=== PATIENT | female | born 1960 | race Caucasian/White ===

== ENCOUNTER 2017-04-30 18:35 | Inpatient (IN) | payer BC ==
[~2017-04-30] VITALS: Ht 160 cm; Wt 79.7 kg
[~2017-04-30 18:35] MED LIST: AMIL5TAB PO; BUTACAP2 PO; DUONI NEB; JANT5TAB2 PO; MORP1INJ45 PO; MSIR15 PO; VITA20003 PO; XANA1TAB6 PO
[2017-04-30 18:40] VITALS: BP 191/109; PULSE 107; RESP 22; TEMP 95; O2SAT 94
[2017-04-30] MEDS ORDERED: SODIUM CHLORIDE 0.9% FLUSH 5 ML FLUSH IV FLUSH PRN ×2 (18:45→20:45)
[2017-04-30 18:49] VITALS: TEMP 98.9; O2SAT 95
[2017-04-30] MEDS ORDERED: SYMB160A INH (18:49)
[2017-04-30] MEDS ORDERED: WARF-21 PO (18:49)
[2017-04-30] MEDS ORDERED: MODU550 PO (18:49)
[2017-04-30] MEDS ORDERED: ALBUAER3 INH (18:49)
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
[2017-04-30 19:02] VITALS: BP 199/91; PULSE 105; RESP 13; O2SAT 98
[2017-04-30 19:13] LABS: AUTOMATED NEUTROPHIL # 4.2 TH/MM3 (1.8-7.7); BASOPHIL # 0.1 TH/MM3 (0-0.2); BASOPHIL % 1.2 % (0.0-2.0); EOSINOPHIL % 0.6 % (0.0-4.0); HEMATOCRIT 37.7 % (35.0-46.0); HEMO FLAGS DIFF FINAL; LYMPHOCYTE # 1.7 TH/MM3 (1.0-4.8); MEAN CELL VOLUME 94.4 FL (80.0-100.0); MEAN CORPUSCULAR HEMOGLOBIN 32.8 PG (27.0-34.0); MEAN CORPUSCULAR HGB CONC 34.8 % (32.0-36.0); MONO % 10.1 % (0.0-8.0); NEUT % 63.1 % (16.0-70.0); PLATELET COUNT 426 TH/MM3 (150-450); RED BLOOD COUNT 3.99 MIL/MM3 (4.00-5.30); RED CELL DISTRIBUTION WIDTH 18.5 % (11.6-17.2); WHITE BLOOD COUNT 6.7 TH/MM3 (4.0-11.0)
[2017-04-30] MEDS ORDERED: LABETALOL HCL 100 MG/20 ML VIAL IV PUSH ONE (19:15)
[2017-04-30 19:24] LABS: APTT (PATIENT) 49.2 SEC (24.3-30.1); PROTHROMBIN TIME - PATIENT 94.3 SEC (9.8-11.6)
[2017-04-30 19:30] VITALS: BP 173/98; PULSE 91; RESP 16; O2SAT 97
--- NOTE | 2017-04-30 19:42 | RADRPT ---
EXAM DATE/TIME: 04/30/2017 19:09 [facility] COMPARISON: No previous studies available for comparison. INDICATIONS : Altered mental status. RADIATION DOSE: 30.58 CTDIvol (mGy) MEDICAL HISTORY : Hypertension. CVA. DVT. HEP C. COPD. SURGICAL HISTORY : Craniotomy. ENCOUNTER: Initial ACUITY: 1 day PAIN SCALE: Non-responsive LOCATION: cranial TECHNIQUE: Multiple contiguous axial images were obtained of the head. Using automated exposure control and adj ustment of the mA and/or kV according to patient size, radiation dose was kept as low as reasonably a chievable to obtain optimal diagnostic quality images. DICOM format image data is available electro nically for review and comparison. FINDINGS: There has been previous left temporal craniotomy. There is some encephalomalacia in the underlying br ain parenchyma. There is no evidence of intracranial mass or hemorrhage. There is nothing to suggest acute infarction. The extracranial structures are otherwise benign and intact. CONCLUSION: No acute intracranial findings Omer Harris MD on April 30, 2017 at 19:38 Board Certified Radiologist. This report was verified electronically.
[2017-04-30 19:43] LABS: ALT (GPT) 24 U/L (10-53)
[2017-04-30 19:45] LABS: ANION GAP 10 MEQ/L (5-15); AST (GOT) 29 U/L (15-37); BICARBONATE 22.9 MEQ/L (21.0-32.0); BLOOD UREA NITROGEN 12 MG/DL (7-18); CHLORIDE 101 MEQ/L (98-107); GLOMERULAR FILTRATION RATE 63 ML/MIN (>89); SODIUM (NA) 134 MEQ/L (136-145)
[2017-04-30 19:49] LABS: ALCOHOL LESS THAN 3 MG/DL (0-5); POTASSIUM 3.6 MEQ/L (3.5-5.1)
--- NOTE | 2017-04-30 19:49 | RADRPT ---
EXAM DATE/TIME: 04/30/2017 19:15 [facility] COMPARISON: CHEST SINGLE AP, January 04, 2016, 21:02. INDICATIONS : Syncopal episode. MEDICAL HISTORY : Hypertension. Cardiovascular disease. Chronic obstructive pulmonary disease. Asthma. SURGICAL HISTORY : None. ENCOUNTER: Initial ACUITY: 1 day PAIN SCORE: Non-responsive. LOCATION: Bilateral chest FINDINGS: Minimal scarring or atelectasis in the lateral left lung base. Mild patchy interstitial prominence. N o evidence of alveolar consolidation or effusion. Cardiomediastinal contours are satisfactory. CONCLUSION: Stable chest appearance. Omer Harris MD on April 30, 2017 at 19:46 Board Certified Radiologist. This report was verified electronically.
[2017-04-30 19:51] LABS: INTERNATIONAL NORMALIZED RATIO 7.8 RATIO
[2017-04-30 19:59] LABS: ALKALINE PHOSPHATASE 110 U/L (45-117); CREATINE KINASE 110 U/L (26-192); TOTAL BILIRUBIN ADULT 0.3 MG/DL (0.2-1.0)
[2017-04-30 20:00] VITALS: BP 166/86; PULSE 95; RESP 16; O2SAT 97
[2017-04-30 20:18] LABS: BLOOD, URINE NEG (NEG); COMMENT (UR) CATH-CULTURE IND; CULTURE IF INDICATED CATH CULTURE IND; GLUCOSE,URINE NEG (NEG); HYALINE CAST, URINE 13 /lpf (RARE); KETONE, URINE 10 mg/dL (NEG); MUCUS URINE FEW /lpf (OCC); NITRITE,URINE NEG (NEG); SQUAMOUS EPITHELIAL CELL URINE 4 /hpf (0-5); URINE COLOR YELLOW (YELLW/STRAW)
--- NOTE | 2017-04-30 20:34 | HHI.HP ---
[facility] Unknown Admission Diagnosis Diagnoses: (1) Encephalopathy Diagnosis: Principal (2) CVA (cerebral vascular accident) Diagnosis: Principal (3) UTI (urinary tract infection) Diagnosis: Principal (4) Hypertensive urgency Diagnosis: Principal (5) Supratherapeutic INR Diagnosis: Principal (6) Factor V Leiden Diagnosis: Principal Travel History International Travel<30 Days: No Contact w/Intl Traveler <30 Da: No Traveled to Known Affected Are: No History of Present Illness Is a 57-year-old female with a PMH of HTN, Anxiety, Depression, Factor V Leiden , s/p IVC Filter, on Coumadin, CAD, h/o CVA, Hepatitis C, COPD, Tobacco Abuse and h/o Alcohol who was brought to the ER by EMS secondary to altered mental status noted by Son. Per report, Son called EMS after he noted pt to be confused, not answering questions appropriately, repeating same words. Last seen normal at approx 10am per report. On arrival, pt unable to provide history , +expressive aphasia, no motor deficits noted. On arrival, BP 191/109, HR 107 , O2 sat 94% on RA, Afebrile. S/p Labetalol 10mg IV in ER, repeat BP 160's systolic. CBC unremarkable. Chemistry essentially unremarkable except for GFR 63. Troponin negative. Ammonia normal. INR 7.8. UA positive for UTI. Alcohol negative. Urine Drug Screen pending. CXR with no acute findings. CT Head negative. While in ER, pt w/ some improvement in aphasia, speaking more, answering more appropriately, however still w/ residual aphasia. Review of Systems Except as stated in HPI: all other systems reviewed are Neg ROS: Unable to obtain. Past Family Social History Past Medical History PMH: HTN, Anxiety, Depression, Factor V Leiden, s/p IVC Filter, on Coumadin, CAD, h/o CVA, Hepatitis C, COPD, Tobacco Abuse and h/o Alcohol Past Surgical History PAST SURGICAL HISTORY: IVC, , Back Surgery, Craniotomy, Hip Replacement Allergies: Coded Allergies: prednisone (Unverified Allergy, Severe, facial swelling, 10/25/17) Family History PAST FAMILY HISTORY: Reviewed. No h/o DM or CAD Social History PAST SOCIAL HISTORY: History of alcohol abuse per records, however unable to confirm. +Tobacco. Negative for drugs. Physical Exam Vital Signs Vital Signs Date Time Temp Pulse Resp B/P (MAP) Pulse Ox O2 Delivery O2 Flow Rate FiO2 04/30/17 19:02 105 13 199/91 (127) 98 Nasal Cannula 4.00 04/30/17 18:49 95 Nasal Cannula 3.00 04/30/17 18:49 98.9 04/30/17 18:44 95 Nasal Cannula 04/30/17 18:40 95.0 107 22 191/109 (136) 94 Physical Exam PE: GENERAL: Middle-aged white female in no acute distress. HEENT: PERRLA, EOMI. No scleral icterus or conjunctival pallor. No lid lag or facial droop. CARDIOVASCULAR: Regular rate and rhythm. No obvious murmurs to auscultation. No chest tenderness to palpation. RESPIRATORY: No obvious rhonchi or wheezing. Clear to auscultation. Breath sounds equal bilaterally. GASTROINTESTINAL: Abdomen soft, non-tender, nondistended. BS normal. MUSCULOSKELETAL: Extremities without clubbing, cyanosis, or edema. No obvious deformities. NEUROLOGICAL: Awake, alert, answers few sentences, +word finding difficulty. No focal neurologic deficits. Moving both upper and lower extremities spontaneously. Laboratory Laboratory Tests Test 04/30/17 18:50 04/30/17 18:55 04/30/17 19:40 White Blood Count 6.7 Red Blood Count 3.99 Hemoglobin 13.1 Hematocrit 37.7 Mean Corpuscular Volume 94.4 Mean Corpuscular Hemoglobin 32.8 Mean Corpuscular Hemoglobin Concent 34.8 Red Cell Distribution Width 18.5 Platelet Count 426 Mean Platelet Volume 8.2 Neutrophils (%) (Auto) 63.1 Lymphocytes (%) (Auto) 25.0 Monocytes (%) (Auto) 10.1 Eosinophils (%) (Auto) 0.6 Basophils (%) (Auto) 1.2 Neutrophils # (Auto) 4.2 Lymphocytes # (Auto) 1.7 Monocytes # (Auto) 0.7 Eosinophils # (Auto) 0.0 Basophils # (Auto) 0.1 CBC Comment DIFF FINAL Differential Comment Prothrombin Time 94.3 Prothromb Time International Ratio 7.8 Activated Partial Thromboplast Time 49.2 Blood Urea Nitrogen 12 Creatinine 0.93 Random Glucose 145 Total Protein 8.3 Albumin 3.9 Calcium Level 10.1 Alkaline Phosphatase 110 Aspartate Amino Transf (AST/SGOT) 29 Alanine Aminotransferase (ALT/SGPT) 24 Total Bilirubin 0.3 Sodium Level 134 Potassium Level 3.6 Chloride Level 101 Carbon Dioxide Level 22.9 Anion Gap 10 Estimat Glomerular Filtration Rate 63 Total Creatine Kinase 110 Troponin I LESS THAN 0.02 Thyroid Stimulating Hormone 3rd Gen 2.070 Ethyl Alcohol Level LESS THAN 3 Lactic Acid Level 1.7 Ammonia 19 Urine Color YELLOW Urine Turbidity HAZY Urine pH 6.0 Urine Specific [place] 1.044 Urine Protein 30 Urine Glucose (UA) NEG Urine Ketones 10 Urine Occult Blood NEG Urine Nitrite NEG Urine Bilirubin NEG Urine Urobilinogen 2.0 Urine Leukocyte Esterase SMALL Urine RBC 4 Urine WBC 6 Urine Squamous Epithelial Cells 4 Urine Hyaline Casts 13 Urine Mucus FEW Microscopic Urinalysis Comment CATH-CULTURE IND Date/Time Source Procedure Growth Status 04/30/17 18:55 Blood Peripheral Aerobic Blood Culture Pending Received 04/30/17 18:55 Blood Peripheral Anaerobic Blood Culture Pending Received 04/30/17 19:40 Urine Catheterized Urine Urine Culture Pending Received Result Diagram: 04/30/17184904/30/171849 Caprini VTE Risk Assessment Caprini VTE Risk Assessment: Mod/High Risk (score >= 2) VTE Pharm Contraindication: Coagulopathy,INR elevated Caprini Risk Assessment Model Point Value = 1 Point Value = 2 Point Value = 3 Point Value = 5 Age 41-60 Minor surgery BMI > 25 kg/m2 Swollen legs Varicose veins or History of unexplained or recurrent spontaneous Oral contraceptives or hormone replacement Sepsis (< 1 month) Serious lung disease, including pneumonia (< 1 month) Abnormal pulmonary function Acute myocardial infarction Congestive heart failure (< 1 month) History of inflammatory bowel disease Medical patient at bed rest Age 61-74 Arthroscopic surgery Major open surgery (> 45 min) Laparoscopic surgery (> 45 min) Malignancy Confined to bed (> 72 hours) Immobilizing plaster cast Central venous access Age >= 75 History of VTE Family history of VTE Factor V Leiden Prothrombin [id number] Lupus anticoagulant Anticardiolipin antibodies Elevated serum homocysteine Heparin-induced thrombocytopenia Other congenital or acquired thrombophilia Stroke (< 1 month) Elective arthroplasty Hip, pelvis, or leg fracture Acute spinal cord injury (< 1 month) Prophylaxis Regimen Total Risk Factor Score Risk Level Prophylaxis Regimen 0-1 Low Early ambulation 2 Moderate Order ONE of the following: *Sequential Compression Device (SCD) *Heparin 5000 units SQ BID 3-4 Higher Order ONE of the following medications: *Heparin 5000 units SQ TID *Enoxaparin/Lovenox 40 mg SQ daily (WT < 150 kg, CrCl > 30 mL/min) *Enoxaparin/Lovenox 30 mg SQ daily (WT < 150 kg, CrCl > 10-29 mL/min) *Enoxaparin/Lovenox 30 mg SQ BID (WT < 150 kg, CrCl > 30 mL/min) AND/OR *Sequential Compression Device (SCD) 5 or more Highest Order ONE of the following medications: *Heparin 5000 units SQ TID (Preferred with Epidurals) *Enoxaparin/Lovenox 40 mg SQ daily (WT < 150 kg, CrCl > 30 mL/min) *Enoxaparin/Lovenox 30 mg SQ daily (WT < 150 kg, CrCl > 10-29 mL/min) *Enoxaparin/Lovenox 30 mg SQ BID (WT < 150 kg, CrCl > 30 mL/min) AND *Sequential Compression Device (SCD) Assessment and Plan Problem List: (1) Encephalopathy ICD Code: G93.40 - Encephalopathy, unspecified (2) CVA (cerebral vascular accident) ICD Code: I63.9 - Cerebral infarction, unspecified (3) UTI (urinary tract infection) ICD Code: N39.0 - Urinary tract infection, site not specified (4) Hypertensive urgency ICD Code: I16.0 - Hypertensive urgency (5) Supratherapeutic INR ICD Code: R79.1 - Abnormal coagulation profile Status: Acute (6) Factor V Leiden ICD Code: D68.51 - Activated protein C resistance Status: Acute Assessment and Plan A/P: 1. Encephalopathy: Acute, possibly combination of CVA w/ Acute UTI, mildly improved at this time. Neuro checks q4. IV Abx for UTI. Monitor mental status. 2. CVA: Acute onset of expressive aphasia, word finding difficulty, now mildly improved, asking more questions, responding more appropriately however residual expressive aphasia. CT Head w/ no acute findings, images reviewed by me. H/o Factor V however on Coumadin, INR supratherapeutic. Check MRI/MRA, Echo, PT/ST for eval/tx. Consult Neurology. 3. UTI: Mild. U/a w/ UTI. Start IV Rocephin, IVF for hydration. 4. Hypertensive Urgency: BP 190's on arrival, s/p Labetalol 10mg IV x1 in ER, currently BP 160's, in light of CVA will allow for permissive HTN, Vasotec prn for BP >220 5. Supratherapeutic INR: On Coumadin for h/o Factor V, INR 7.8. No active bleeding. Will not reverse due to h/o Factor V and significant risk for clot. Repeat INR in am. 6. Factor V Leiden: h/o IVC Filter, on Coumadin as above. Hold Coumadin for now as supratherapeutic, resume once in therapeutic range. 7. DVT Prophylaxis: Hold Coumadin 8. Social work for d/c planning as needed. 9. Case discussed w/ ER physician at length. Physician Certification 2 Midnight Certification Type: Admission for Inpatient Services Order for Inpatient Services The services are ordered in accordance with Medicare regulations or non- Medicare payer requirements, as applicable. In the case of services not specified as inpatient-only, they are appropriately provided as inpatient services in accordance with the 2-midnight benchmark. Estimated LOS (days): 2 days is the estimated time the patient will need to remain in the hospital, assuming treatment plan goals are met and no additional complications. Post-Hospital Plan: Not yet determined Karely Rodarte MD Apr 30, 2017 20:34
[2017-04-30] MEDS ORDERED: ENALAPRILAT 1.25 MG/ML VIAL IV PUSH PRN (20:45)
[2017-04-30] MEDS ORDERED: DEXTROSE 50% IN WATER 50 ML VIAL(D50) IV PUSH PRN (20:45)
[2017-04-30] MEDS ORDERED: GLUCAGON 1 MG/ML VIAL OTHER PRN (20:45)
[2017-04-30] MEDS: INSULIN ASPART SUPPLEMENTAL SCALE SQ SCH (21:00)
[2017-04-30] MEDS: SODIUM CHLOR 0.9% 1000 ML INJ 1,000 ML IV SCH (21:30)
[2017-04-30] MEDS: SODIUM CHLORIDE 0.9% FLUSH 5 ML FLUSH IV FLUSH SCH (21:30)
[2017-04-30] MEDS ORDERED: oxyCODONE/ACETAMINOPHEN 5 MG/325 MG TAB PO ONE (22:30)
[2017-04-30 23:30] VITALS: BP 144/94; PULSE 79; RESP 17; TEMP 98.5; O2SAT 95
[2017-04-30] MEDS: cefTRIAXone INJ 1,000 MG in SODIUM CHLORIDE 0.9% INJ 100 ML IV SCH (23:54)
[2017-05-01] VITALS (8 sets, daily range): BP systolic 118–137; BP diastolic 70–80; PULSE 80–92; RESP 17–20; TEMP 98–98.4; O2SAT 92–95
[2017-05-01 07:38] LABS: AUTOMATED NEUTROPHIL # 2.1 TH/MM3 (1.8-7.7); BASOPHIL # 0.1 TH/MM3 (0-0.2); BASOPHIL % 1.4 % (0.0-2.0); EOSINOPHIL # 0.1 TH/MM3 (0-0.4); EOSINOPHIL % 2.5 % (0.0-4.0); HEMATOCRIT 34.7 % (35.0-46.0); HEMO FLAGS DIFF FINAL; LYMPHOCYTE # 1.9 TH/MM3 (1.0-4.8); MEAN CELL VOLUME 94.7 FL (80.0-100.0); MEAN CORPUSCULAR HEMOGLOBIN 30.8 PG (27.0-34.0); MEAN CORPUSCULAR HGB CONC 32.5 % (32.0-36.0); NEUT % 44.1 % (16.0-70.0); PLATELET COUNT 385 TH/MM3 (150-450); RED BLOOD COUNT 3.66 MIL/MM3 (4.00-5.30); RED CELL DISTRIBUTION WIDTH 18.7 % (11.6-17.2); WHITE BLOOD COUNT 4.7 TH/MM3 (4.0-11.0)
[2017-05-01 07:49] LABS: PROTHROMBIN TIME - PATIENT 153.2 SEC (9.8-11.6)
[2017-05-01 07:56] LABS: INTERNATIONAL NORMALIZED RATIO 12.4 RATIO
[2017-05-01] MEDS: INSULIN ASPART SUPPLEMENTAL SCALE SQ SCH ×4 (08:00→21:00)
[2017-05-01 08:43] LABS: HDL CHOLESTEROL 74.5 MG/DL (40.0-60.0); LDL CHOLESTEROL 63 MG/DL (0-99)
[2017-05-01 08:54] LABS: ALKALINE PHOSPHATASE 93 U/L (45-117); ALT (GPT) 17 U/L (10-53); ANION GAP 7 MEQ/L (5-15); AST (GOT) 19 U/L (15-37); BLOOD UREA NITROGEN 14 MG/DL (7-18); CHLORIDE 106 MEQ/L (98-107); GLOMERULAR FILTRATION RATE 106 ML/MIN (>89); POTASSIUM 3.6 MEQ/L (3.5-5.1); SODIUM (NA) 138 MEQ/L (136-145); TOTAL BILIRUBIN ADULT 0.2 MG/DL (0.2-1.0)
[2017-05-01] MEDS ORDERED: PHYTONADIONE 10 MG/ML VIAL SQ ONE (09:00)
[2017-05-01] MEDS ORDERED: INFLUENZA VIRUS VACCINE (QUADRIVALENT) 0.5 ML SYR IM ONE (09:00)
[2017-05-01] MEDS ORDERED: PNEUMOCOCCAL POLYVALENT INJ 25 MCG/0.5 ML SYR IM ONE (09:00)
[2017-05-01] MEDS: SODIUM CHLORIDE 0.9% FLUSH 5 ML FLUSH IV FLUSH SCH ×2 (09:20→21:00)
[2017-05-01] MEDS: RESP: ALBUTEROL 2.5 MG/3 ML NEB (PRN) NEB ×2 (09:20→20:07)
--- NOTE | 2017-05-01 10:27 | RADRPT ---
EXAM DATE/TIME: 05/01/2017 09:45 [facility] COMPARISON: MRI BRAIN W/O CONTRAST, May 01, 2017, 9:45. INDICATIONS : CVA. Difficulty with speech. MEDICAL HISTORY : Hypertension. Chronic obstructive pulmonary disease. SURGICAL HISTORY : Total knee replacement, left. Jaw wired. Facial surgery. Left femur ralph. ENCOUNTER: Subsequent ACUITY: 2 day PAIN SCORE: 0/10 LOCATION: head. Please note a normal MRA of the brain does not entirely exclude the possibility of a small aneurysm, nor the possibility of distal intracranial vessel disease. TECHNIQUE: 3D time of flight MRA was performed. Source images, multiplanar STS MIP, and 3D volume MIP reconstru ctions were reviewed. FINDINGS: Anterior circulation: Distal intracranial internal carotid arteries are patent with flow extending to the middle and anteri or cerebral arteries. There is no evidence for aneurysm, vessel truncation or stenosis, and no eviden ce for vascular malformation. Posterior circulation: Slightly asymmetrical distal vertebral arteries with flow extending to basilar artery. origin of the right PATIENT PARTNER. There is no evidence for aneurysm, vessel truncation or stenosis, and no evidence f or vascular malformation. CONCLUSION: 1. Unremarkable MRA examination of the brain. Specifically, no evidence for large vessel occlusion as questioned. Addy Avalos MD on May 01, 2017 at 10:22 Board Certified Radiologist. This report was verified electronically.
--- NOTE | 2017-05-01 11:48 | RADRPT ---
EXAM DATE/TIME: 05/01/2017 09:45 [place] COMPARISON: No previous studies available for comparison. INDICATIONS : CVA. Difficulty with speech. MEDICAL HISTORY : Chronic obstructive pulmonary disease. Hypertension. SURGICAL HISTORY : Total knee replacement, left. Wired jaw. Facial surgeries. Left femur rodding. ENCOUNTER: Subsequent ACUITY: 2 day PAIN SCORE: 0/10 LOCATION: head. TECHNIQUE: Multiplanar, multisequence MRI of the brain was performed without contrast. FINDINGS: CEREBRUM: The ventricles are normal for age. No evidence of midline shift, mass lesion, hemorrhage or acute in farction. No extraaxial fluid collections are seen. The pituitary gland and suprasellar cistern are normal in configuration. There is an apparent old small subcortical infarct or post traumatic change of the right frontal lobe. WHITE MATTER: A few subcentimeter foci of chronic flair signal abnormality seen in the white matter of both cerebra l hemispheres. POSTERIOR FOSSA: The cerebellum and brainstem are intact. The 4th ventricle is midline. The cerebellopontine angle is unremarkable. The cerebellar tonsils are normal in position. DIFFUSION IMAGING: No focal areas of restricted diffusion are seen. No evidence of acute infarction. EXTRACRANIAL: The visualized portions of the orbits and paranasal sinuses are unremarkable. CONCLUSION: 1. No acute infarct or other acute intracranial abnormality demonstrated. 2. Apparent small, old infarct or area of posttraumatic change of the right frontal lobe. 3. Mild chronic white matter ischemic changes. Omer Cross MD on May 01, 2017 at 11:44 Board Certified Radiologist. This report was verified electronically.
[2017-05-01] MEDS: BUDESONIDE-FORMOTEROL 160/4.5 MCG INHALER INH SCH ×2 (12:35→21:00)
[2017-05-01] MEDS: NICOTINE 14 MG/24 HR PATCH T-DERMAL SCH (12:36)
--- NOTE | 2017-05-01 13:17 | MB ---
cc: ARLETTE MARCUS MD DATE OF CONSULTATION 05/01/2017 REASON FOR CONSULTATION Stroke, "CVA". HISTORY OF PRESENT ILLNESS Ms. Lauren is a 57-year-old female with past medical history of hypertension, anxiety depression, factor V Leiden deficiency status post IVC filter on Coumadin, coronary artery disease, history of two strokes first one was 1983 where she lost her right peripheral vision, the second was in 2002 with a presentation of left lower extremity numbness; hepatitis C, COPD, tobacco abuse and a history of alcohol use. She was brought to the [facility] yesterday afternoon by EMS because of altered mental status noted by her son with what she described as inability to say the right words "I couldn't get the words out." Denies headache, double vision, blurred vision, slurred speech, numbness of the face, weakness of an extremity. On arrival to the emergency room, the blood pressure was elevated at 191/109 with a tachycardia of 107 beats per minute. The UA was positive for UTI. Alcohol was negative. UDS was positive for opiates, barbiturates and benzodiazepines. A head CT without contrast with no acute intracranial abnormality. Of note, the patient states that she took a double dose of Coumadin because she thought she was having a stroke and she took the extra dose of Coumadin. REVIEW OF SYSTEMS A 12-point review of systems is negative except for what is stated in the HPI. PAST MEDICAL HISTORY 1. Hypertension 2. Anxiety depression 3. Factor V Leiden status post IV filter on Coumadin 4. Coronary artery disease 5. History of two strokes one with loss of right peripheral vision in 1983, the other one in 1983 and the other in 2002 with left lower extremity numbness. 6. COPD 7. Tobacco abuse and alcohol abuse. PAST SURGICAL HISTORY 1. IVC filter 2. 3. Back surgery 4. Craniectomy 5. Hip replacement 6. Multiple surgeries on the left lower extremity. ALLERGIES PREDNISONE FAMILY HISTORY Not relevant. SOCIAL HISTORY Alcohol abuse, tobacco abuse. Denied drugs. PHYSICAL EXAM GENERAL: Awake, alert in mild distress, good historian. HEENT: Atraumatic, normocephalic. Intact hearing. Intact vision. CARDIOVASCULAR: Regular rate and rhythm. RESPIRATORY: Cough and phlegm with shortness of breath. GASTROINTESTINAL: Soft abdomen nontender. MUSCULOSKELETAL: Moves extremities without clubbing or cyanosis. Multiple scars of multiple surgeries on the left lower extremity. NEUROLOGIC: Awake, alert, oriented to time, person and place. No dysarthria. No dysphasia. Intact external ocular motility. Pupils are 3 mm bilateral reacting to light equally. No nystagmus. No diplopia. No facial asymmetry. Cranial nerves II-XII are grossly intact. Right visual field cut. Motor sensory examination bilateral upper extremity and lower extremity normal tone. No abnormal movement, muscle strength. Sensation to light touch and temperature intact bilateral and symmetrical. [id number] is intact. PSYCHOLOGICAL: Cooperative. No hallucinations. Normal behavior. LABORATORY DATA White blood cells 4.7, hemoglobin 11.3, MCV 94.7, platelet 385. Sodium 138, potassium 3.6, anion gap 25, BUN 7, creatinine 14, calcium 8.3, total protein 3 , HDL 74.5, cholesterol 150, TSH 2.7. UDS positive for opiates, barbiturate and benzos. INR 12.4. DIAGNOSTIC IMAGING - Head CT scan without contrast was negative for an acute intracranial abnormality. - Brain MRI revealed no acute infarction or other acute intracranial abnormality , apparent small old ischemia on the right frontal lobe, mild chronic white matter ischemic changes. - Head MRA unremarkable. DIAGNOSTIC IMPRESSION 1. Encephalopathy likely related to metabolic/infectious etiology unlikely to be secondary to a stroke. 2. History of remote stroke x2 with right peripheral vision abnormality and left lower extremity numbness. 3. UTI 4. Hypertensive urgency 5. Supra-therapeutic INR, accidental intake of a second dose. 6. Factor V Leiden deficiency on Coumadin, IVC filter port. PLAN 1. Neuro checks q.4 hourly 2. Hold Coumadin, until INR is therapeutic 3. Continue supportive medical therapy 4. DVT prophylaxis SCD's. 5. Thank you for the opportunity to participate in the care of the patient. 6. No need for further neurologic work up, neurologic exam is non-focal and no evidence of an acute neurologic abnormality on the neurological tests MD TIFF [place]/BRY /12:30 PM /12:51 PM [facility]IL[facility]
[2017-05-01] MEDS: SODIUM CHLOR 0.9% 1000 ML INJ 1,000 ML IV SCH ×2 (13:35→13:40)
--- NOTE | 2017-05-01 15:03 | EKG ---
Date Performed: 04/30/2017 Time Performed: 18:43:54 PTAGE: 57 years EKG: SINUS TACHYCARDIA MARKED LEFT AXIS DEVIATION ABNORMAL ECG INTERPRETATION BASED ON A DEFAULT AGE OF 40 YEARS PREVIOUS TRACING : 08/12/2015 22.58 Compared to prior tracing no significant change DOCTOR: Pam Wheatley Interpretating Date/Time 05/01/2017 14:55:54
[2017-05-01 15:39] LABS: HEMOGLOBIN A1a 1.2 %; HEMOGLOBIN A1b 1.8 %; HEMOGLOBIN Ao 84.2 %; HEMOGLOBIN LA1C 2.1 %; HEMOGLOBIN P3 5.6 %
--- NOTE | 2017-05-01 15:50 | ECHRPT ---
Indication: CVA/TIA CONCLUSIONS Technically very difficult study. Grossly, left ventricular function appears to be normal. Wall mo tion abnormalities cannot be excluded. Left ventricular size and wall thickness appear grossly normal. Aortic valve very poorly visualized. No aortic valve stenosis or regurgitation. BP: 123 / 80 HR: 81 Rhythm: Sinus MEASUREMENTS (Male / Female) Normal Values Technical Quality:Poor 2D ECHO LV Diastolic Diameter PLAX 4.1 cm 4.2 - 5.9 / 3.9 - 5.3 cm LV Systolic Diameter PLAX 2.8 cm IVS Diastolic Thickness 1.0 cm 0.6 - 1.0 / 0.6 - 0.9 cm LVPW Diastolic Thickness 1.0 cm 0.6 - 1.0 / 0.6 - 0.9 cm LV Relative Wall Thickness 0.5 LVOT Diameter 1.9 cm M-MODE Aortic Root Diameter MM 2.4 cm LA Systolic Diameter MM 2.2 cm LA Ao Ratio MM 0.9 AV Cusp Separation MM 2.2 cm DOPPLER AV Peak Velocity 106.0 cm/s AV Peak Gradient 4.5 mmHg LVOT Peak Velocity 99.2 cm/s LVOT Peak Gradient 3.9 mmHg AV Area Cont Eq pk 2.7 cm Mitral E Point Velocity 70.1 cm/s Mitral A Point Velocity 80.0 cm/s Mitral E to A Ratio 0.9 LV E' Lateral Velocity 11.1 cm/s Mitral E to LV E' Lateral Ratio 6.3 LV E' Septal Velocity 9.8 cm/s Mitral E to LV E' Septal Ratio 7.1 PV Peak Velocity 107.0 cm/s PV Peak Gradient 4.6 mmHg FINDINGS LEFT VENTRICLE Technically very difficult study. Grossly, left ventricular function appears to be normal. Wall mo tion abnormalities cannot be excluded. Left ventricular size and wall thickness appear grossly normal. RIGHT VENTRICLE Normal right ventricular size and systolic function. LEFT ATRIUM The left atrial size is normal. RIGHT ATRIUM The right atrial size is normal. ATRIAL SEPTUM Normal atrial septal thickness without atrial level shunting by limited color doppler interrogation. AORTA The aortic root and proximal ascending aorta are normal in size on limited imaging. MITRAL VALVE Structurally normal mitral valve. No mitral valve stenosis or regurgitation. AORTIC VALVE Aortic valve very poorly visualized. No aortic valve stenosis or regurgitation. TRICUSPID VALVE Structurally normal tricuspid valve. No tricuspid valve stenosis or regurgitation. PULMONARY VALVE The pulmonary valve is not well visualized. VESSELS The inferior vena cava is normal in size. PERICARDIUM No pericardial effusion. Honorio Hines MD (Electronically Signed) Final Date:01 May 2017 15:49
--- NOTE | 2017-05-01 16:01 | HHI.PR ---
Subjective Remarks Follow up expressive aphasia, encephalopathy. Patient states that she is still having difficulty finding words, but it is improving. She feels that her confusion is improving as well. Denies chest pain, dyspnea. Objective Vitals Vital Signs Date Time Temp Pulse Resp B/P (MAP) Pulse Ox O2 Delivery O2 Flow Rate FiO2 05/01/17 12:00 98.3 82 18 118/70 (86) 92 05/01/17 08:00 98.0 92 20 136/79 (98) 92 05/01/17 05:33 98.1 81 17 123/80 (94) 95 05/01/17 04:16 80 04/30/17 23:30 98.5 79 17 144/94 (111) 95 04/30/17 21:35 04/30/17 20:00 95 16 166/86 (112) 97 Nasal Cannula 4.00 04/30/17 19:30 91 16 173/98 (123) 97 Nasal Cannula 4.00 04/30/17 19:02 105 13 199/91 (127) 98 Nasal Cannula 4.00 04/30/17 18:49 95 Nasal Cannula 3.00 04/30/17 18:49 98.9 04/30/17 18:44 95 Nasal Cannula 04/30/17 18:40 95.0 107 22 191/109 (136) 94 I/O 04/30/17 04/30/17 04/30/17 05/01/17 05/01/17 05/01/17 07:00 15:00 23:00 07:00 15:00 23:00 Intake Total 970 ml Balance 970 ml Intake Oral 240 ml IV Total 730 ml # Voids 1 1 Result Diagram: 05/01/17 0647 05/01/17 0647 Imaging Last Impressions Head Magnetic Resonance Angiography 05/01/17 0000 Signed Impressions: Service Date/Time: April 09:45 - CONCLUSION: 1. Unremarkable MRA examination of the brain. Specifically, no evidence for large vessel occlusion as questioned. Addy Avalos MD Brain MRI 05/01/17 0000 Signed Impressions: Service Date/Time: April 09:45 - CONCLUSION: 1. No acute infarct or other acute intracranial abnormality demonstrated. 2. Apparent small , old infarct or area of posttraumatic change of the right frontal lobe. 3. Mild chronic white matter ischemic changes. Omer Cross MD Head CT 04/30/171844 Signed Impressions: Service Date/Time: Sunday, April 30, 2017 19:09 - CONCLUSION: No acute intracranial findings Omer Harris MD Chest X-Ray 04/30/171844 Signed Impressions: Service Date/Time: Sunday, April 30, 2017 19:15 - CONCLUSION: Stable chest appearance. Omer Harris MD Objective Remarks General: No acute distress. Some difficulty finding words. Heart: Regular rate and rhythm. No murmur. Lungs: Clear to auscultation bilaterally. No wheezes, rales, or rhonchi. Breathing is nonlabored. Abdomen: Soft, nontender, nondistended. Extremities: No lower extremity edema. Multiple surgical scars left leg. Psych: Alert, answers questions appropriately. Procedures None Urinary Catheter: No Vascular Central Line Catheter: No A/P Problem List: (1) Encephalopathy ICD Code: G93.40 - Encephalopathy, unspecified (2) CVA (cerebral vascular accident) ICD Code: I63.9 - Cerebral infarction, unspecified (3) UTI (urinary tract infection) ICD Code: N39.0 - Urinary tract infection, site not specified (4) Hypertensive urgency ICD Code: I16.0 - Hypertensive urgency (5) Supratherapeutic INR ICD Code: R79.1 - Abnormal coagulation profile Status: Acute (6) Factor V Leiden ICD Code: D68.51 - Activated protein C resistance Status: Acute Assessment and Plan 1. Encephalopathy: Likely metabolic secondary to UTI. Appreciate neurology recommendations. Does not appear to be acute CVA. Continue neuro checks. Confusion improving. 2. History of CVA: Patient has no onset of expressive aphasia. Difficulty finding words is improving. Per neurology, not likely secondary to acute CVA. MRI/MRA noted. Continue PT/ST/OT. 3. UTI: Continue IV fluids, antibiotics. 4. Hypertensive urgency: Allow permissive hypertension. Blood pressure improved since arrival to the ER. 5. Supratherapeutic INR: Patient took extra Coumadin because she believed she was having a stroke. INR significantly elevated today. Given vitamin K. Recheck INR this afternoon. Want to maintain in therapeutic range secondary to significant risk for clot due to factor V deficiency. IVC filter in place. Coumadin on hold. Joe Quispe MD May 01, 2017 16:01
[2017-05-01 19:54] LABS: PROTHROMBIN TIME - PATIENT 120.1 SEC (9.8-11.6)
[2017-05-01 19:59] LABS: INTERNATIONAL NORMALIZED RATIO 9.8 RATIO
[2017-05-01] MEDS: cefTRIAXone INJ 1,000 MG in SODIUM CHLORIDE 0.9% INJ 100 ML IV SCH (22:00)
[2017-05-02] VITALS (8 sets, daily range): BP systolic 119–159; BP diastolic 66–80; PULSE 85–95; RESP 17–20; TEMP 97.9–98.5; O2SAT 93–97
[2017-05-02] MEDS ORDERED: PHYTONADIONE INJ 1 MG/0.5 ML AMP SQ ONE (06:00)
[2017-05-02] MEDS: INSULIN ASPART SUPPLEMENTAL SCALE SQ SCH ×4 (08:00→20:12)
[2017-05-02] MEDS: NICOTINE 14 MG/24 HR PATCH T-DERMAL SCH (08:14)
[2017-05-02] MEDS: BUDESONIDE-FORMOTEROL 160/4.5 MCG INHALER INH SCH ×2 (08:14→20:12)
[2017-05-02] MEDS: REMOVE OLD PATCH T-DERMAL SCH (08:14)
[2017-05-02] MEDS: SODIUM CHLORIDE 0.9% FLUSH 5 ML FLUSH IV FLUSH SCH ×2 (08:14→20:12)
[2017-05-02] MEDS: RESP: ALBUTEROL 2.5 MG/3 ML NEB (PRN) NEB (08:41)
[2017-05-02 09:38] LABS: AUTOMATED NEUTROPHIL # 2.4 TH/MM3 (1.8-7.7); BASOPHIL # 0.1 TH/MM3 (0-0.2); BASOPHIL % 1.2 % (0.0-2.0); EOSINOPHIL # 0.1 TH/MM3 (0-0.4); EOSINOPHIL % 1.8 % (0.0-4.0); HEMATOCRIT 34.7 % (35.0-46.0); HEMO FLAGS DIFF FINAL; LYMPH % 27.2 % (9.0-44.0); LYMPHOCYTE # 1.1 TH/MM3 (1.0-4.8); MEAN CELL VOLUME 94.9 FL (80.0-100.0); MEAN CORPUSCULAR HGB CONC 32.7 % (32.0-36.0); MONO % 12.1 % (0.0-8.0); NEUT % 57.7 % (16.0-70.0); PLATELET COUNT 368 TH/MM3 (150-450); RED BLOOD COUNT 3.66 MIL/MM3 (4.00-5.30); RED CELL DISTRIBUTION WIDTH 19.1 % (11.6-17.2); WHITE BLOOD COUNT 4.1 TH/MM3 (4.0-11.0)
[2017-05-02 09:44] LABS: INTERNATIONAL NORMALIZED RATIO 3.2 RATIO; PROTHROMBIN TIME - PATIENT 37.8 SEC (9.8-11.6)
[2017-05-02 09:53] LABS: BICARBONATE 19.5 MEQ/L (21.0-32.0); POTASSIUM 3.4 MEQ/L (3.5-5.1)
[2017-05-02] MEDS ORDERED: PNEUMOCOCCAL POLYVALENT INJ 25 MCG/0.5 ML SYR IM ONE (11:00)
[2017-05-02] MEDS ORDERED: INFLUENZA VIRUS VACCINE (QUADRIVALENT) 0.5 ML SYR IM ONE (11:00)
--- NOTE | 2017-05-02 11:42 | HHI.PR ---
Subjective Remarks Follow up expressive aphasia, ?UTI. Patient still with some difficulty finding words, but feels that it is improving. Denies chest pain, dyspnea. No active bleeding. 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 Objective Vitals Vital Signs Date Time Temp Pulse Resp B/P (MAP) Pulse Ox O2 Delivery O2 Flow Rate FiO2 05/02/17 08:42 94 05/02/17 08:04 97.9 92 17 131/73 (92) 93 05/02/17 08:00 87 05/02/17 04:00 97.9 95 18 119/66 (83) 97 05/02/17 00:00 98.2 85 18 123/79 (94) 94 05/01/17 20:08 93 05/01/17 20:00 83 05/01/17 20:00 98.4 89 18 126/76 (93) 93 05/01/17 19:48 87 05/01/17 16:00 98.2 86 18 137/73 (94) 93 05/01/17 12:00 98.3 82 18 118/70 (86) 92 I/O 05/01/17 05/01/17 05/01/17 05/02/17 05/02/17 05/02/17 07:00 15:00 23:00 07:00 15:00 23:00 Intake Total 970 ml 370 ml 480 ml Balance 970 ml 370 ml 480 ml Intake Oral 240 ml 480 ml IV Total 730 ml 370 ml # Voids 1 3 2 2 # Bowel Movements 0 Result Diagram: 05/02/17 0829 05/02/17828 Imaging Last Impressions Head Magnetic Resonance Angiography 05/01/17 0000 Signed Impressions: Service Date/Time: April 09:45 - CONCLUSION: 1. Unremarkable MRA examination of the brain. Specifically, no evidence for large vessel occlusion as questioned. Addy Avalos MD Brain MRI 05/01/17 0000 Signed Impressions: Service Date/Time: April 09:45 - CONCLUSION: 1. No acute infarct or other acute intracranial abnormality demonstrated. 2. Apparent small , old infarct or area of posttraumatic change of the right frontal lobe. 3. Mild chronic white matter ischemic changes. Omer Cross MD Head CT 04/30/171844 Signed Impressions: Service Date/Time: Sunday, April 30, 2017 19:09 - CONCLUSION: No acute intracranial findings Omer Harris MD Chest X-Ray 04/30/171844 Signed Impressions: Service Date/Time: Sunday, April 30, 2017 19:15 - CONCLUSION: Stable chest appearance. Omer Harris MD Objective Remarks General: No acute distress. Some difficulty finding words. Heart: Regular rate and rhythm. No murmur. Lungs: Clear to auscultation bilaterally. No wheezes, rales, or rhonchi. Breathing is nonlabored. Abdomen: Soft, nontender, nondistended. Extremities: No lower extremity edema. Multiple surgical scars left leg. Psych: Alert, answers questions appropriately. Procedures None Urinary Catheter: No Vascular Central Line Catheter: No A/P Problem List: (1) Encephalopathy ICD Code: G93.40 - Encephalopathy, unspecified (2) CVA (cerebral vascular accident) ICD Code: I63.9 - Cerebral infarction, unspecified (3) UTI (urinary tract infection) ICD Code: N39.0 - Urinary tract infection, site not specified (4) Hypertensive urgency ICD Code: I16.0 - Hypertensive urgency (5) Supratherapeutic INR ICD Code: R79.1 - Abnormal coagulation profile Status: Acute (6) Factor V Leiden ICD Code: D68.51 - Activated protein C resistance Status: Acute Assessment and Plan 1. Encephalopathy: Likely metabolic secondary to UTI. Appreciate neurology recommendations. Does not appear to be acute CVA. Continue neuro checks. Confusion improving. 2. History of CVA: Patient has no onset of expressive aphasia. Difficulty finding words is improving. Per neurology, not likely secondary to acute CVA. MRI/MRA noted. Continue PT/ST/OT. 3. UTI: Continue IV fluids, antibiotics. Urine culture growing Lactobacillus. 4. Hypertensive urgency: Allow permissive hypertension. Blood pressure improved since arrival to the ER. 5. Supratherapeutic INR, Factor V Leiden: Patient took extra Coumadin because she believed she was having a stroke. Received total of 7.5mg subQ vitamin K. INR now improved. Consult hematology. Discharge Planning Possible discharge home tomorrow if cleared by neurology and pending further clinical improvement. Joe Quispe MD May 02, 2017 11:42
[2017-05-02] MEDS: oxyCODONE/ACETAMINOPHEN 5 MG/325 MG TAB PO PRN ×3 (12:00→23:12)
[2017-05-02] MEDS: NS + KCL 20 MEQ INJ 1,000 ML IV SCH (12:00)
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
[2017-05-02] MEDS: cefTRIAXone INJ 1,000 MG in SODIUM CHLORIDE 0.9% INJ 100 ML IV SCH (22:28)
[2017-05-03] VITALS (9 sets, daily range): BP systolic 124–174; BP diastolic 70–91; PULSE 77–94; RESP 18–20; TEMP 97.9–98.8; O2SAT 93–96
[2017-05-03] MEDS: NS + KCL 20 MEQ INJ 1,000 ML IV SCH ×2 (02:18→14:17)
[2017-05-03] MEDS: INSULIN ASPART SUPPLEMENTAL SCALE SQ SCH (08:00)
[2017-05-03] MEDS: oxyCODONE/ACETAMINOPHEN 5 MG/325 MG TAB PO PRN ×3 (08:00→20:54)
[2017-05-03] MEDS: REMOVE OLD PATCH T-DERMAL SCH (08:01)
[2017-05-03] MEDS: SODIUM CHLORIDE 0.9% FLUSH 5 ML FLUSH IV FLUSH SCH ×2 (08:01→20:54)
[2017-05-03] MEDS: NICOTINE 14 MG/24 HR PATCH T-DERMAL SCH (08:01)
[2017-05-03] MEDS: BUDESONIDE-FORMOTEROL 160/4.5 MCG INHALER INH SCH ×2 (08:01→20:54)
[2017-05-03 09:12] LABS: AUTOMATED NEUTROPHIL # 3.7 TH/MM3 (1.8-7.7); BASOPHIL % 0.5 % (0.0-2.0); EOSINOPHIL # 0.1 TH/MM3 (0-0.4); EOSINOPHIL % 1.3 % (0.0-4.0); HEMATOCRIT 35.7 % (35.0-46.0); HEMO FLAGS DIFF FINAL; LYMPH % 22.9 % (9.0-44.0); LYMPHOCYTE # 1.3 TH/MM3 (1.0-4.8); MEAN CELL VOLUME 95.3 FL (80.0-100.0); MEAN CORPUSCULAR HEMOGLOBIN 30.8 PG (27.0-34.0); MEAN CORPUSCULAR HGB CONC 32.3 % (32.0-36.0); MONO % 9.8 % (0.0-8.0); NEUT % 65.5 % (16.0-70.0); PLATELET COUNT 343 TH/MM3 (150-450); RED BLOOD COUNT 3.74 MIL/MM3 (4.00-5.30); RED CELL DISTRIBUTION WIDTH 18.5 % (11.6-17.2); WHITE BLOOD COUNT 5.6 TH/MM3 (4.0-11.0)
[2017-05-03] MEDS: AMOXICILLIN/CLAVULANATE K 875 MG TAB PO SCH ×2 (09:15→20:53)
[2017-05-03 09:19] LABS: INTERNATIONAL NORMALIZED RATIO 1.3 RATIO; PROTHROMBIN TIME - PATIENT 14.6 SEC (9.8-11.6)
[2017-05-03 09:32] LABS: BICARBONATE 22.5 MEQ/L (21.0-32.0); POTASSIUM 3.6 MEQ/L (3.5-5.1)
[2017-05-03] MEDS: RESP: ALBUTEROL 2.5 MG/3 ML NEB (PRN) NEB (10:38)
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
--- NOTE | 2017-05-03 14:11 | HHI.PR ---
Subjective Remarks Follow up dysphasia. Patient states that her speech is about the same. Still some difficulty finding words. She reports dyspnea, which is chronic but worse today. She attributes the worsening to increased activity today. No chest pain. Objective Vitals Vital Signs Date Time Temp Pulse Resp B/P (MAP) Pulse Ox O2 Delivery O2 Flow Rate FiO2 05/03/17 12:42 98.8 77 20 135/82 (99) 94 05/03/17 10:40 95 21 05/03/17 09:17 18 05/03/17 08:24 98.1 93 20 174/80 (111) 96 05/03/17 08:00 77 05/03/17 04:32 97.9 82 20 151/70 (97) 95 05/03/17 00:19 98.0 81 18 138/80 (99) 93 05/02/17 20:43 98.5 88 20 128/76 (93) 95 05/02/17 16:25 98.2 90 18 120/75 (90) 93 I/O 05/02/17 05/02/17 05/02/17 05/03/17 05/03/17 05/03/17 07:00 15:00 23:00 07:00 15:00 23:00 Intake Total 860 ml 360 ml 7777 ml Balance 860 ml 360 ml 7777 ml Intake Oral 860 ml 360 ml IV Total 7777 ml # Voids 2 3 2 # Bowel Movements 1 0 Result Diagram: 05/03/17 0843 05/03/17 0843 Imaging Last Impressions Head Magnetic Resonance Angiography 05/01/17 0000 Signed Impressions: Service Date/Time: April 09:45 - CONCLUSION: 1. Unremarkable MRA examination of the brain. Specifically, no evidence for large vessel occlusion as questioned. Addy Avalos MD Brain MRI 05/01/17 0000 Signed Impressions: Service Date/Time: April 09:45 - CONCLUSION: 1. No acute infarct or other acute intracranial abnormality demonstrated. 2. Apparent small , old infarct or area of posttraumatic change of the right frontal lobe. 3. Mild chronic white matter ischemic changes. Omer Cross MD Head CT 04/30/17 8765 Signed Impressions: Service Date/Time: Sunday, April 30, 2017 19:09 - CONCLUSION: No acute intracranial findings Omer Harris MD Chest X-Ray 04/30/17 0116 Signed Impressions: Service Date/Time: Sunday, April 30, 2017 19:15 - CONCLUSION: Stable chest appearance. Omer Harris MD Objective Remarks General: No acute distress. Some difficulty finding words. Heart: Regular rate and rhythm. No murmur. Lungs: Mild scattered wheeze. Breathing is nonlabored. Abdomen: Soft, nontender, nondistended. Extremities: No lower extremity edema. Multiple surgical scars left leg. Psych: Alert, answers questions appropriately. Procedures None Urinary Catheter: No Vascular Central Line Catheter: No A/P Problem List: (1) Encephalopathy ICD Code: G93.40 - Encephalopathy, unspecified (2) CVA (cerebral vascular accident) ICD Code: I63.9 - Cerebral infarction, unspecified (3) UTI (urinary tract infection) ICD Code: N39.0 - Urinary tract infection, site not specified (4) Hypertensive urgency ICD Code: I16.0 - Hypertensive urgency (5) Supratherapeutic INR ICD Code: R79.1 - Abnormal coagulation profile Status: Resolved (6) Factor V Leiden ICD Code: D68.51 - Activated protein C resistance Status: Acute Assessment and Plan 1. Encephalopathy: Likely metabolic secondary to UTI. Appreciate neurology recommendations. Does not appear to be acute CVA. Continue neuro checks. Confusion improved. 2. History of CVA: Patient has no onset of expressive aphasia. Difficulty finding words is improving. Per neurology, not likely secondary to acute CVA. MRI/MRA noted. Continue PT/ST/OT. 3. UTI: Urine culture growing Lactobacillus. Continue Augmentin. 4. Hypertensive urgency: Allow permissive hypertension. Blood pressure improved since arrival to the ER. 5. Supratherapeutic INR, Factor V Leiden: Patient took extra Coumadin because she believed she was having a stroke. Received total of 7.5mg subQ vitamin K. INR now subtherapeutic. Restart Coumadin today. Appreciate hematology recommendations. Discharge Planning Plan for discharge home tomorrow pending repeat INR and further clinical improvement. Joe Quispe MD May 03, 2017 14:11
[2017-05-03] MEDS: WARFARIN SOD 7.5 MG TAB PO SCH (14:16)
[2017-05-04] VITALS (8 sets, daily range): BP systolic 136–161; BP diastolic 77–96; PULSE 75–91; RESP 18–20; TEMP 97.4–98.3; O2SAT 93–98
[2017-05-04] MEDS: oxyCODONE/ACETAMINOPHEN 5 MG/325 MG TAB PO PRN ×4 (03:37→21:24)
[2017-05-04] MEDS: NS + KCL 20 MEQ INJ 1,000 ML IV SCH ×2 (05:33→21:26)
[2017-05-04 07:35] LABS: AUTOMATED NEUTROPHIL # 2.8 TH/MM3 (1.8-7.7); BASOPHIL % 0.7 % (0.0-2.0); EOSINOPHIL # 0.1 TH/MM3 (0-0.4); EOSINOPHIL % 1.4 % (0.0-4.0); HEMATOCRIT 33.5 % (35.0-46.0); HEMO FLAGS DIFF FINAL; INTERNATIONAL NORMALIZED RATIO 1.1 RATIO; LYMPH % 24.4 % (9.0-44.0); LYMPHOCYTE # 1.1 TH/MM3 (1.0-4.8); MEAN CELL VOLUME 95.5 FL (80.0-100.0); MEAN CORPUSCULAR HEMOGLOBIN 30.7 PG (27.0-34.0); MEAN CORPUSCULAR HGB CONC 32.2 % (32.0-36.0); MONO % 10.8 % (0.0-8.0); NEUT % 62.7 % (16.0-70.0); PLATELET COUNT 298 TH/MM3 (150-450); WHITE BLOOD COUNT 4.4 TH/MM3 (4.0-11.0)
[2017-05-04] MEDS: AMOXICILLIN/CLAVULANATE K 875 MG TAB PO SCH ×2 (08:57→21:24)
[2017-05-04] MEDS: BUDESONIDE-FORMOTEROL 160/4.5 MCG INHALER INH SCH ×2 (08:57→21:24)
[2017-05-04] MEDS: NICOTINE 14 MG/24 HR PATCH T-DERMAL SCH (08:58)
[2017-05-04] MEDS: REMOVE OLD PATCH T-DERMAL SCH (08:58)
[2017-05-04] MEDS: SODIUM CHLORIDE 0.9% FLUSH 5 ML FLUSH IV FLUSH SCH ×2 (09:00→21:00)
[2017-05-04] MEDS: ENOXAPARIN SODIUM 80 MG/0.8 ML SYRINGE SQ SCH ×2 (09:44→21:24)
[2017-05-04] MEDS: RESP: ALBUTEROL 2.5 MG/3 ML NEB (PRN) NEB (10:16)
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
[2017-05-04] MEDS ORDERED: WARFARIN SOD 2.5 MG TAB PO ONE (14:30)
--- NOTE | 2017-05-04 14:41 | HHI.PR ---
Subjective Remarks Written by Janna Landers, acting as scribe for Dr. Quispe on 05/04/17 at 14:27. Follow up on patient with dysphasia. Patient continues to have difficulty recalling words with conversation but improved overall. She denies any other complaints at this time. INR 1.1 today. Started on Lovenox bridge. Objective Vitals Vital Signs Date Time Temp Pulse Resp B/P (MAP) Pulse Ox O2 Delivery O2 Flow Rate FiO2 05/04/17 12:18 98.3 80 20 136/77 (96) 94 05/04/17 10:44 16 05/04/17 10:17 98 05/04/17 08:50 97.9 76 20 147/96 (113) 94 05/04/17 08:00 79 05/04/17 05:33 97.4 86 18 154/91 (112) 93 05/04/17 00:00 97.9 91 20 161/87 (111) 94 05/03/17 20:41 95 05/03/17 20:00 94 05/03/17 20:00 98.1 78 18 124/77 (93) 95 05/03/17 17:03 98.0 89 20 172/91 (118) 95 I/O 05/03/17 05/03/17 05/03/17 05/04/17 05/04/17 05/04/17 07:00 15:00 23:00 07:00 15:00 23:00 Intake Total 7777 ml 960 ml Balance 7777 ml 960 ml Intake Oral 960 ml IV Total 7777 ml # Voids 2 3 # Bowel Movements 0 1 Result Diagram: 05/04/17 0639 05/03/17 0843 Imaging Last Impressions Head Magnetic Resonance Angiography 05/01/17 0000 Signed Impressions: Service Date/Time: April 09:45 - CONCLUSION: 1. Unremarkable MRA examination of the brain. Specifically, no evidence for large vessel occlusion as questioned. Addy Avalos MD Brain MRI 05/01/17 0000 Signed Impressions: Service Date/Time: April 09:45 - CONCLUSION: 1. No acute infarct or other acute intracranial abnormality demonstrated. 2. Apparent small , old infarct or area of posttraumatic change of the right frontal lobe. 3. Mild chronic white matter ischemic changes. Omer Cross MD Head CT [id number] Signed Impressions: Service Date/Time: Sunday, April 30, 2017 19:09 - CONCLUSION: No acute intracranial findings Omer Harris MD Chest X-Ray [id number] Signed Impressions: Service Date/Time: Sunday, April 30, 2017 19:15 - CONCLUSION: Stable chest appearance. Omer Harris MD Objective Remarks General: No acute distress. Awake and alert. Appears comfortable. Reports difficulty recalling words but unable to appreciate any deficit during our conversation. Heart: Regular rate and rhythm. No murmur. Lungs: Clear to auscultation. Breathing is nonlabored. Abdomen: Soft, nontender, nondistended. Extremities: No lower extremity edema. Multiple surgical scars left leg. Psych: Alert, answers questions appropriately. Procedures None Medications and IVs Current Medications Medications (Trade) Dose Ordered Sig/Danay Route Start Time Stop Time Status Last Admin (NS Flush) 2 ml BID IV FLUSH 04/30/17 21:00 05/03/17 08:01 (NS Flush) 2 ml UNSCH PRN IV FLUSH 04/30/17 20:45 (Vasotec Inj) 1.25 mg Q4H PRN IV PUSH 04/30/17 20:45 (Symbicort 160-4.5 Inh) 1 puff Q12HR INH 05/01/17 09:00 05/04/17 08:57 (Albuterol Neb) 2.5 mg Q2HR NEB PRN NEB 05/01/17 09:00 05/04/17 10:16 (Habitrol 14 Mg Patch.24 Hr) 1 patch DAILY T-DERMAL 05/01/17 11:00 05/04/17 08:58 Miscellaneous Information 1 DAILY T-DERMAL 05/02/17 09:00 05/04/17 08:58 Potassium Chloride/Sodium Chloride 1,000 ml @ 70 mls/hr [id number] IV 05/02/17 12:00 05/03/17 14:17 (Percocet 5-325 Mg) 1 tab Q6H PRN PO 05/02/17 11:45 05/04/17 09:44 (Augmentin) 875 mg Q12HR PO 05/03/17 09:00 05/04/17 08:57 (Coumadin) 7.5 mg DAILY@16 PO 05/03/17 16:00 05/03/17 14:16 (Lovenox Inj) 80 mg Q12H SQ 05/04/17 10:00 05/04/17 09:44 Pharmacy Profile Note 0 ml @ 0 mls/hr UNSCH OTHER 05/04/17 14:00 A/P Problem List: (1) Encephalopathy ICD Code: G93.40 - Encephalopathy, unspecified (2) CVA (cerebral vascular accident) ICD Code: I63.9 - Cerebral infarction, unspecified (3) UTI (urinary tract infection) ICD Code: N39.0 - Urinary tract infection, site not specified (4) Hypertensive urgency ICD Code: I16.0 - Hypertensive urgency (5) Supratherapeutic INR ICD Code: R79.1 - Abnormal coagulation profile Status: Resolved (6) Factor V Leiden ICD Code: D68.51 - Activated protein C resistance Status: Acute Assessment and Plan 1. Encephalopathy: Likely metabolic secondary to UTI. Appreciate neurology recommendations. Does not appear to be acute CVA. Continue neuro checks. Confusion improved. 2. History of CVA: Patient has no onset of expressive aphasia. Difficulty finding words is improving. Per neurology, not likely secondary to acute CVA. MRI/MRA noted. Continue PT/ST/OT. 3. UTI: Urine culture growing Lactobacillus. Continue Augmentin. 4. Hypertensive urgency: Allow permissive hypertension. Blood pressure improved since arrival to the ER. 5. Supratherapeutic INR, Factor V Leiden: Patient took extra Coumadin because she believed she was having a stroke. Received total of 7.5mg subQ vitamin K. INR now subtherapeutic. Coumadin resumed. Appreciate hematology recommendations. INR lower today 1.1. Started on Lovenox bridge. Given extra dose of 2.5mg Coumadin today. Consult pharmacy to dose. Monitor INR. Discharge Planning Plan for discharge home tomorrow pending repeat INR and further clinical improvement. This note was transcribed by christina Landers. I, Dr. Joe Quispe personally performed the history, physical exam, and medical decision making; and confirmed the accuracy of the information in the transcribed note. Authenticated by Dr. Joe Quispe on 05/04/17 at 14:43. Janna Landers May 04, 2017 14:41 Joe Quispe MD May 04, 2017 14:43
[2017-05-04] MEDS: WARFARIN SOD 7.5 MG TAB PO SCH (15:38)
[2017-05-05] VITALS: BP 141/81; PULSE 87; RESP 18; TEMP 97.1; O2SAT 95
[2017-05-05] MEDS: oxyCODONE/ACETAMINOPHEN 5 MG/325 MG TAB PO PRN ×2 (03:57→08:56)
[2017-05-05 05:57] VITALS: BP 132/90; PULSE 72; RESP 18; TEMP 97.6; O2SAT 94
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
[2017-05-05 08:00] VITALS: BP 140/83; PULSE 81; RESP 16; TEMP 98.2; O2SAT 93
[2017-05-05] MEDS: SODIUM CHLORIDE 0.9% FLUSH 5 ML FLUSH IV FLUSH SCH (08:50)
[2017-05-05] MEDS: NICOTINE 14 MG/24 HR PATCH T-DERMAL SCH (08:50)
[2017-05-05] MEDS: BUDESONIDE-FORMOTEROL 160/4.5 MCG INHALER INH SCH (08:50)
[2017-05-05] MEDS: AMOXICILLIN/CLAVULANATE K 875 MG TAB PO SCH (08:50)
[2017-05-05] MEDS: REMOVE OLD PATCH T-DERMAL SCH (08:50)
[2017-05-05] MEDS: ENOXAPARIN SODIUM 80 MG/0.8 ML SYRINGE SQ SCH (08:51)
[2017-05-05 09:11] LABS: AUTOMATED NEUTROPHIL # 2.3 TH/MM3 (1.8-7.7); BASOPHIL % 1.1 % (0.0-2.0); EOSINOPHIL # 0.1 TH/MM3 (0-0.4); EOSINOPHIL % 1.6 % (0.0-4.0); HEMATOCRIT 34.8 % (35.0-46.0); HEMO FLAGS DIFF FINAL; LYMPH % 31.4 % (9.0-44.0); LYMPHOCYTE # 1.3 TH/MM3 (1.0-4.8); MEAN CELL VOLUME 94.8 FL (80.0-100.0); MEAN CORPUSCULAR HGB CONC 32.7 % (32.0-36.0); MONO % 11.9 % (0.0-8.0); PLATELET COUNT 300 TH/MM3 (150-450); RED BLOOD COUNT 3.67 MIL/MM3 (4.00-5.30); RED CELL DISTRIBUTION WIDTH 18.9 % (11.6-17.2); WHITE BLOOD COUNT 4.2 TH/MM3 (4.0-11.0)
[2017-05-05 09:16] LABS: INTERNATIONAL NORMALIZED RATIO 1.1 RATIO
[2017-05-05] MEDS: RESP: ALBUTEROL 2.5 MG/3 ML NEB (PRN) NEB (09:26)
[2017-05-05 09:27] VITALS: O2SAT 95
[2017-05-05] MEDS ORDERED: AMOX875T2 PO (10:23)
[2017-05-05] MEDS ORDERED: WARF-21 PO (10:23)
[2017-05-05] MEDS ORDERED: ENOX80P SQ (10:23)
--- NOTE | 2017-05-05 10:23 | HHI.DCPOC ---
Discharge Care Plan Diagnosis: (1) Factor V Leiden mutation (2) Hypercoagulable state (3) Hypertensive urgency (4) Supratherapeutic INR (5) Aphasia (6) UTI (urinary tract infection) Goals to Promote Your Health * To prevent worsening of your condition and complications * To maintain your health at the optimal level Directions to Meet Your Goals Take your medications as prescribed Follow your dietary instruction Follow activity as directed Keep your appointments as scheduled Take your immunizations and boosters as scheduled If your symptoms worsen call your PCP, if no PCP go to Urgent Care Center or Emergency Room Smoking is Dangerous to Your Health. Avoid second hand smoke Call the 24-hour hour crisis hotline for domestic abuse at Joe Quispe MD May 05, 2017 10:23
--- NOTE | 2017-05-05 10:27 | HHI.DS ---
Discharge Summary Admission Date Apr 30, 2017 at 20:35 Discharge Date: May 05, 2017 Admitting Diagnosis Encephalopathy, UTI (1) Encephalopathy ICD Code: G93.40 - Encephalopathy, unspecified (2) CVA (cerebral vascular accident) ICD Code: I63.9 - Cerebral infarction, unspecified (3) UTI (urinary tract infection) ICD Code: N39.0 - Urinary tract infection, site not specified (4) Hypertensive urgency ICD Code: I16.0 - Hypertensive urgency (5) Supratherapeutic INR ICD Code: R79.1 - Abnormal coagulation profile Status: Resolved (6) Factor V Leiden ICD Code: D68.51 - Activated protein C resistance Status: Acute Procedures None Brief History - From Admission Is a 57-year-old female with a PMH of HTN, Anxiety, Depression, Factor V Leiden , s/p IVC Filter, on Coumadin, CAD, h/o CVA, Hepatitis C, COPD, Tobacco Abuse and h/o Alcohol who was brought to the ER by EMS secondary to altered mental status noted by Son. Per report, Son called EMS after he noted pt to be confused, not answering questions appropriately, repeating same words. Last seen normal at approx 10am per report. On arrival, pt unable to provide history , +expressive aphasia, no motor deficits noted. On arrival, BP 191/109, HR 107 , O2 sat 94% on RA, Afebrile. S/p Labetalol 10mg IV in ER, repeat BP 160's systolic. CBC unremarkable. Chemistry essentially unremarkable except for GFR 63. Troponin negative. Ammonia normal. INR 7.8. UA positive for UTI. Alcohol negative. Urine Drug Screen pending. CXR with no acute findings. CT Head negative. While in ER, pt w/ some improvement in aphasia, speaking more, answering more appropriately, however still w/ residual aphasia. CBC/BMP: 05/05/17 0810 05/03/17 0843 Significant Findings Laboratory Tests Test 05/03/17 08:43 05/04/17 06:39 05/05/17 08:10 Red Blood Count 3.74 MIL/MM3 (4.00-5.30) 3.50 MIL/MM3 (4.00-5.30) 3.67 MIL/MM3 (4.00-5.30) Hemoglobin 11.5 GM/DL (11.6-15.3) 10.8 GM/DL (11.6-15.3) 11.4 GM/DL (11.6-15.3) Red Cell Distribution Width 18.5 % (11.6-17.2) 19.0 % (11.6-17.2) 18.9 % (11.6-17.2) Monocytes (%) (Auto) 9.8 % (0.0-8.0) 10.8 % (0.0-8.0) 11.9 % (0.0-8.0) Prothrombin Time 14.6 SEC (9.8-11.6) 12.0 SEC (9.8-11.6) 12.0 SEC (9.8-11.6) Random Glucose 110 MG/DL (74-106) Chloride Level 112 MEQ/L (98-107) Hematocrit 33.5 % (35.0-46.0) 34.8 % (35.0-46.0) Imaging Last Impressions Head Magnetic Resonance Angiography 05/01/17 0000 Signed Impressions: Service Date/Time: April 09:45 - CONCLUSION: 1. Unremarkable MRA examination of the brain. Specifically, no evidence for large vessel occlusion as questioned. Addy Avalos MD Brain MRI 05/01/17 0000 Signed Impressions: Service Date/Time: April 09:45 - CONCLUSION: 1. No acute infarct or other acute intracranial abnormality demonstrated. 2. Apparent small , old infarct or area of posttraumatic change of the right frontal lobe. 3. Mild chronic white matter ischemic changes. Omer Cross MD Head CT [id number]/[id number] Signed Impressions: Service Date/Time: Sunday, April 30, 2017 19:09 - CONCLUSION: No acute intracranial findings Omer Harris MD Chest X-Ray [id number]/[id number] Signed Impressions: Service Date/Time: Sunday, April 30, 2017 19:15 - CONCLUSION: Stable chest appearance. Omer Harris MD PE at Discharge General: No acute distress. Awake and alert. Appears comfortable. Reports difficulty recalling words but unable to appreciate any deficit during our conversation. Heart: Regular rate and rhythm. No murmur. Lungs: Clear to auscultation. Breathing is nonlabored. Abdomen: Soft, nontender, nondistended. Extremities: No lower extremity edema. Multiple surgical scars left leg. Psych: Alert, answers questions appropriately. Pt update on day of discharge Patient states that she feels better today. She wants to go home. Speech is improved. She states that she has done Lovenox at home previously and feels comfortable doing it again. She will follow up with her PCP tomorrow for INR check. Hospital Course Was admitted for management of encephalopathy, possible CVA. She was started on antibiotics for UTI. Neurology was consulted. Her encephalopathy was felt to be metabolic, possibly secondary to UTI. She did have expressive aphasia, which improved throughout the hospitalization. Her INR was found to be supratherapeutic. She was given vitamin K. Hematology was consulted. Her INR decreased and became subtherapeutic. She was restarted on Coumadin and placed on Lovenox to bridge until the INR was therapeutic. The patient was evaluated by physical therapy, occupational therapy, speech therapy. Echocardiogram was done. On the day of discharge, she was felt to be stable for discharge home. Pt Condition on Discharge: Stable Discharge Disposition: Discharge Home Discharge Time: > 30 minutes Discharge Instructions DIET: Follow Instructions for: Heart Healthy Diet Activities you can perform: Regular-No Restrictions Follow up Referrals: PCP Follow-up - 2-3 Days with Adam Hodge DO Patient needs to follow up for PT/INR in 2-3 days New Medications: Amoxicillin-Clavulanate (Amoxicillin-Clavulanate) 875-125 mg Tab 875 MG PO Q12HR for Infection for 1 Day, #1 TAB not for use in CrCl <30 mL/minute Enoxaparin Inj (Lovenox Inj) 80 mg/0.8 ML Syr 80 MG SQ Q12H for Blood Clot Prevention for 5 Days, #10 INJECTION Continued Medications: Albuterol 8.5 GM Inh (Proair Hfa 8.5 GM Inh) 90 Mcg/Act Aer 2 PUFF INH Q4-6H PRN for SHORTNESS OF BREATH, #1 INHALER 0 Refills 108 mcg/actuation Amiloride-Hydrochlorothiazide (Amiloride-Hydrochlorothiazide) 5-50 Mg Tab 1 TAB PO DAILY for Blood Pressure Management, #30 TAB 0 Refills Give with food. Budesonide-Formoterol Inh (Symbicort Inh) 160-4.5 Mcg/Act Aero 1 PUFF INH Q12HR, #1 INHALER 0 Refills Warfarin (Warfarin) 7.5 Mg Tab 7.5 MG PO DAILY for Blood Clot Prevention for 30 Days, #30 TAB 0 Refills (This prescription has been renewed) Joe Quispe MD May 05, 2017 10:27
[2017-05-05] MEDS: NS + KCL 20 MEQ INJ 1,000 ML IV SCH (11:30)
[2017-05-05] MEDS ORDERED: WARFARIN SOD 2.5 MG TAB PO ONE (16:00)
== END 2017-05-05 11:46 | disposition home or self-care (01) | DRG 64 ==
LOC: NEPC 18:35 → NEDA 20:35 → N05A 21:48
PROVIDERS: ADMIT Family Medicine; ATTEND Family Medicine
DX: I63.9 Cerebral infarction, unspecified (principal); G93.41 Metabolic encephalopathy; N39.0 Urinary tract infection, site not specified; R47.01 Aphasia; I16.0 Hypertensive urgency; I10 Essential (primary) hypertension; R79.1 Abnormal coagulation profile; T45.515A Adverse effect of anticoagulants, initial encounter; B19.20 Unspecified viral hepatitis C without hepatic coma; E78.00 Pure hypercholesterolemia, unspecified; I25.10 Atherosclerotic heart disease of native coronary artery without angina pectoris; J44.9 Chronic obstructive pulmonary disease, unspecified; R47.02 Dysphasia; K21.9 Gastro-esophageal reflux disease without esophagitis; T45.511A Poisoning by anticoagulants, accidental (unintentional), initial encounter; Z79.01 Long term (current) use of anticoagulants; Z86.711 Personal history of pulmonary embolism; Z86.718 Personal history of other venous thrombosis and embolism; F17.210 Nicotine dependence, cigarettes, uncomplicated; F41.8 Other specified anxiety disorders; Z86.73 Personal history of transient ischemic attack (TIA), and cerebral infarction without residual deficits; Z96.642 Presence of left artificial hip joint; Z96.652 Presence of left artificial knee joint; F10.10 Alcohol abuse, uncomplicated; M19.90 Unspecified osteoarthritis, unspecified site; G43.909 Migraine, unspecified, not intractable, without status migrainosus; M51.26 Other intervertebral disc displacement, lumbar region
CPT/HCPCS: 70450; 70544; 70551; 71010; 80048; 80053; 80061; 80307; 81001; 82140; 82550; 82948; 83036; 83605; 83735; 84443; 84484; 85025; 85610; 85730; 87040; 87086; 90686; 90732; 93005; 93306; 94640; 94664; 96374; J0696; J1650; J3430; J3480; J7030; J7613; P9612; Q2038

== ENCOUNTER 2017-11-28 01:44 | Inpatient (IN) | payer BC ==
[~2017-11-28] VITALS: Ht 160 cm; Wt 72.0 kg
[2017-11-28] VITALS (25 sets, daily range): BP systolic 89–125; BP diastolic 46–68; PULSE 77–106; RESP 12–32; TEMP 98–100.6; O2SAT 89–100
[~2017-11-28 01:44] MED LIST changes: +ALBUAER3 INH; -AMIL5TAB PO; +AMOX875T2 PO; -BUTACAP2 PO; -DUONI NEB; +ENOX80P SQ; -JANT5TAB2 PO; +MODU550 PO; -MORP1INJ45 PO; -MSIR15 PO; +SYMB160A INH; -VITA20003 PO; +WARF-21 PO; -XANA1TAB6 PO
[2017-11-28] MEDS ORDERED: ACETAMINOPHEN/HYDROcodone 325 MG/5 MG TAB PO ONE (02:30)
[2017-11-28] MEDS ORDERED: KETOROLAC TROMETHAMINE 60 MG/2 ML (IM) VIAL IM ONE (02:30)
[2017-11-28] MEDS ORDERED: RESP: ALBUTEROL 2.5 MG/IPRATROPIUM 0.5 MG NEB (SCH) NEB ONE (02:30)
[2017-11-28 03:15] LABS: AUTOMATED NEUTROPHIL # 7.2 TH/MM3 (1.8-7.7); BASOPHIL # 0.1 TH/MM3 (0-0.2); BASOPHIL % 1.1 % (0.0-2.0); EOSINOPHIL # 0.2 TH/MM3 (0-0.4); HEMATOCRIT 38.1 % (35.0-46.0); LYMPH % 9.3 % (9.0-44.0); LYMPHOCYTE # 0.9 TH/MM3 (1.0-4.8); MEAN CELL VOLUME 93.1 FL (80.0-100.0); MEAN CORPUSCULAR HEMOGLOBIN 31.7 PG (27.0-34.0); MONO % 11.5 % (0.0-8.0); MONOCYTE # 1.1 TH/MM3 (0-0.9); NEUT % 76.1 % (16.0-70.0); PLATELET COUNT 311 TH/MM3 (150-450); RED BLOOD COUNT 4.09 MIL/MM3 (4.00-5.30); RED CELL DISTRIBUTION WIDTH 17.2 % (11.6-17.2); WHITE BLOOD COUNT 9.4 TH/MM3 (4.0-11.0)
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
[2017-11-28 03:31] LABS: ALBUMIN 3.5 GM/DL (3.4-5.0); ALT (GPT) 38 U/L (10-53); AST (GOT) 42 U/L (15-37); BICARBONATE 26.7 MEQ/L (21.0-32.0); BLOOD UREA NITROGEN 46 MG/DL (7-18); CALCIUM 8.7 MG/DL (8.5-10.1); CHLORIDE 95 MEQ/L (98-107); CREATININE 1.88 MG/DL (0.50-1.00); GLOMERULAR FILTRATION RATE 28 ML/MIN (>89); GLUCOSE,RANDOM 107 MG/DL (74-106); SODIUM (NA) 134 MEQ/L (136-145)
[2017-11-28 03:36] LABS: ALKALINE PHOSPHATASE 87 U/L (45-117); TOTAL BILIRUBIN ADULT 0.3 MG/DL (0.2-1.0); TOTAL PROTEIN 7.9 GM/DL (6.4-8.2); TROPONIN I LESS THAN 0.02 NG/ML (0.02-0.05)
[2017-11-28] MEDS ORDERED: LORazepam 2 MG/ML VIAL IV PUSH ONE (04:00)
[2017-11-28] MEDS ORDERED: KETOROLAC TROMETHAMINE 30 MG/ML (IVP) VIAL IV PUSH ONE (04:00)
[2017-11-28] MEDS ORDERED: MORPHINE SULFATE 4 MG/ML INJ ONE (04:09)
[2017-11-28 04:14] LABS: BANDS 15 % (0-6); LYMPHOCYTES 5 % (9-44); MONOCYTES 5 % (0-8); NEUTROPHIL # MANUAL DIFF 8.2 TH/MM3 (1.8-7.7); POLYS (SEG NEUTROPHILS) 72 % (16-70)
[2017-11-28 04:15] LABS: TOXIC GRANULATION 1+ (NORMAL)
[2017-11-28] MEDS ORDERED: MORPHINE SULFATE 2 MG/ML SYRINGE IV PUSH ONE (04:15)
--- NOTE | 2017-11-28 04:15 | RADRPT ---
EXAM DATE: 11/28/2017 3:51 AM EDT AGE/SEX: 57 years / Female INDICATIONS: Rib pain with no known injury. CLINICAL DATA: This is the patient's initial encounter. Patient reports that signs and symptoms have been present for 3 days and indicates a pain score of 10/10. MEDICAL/SURGICAL HISTORY: Non-responsive. Non-responsive. COMPARISON: No prior [facility] exams available for comparison. FINDINGS: There appear to be fracture lines at the anterolateral left ninth and 10th ribs. The age of these def ormities is not known. No other rib fracture is seen. There is linear density at the left base likely related to atelectasis or mild consolidation. The heart size is normal. There is an IVC filter. The patient is status post vertebroplasty at L5. CONCLUSION: Deformities at the anterior lateral left ninth and 10th ribs prior fracture. Electronically signed by: Omer Lugo MD 11/28/2017 4:14 AM EDT
--- NOTE | 2017-11-28 04:21 | RADRPT ---
EXAM DATE: 11/28/2017 4:16 AM EDT AGE/SEX: 57 years / Female INDICATIONS: Shortness of breath CLINICAL DATA: This is the patient's initial encounter. Patient reports that signs and symptoms have been present for 1 day and indicates a pain score of 10/10. MEDICAL/SURGICAL HISTORY: Non-responsive. Non-responsive. COMPARISON: [facility] – [place], CHEST SINGLE AP, 04/30/2017. . FINDINGS: The heart size is normal. There is linear increased density at the lateral left lower lung. The right lung is clear. CONCLUSION: Mild area of linear scarring, atelectasis, or consolidation. Electronically signed by: Omer Lugo MD 11/28/2017 4:20 AM EDT
[2017-11-28] MEDS ORDERED: SODIUM CHLOR 0.9% 1000 ML INJ 1,000 ML IV ONE (04:30)
[2017-11-28] MEDS ORDERED: PROPOFOL 1000 MG/100 ML INJ 100 ML IV PRN (04:45)
[2017-11-28] MEDS ORDERED: ETOMIDATE 40 MG/20 ML VIAL ONE (04:45)
[2017-11-28] MEDS ORDERED: NALOXONE HCL 2 MG/2 ML VIAL IV PUSH ONE (04:45)
[2017-11-28] MEDS ORDERED: PROPOFOL 500 MG/50 ML INJ 50 ML ONE (05:00)
[2017-11-28] MEDS ORDERED: MIDAZOLAM HCL 5 MG/ML VIAL (1 ML) ONE (05:03)
[2017-11-28] MEDS ORDERED: cefTRIAXone INJ 1,000 MG in SODIUM CHLORIDE 0.9% INJ 100 ML IV ONE (05:15)
[2017-11-28] MEDS ORDERED: MIDAZOLAM HCL 5 MG/ML VIAL (1 ML) IV ONE (05:15)
[2017-11-28] MEDS ORDERED: MIDAZOLAM 100 MG/100 ML INJ 100 ML IV PRN (05:15)
[2017-11-28] MEDS: NEED HT & WT SCH ×2 (05:15→08:00)
[2017-11-28] MEDS ORDERED: fentaNYL DRIP 250 ML IV PRN (05:15)
--- NOTE | 2017-11-28 05:38 | HHI.HP ---
[facility] Service Critical Care Medicine Primary Care Physician Adam Hodge, DO Admission Diagnosis resp failure ventilatory failure Diagnosis: Travel History International Travel<30 Days: No Contact w/Intl Traveler <30 Da: No Traveled to Known Affected Are: No History of Present Illness 57-year-old female who presented to emergency department complaining of SOB and coughing. She has also complained of severe left back rib area pain. In the emergency department she was desaturating to 80s on room air and 88 on 2 L nasal cannula. She was intubated by ED attending for an acute hypoxemic respiratory failure. She was intubated by ED attending. She is on Coumadin/ Lovenox 1 mg/kg every 12 hours for factor V Leiden mutation. Her INR is subtherapeutic. Review of Systems ROS Unable to obtain patient sedated and intubated Past Family Social History Allergies: Coded Allergies: prednisone (Unverified Allergy, Severe, facial swelling, 04/30/17) Past Medical History HTN, Anxiety, Depression, Factor V Leiden, s/p IVC Filter, on Coumadin, CAD, h/ o CVA, Hepatitis C, COPD, Tobacco Abuse and h/o Alcohol Past Surgical History IVC, , Back Surgery, Craniotomy, Hip Replacement Reported Medications Reported Meds & Active Scripts Active Lovenox Inj (Enoxaparin Sodium) 80 mg/0.8 ML Syr 80 Mg SQ Q12H 5 Days Amoxicillin-Clavulanate 875-125 mg Tab 875 Mg PO Q12HR 1 Days not for use in CrCl <30 mL/minute Warfarin 7.5 Mg Tab 7.5 Mg PO DAILY 30 Days Reported Proair Hfa 8.5 GM Inh (Albuterol Sulfate) 90 Mcg/Act Aer 2 Puff INH Q4-6H PRN 108 mcg/actuation Symbicort Inh (Budesonide/Formoterol Fumarate) 160-4.5 Mcg/Act Aero 1 Puff INH Q12HR Amiloride-Hydrochlorothiazide (Amiloride/HCTZ) 5-50 Mg Tab 1 Tab PO DAILY Give with food. Active Ordered Medications Current Medications Medications (Trade) Dose Ordered Sig/Danay Route PRN Reason Start Time Stop Time Status Last Admin Dose Admin Midazolam HCl 50 ml @ 2 mls/hr TITRATE PRN IV SEDATION 11/28/17 05:45 Fentanyl Citrate 250 ml @ 5 mls/hr TITRATE PRN IV SEDATION 11/28/17 05:45 11/29/17 02:41 Sodium Chloride 1,000 ml @ 84 mls/hr [id number] IV 11/28/17 05:33 11/28/17 17:48 Sodium Chloride (NS Flush) 2 ml UNSCH PRN IV FLUSH FLUSH AFTER USING IV ACCESS 11/28/17 05:45 Sodium Chloride (NS Flush) 2 ml BID IV FLUSH 11/28/17 09:00 11/28/17 20:53 Acetaminophen (Tylenol) 650 mg Q6H PRN PO PAIN 1-5 AND/OR FEVER >101F 11/28/17 05:45 Hydromorphone HCl (Dilaudid Pf Inj) 1 mg Q4H PRN IV PUSH PAIN SCALE 6 TO 10 11/28/17 05:45 Midazolam HCl (Versed Inj) 2 mg Q1H PRN IV PUSH SEDATION 11/28/17 05:45 11/28/17 06:30 Artificial Tears (Tears Naturale Opth Soln) 1 drop TID EACH EYE 11/28/17 09:00 11/28/17 17:53 Ondansetron HCl (Zofran Odt) 4 mg Q6H PRN PO NAUSEA OR VOMITING 11/28/17 05:45 Albuterol/ Ipratropium (Duoneb Neb) 1 ampule Q2HR NEB PRN INH WHEEZING 11/28/17 05:45 Miscellaneous Information ([facility] [place] Nursing Information) 1 [id number] XX 11/28/17 05:45 11/28/17 08:30 Chlorhexidine Gluconate (Chlorhexidine 2% Cloth) 3 pack Taper DAILY@04 TOP 11/29/17 04:00 11/25/18 03:59 Chlorhexidine Gluconate (Chlorhexidine 2% Cloth) 3 pack UNSCH PRN TOP HYGIENIC CARE 11/28/17 05:45 Senna/Docusate Sodium (Johnna-Colace) 1 tab BID PO 11/28/17 09:00 11/28/17 20:53 Magnesium Hydroxide (Milk Of Magnesia Liq) 30 ml Q12H PRN PO Mild constipation 11/28/17 05:45 Sennosides (Senokot) 17.2 mg Q12H PRN PO Moderate constipation 11/28/17 05:45 Bisacodyl (Dulcolax Supp) 10 mg DAILY PRN RECTAL SEVERE CONSITIPATION 11/28/17 05:45 Lactulose (Lactulose Liq) 30 ml DAILY PRN PO SEVERE CONSITIPATION 11/28/17 05:45 Chlorhexidine Gluconate (Peridex 0.12% Liq) 15 ml BID@08,20 MT 11/28/17 08:00 11/28/17 20:00 Propofol 100 ml @ 2.4 mls/hr TITRATE PRN IV SEDATION 11/28/17 05:45 11/28/17 22:00 Pharmacy Profile Note 0 ml @ 0 mls/hr UNSCH OTHER 11/28/17 06:00 Albuterol/ Ipratropium (Duoneb Neb) 1 ampule Q4HR NEB INH 11/28/17 12:00 11/28/17 23:45 Famotidine (Pepcid Inj) 10 mg Q12HR IV PUSH 11/28/17 10:00 11/28/17 20:53 Family History Reviewed. No h/o DM or CAD Social History History of alcohol abuse per records, however unable to confirm. +Tobacco. Negative for drugs. Physical Exam Vital Signs Vital Signs Date Time Temp Pulse Resp B/P (MAP) Pulse Ox O2 Delivery O2 Flow Rate FiO2 11/28/17 05:30 100.6 96 18 94/54 (67) 96 Ventilator 50 11/28/17 04:51 96 50 11/28/17 04:50 106 32 103/54 (70) 89 Venturi Mask 50 11/28/17 04:30 96 20 125/68 (87) 92 Venturi Mask 11/28/17 03:05 92 Venturi Mask 6.00 11/28/17 02:25 92 Nasal Cannula 3.00 11/28/17 01:59 98.1 96 20 123/64 (83) 94 Nasal Cannula 2.00 Laboratory Laboratory Tests Test 11/28/17 03:02 11/28/17 03:51 11/28/17 05:25 White Blood Count 9.4 Red Blood Count 4.09 Hemoglobin 13.0 Hematocrit 38.1 Mean Corpuscular Volume 93.1 Mean Corpuscular Hemoglobin 31.7 Mean Corpuscular Hemoglobin Concent 34.0 Red Cell Distribution Width 17.2 Platelet Count 311 Mean Platelet Volume 8.0 Neutrophils (%) (Auto) 76.1 Lymphocytes (%) (Auto) 9.3 Monocytes (%) (Auto) 11.5 Eosinophils (%) (Auto) 2.0 Basophils (%) (Auto) 1.1 Neutrophils # (Auto) 7.2 Lymphocytes # (Auto) 0.9 Monocytes # (Auto) 1.1 Eosinophils # (Auto) 0.2 Basophils # (Auto) 0.1 CBC Comment AUTO DIFF Differential Total Cells Counted 100 Neutrophils % (Manual) 72 Band Neutrophils % 15 Lymphocytes % 5 Monocytes % 5 Eosinophils % 3 Neutrophils # (Manual) 8.2 Differential Comment FINAL DIFF MANUAL Toxic Granulation 1+ Platelet Estimate NORMAL Platelet Morphology Comment NORMAL Blood Urea Nitrogen 46 Creatinine 1.88 Random Glucose 107 Total Protein 7.9 Albumin 3.5 Calcium Level 8.7 Alkaline Phosphatase 87 Aspartate Amino Transf (AST/SGOT) 42 Alanine Aminotransferase (ALT/SGPT) 38 Total Bilirubin 0.3 Sodium Level 134 Potassium Level 3.6 Chloride Level 95 Carbon Dioxide Level 26.7 Anion Gap 12 Estimat Glomerular Filtration Rate 28 Troponin I LESS THAN 0.02 Lipase 37 Blood Gas Puncture Site LT RADIAL Blood Gas Patient Temperature 98.6 Blood Gas HCO3 24 Blood Gas Base Excess -2.4 Blood Gas Oxygen Saturation 84 Arterial Blood pH 7.26 Arterial Blood Partial Pressure CO2 55 Arterial Blood Partial Pressure O2 59 Arterial Blood Oxygen Content 14.3 Arterial Blood Carboxyhemoglobin 1.3 Arterial Blood Methemoglobin 0.8 Blood Gas Hemoglobin 12.1 Oxygen Delivery Device Venti Mask Blood Gas Liter Flow 5 Blood Gas Inspired Oxygen 50 Result Diagram: 11/28/1730111/28/17 030 Caprini VTE Risk Assessment Caprini VTE Risk Assessment: Mod/High Risk (score >= 2) Caprini Risk Assessment Model Point Value = 1 Point Value = 2 Point Value = 3 Point Value = 5 Age 41-60 Minor surgery BMI > 25 kg/m2 Swollen legs Varicose veins or History of unexplained or recurrent spontaneous Oral contraceptives or hormone replacement Sepsis (< 1 month) Serious lung disease, including pneumonia (< 1 month) Abnormal pulmonary function Acute myocardial infarction Congestive heart failure (< 1 month) History of inflammatory bowel disease Medical patient at bed rest Age 61-74 Arthroscopic surgery Major open surgery (> 45 min) Laparoscopic surgery (> 45 min) Malignancy Confined to bed (> 72 hours) Immobilizing plaster cast Central venous access Age >= 75 History of VTE Family history of VTE Factor V Leiden Prothrombin [id number] Lupus anticoagulant Anticardiolipin antibodies Elevated serum homocysteine Heparin-induced thrombocytopenia Other congenital or acquired thrombophilia Stroke (< 1 month) Elective arthroplasty Hip, pelvis, or leg fracture Acute spinal cord injury (< 1 month) Prophylaxis Regimen Total Risk Factor Score Risk Level Prophylaxis Regimen 0-1 Low Early ambulation 2 Moderate Order ONE of the following: *Sequential Compression Device (SCD) *Heparin 5000 units SQ BID 3-4 Higher Order ONE of the following medications: *Heparin 5000 units SQ TID *Enoxaparin/Lovenox 40 mg SQ daily (WT < 150 kg, CrCl > 30 mL/min) *Enoxaparin/Lovenox 30 mg SQ daily (WT < 150 kg, CrCl > 10-29 mL/min) *Enoxaparin/Lovenox 30 mg SQ BID (WT < 150 kg, CrCl > 30 mL/min) AND/OR *Sequential Compression Device (SCD) 5 or more Highest Order ONE of the following medications: *Heparin 5000 units SQ TID (Preferred with Epidurals) *Enoxaparin/Lovenox 40 mg SQ daily (WT < 150 kg, CrCl > 30 mL/min) *Enoxaparin/Lovenox 30 mg SQ daily (WT < 150 kg, CrCl > 10-29 mL/min) *Enoxaparin/Lovenox 30 mg SQ BID (WT < 150 kg, CrCl > 30 mL/min) AND *Sequential Compression Device (SCD) Assessment and Plan Assessment and Plan Respiratory failure -Lovenox 1 mg/kg per every 12 hours -VQ scan to evaluate for pulmonary embolism -Coumadin per pharmacy dosing -Underlying COPD -DuoNeb scheduled and as needed Coagulopathy -Factor V deficiency -Leiden mutation -Coumadin per pharmacy dosing -Therapeutic Lovenox 1 mg/kg every 12 hours until INR therapeutic HTN -Hydralazine as needed to keep SBP less than 160 Anxiety/Depression -Ativan as needed DVT GI prophylaxis -Seth's and SCDs -Therapeutic Lovenox -Coumadin -Pepcid Critical Care: The total critical care time was 35 minutes. Time to perform other separately billable procedures was not included in the critical care time. Dom Lynch MD November 28, 2017 5:38 am
[2017-11-28 05:40] LABS: AMORPHOUS SEDIMENT, URINE RARE; BACTERIA, URINE RARE /hpf; BILIRUBIN, URINE NEG (NEG); BLOOD, URINE TRACE (NEG); GLUCOSE,URINE NEG (NEG); KETONE, URINE TRACE mg/dL (NEG); MUCUS URINE FEW /lpf (OCC); NITRITE,URINE NEG (NEG); URINE COLOR YELLOW (YELLW/STRAW); URINE LEUKOCYTE ESTERASE NEG (NEG)
[2017-11-28] MEDS ORDERED: HYDROmorphone HCL PF 1 MG/ML VIAL IV PUSH PRN (05:45)
[2017-11-28] MEDS ORDERED: SUCCINYLCHOLINE CHLORIDE 100 MG/5 ML SYRINGE IV PUSH ONE (05:45)
[2017-11-28] MEDS ORDERED: RESP: ALBUTEROL 2.5 MG/IPRATROPIUM 0.5 MG NEB (PRN) INH (05:45)
[2017-11-28] MEDS ORDERED: ACETAMINOPHEN 325 MG TAB PO PRN (05:45)
[2017-11-28] MEDS ORDERED: BISACODYL 10 MG SUPP RECTAL PRN (05:45)
[2017-11-28] MEDS ORDERED: ONDANSETRON ODT 4 MG TAB PO PRN (05:45)
[2017-11-28] MEDS ORDERED: MIDAZOLAM 50 MG/NS 50 ML DRIP Premix IV PRN (05:45)
[2017-11-28] MEDS ORDERED: MAGNESIUM HYDROXIDE SUSP 30 ML CUP PO PRN (05:45)
[2017-11-28] MEDS ORDERED: ETOMIDATE 20 MG/10 ML VIAL IV PUSH ONE (05:45)
[2017-11-28] MEDS ORDERED: SENNOSIDES 8.6 MG TAB PO PRN (05:45)
[2017-11-28] MEDS ORDERED: NURSING INFORMATION XX SCH (05:45)
[2017-11-28] MEDS ORDERED: SODIUM CHLORIDE 0.9% FLUSH 10 ML FLUSH IV FLUSH PRN (05:45)
[2017-11-28] MEDS ORDERED: CHLORHEXIDINE GLUCONATE 2 % 1 PACK (2 CLOTHS) TOP PRN (05:45)
[2017-11-28] MEDS ORDERED: ENOXAPARIN SODIUM 40 MG/0.4 ML SYRINGE SQ SCH (06:00)
--- NOTE | 2017-11-28 06:03 | RADRPT ---
EXAM DATE: 11/28/2017 5:55 AM EDT AGE/SEX: 57 years / Female INDICATIONS: Post intubation. CLINICAL DATA: This is the patient's initial encounter. Patient reports that signs and symptoms have been present for 1 day and indicates a pain score of Nonresponsive. MEDICAL/SURGICAL HISTORY: Non-responsive. Non-responsive. [place] [facility] [place]. . FINDINGS: The ET tube and NG tube are well placed. The heart size is normal. There is linear density at the lef t base. The right lung is clear., CONCLUSION: Linear atelectasis or consolidation at the left base. Electronically signed by: Omer Lugo MD 11/28/2017 6:02 AM EDT
[2017-11-28] MEDS: PROPOFOL 1000 MG/100 ML INJ 100 ML IV PRN ×3 (06:20→22:00)
[2017-11-28] MEDS: MIDAZOLAM HCL 2 MG/2 ML VIAL IV PUSH PRN (06:30)
[2017-11-28] MEDS: fentaNYL DRIP 250 ML IV PRN (07:37)
[2017-11-28] MEDS: CHLORHEXIDINE 0.12% (ORAL KIT) 15 ML CUP MT SCH ×2 (08:00→20:00)
[2017-11-28] MEDS: SODIUM CHLOR 0.9% 1000 ML INJ 1,000 ML IV SCH ×2 (08:30→17:48)
[2017-11-28] MEDS: DOCUSATE SODIUM 50 MG/SENNA 8.6 MG TAB PO SCH ×2 (09:00→20:53)
[2017-11-28] MEDS: ARTIFICIAL TEARS OPTH SOLN 15 ML BTL EACH EYE SCH ×3 (09:00→17:53)
[2017-11-28] MEDS ORDERED: FAMOTIDINE 20 MG/2 ML VIAL IV PUSH SCH ×2 (09:00→21:00)
[2017-11-28] MEDS: SODIUM CHLORIDE 0.9% FLUSH 10 ML FLUSH IV FLUSH SCH ×2 (09:00→20:53)
[2017-11-28 09:08] LABS: INTERNATIONAL NORMALIZED RATIO 5.5 RATIO; PROTHROMBIN TIME - PATIENT 55.2 SEC (9.8-11.6)
[2017-11-28] MEDS ORDERED: RESP: ALBUTEROL 2.5 MG/IPRATROPIUM 0.5 MG NEB (SCH) INH (10:00)
[2017-11-28] MEDS: FAMOTIDINE 20 MG/2 ML VIAL IV PUSH SCH ×2 (10:00→20:53)
[2017-11-28] MEDS: RESP: ALBUTEROL 2.5 MG/IPRATROPIUM 0.5 MG NEB (SCH) INH ×4 (11:41→23:45)
--- NOTE | 2017-11-28 11:50 | RADRPT ---
EXAM DATE: 11/28/2017 10:53 AM EDT AGE/SEX: 57 years / Female INDICATIONS: Dyspnea and coughing with left back pain. CLINICAL DATA: This is the patient's initial encounter. Patient reports that signs and symptoms have been present for 1 day and indicates a pain score of 0/10. MEDICAL/SURGICAL HISTORY: Chronic obstructive pulmonary disease. Deep venous thrombosis. Hype rtension. Smoker. Craniotomy. COMPARISON: [facility], CHEST SINGLE AP, 11/28/2017. . DOSE: 30.8 mCi Tc99m DTPA aerosol 1.2 mCi Tc99m MAA IV TECHNIQUE: Following five minutes of tidal breathing of DTPA aerosol, planar images of the lungs wer e performed in eight projections. The patient was then injected with MAA, and eight-view perfusion s can was performed. FINDINGS: There is a homogeneous pattern of aerosol delivery to the periphery of both lungs. No focal ventilat ory defects are seen. The perfusion lung scan demonstrates a homogenous pattern of uptake in both lungs. No segmental or s ubsegmental defects are seen. CONCLUSION: Low probability scan for pulmonary embolism Electronically signed by: Omer Harris MD 11/28/2017 11:48 AM EDT
--- NOTE | 2017-11-28 19:38 | EKG ---
Date Performed: 11/28/2017 Time Performed: 05:05:43 PTAGE: 57 years EKG: Sinus rhythm MARKED LEFT AXIS DEVIATION INCOMPLETE RIGHT BUNDLE BRANCH BLOCK BASELINE ARTIFACT ABNORMAL ECG Mayur red to PREVIOUS TRACING , the patient is no longer tachycardic. PREVIOUS TRACIN04/30/2017 18. 43 DOCTOR: Rebeca Kiran Interpretating Date/Time 11/28/2017 19:38:02
[2017-11-29] VITALS (17 sets, daily range): BP systolic 80–111; BP diastolic 51–73; PULSE 61–90; RESP 12–19; TEMP 97.6–99.2; O2SAT 89–99
[2017-11-29] MEDS: fentaNYL DRIP 250 ML IV PRN ×2 (02:41→23:01)
[2017-11-29] MEDS: RESP: ALBUTEROL 2.5 MG/IPRATROPIUM 0.5 MG NEB (SCH) INH ×5 (03:31→20:02)
[2017-11-29] MEDS: CHLORHEXIDINE GLUCONATE 2 % 1 PACK (2 CLOTHS) TOP SCH (04:00)
[2017-11-29] MEDS: SODIUM CHLOR 0.9% 1000 ML INJ 1,000 ML IV SCH ×2 (04:11→17:04)
[2017-11-29 04:45] LABS: AUTOMATED NEUTROPHIL # 6.8 TH/MM3 (1.8-7.7); BASOPHIL % 0.4 % (0.0-2.0); EOSINOPHIL # 0.2 TH/MM3 (0-0.4); EOSINOPHIL % 2.2 % (0.0-4.0); HEMATOCRIT 36.3 % (35.0-46.0); HEMOGLOBIN 11.5 GM/DL (11.6-15.3); LYMPHOCYTE # 1.4 TH/MM3 (1.0-4.8); MEAN CELL VOLUME 95.5 FL (80.0-100.0); MEAN CORPUSCULAR HEMOGLOBIN 30.2 PG (27.0-34.0); MEAN CORPUSCULAR HGB CONC 31.7 % (32.0-36.0); MEAN PLATELET VOLUME 8.6 FL (7.0-11.0); MONO % 15.9 % (0.0-8.0); MONOCYTE # 1.6 TH/MM3 (0-0.9); NEUT % 67.5 % (16.0-70.0); PLATELET COUNT 260 TH/MM3 (150-450); RED CELL DISTRIBUTION WIDTH 18.2 % (11.6-17.2); WHITE BLOOD COUNT 10.1 TH/MM3 (4.0-11.0)
[2017-11-29 07:08] LABS: INTERNATIONAL NORMALIZED RATIO 1.5 RATIO; PROTHROMBIN TIME - PATIENT 15.4 SEC (9.8-11.6)
[2017-11-29] MEDS: SODIUM CHLORIDE 0.9% FLUSH 10 ML FLUSH IV FLUSH SCH ×2 (08:03→20:04)
[2017-11-29] MEDS: FAMOTIDINE 20 MG/2 ML VIAL IV PUSH SCH ×2 (08:03→20:04)
[2017-11-29] MEDS: CHLORHEXIDINE 0.12% (ORAL KIT) 15 ML CUP MT SCH ×2 (08:03→20:00)
[2017-11-29] MEDS: DOCUSATE SODIUM 50 MG/SENNA 8.6 MG TAB PO SCH ×2 (08:03→20:04)
[2017-11-29] MEDS: ARTIFICIAL TEARS OPTH SOLN 15 ML BTL EACH EYE SCH ×3 (08:10→18:48)
[2017-11-29 11:17] LABS: ALBUMIN 2.3 GM/DL (3.4-5.0); ALKALINE PHOSPHATASE 72 U/L (45-117); ALT (GPT) 22 U/L (10-53); AST (GOT) 19 U/L (15-37); BICARBONATE 30.7 MEQ/L (21.0-32.0); BLOOD UREA NITROGEN 27 MG/DL (7-18); CHLORIDE 108 MEQ/L (98-107); CREATININE 0.58 MG/DL (0.50-1.00); GLOMERULAR FILTRATION RATE 108 ML/MIN (>89); GLUCOSE,RANDOM 144 MG/DL (74-106); MAGNESIUM 2.3 MG/DL (1.5-2.5); PHOSPHORUS 1.7 MG/DL (2.5-4.9); SODIUM (NA) 144 MEQ/L (136-145); TOTAL BILIRUBIN ADULT 0.4 MG/DL (0.2-1.0); TOTAL PROTEIN 5.6 GM/DL (6.4-8.2)
[2017-11-29] MEDS: LEVOFLOXACIN ORAL SOLN 2500 MG/100 ML BOTTLE NG SCH (12:29)
[2017-11-29] MEDS: methylPREDNISolone SOD SUCC 125 MG/2 ML VIAL IV PUSH SCH ×3 (12:32→23:26)
[2017-11-29] MEDS: PROPOFOL 1000 MG/100 ML INJ 100 ML IV PRN (12:40)
[2017-11-29] MEDS ORDERED: MAGNESIUM OXIDE 400 MG TAB PO PRN (20:00)
[2017-11-29] MEDS ORDERED: POTASSIUM PHOSPHATE MONOBASIC 500 MG TAB PO PRN (20:00)
[2017-11-29] MEDS ORDERED: POTASSIUM CHLORIDE 25 MEQ EFFERVESCENT TAB PO PRN (20:00)
[2017-11-29] MEDS ORDERED: POTASSIUM PHOSPHATE INJ 30 MMOL in SODIUM CHLOR 0.9% 250 ML INJ 250 ML IV PRN (20:00)
[2017-11-29] MEDS ORDERED: MAGNESIUM SULFATE INJ 2 GM in SODIUM CHLORIDE 0.9% INJ 96 ML IV PRN (20:00)
[2017-11-29] MEDS ORDERED: POTASSIUM PHOSPHATE MONOBASIC 500 MG TAB PO/TUBE PRN (20:00)
[2017-11-29] MEDS ORDERED: POTASSIUM CHLOR 40 MEQ PREMIX 100 ML IV PRN ×2 (20:00)
[2017-11-29] MEDS ORDERED: MAGNESIUM SULFATE INJ 4 GM in SODIUM CHLORIDE 0.9% INJ 92 ML IV PRN (20:00)
[2017-11-29] MEDS ORDERED: POTASSIUM CHLOR 20 MEQ PREMIX 100 ML IV PRN (20:00)
[2017-11-29] MEDS: POTASSIUM CHLOR 20 MEQ PREMIX 100 ML IV PRN ×2 (20:47→23:01)
[2017-11-30] VITALS (19 sets, daily range): BP systolic 93–181; BP diastolic 60–86; PULSE 58–118; RESP 12–16; TEMP 97.8–98.5; O2SAT 90–95
[2017-11-30] MEDS: RESP: ALBUTEROL 2.5 MG/IPRATROPIUM 0.5 MG NEB (SCH) INH ×7 (00:07→23:53)
[2017-11-30] MEDS: CHLORHEXIDINE GLUCONATE 2 % 1 PACK (2 CLOTHS) TOP SCH (04:00)
[2017-11-30] MEDS: SODIUM CHLOR 0.9% 1000 ML INJ 1,000 ML IV SCH ×2 (04:31→17:08)
[2017-11-30 05:27] LABS: INTERNATIONAL NORMALIZED RATIO 1.2 RATIO; PROTHROMBIN TIME - PATIENT 11.9 SEC (9.8-11.6)
[2017-11-30] MEDS: methylPREDNISolone SOD SUCC 125 MG/2 ML VIAL IV PUSH SCH ×3 (05:58→18:04)
--- NOTE | 2017-11-30 08:12 | HHI.CCPN ---
Subjective Remarks/Hospital Course Note for 11/29/17: 57-year-old female who presented to emergency department complaining of SOB and coughing. She has also complained of severe left back rib area pain. In the emergency department she was desaturating to 80s on room air and 88 on 2 L nasal cannula. She was intubated by ED attending for an acute hypoxemic respiratory failure. She was intubated by ED attending. She is on Coumadin/ Lovenox 1 mg/kg every 12 hours for factor V Leiden mutation. Her INR is subtherapeutic. Attempted SBTs but patient could not tolerate due to severe bronchospasm. Objective Vital Signs Date Time Temp Pulse Resp B/P (MAP) Pulse Ox O2 Delivery O2 Flow Rate FiO2 11/30/17 08:01 93 50 11/30/17 08:01 Ventilator 11/30/17 06:00 70 11/30/17 04:00 98.0 12 108/71 (83) 11/28/17 04:30 Intake and Output 11/30/17 11/30/17 12/01/17 08:00 16:00 00:00 Intake Total 1585 ml Output Total 550 ml Balance 1035 ml Result Diagram: 11/29/17 0413 11/29/17 1010 Objective Remarks General: Agitated woman looking much older than her stated age. Head: Atraumatic, normal Neck: Supple, orally intubated. Lungs: Diffuse tight wheezes with poor bilateral air movement Heart: Tachycardia, no murmur or rub, distant tones, no JVD. Abdomen: Soft, nondistended, no guarding, bowel sounds are present. Extremities: Tepid but well-perfused Neuro: Moves 4 extremities with strength and purpose. Severely agitated. Does not track with eyes. A/P Assessment and Plan Respiratory failure -Lovenox 1 mg/kg per every 12 hours -VQ scan to evaluate for pulmonary embolism -Coumadin per pharmacy dosing -Underlying COPD -DuoNeb scheduled and as needed Coagulopathy -Factor V deficiency -Leiden mutation -Coumadin per pharmacy dosing -Therapeutic Lovenox 1 mg/kg every 12 hours until INR therapeutic HTN -Hydralazine as needed to keep SBP less than 160 Anxiety/Depression -Ativan as needed DVT GI prophylaxis -Seht's and SCDs -Therapeutic Lovenox -Coumadin -Pepcid Overall impression: This woman is critically ill with severe refractory bronchospasm and exacerbated COPD. Her prior tracheostomy scar is point to the longtime trouble she has had with respiratory failure. At this juncture we are unable to wean her from the ventilator and she may well require another tracheostomy. Critical care time 38 minutes Jose Francisco Savage MD November 30, 2017 08:12
--- NOTE | 2017-11-30 08:19 | HHI.CCPN ---
Subjective Remarks/Hospital Course Note for 11/30/17: 57-year-old female who presented to emergency department complaining of SOB and coughing. She has also complained of severe left back rib area pain. In the emergency department she was desaturating to 80s on room air and 88 on 2 L nasal cannula. She was intubated by ED attending for an acute hypoxemic respiratory failure. She was intubated by ED attending. She is on Coumadin/ Lovenox 1 mg/kg every 12 hours for factor V Leiden mutation. Her INR is subtherapeutic. Attempted SBTs but patient could not tolerate due to severe bronchospasm. 11/30: Continued agitation but bronchospasm is minimally improved. Although she carries a prednisone allergy on her chart she is tolerating Solu-Medrol without difficulty. Objective Vital Signs Date Time Temp Pulse Resp B/P (MAP) Pulse Ox O2 Delivery O2 Flow Rate FiO2 11/30/17 08:01 93 50 11/30/17 08:01 Ventilator 11/30/17 06:00 70 11/30/17 04:00 98.0 12 108/71 (83) 11/28/17 04:30 Intake and Output 11/30/17 11/30/17 12/01/17 08:00 16:00 00:00 Intake Total 1585 ml Output Total 550 ml Balance 1035 ml Result Diagram: 11/29/17 0413 11/29/17 1010 Objective Remarks General: Agitated woman looking much older than her stated age. Head: Atraumatic, normal Neck: Supple, orally intubated. Lungs: Diffuse wheezes with impaired bilateral air movement Heart: Tachycardia, no murmur or rub, distant tones, no JVD. Abdomen: Soft, nondistended, no guarding, bowel sounds are present. Extremities: Tepid, well-perfused Neuro: Moves 4 extremities with strength and purpose. Severely agitated. Does not track with eyes. A/P Assessment and Plan Respiratory failure -Lovenox 1 mg/kg per every 12 hours -VQ scan to evaluate for pulmonary embolism -Coumadin per pharmacy dosing -Underlying COPD -DuoNeb scheduled and as needed -Solu-Medrol added 4 times daily despite alleged prednisone allergy. Coagulopathy -Factor V deficiency -Leiden mutation -Coumadin per pharmacy dosing -Therapeutic Lovenox 1 mg/kg every 12 hours until INR therapeutic HTN -Hydralazine as needed to keep SBP less than 160 Anxiety/Depression -Ativan as needed DVT GI prophylaxis -Seth's and SCDs -Therapeutic Lovenox -Coumadin -Pepcid Overall impression: This woman is critically ill with severe refractory bronchospasm and exacerbated COPD. Her prior tracheostomy scar is point to the longtime trouble she has had with respiratory failure. At this juncture we are unable to wean her from the ventilator and she may well require another tracheostomy. I will try Precedex to see if we can get her calm enough to tolerate weaning trials. Critical care time 39 minutes Jose Francisco Savage MD November 30, 2017 08:19
[2017-11-30] MEDS: LACTULOSE SYRUP 20 GM/30 ML CUP PO PRN (08:22)
[2017-11-30] MEDS: ARTIFICIAL TEARS OPTH SOLN 15 ML BTL EACH EYE SCH ×3 (08:22→18:05)
[2017-11-30] MEDS: CHLORHEXIDINE 0.12% (ORAL KIT) 15 ML CUP MT SCH ×2 (08:22→20:00)
[2017-11-30] MEDS: SODIUM CHLORIDE 0.9% FLUSH 10 ML FLUSH IV FLUSH SCH ×2 (08:22→21:00)
[2017-11-30] MEDS: FAMOTIDINE 20 MG/2 ML VIAL IV PUSH SCH ×2 (08:23→21:00)
[2017-11-30] MEDS: DOCUSATE SODIUM 50 MG/SENNA 8.6 MG TAB PO SCH ×2 (08:23→21:00)
[2017-11-30] MEDS: LEVOFLOXACIN ORAL SOLN 2500 MG/100 ML BOTTLE NG SCH (08:23)
[2017-11-30] MEDS ORDERED: DEXMEDETOMIDINE HCL 200 MCG/2 ML VIAL IV PUSH ONE (08:30)
[2017-11-30] MEDS: DEXMEDETOMIDINE INJ 200 MCG in SODIUM CHLORIDE 0.9% INJ 50 ML IV PRN ×5 (08:42→22:15)
[2017-11-30 10:58] LABS: ALBUMIN 2.3 GM/DL (3.4-5.0); AST (GOT) 15 U/L (15-37); BICARBONATE 30.4 MEQ/L (21.0-32.0); BLOOD UREA NITROGEN 26 MG/DL (7-18); CALCIUM 8.6 MG/DL (8.5-10.1); CHLORIDE 113 MEQ/L (98-107); CREATININE 0.54 MG/DL (0.50-1.00); GLOMERULAR FILTRATION RATE 117 ML/MIN (>89); GLUCOSE,RANDOM 196 MG/DL (74-106); SODIUM (NA) 146 MEQ/L (136-145)
[2017-11-30 10:59] LABS: ALT (GPT) 22 U/L (10-53); PHOSPHORUS 1.5 MG/DL (2.5-4.9)
[2017-11-30 11:01] LABS: ALKALINE PHOSPHATASE 70 U/L (45-117); TOTAL BILIRUBIN ADULT 0.2 MG/DL (0.2-1.0); TOTAL PROTEIN 6.2 GM/DL (6.4-8.2)
[2017-11-30] MEDS: SODIUM PHOSPHATE INJ 30 MMOL in SODIUM CHLOR 0.9% 250 ML INJ 240 ML IV PRN (12:25)
[2017-11-30] MEDS: fentaNYL DRIP 250 ML IV PRN (18:59)
[2017-12-01] VITALS (17 sets, daily range): BP systolic 129–158; BP diastolic 76–90; PULSE 55–82; RESP 10–15; TEMP 97.5–98.7; O2SAT 89–93
[2017-12-01] MEDS: methylPREDNISolone SOD SUCC 125 MG/2 ML VIAL IV PUSH SCH ×5 (00:24→23:28)
[2017-12-01] MEDS: DEXMEDETOMIDINE INJ 200 MCG in SODIUM CHLORIDE 0.9% INJ 50 ML IV PRN ×9 (01:50→22:17)
[2017-12-01] MEDS: CHLORHEXIDINE GLUCONATE 2 % 1 PACK (2 CLOTHS) TOP SCH (02:02)
[2017-12-01] MEDS: SODIUM PHOSPHATE INJ 30 MMOL in SODIUM CHLOR 0.9% 250 ML INJ 240 ML IV PRN (02:49)
[2017-12-01] MEDS: MIDAZOLAM HCL 2 MG/2 ML VIAL IV PUSH PRN ×2 (04:00→21:32)
[2017-12-01] MEDS: LACTULOSE SYRUP 20 GM/30 ML CUP PO PRN (04:08)
[2017-12-01] MEDS: SODIUM CHLOR 0.9% 1000 ML INJ 1,000 ML IV SCH (04:08)
[2017-12-01] MEDS: RESP: ALBUTEROL 2.5 MG/IPRATROPIUM 0.5 MG NEB (SCH) INH ×6 (04:23→23:07)
[2017-12-01 04:49] LABS: INTERNATIONAL NORMALIZED RATIO 1.2 RATIO; PROTHROMBIN TIME - PATIENT 12.3 SEC (9.8-11.6)
[2017-12-01] MEDS: fentaNYL DRIP 250 ML IV PRN ×3 (05:15→23:28)
--- NOTE | 2017-12-01 06:33 | HHI.CCPN ---
Subjective Remarks/Hospital Course Note for 11/30/17: 57-year-old female who presented to emergency department complaining of SOB and coughing. She has also complained of severe left back rib area pain. In the emergency department she was desaturating to 80s on room air and 88 on 2 L nasal cannula. She was intubated by ED attending for an acute hypoxemic respiratory failure. She was intubated by ED attending. She is on Coumadin/ Lovenox 1 mg/kg every 12 hours for factor V Leiden mutation. Her INR is subtherapeutic. Attempted SBTs but patient could not tolerate due to severe bronchospasm. 11/30: Continued agitation but bronchospasm is minimally improved. Although she carries a prednisone allergy on her chart she is tolerating Solu-Medrol without difficulty. 12/01: Without heavy sedation patient becomes extremely agitated and developed severe airway collapse with very poor air movement. Unprovoked her wheezing has ceased but with agitation she developed some minimal tidal volume. We have added Precedex and will add p.o. Librium and try to rapidly extubate her. I am not optimistic. This is probably why she is required tracheostomy in the past. Objective Vital Signs Date Time Temp Pulse Resp B/P (MAP) Pulse Ox O2 Delivery O2 Flow Rate FiO2 12/01/17 06:00 59 12/01/17 04:23 91 50 12/01/17 04:00 98.2 13 148/80 (102) 11/30/17 19:00 Mechanical Ventilator 11/28/17 04:30 Intake and Output 12/01/17 12/01/17 12/02/17 08:00 16:00 00:00 Intake Total 1879 ml Output Total 425 ml Balance 1454 ml Result Diagram: 11/29/17 0413 11/30/17 0910 Objective Remarks General: Calm woman looking much older than her stated age. Head: Atraumatic, normal Neck: Supple, orally intubated. Lungs: Minimal wheezes but impaired bilateral air movement Heart: Tachycardia, no murmur or rub, distant tones, no JVD. Abdomen: Soft, nondistended, no guarding, bowel sounds are present. No guarding. Extremities: Warm, well-perfused. 1+ peripheral leg edema Neuro: Moves 4 extremities with strength and purpose. Severely agitated. Does not track with eyes. A/P Assessment and Plan Respiratory failure -Lovenox 1 mg/kg per every 12 hours while transitioning to Coumadin. -VQ scan to evaluate for pulmonary embolism -Coumadin per pharmacy dosing -Underlying COPD -DuoNeb scheduled and as needed -Solu-Medrol added 4 times daily despite alleged prednisone allergy. No issues with allergy. Coagulopathy -Factor V deficiency -Leiden mutation -Coumadin per pharmacy dosing -Therapeutic Lovenox 1 mg/kg every 12 hours until INR therapeutic during Coumadin loading. HTN -Hydralazine as needed to keep SBP less than 160 Anxiety/Depression -Ativan as needed DVT GI prophylaxis -Seth's and SCDs -Therapeutic Lovenox -Coumadin -Pepcid Overall impression: This woman is critically ill with severe refractory bronchospasm and exacerbated COPD. Her prior tracheostomy scar points to the longtime trouble she has had with respiratory failure. At this juncture we are unable to wean her from the ventilator and she may well require another tracheostomy. I will add Librium to the Precedex to see if we can get her calm enough to tolerate weaning trials. Critical care time 36 minutes Jose Francisco Savage MD December 01, 2017 06:33
[2017-12-01] MEDS: CHLORHEXIDINE 0.12% (ORAL KIT) 15 ML CUP MT SCH ×2 (08:00→20:00)
[2017-12-01] MEDS: chlordiazePOXIDE 25 MG CAP PO SCH ×3 (08:40→17:02)
[2017-12-01] MEDS: FAMOTIDINE 20 MG/2 ML VIAL IV PUSH SCH ×2 (08:40→20:03)
[2017-12-01] MEDS: SODIUM CHLORIDE 0.9% FLUSH 10 ML FLUSH IV FLUSH SCH ×2 (08:40→22:12)
[2017-12-01] MEDS: FUROSEMIDE 20 MG/2 ML VIAL IV PUSH SCH (08:40)
[2017-12-01] MEDS: DOCUSATE SODIUM 50 MG/SENNA 8.6 MG TAB PO SCH ×2 (08:40→20:03)
[2017-12-01] MEDS: LEVOFLOXACIN ORAL SOLN 2500 MG/100 ML BOTTLE NG SCH (09:00)
[2017-12-01] MEDS: ARTIFICIAL TEARS OPTH SOLN 15 ML BTL EACH EYE SCH ×3 (09:00→18:00)
[2017-12-01] MEDS: WARFARIN SOD 5 MG TAB PO SCH (15:41)
[2017-12-02] VITALS (20 sets, daily range): BP systolic 108–153; BP diastolic 69–88; PULSE 62–105; RESP 15–32; TEMP 98.2–99.5; O2SAT 88–98
[2017-12-02] MEDS: DEXMEDETOMIDINE INJ 200 MCG in SODIUM CHLORIDE 0.9% INJ 50 ML IV PRN ×6 (01:11→16:55)
[2017-12-02] MEDS: CHLORHEXIDINE GLUCONATE 2 % 1 PACK (2 CLOTHS) TOP SCH (04:00)
[2017-12-02] MEDS: RESP: ALBUTEROL 2.5 MG/IPRATROPIUM 0.5 MG NEB (SCH) INH ×3 (04:51→11:51)
[2017-12-02] MEDS: methylPREDNISolone SOD SUCC 125 MG/2 ML VIAL IV PUSH SCH ×3 (06:01→18:05)
[2017-12-02 06:10] LABS: BICARBONATE 32.3 MEQ/L (21.0-32.0); CALCIUM 8.2 MG/DL (8.5-10.1); CREATININE 0.48 MG/DL (0.50-1.00)
--- NOTE | 2017-12-02 06:38 | RADRPT ---
EXAM DATE: 12/02/2017 6:34 AM EDT AGE/SEX: 57 years / Female INDICATIONS: Respiratory distress. CLINICAL DATA: This is the patient's subsequent encounter. Patient reports that signs and symptoms h ave been present for 2 days and indicates a pain score of Nonresponsive. MEDICAL/SURGICAL HISTORY: Non-responsive. Non-responsive. COMPAR[place]: [facility] [place], [place]. . FINDINGS: Right lung base opacity is present not present previously may be collapsed right middle lobe and lowe r lobe. Pleural effusion is difficult to exclude. Slight left lung base atelectasis or infiltrate is seen. ET tube and NG tube have not changed. CONCLUSION: 1. Possible collapse of right middle lobe and lower lobe not present previously and mucous plugging should be entertained. 2. Slight left lung base atelectasis and/or infiltrate is seen with possible consolidation or partia l collapse left lower lung as well. Electronically signed by: Di Zavala MD 12/02/2017 6:37 AM EDT
[2017-12-02] MEDS: FAMOTIDINE 20 MG/2 ML VIAL IV PUSH SCH ×2 (07:59→19:47)
[2017-12-02] MEDS: FUROSEMIDE 20 MG/2 ML VIAL IV PUSH SCH (07:59)
[2017-12-02] MEDS: DOCUSATE SODIUM 50 MG/SENNA 8.6 MG TAB PO SCH ×2 (08:00→19:47)
[2017-12-02] MEDS: chlordiazePOXIDE 25 MG CAP PO SCH ×3 (08:00→18:05)
[2017-12-02] MEDS: SODIUM CHLORIDE 0.9% FLUSH 10 ML FLUSH IV FLUSH SCH ×2 (08:00→19:47)
[2017-12-02] MEDS: ARTIFICIAL TEARS OPTH SOLN 15 ML BTL EACH EYE SCH ×3 (08:03→18:05)
[2017-12-02] MEDS: LEVOFLOXACIN ORAL SOLN 2500 MG/100 ML BOTTLE NG SCH (08:04)
[2017-12-02] MEDS: CHLORHEXIDINE 0.12% (ORAL KIT) 15 ML CUP MT SCH ×2 (08:04→19:47)
--- NOTE | 2017-12-02 08:07 | HHI.CCPN ---
Subjective Remarks/Hospital Course Note for 11/30/17: 57-year-old female who presented to emergency department complaining of SOB and coughing. She has also complained of severe left back rib area pain. In the emergency department she was desaturating to 80s on room air and 88 on 2 L nasal cannula. She was intubated by ED attending for an acute hypoxemic respiratory failure. She was intubated by ED attending. She is on Coumadin/ Lovenox 1 mg/kg every 12 hours for factor V Leiden mutation. Her INR is subtherapeutic. Attempted SBTs but patient could not tolerate due to severe bronchospasm. 11/30: Continued agitation but bronchospasm is minimally improved. Although she carries a prednisone allergy on her chart she is tolerating Solu-Medrol without difficulty. 12/01: Without heavy sedation patient becomes extremely agitated and developed severe airway collapse with very poor air movement. Unprovoked her wheezing has ceased but with agitation she developed some minimal tidal volume. We have added Precedex and will add p.o. Librium and try to rapidly extubate her. I am not optimistic. This is probably why she is required tracheostomy in the past. 12/02: Patient has developed right lower lobe atelectasis and partial collapse of the right middle lobe. Will undoubtedly require bronchoscopy to remove inspissated plugs. Her anxiety and agitation continues to be problematic and she does not respond to Precedex. Objective Vital Signs Date Time Temp Pulse Resp B/P (MAP) Pulse Ox O2 Delivery O2 Flow Rate FiO2 12/02/17 07:56 50 12/02/17 07:51 90 12/02/17 07:00 Mechanical Ventilator 12/02/17 06:00 92 12/02/17 04:00 98.8 21 118/75 (89) Intake and Output 12/02/17 12/02/17 12/03/17 08:00 16:00 00:00 Intake Total 638 ml Output Total 650 ml Balance -12 ml Result Diagram: 11/29/17 0413 12/02/17 0516 Objective Remarks General: Agitated woman looking much older than her stated age. Head: Atraumatic, normal Neck: Supple, orally intubated. Lungs: Minimal wheezes but bilateral air movement acceptable. Heart: Tachycardia, no murmur or rub, distant tones, no JVD. Abdomen: Soft, nondistended, no guarding, bowel sounds are present. No guarding. Extremities: Warm, well-perfused. 1+ peripheral leg edema Neuro: Moves 4 extremities with strength and purpose. Severely agitated. Does not track with eyes. A/P Assessment and Plan Respiratory failure -Lovenox 1 mg/kg per every 12 hours while transitioning to Coumadin. -VQ scan to evaluate for pulmonary embolism -Coumadin per pharmacy dosing -Underlying COPD -DuoNeb scheduled and as needed -Solu-Medrol added 4 times daily despite alleged prednisone allergy. No issues with allergy. Coagulopathy -Factor V deficiency -Leiden mutation -Coumadin per pharmacy dosing -Therapeutic Lovenox 1 mg/kg every 12 hours until INR therapeutic during Coumadin loading. HTN -Hydralazine as needed to keep SBP less than 160 Anxiety/Depression -Ativan as needed DVT GI prophylaxis -Seth's and SCDs -Therapeutic Lovenox -Coumadin -Pepcid Overall impression: This woman arrived critically ill with severe refractory bronchospasm and exacerbated COPD. Her prior tracheostomy scar points to the longtime trouble she has had with respiratory failure. At this juncture we are unable to wean her from the ventilator and she may well require another tracheostomy. I have added Librium to the Precedex to see if we can get her calm enough to tolerate weaning trials. With collapse of 2 lobes on the right side she will need bronchoscopy today. Critical care time 38 minutes aside from procedures. Jose Francisco Savage MD December 02, 2017 08:07
[2017-12-02 08:36] LABS: INTERNATIONAL NORMALIZED RATIO 1.2 RATIO; PROTHROMBIN TIME - PATIENT 12.4 SEC (9.8-11.6)
[2017-12-02] MEDS: fentaNYL DRIP 250 ML IV PRN ×2 (10:02→22:37)
[2017-12-02] MEDS ORDERED: MIDAZOLAM HCL 5 MG/ML VIAL (1 ML) ONE (11:14)
--- NOTE | 2017-12-02 12:04 | PD.PROCEDR ---
Procedure Note Procedure Diagnosis: Hypoxemic respiratory failure, collapse right middle lobe and right lower lobe. Operation: Therapeutic fiberoptic bronchoscopy Procedure: Timeout performed. Medical necessity because of hypoxemia, unable to locate family in a timely fashion. Chest x-ray reveals complete collapse of the right middle lobe and right lower lobe. The patient is in the surgical intensive care unit on mechanical ventilation using orotracheal intubation and a close circuit. The usual ICU monitoring devices were in place. Fentanyl analgesia continuous infusion is running and an additional 5 mg of Versed was administered IV. The flexible bronchoscope was delivered through a side-port in the ventilatory circuit. The scope was directed immediately to the right middle lobe and basilar bronchi which were inspissated with thick white secretions. There is lower lobe and middle lobe bronchial segments were individually aspirated using the bronchoscope and lightly irrigated with normal saline. The remainder of the tracheobronchial tree was inspected and found to be slightly erythematous but otherwise normal. Noteworthy is a element of tracheomalacia with observation that the bronchial segments collapse with exhalation. The introduction of increasing positive end expiratory pressure solves this problem and she will remain on the ventilator till the right-sided lobes are fully aerated. Oxygen saturation was maintained greater than 88% throughout the procedure. Jose Francisco Savage MD December 02, 2017 12:04
[2017-12-02] MEDS: DEXMEDETOMIDINE INJ 1,000 MCG in SODIUM CHLOR 0.9% 250 ML INJ 240 ML IV PRN (19:50)
[2017-12-03] VITALS (17 sets, daily range): BP systolic 106–139; BP diastolic 65–81; PULSE 54–117; RESP 14–23; TEMP 98.2–99.2; O2SAT 85–96
[2017-12-03] MEDS: methylPREDNISolone SOD SUCC 125 MG/2 ML VIAL IV PUSH SCH ×4 (00:20→17:16)
[2017-12-03] MEDS: CHLORHEXIDINE GLUCONATE 2 % 1 PACK (2 CLOTHS) TOP SCH (04:00)
[2017-12-03 05:27] LABS: INTERNATIONAL NORMALIZED RATIO 1.2 RATIO; PROTHROMBIN TIME - PATIENT 12.5 SEC (9.8-11.6)
[2017-12-03] MEDS: chlordiazePOXIDE 25 MG CAP PO SCH ×3 (07:55→17:16)
[2017-12-03] MEDS: DOCUSATE SODIUM 50 MG/SENNA 8.6 MG TAB PO SCH ×2 (07:55→20:04)
[2017-12-03] MEDS: FUROSEMIDE 20 MG/2 ML VIAL IV PUSH SCH (07:56)
[2017-12-03] MEDS: SODIUM CHLORIDE 0.9% FLUSH 10 ML FLUSH IV FLUSH SCH ×2 (07:56→20:04)
[2017-12-03] MEDS: FAMOTIDINE 20 MG/2 ML VIAL IV PUSH SCH (07:56)
[2017-12-03] MEDS: LEVOFLOXACIN ORAL SOLN 2500 MG/100 ML BOTTLE NG SCH (07:57)
[2017-12-03] MEDS: ARTIFICIAL TEARS OPTH SOLN 15 ML BTL EACH EYE SCH ×3 (07:58→21:52)
[2017-12-03] MEDS: CHLORHEXIDINE 0.12% (ORAL KIT) 15 ML CUP MT SCH ×2 (07:58→19:55)
[2017-12-03] MEDS: DEXMEDETOMIDINE INJ 1,000 MCG in SODIUM CHLOR 0.9% 250 ML INJ 240 ML IV PRN (09:31)
[2017-12-03] MEDS ORDERED: RESP: ALBUTEROL 2.5 MG/3 ML NEB (PRN) NEB (10:00)
[2017-12-03] MEDS ORDERED: DEXTROSE 50% IN WATER 50 ML VIAL(D50) IV PUSH PRN (10:45)
[2017-12-03] MEDS ORDERED: GLUCAGON 1 MG/ML VIAL OTHER PRN (10:45)
--- NOTE | 2017-12-03 10:45 | RADRPT ---
EXAM DATE: 12/03/2017 10:27 AM EDT AGE/SEX: 57 years / Female INDICATIONS: Bilateral lower lobe lung collapse. CLINICAL DATA: This is the patient's subsequent encounter. Patient reports that signs and symptoms h ave been present for 4 - 6 days and indicates a pain score of Nonresponsive. MEDICAL/SURGICAL HISTORY: Non-responsive. Non-responsive. COMPARISON: [facility] [place], 12/02/2017. . FINDINGS: ET and nasogastric tube in good position. Lungs are under aerated with bibasilar parenchymal changes worse on the right, improved in the interval. There is no pneumothorax. There is no significant pleur al effusion. The portion of the bony skeleton visualized is unremarkable. CONCLUSION: Interval improvement as described above. Support apparatus in good position. Electronically signed by: Shaun Galeano MD 12/03/2017 10:44 AM EDT
[2017-12-03] MEDS: fentaNYL DRIP 250 ML IV PRN ×2 (10:52→21:51)
--- NOTE | 2017-12-03 10:55 | HHI.CCPN ---
Subjective Remarks/Hospital Course 57-year-old female who presented to emergency department complaining of SOB and coughing. She has also complained of severe left back rib area pain. In the emergency department she was desaturating to 80s on room air and 88 on 2 L nasal cannula. She was intubated by ED attending for an acute hypoxemic respiratory failure. She was intubated by ED attending. She is on Coumadin/ Lovenox 1 mg/kg every 12 hours for factor V Leiden mutation. Her INR is subtherapeutic. Attempted SBTs but patient could not tolerate due to severe bronchospasm. 11/30: Continued agitation but bronchospasm is minimally improved. Although she carries a prednisone allergy on her chart she is tolerating Solu-Medrol without difficulty. 12/01: Without heavy sedation patient becomes extremely agitated and developed severe airway collapse with very poor air movement. Unprovoked her wheezing has ceased but with agitation she developed some minimal tidal volume. We have added Precedex and will add p.o. Librium and try to rapidly extubate her. I am not optimistic. This is probably why she is required tracheostomy in the past. 12/02: Patient has developed right lower lobe atelectasis and partial collapse of the right middle lobe. Will undoubtedly require bronchoscopy to remove inspissated plugs. Her anxiety and agitation continues to be problematic and she does not respond to Precedex. SUBJECTIVE: 12/03: Resting comfortably in bed in no acute distress. FiO2 100%. X-ray this a.m. revealed resolution of lower lobe collapse. Minimal secretions from ET tube. Positive BM 1 Objective Vital Signs Date Time Temp Pulse Resp B/P (MAP) Pulse Ox O2 Delivery O2 Flow Rate FiO2 12/03/17 10:00 66 12/03/17 08:52 88 80 12/03/17 08:00 98.9 16 139/81 (100) 12/03/17 07:00 Mechanical Ventilator Intake and Output 12/03/17 12/03/17 12/04/17 08:00 16:00 00:00 Intake Total 803 ml Output Total 525 ml Balance 278 ml Result Diagram: 11/29/17 0413 12/02/17 0516 Other Results Microbiology Date/Time Source Procedure Growth Status 11/28/17 05:25 Urine Clean Catch Urine Culture - Final NO GROWTH IN 48 HOURS. Complete Imaging Last Impressions Chest X-Ray 12/02/17 0400 Signed Impressions: CONCLUSION: 1. Possible collapse of right middle lobe and lower lobe not present previousl y and mucous plugging should be entertained. 2. Slight left lung base atelectasis and/or infiltrate is seen with possible c onsolidation or partial collapse left lower lung as well. Ribs X-Ray 11/28/17 0000 Signed Impressions: CONCLUSION: Deformities at the anterior lateral left ninth and 10th ribs prior fracture. Lung Scan-VQ Nuclear Medicine 11/28/17 0000 Signed Impressions: CONCLUSION: Low probability scan for pulmonary embolism Objective Remarks General: 57-year-old female resting in bed orotracheally intubated Head: Atraumatic, normal Neck: Supple, orally intubated. Lungs: Minimal wheezes but bilateral air movement acceptable. Heart: Tachycardia, S1, S2. No S4. No murmur or rub, distant tones, no JVD. Abdomen: Soft, nondistended, no guarding, bowel sounds are present. No guarding. Extremities: Warm, well-perfused. 1+ peripheral leg edema Neuro: Moves 4 extremities with strength and purpose. Severely agitated. Does not track with eyes. Urinary Catheter: Yes Assessment to: Continue Phillip insert reason: ICU Pt Getting Diuretics Vascular Central Line Catheter: No Assessment to: Continue A/P Assessment and Plan Neuro/PSYCH: EtOH abuse/withdrawal History of right frontal CVA Depression/anxiety Currently on dexmedetomidine drip at 1 mcg kilogram per minute and fentanyl drip at 200 mcg an hour for sedation/analgesia while intubated Goal of RASS -2 Daily sedation vacation Schedule on chlordiazepoxide 25 mg 3 times daily EtOH withdrawal Acetaminophen 650 mg p.o. every 6 hours as needed fever CV: Coronary artery disease Essential hypertension Hyperlipidemia Continue amiloride/hydrochlorthiazide 5/50 1 tablet daily Currently not requiring antihypertensives and/or vasopressors Resp: Acute hypoxemic respiratory failure COPD Bilateral lower lobe lung collapse status post bronchoscopy 12/02 PRVC 16/550/1.2/8/100 Ventilator bundle Albuterol/ipratropium aerosols every 4 hours with albuterol aerosols every 2 hours as needed dyspnea Budesonide 0.5/2 1 inhalation twice daily On budesonide/formoterol 160/4.5 2 puffs twice daily at home Previously started on methylprednisolone succinate currently at 60 mg every 6 hours. Noted allergy to prednisone Follow-up chest x-ray and ABG 12/03 pending VQ scan low probability for pulmonary embolism GI: Gastroesophageal reflux disease Hepatitis C Patient is currently on tube feeding t Jevity 1.5 goal 35 cc an hour Famotidine for GI prophylaxis Docusate serum/senna 1 tablet twice daily for bowel regimen : Phillip catheter placed while on furosemide Endo: Sliding scale insulin with Accu-Cheks to maintain euglycemia while on high-dose steroids Renal: Creatinine currently within normal limits Monitor urine output Accurate I's and O's Heme: Factor V Leiden on chronic anticoagulation Normocytic anemia Chronic warfarin use History of left lower extremity DVT status post IVC filter Currently on heparin drip with transition to warfarin. INR currently 1.2 At home on enoxaparin 80 mg subcu twice daily with warfarin 7.5 mg daily Monitor CBC daily. ID: Currently levofloxacin prophylactically since 11/29 Urine culture no growth to date FEN: Replace electrolytes as clinically indicated MSK: Osteoporosis/chronic low back pain PT evaluate and treat Access -Utilize peripheral IV. Central line if indicated Prophylaxis -GI -famotidine -DVT -SCD/heparin drip/warfarin Level 2 follow-up Rodo Wu MD December 03, 2017 10:55
[2017-12-03 11:59] LABS: AUTOMATED NEUTROPHIL # 15.9 TH/MM3 (1.8-7.7); BASOPHIL # 0.1 TH/MM3 (0-0.2); BASOPHIL % 0.3 % (0.0-2.0); HEMATOCRIT 40.1 % (35.0-46.0); HEMOGLOBIN 12.5 GM/DL (11.6-15.3); LYMPH % 2.9 % (9.0-44.0); LYMPHOCYTE # 0.5 TH/MM3 (1.0-4.8); MEAN CELL VOLUME 94.3 FL (80.0-100.0); MEAN CORPUSCULAR HEMOGLOBIN 29.5 PG (27.0-34.0); MEAN CORPUSCULAR HGB CONC 31.3 % (32.0-36.0); MEAN PLATELET VOLUME 8.1 FL (7.0-11.0); MONO % 4.2 % (0.0-8.0); MONOCYTE # 0.7 TH/MM3 (0-0.9); NEUT % 92.6 % (16.0-70.0); PLATELET COUNT 255 TH/MM3 (150-450); RED BLOOD COUNT 4.25 MIL/MM3 (4.00-5.30); RED CELL DISTRIBUTION WIDTH 18.9 % (11.6-17.2); WHITE BLOOD COUNT 17.2 TH/MM3 (4.0-11.0)
[2017-12-03] MEDS: INSULIN NovoLIN REGULAR SUPPLEMENTAL SCALE SQ SCH ×2 (12:19→17:15)
[2017-12-03 12:20] LABS: ALBUMIN 2.3 GM/DL (3.4-5.0); ALT (GPT) 21 U/L (10-53); AST (GOT) 13 U/L (15-37); BICARBONATE 34.5 MEQ/L (21.0-32.0); BLOOD UREA NITROGEN 36 MG/DL (7-18); CALCIUM 8.4 MG/DL (8.5-10.1); CHLORIDE 107 MEQ/L (98-107); CREATININE 0.46 MG/DL (0.50-1.00); GLOMERULAR FILTRATION RATE 141 ML/MIN (>89); GLUCOSE,RANDOM 170 MG/DL (74-106); MAGNESIUM 2.3 MG/DL (1.5-2.5); PHOSPHORUS 1.9 MG/DL (2.5-4.9); SODIUM (NA) 150 MEQ/L (136-145)
[2017-12-03 12:25] LABS: ALKALINE PHOSPHATASE 68 U/L (45-117); TOTAL BILIRUBIN ADULT 0.2 MG/DL (0.2-1.0); TOTAL PROTEIN 6.1 GM/DL (6.4-8.2)
[2017-12-03] MEDS: RESP: ALBUTEROL 2.5 MG/IPRATROPIUM 0.5 MG NEB (SCH) NEB ×3 (12:25→20:31)
[2017-12-03 12:59] LABS: HEMATOCRIT 38.9 % (35.0-46.0); HEMOGLOBIN 12.4 GM/DL (11.6-15.3); MEAN CELL VOLUME 94.8 FL (80.0-100.0); MEAN CORPUSCULAR HEMOGLOBIN 30.3 PG (27.0-34.0); MEAN CORPUSCULAR HGB CONC 31.9 % (32.0-36.0); MEAN PLATELET VOLUME 8.4 FL (7.0-11.0); PLATELET COUNT 241 TH/MM3 (150-450); RED CELL DISTRIBUTION WIDTH 18.7 % (11.6-17.2); WHITE BLOOD COUNT 17.2 TH/MM3 (4.0-11.0)
[2017-12-03 13:16] LABS: INTERNATIONAL NORMALIZED RATIO 1.1 RATIO; PROTHROMBIN TIME - PATIENT 11.6 SEC (9.8-11.6)
[2017-12-03] MEDS: HEPARIN-D5W 25,000 U/250 ML 250 ML IV PRN (13:33)
[2017-12-03] MEDS: WARFARIN SOD 5 MG TAB PO SCH (16:21)
[2017-12-03] MEDS: PROPOFOL 1000 MG/100 ML INJ 100 ML IV PRN (16:22)
[2017-12-03] MEDS: EPOPROSTENOL NEB SOLUTION 50 NG/KG/MIN 100 ML NEB SCH ×2 (17:16)
[2017-12-03] MEDS: FAMOTIDINE 20 MG TAB NG SCH (20:04)
[2017-12-03] MEDS: RESP: BUDESONIDE 0.5 MG/2 ML NEB NEB SCH (20:31)
[2017-12-03] MEDS ORDERED: HEPARIN SODIUM - SQ 10,000 UNITS/ML VIAL SQ SCH (21:00)
--- NOTE | 2017-12-03 23:48 | PD.PROCEDR ---
Procedure Note Procedure Procedure: Arterial Line Placement Right radial arterial line Diagnosis: Acute hypoxic respiratory failure Indications: Need for serial arterial blood gas sampling Consent: Emergent Description of the Procedure: The right wrist was prepped and draped sterilely. 1% lidocaine was used for local anesthesia. The pulse was located and a needle was advanced into the artery. A 20 gauge, 12 cm catheter was advanced into the artery using a modified Seldinger technique. The catheter was sutured to the skin and a sterile dressing was applied. The catheter was connected to a pressure transducer and an arterial waveform was noted. There were no immediate complications noted. There was minimal EBL. I personally performed the procedure. Guillermo Loza MD December 03, 2017 23:48
[2017-12-04] VITALS (16 sets, daily range): BP systolic 79–142; BP diastolic 47–69; PULSE 52–110; RESP 16; TEMP 98.8–99.9; O2SAT 90–99
[2017-12-04] MEDS: methylPREDNISolone SOD SUCC 125 MG/2 ML VIAL IV PUSH SCH ×5 (00:01→23:32)
--- NOTE | 2017-12-04 00:06 | RADRPT ---
EXAM DATE: 12/03/2017 11:40 PM EDT AGE/SEX: 57 years / Female INDICATIONS: Bilateral leg edema. CLINICAL DATA: This is the patient's initial encounter. Patient reports that signs and symptoms have been present for 1 day and indicates a pain score of Nonresponsive. MEDICAL/SURGICAL HISTORY: Chronic obstructive pulmonary disease. Gastroesophageal reflux disea se. Hypercholesterolemia. Hypertension. Coronary artery disease. Anticoagulant therapy. Deep Vein t hrombosis. Stroke. Pneumonia. Inguinal hernia. Osteomyelitis. Factor V Deficiency. Leiden mutation. H epatitis C. MRSA/PCR nares. . Multiple left leg reconstruction. Hip replacement. Plate in skull/aircraft mechanic armament niotomy. Jaw surgery. Trach and PEG placement. Back surgery. Venous umbrella filter in groin. COMPARISON: No prior exams available for comparison. No external comparison. TECHNIQUE: Venous ultrasound of both lower extremities was performed from the inguinal ligament to t he proximal calf. Real-time, color Doppler and spectral tracing, compression and augmentation techni ques were used. FINDINGS: Right Leg: There is normal compressibility of the deep venous system from the inguinal region to the proximal calf. No echogenic clot is seen in the lumen of the common femoral, femoral, popliteal, an d posterior tibial veins. There is a normal response of the venous system to proximal and distal aug mentation and respiration. Left Leg: There is normal compressibility of the deep venous system from the inguinal region to the proximal calf. No echogenic clot is seen in the lumen of the common femoral, femoral, popliteal, and posterior tibial veins. There is a normal response of the venous system to proximal and distal augm entation and respiration. CONCLUSION: 1. The study is negative for bilateral lower extremity deep venous thrombosis. Electronically signed by: Di Zavala MD 12/04/2017 12:04 AM EDT
[2017-12-04] MEDS: PROPOFOL 1000 MG/100 ML INJ 100 ML IV PRN ×4 (00:43→23:54)
[2017-12-04] MEDS: RESP: ALBUTEROL 2.5 MG/IPRATROPIUM 0.5 MG NEB (SCH) NEB ×7 (01:13→23:21)
[2017-12-04] MEDS: EPOPROSTENOL NEB SOLUTION 50 NG/KG/MIN 100 ML NEB SCH ×4 (01:34→13:27)
[2017-12-04] MEDS: CHLORHEXIDINE GLUCONATE 2 % 1 PACK (2 CLOTHS) TOP SCH (03:34)
[2017-12-04] MEDS: ARTIFICIAL TEARS OPTH SOLN 15 ML BTL EACH EYE SCH ×3 (05:25→21:26)
[2017-12-04] MEDS: HEPARIN-D5W 25,000 U/250 ML 250 ML IV PRN (05:53)
[2017-12-04] MEDS: INSULIN NovoLIN REGULAR SUPPLEMENTAL SCALE SQ SCH ×2 (05:56)
[2017-12-04 05:58] LABS: AUTOMATED NEUTROPHIL # 15.2 TH/MM3 (1.8-7.7); BASOPHIL % 0.1 % (0.0-2.0); EOSINOPHIL % 0.1 % (0.0-4.0); HEMATOCRIT 35.4 % (35.0-46.0); HEMOGLOBIN 11.4 GM/DL (11.6-15.3); LYMPH % 1.9 % (9.0-44.0); LYMPHOCYTE # 0.3 TH/MM3 (1.0-4.8); MEAN CELL VOLUME 94.4 FL (80.0-100.0); MEAN CORPUSCULAR HEMOGLOBIN 30.3 PG (27.0-34.0); MEAN CORPUSCULAR HGB CONC 32.1 % (32.0-36.0); MONO % 3.4 % (0.0-8.0); MONOCYTE # 0.6 TH/MM3 (0-0.9); NEUT % 94.5 % (16.0-70.0); PLATELET COUNT 221 TH/MM3 (150-450); RED BLOOD COUNT 3.75 MIL/MM3 (4.00-5.30); RED CELL DISTRIBUTION WIDTH 18.4 % (11.6-17.2); WHITE BLOOD COUNT 16.1 TH/MM3 (4.0-11.0)
[2017-12-04 06:05] LABS: INTERNATIONAL NORMALIZED RATIO 1.2 RATIO
[2017-12-04 06:20] LABS: BICARBONATE 32.5 MEQ/L (21.0-32.0); CALCIUM 8.2 MG/DL (8.5-10.1); CREATININE 0.63 MG/DL (0.50-1.00)
[2017-12-04] MEDS: RESP: BUDESONIDE 0.5 MG/2 ML NEB NEB SCH ×2 (08:04→20:09)
[2017-12-04] MEDS ORDERED: DEXTROSE 50% IN WATER 50 ML VIAL(D50) IV PUSH PRN (08:30)
[2017-12-04] MEDS ORDERED: GLUCAGON 1 MG/ML VIAL OTHER PRN (08:30)
[2017-12-04] MEDS: chlordiazePOXIDE 25 MG CAP PO SCH ×3 (08:49→18:34)
[2017-12-04] MEDS: DOCUSATE SODIUM 50 MG/SENNA 8.6 MG TAB PO SCH ×2 (08:49→20:54)
[2017-12-04] MEDS: aMILoride/HCTZ 5 MG/50 MG TAB PO SCH (08:49)
[2017-12-04] MEDS: FAMOTIDINE 20 MG TAB NG SCH ×2 (08:49→20:54)
[2017-12-04] MEDS: SODIUM CHLORIDE 0.9% FLUSH 10 ML FLUSH IV FLUSH SCH ×2 (08:49→20:55)
[2017-12-04] MEDS: LEVOFLOXACIN ORAL SOLN 2500 MG/100 ML BOTTLE NG SCH (08:50)
[2017-12-04] MEDS: CHLORHEXIDINE 0.12% (ORAL KIT) 15 ML CUP MT SCH ×2 (08:50→20:59)
--- NOTE | 2017-12-04 09:31 | HHI.CCPN ---
Subjective Remarks/Hospital Course 57-year-old female who presented to emergency department complaining of SOB and coughing. She has also complained of severe left back rib area pain. In the emergency department she was desaturating to 80s on room air and 88 on 2 L nasal cannula. She was intubated by ED attending for an acute hypoxemic respiratory failure. She was intubated by ED attending. She is on Coumadin/ Lovenox 1 mg/kg every 12 hours for factor V Leiden mutation. Her INR is subtherapeutic. Attempted SBTs but patient could not tolerate due to severe bronchospasm. 11/30: Continued agitation but bronchospasm is minimally improved. Although she carries a prednisone allergy on her chart she is tolerating Solu-Medrol without difficulty. 12/01: Without heavy sedation patient becomes extremely agitated and developed severe airway collapse with very poor air movement. Unprovoked her wheezing has ceased but with agitation she developed some minimal tidal volume. We have added Precedex and will add p.o. Librium and try to rapidly extubate her. I am not optimistic. This is probably why she is required tracheostomy in the past. 12/02: Patient has developed right lower lobe atelectasis and partial collapse of the right middle lobe. Will undoubtedly require bronchoscopy to remove inspissated plugs. Her anxiety and agitation continues to be problematic and she does not respond to Precedex. 12/03: Resting comfortably in bed in no acute distress. FiO2 100%. X-ray this a.m. revealed resolution of lower lobe collapse. Minimal secretions from ET tube. Positive BM 1 SUBJECTIVE: 12/04: T-max 99.9. Remains on epoprostenol. Did not tolerate bilevel or increased PEEP. Tolerating tube feeds at goal. Currently on propofol and fentanyl drips. Objective Vital Signs Date Time Temp Pulse Resp B/P (MAP) Pulse Ox O2 Delivery O2 Flow Rate FiO2 12/04/17 04:52 94 100 12/04/17 04:00 99.9 95 16 104/58 (73) 131/58 (82) 12/03/17 19:30 Mechanical Ventilator Intake and Output 12/04/17 12/04/17 12/04/17 07:59 15:59 23:59 Intake Total 720 ml 80 ml Output Total 400 ml Balance 320 ml 80 ml Result Diagram: 12/04/17 0530 12/04/17 0530 Other Results Microbiology Date/Time Source Procedure Growth Status 12/03/17 12:44 Blood Peripheral Aerobic Blood Culture Pending Received 12/03/17 12:44 Blood Peripheral Anaerobic Blood Culture Pending Received 12/03/17 11:25 Sputum Endotracheal Gram Stain - Final Resulted 12/03/17 11:25 Sputum Endotracheal Sputum Culture Pending Resulted 11/28/17 05:25 Urine Clean Catch Urine Culture - Final NO GROWTH IN 48 HOURS. Complete Imaging Last Impressions Lower Extremity Ultrasound 12/03/17 0000 Signed Impressions: CONCLUSION: 1. The study is negative for bilateral lower extremity deep venous thrombosis. Chest X-Ray 12/03/17 0000 Signed Impressions: CONCLUSION: Interval improvement as described above. Support apparatus in good position. Ribs X-Ray 11/28/17 0000 Signed Impressions: CONCLUSION: Deformities at the anterior lateral left ninth and 10th ribs prior fracture. Lung Scan-VQ Nuclear Medicine 11/28/17 0000 Signed Impressions: CONCLUSION: Low probability scan for pulmonary embolism Objective Remarks General: 57-year-old female resting in bed orotracheally intubated Head: Atraumatic, normal Neck: Supple, orally intubated. Lungs: Minimal wheezes but bilateral air movement acceptable. Heart: Tachycardia, S1, S2. No S4. No murmur or rub, distant tones, no JVD. Abdomen: Soft, nondistended, no guarding, bowel sounds are present. No guarding. Extremities: Warm, well-perfused. 1+ peripheral leg edema Neuro: Moves 4 extremities with strength and purpose. Severely agitated. Does not track with eyes. Urinary Catheter: Yes Assessment to: Continue Phillip insert reason: Prolonged Immobilization Vascular Central Line Catheter: No Assessment to: Continue A/P Assessment and Plan Neuro/PSYCH: EtOH abuse/withdrawal History of right frontal CVA Depression/anxiety Currently on propofol drip at 25 mcg kilogram per minute and fentanyl drip at 200 mcg an hour for sedation/analgesia while intubated Goal of RASS -2 Daily sedation vacation Schedule on chlordiazepoxide 25 mg 3 times daily EtOH withdrawal Acetaminophen 650 mg p.o. every 6 hours as needed fever CV: Coronary artery disease Essential hypertension Hyperlipidemia Continue amiloride/hydrochlorthiazide 5/50 1 tablet daily Currently not requiring antihypertensives and/or vasopressors Off all maintenance fluid Resp: Acute hypoxemic respiratory failure COPD Bilateral lower lobe lung collapse status post bronchoscopy 12/02 PRVC 16/550/1.2/ Ventilator bundle Albuterol/ipratropium aerosols every 4 hours with albuterol aerosols every 2 hours as needed dyspnea Budesonide 0.5/2 1 inhalation twice daily On budesonide/formoterol 160/4.5 2 puffs twice daily at home On epoprostenol drip at 50 ng per kilogram per minute aerosolized to improve gas exchange and arterial oxygenation Previously started on methylprednisolone succinate currently at 60 mg every 6 hours. Noted allergy to prednisone Follow-up chest x-ray and ABG 12/05 VQ scan low probability for pulmonary embolism GI: Gastroesophageal reflux disease Hepatitis C Patient is currently on tube feeding t Jevity 1.5 goal 50 cc an hour Famotidine for GI prophylaxis Docusate serum/senna 1 tablet twice daily for bowel regimen. Added polyethylene glycol 17 g twice daily and lactulose 30 cc 4 times daily until BM. : Phillip catheter placed while on furosemide Endo: Sliding scale insulin with Accu-Cheks to maintain euglycemia while on high-dose steroids Renal: Creatinine currently within normal limits Monitor urine output Accurate I's and O's Heme: Factor V Leiden on chronic anticoagulation Normocytic anemia Leukocytosis Chronic warfarin use History of left lower extremity DVT status post IVC filter Currently on heparin drip at 1300 units an hour with transition to warfarin. INR currently 1.2 At home on enoxaparin 80 mg subcu twice daily with warfarin 7.5 mg daily Monitor CBC daily. ID: Currently levofloxacin prophylactically since 11/29 Urine culture no growth to date. Influenza negative. Blood cultures 2 and sputum 12/03 pending FEN: Replace electrolytes as clinically indicated MSK: Osteoporosis/chronic low back pain PT evaluate and treat Access -Utilize peripheral IV. Central line if indicated Prophylaxis -GI -famotidine -DVT -SCD/heparin drip/warfarin Critical Care: The total critical care time was 35 minutes. Time to perform other separately billable procedures was not included in the critical care time. Rodo Wu MD December 04, 2017 09:31
[2017-12-04] MEDS ORDERED: POLYETHYLENE GLYCOL 17 GM PKG PO ONE (09:45)
[2017-12-04] MEDS ORDERED: MINERAL OIL EMULSION 55% PO ONE (09:45)
[2017-12-04] MEDS ORDERED: POTASSIUM PHOSPHATE/SODIUM PHOSPHATE 250 MG TAB OG-TUBE ONE (09:45)
[2017-12-04] MEDS: fentaNYL DRIP 250 ML IV PRN ×2 (10:32→20:54)
[2017-12-04] MEDS: LACTULOSE SYRUP 20 GM/30 ML CUP PO SCH ×3 (12:39→20:53)
[2017-12-04] MEDS: INSULIN ASPART SUPPLEMENTAL SCALE SQ SCH ×3 (12:40→23:32)
[2017-12-04] MEDS ORDERED: Vancomycin Consult Pharmacy 1 EA OTHER SCH (14:45)
[2017-12-04] MEDS ORDERED: TERBUTALINE INJ 1 MG/ML AMP SQ PRN (15:30)
[2017-12-04] MEDS: NOREPINEPHRINE INJ 4 MG in SODIUM CHLOR 0.9% 250 ML INJ 246 ML IV PRN (16:15)
--- NOTE | 2017-12-04 17:24 | PD.PROCEDR ---
Central Line Procedure REASON FOR PROCEDURE Central venous access PROCEDURE PERFORMED Central line placement: Right IJ CVL CONSENT Informed consent for procedure was obtained. The risks and benefits of the procedure were discussed to include but limited to bleeding, clot formation, infection, and even . ANESTHESIA Local injection of 1% Lidocaine DESCRIPTION OF THE PROCEDURE The patient was placed in supine, mild Trendelenburg position. The area was exposed and cleansed with ChloraPrep, times two. Large sterile drape was used to cover the patient, with the site exposed, under sterile conditions including cap, face mask, sterile gown, and sterile gloves. On single attempt, the introducer needle was inserted with negative pressure in syringe and venous flash was obtained. The guide wire was then advanced without any restriction and the needle was removed. The dilator was used without any complications. Using Seldinger technique the antibiotic coated triple lumen catheter was advanced over the guide wire to a depth of 15 centimeters. The guide wire was removed. All ports were aspirated with dark venous blood return and flushed easily with sterile saline. All ports were capped. Antibiotic disc was placed around central line at puncture site. The central line was secured to the skin with two interrupted 2.0 silk sutures. The area was bandaged with sterile see- through central line bandage. Site was sutured into place due to patient's agitation/pulling at lines and critical condition. StatLock would not stick RADIOLOGICAL DATA Ultrasound guidance was used to locate right internal jugular vein. Doppler/ color flow was used to confirm venous flow. COMPLICATIONS: No apparent complications ESTIMATED BLOOD LOSS: Less than 1 cc. Rodo Wu MD December 04, 2017 17:24
[2017-12-04] MEDS ORDERED: ACETAMINOPHEN 325 MG TAB PO PRN (17:30)
[2017-12-04] MEDS ORDERED: SODIUM CHLORIDE 0.9% FLUSH 10 ML FLUSH IV FLUSH PRN (17:30)
--- NOTE | 2017-12-04 17:46 | RADRPT ---
EXAM DATE: 12/04/2017 5:43 PM EDT AGE/SEX: 57 years / Female INDICATIONS: Central line placement. CLINICAL DATA: This is the patient's initial encounter. Patient reports that signs and symptoms have been present for 1 day and indicates a pain score of Nonresponsive. MEDICAL/SURGICAL HISTORY: Non-responsive. Non-responsive. COMPARISON: [facility] – [place], CHEST SINGLE AP, 12/03/2017. . FINDINGS: The ET tube and right jugular central line are in good position. The heart and mediastinal contours a re within normal limits. There is a right-sided pleural effusion. There are chronic interstitial doan ges. The visualized bony structures are grossly intact. CONCLUSION: 1. Support equipment in good position. 2. No pneumothorax identified following central line placement. The tip of the right jugular line ov erlies the SVC. 3. Small right-sided effusion similar to previous exam. Electronically signed by: Esdras Galeano MD 12/04/2017 5:44 PM EDT
[2017-12-04] MEDS ORDERED: ceFAZolin 1,000 MG/NS 100 ML IV SCH ×2 (18:00)
[2017-12-04] MEDS: PIPERACIL-TAZO 4.5 GM PREMIX 100 ML IV SCH ×2 (18:25→21:26)
[2017-12-04] MEDS: VANCOMYCIN INJ 1,250 MG in SODIUM CHLOR 0.9% 250 ML INJ 250 ML IV SCH (18:34)
[2017-12-04] MEDS: WARFARIN SOD 5 MG TAB PO SCH (18:34)
[2017-12-04] MEDS: MUPIROCIN 2% OINT 1 APPLIC/GM SYR EACH NARE SCH (20:53)
[2017-12-04] MEDS: POLYETHYLENE GLYCOL 17 GM PKG PO SCH (20:55)
[2017-12-05] VITALS (16 sets, daily range): BP systolic 104–152; BP diastolic 6–83; PULSE 59–89; RESP 16; TEMP 98.9–99.2; O2SAT 91–95
[2017-12-05] MEDS: EPOPROSTENOL NEB SOLUTION 50 NG/KG/MIN 100 ML NEB SCH ×4 (01:16→21:25)
[2017-12-05] MEDS: HEPARIN-D5W 25,000 U/250 ML 250 ML IV PRN ×2 (01:35→20:10)
[2017-12-05] MEDS: PROPOFOL 1000 MG/100 ML INJ 100 ML IV PRN ×2 (02:59→11:42)
[2017-12-05] MEDS: CHLORHEXIDINE GLUCONATE 2 % 1 PACK (2 CLOTHS) TOP SCH (03:01)
[2017-12-05] MEDS: PIPERACIL-TAZO 4.5 GM PREMIX 100 ML IV SCH ×4 (03:02→21:27)
[2017-12-05] MEDS: RESP: ALBUTEROL 2.5 MG/IPRATROPIUM 0.5 MG NEB (SCH) NEB ×6 (03:05→23:42)
--- NOTE | 2017-12-05 03:58 | RADRPT ---
EXAM DATE: 12/05/2017 3:42 AM EDT AGE/SEX: 57 years / Female INDICATIONS: COPD. CLINICAL DATA: This is the patient's subsequent encounter. Patient reports that signs and symptoms h ave been present for 1 week and indicates a pain score of Nonresponsive. MEDICAL/SURGICAL HISTORY: Non-responsive. Non-responsive. COMPARISON: [facility] – [place], CHEST SINGLE AP, 12/04/2017. . FINDINGS: Endotracheal tube in good position. NG enters the stomach. Right central line in superior vena cava. Bilateral mostly basilar airspace disease similar to December 04. No pneumothorax. CONCLUSION: Support apparatus in good position. Basilar airspace disease, right greater than left. Electronically signed by: Iftikhar Fraire MD 12/05/2017 3:57 AM EDT
[2017-12-05] MEDS: methylPREDNISolone SOD SUCC 125 MG/2 ML VIAL IV PUSH SCH ×3 (05:02→17:55)
[2017-12-05] MEDS: VANCOMYCIN INJ 1,250 MG in SODIUM CHLOR 0.9% 250 ML INJ 250 ML IV SCH ×2 (05:02→17:26)
[2017-12-05] MEDS: ARTIFICIAL TEARS OPTH SOLN 15 ML BTL EACH EYE SCH ×3 (05:02→21:27)
[2017-12-05] MEDS: INSULIN ASPART SUPPLEMENTAL SCALE SQ SCH ×3 (05:31→18:23)
[2017-12-05 05:53] LABS: INTERNATIONAL NORMALIZED RATIO 1.2 RATIO; PROTHROMBIN TIME - PATIENT 12.3 SEC (9.8-11.6)
[2017-12-05 05:56] LABS: AUTOMATED NEUTROPHIL # 13.3 TH/MM3 (1.8-7.7); HEMATOCRIT 32.5 % (35.0-46.0); HEMOGLOBIN 10.4 GM/DL (11.6-15.3); LYMPH % 1.4 % (9.0-44.0); LYMPHOCYTE # 0.2 TH/MM3 (1.0-4.8); MEAN CELL VOLUME 94.4 FL (80.0-100.0); MEAN CORPUSCULAR HEMOGLOBIN 30.1 PG (27.0-34.0); MEAN CORPUSCULAR HGB CONC 31.9 % (32.0-36.0); MONO % 5.4 % (0.0-8.0); MONOCYTE # 0.8 TH/MM3 (0-0.9); NEUT % 93.2 % (16.0-70.0); PLATELET COUNT 212 TH/MM3 (150-450); RED BLOOD COUNT 3.45 MIL/MM3 (4.00-5.30); RED CELL DISTRIBUTION WIDTH 18.4 % (11.6-17.2); WHITE BLOOD COUNT 14.3 TH/MM3 (4.0-11.0)
[2017-12-05 06:12] LABS: AST (GOT) 14 U/L (15-37); BICARBONATE 26.2 MEQ/L (21.0-32.0); BLOOD UREA NITROGEN 35 MG/DL (7-18); CALCIUM 8.4 MG/DL (8.5-10.1); CHLORIDE 107 MEQ/L (98-107); CREATININE 0.75 MG/DL (0.50-1.00); GLOMERULAR FILTRATION RATE 80 ML/MIN (>89); GLUCOSE,RANDOM 206 MG/DL (74-106); MAGNESIUM 2.3 MG/DL (1.5-2.5); SODIUM (NA) 145 MEQ/L (136-145)
[2017-12-05 06:28] LABS: ALKALINE PHOSPHATASE 47 U/L (45-117); ALT (GPT) 22 U/L (10-53); TOTAL BILIRUBIN ADULT 0.2 MG/DL (0.2-1.0); TOTAL PROTEIN 5.4 GM/DL (6.4-8.2)
[2017-12-05] MEDS: LEVOFLOXACIN ORAL SOLN 2500 MG/100 ML BOTTLE NG SCH (08:25)
[2017-12-05] MEDS: RESP: BUDESONIDE 0.5 MG/2 ML NEB NEB SCH ×2 (08:26→19:54)
[2017-12-05] MEDS: SODIUM CHLORIDE 0.9% FLUSH 10 ML FLUSH IV FLUSH SCH ×3 (08:27→21:26)
[2017-12-05] MEDS: POLYETHYLENE GLYCOL 17 GM PKG PO SCH ×2 (08:27→21:26)
[2017-12-05] MEDS: MUPIROCIN 2% OINT 1 APPLIC/GM SYR EACH NARE SCH ×2 (08:27→21:26)
[2017-12-05] MEDS: LACTULOSE SYRUP 20 GM/30 ML CUP PO SCH ×4 (08:28→21:26)
[2017-12-05] MEDS: CHLORHEXIDINE 0.12% (ORAL KIT) 15 ML CUP MT SCH ×2 (08:28→21:26)
[2017-12-05] MEDS: aMILoride/HCTZ 5 MG/50 MG TAB PO SCH (08:28)
[2017-12-05] MEDS: DOCUSATE SODIUM 50 MG/SENNA 8.6 MG TAB PO SCH ×2 (08:28→21:26)
[2017-12-05] MEDS: chlordiazePOXIDE 25 MG CAP PO SCH ×3 (08:28→17:55)
[2017-12-05] MEDS: FAMOTIDINE 20 MG TAB NG SCH ×2 (08:28→21:26)
--- NOTE | 2017-12-05 09:12 | HHI.CCPN ---
Subjective Remarks/Hospital Course 57-year-old female who presented to emergency department complaining of SOB and coughing. She has also complained of severe left back rib area pain. In the emergency department she was desaturating to 80s on room air and 88 on 2 L nasal cannula. She was intubated by ED attending for an acute hypoxemic respiratory failure. She was intubated by ED attending. She is on Coumadin/ Lovenox 1 mg/kg every 12 hours for factor V Leiden mutation. Her INR is subtherapeutic. Attempted SBTs but patient could not tolerate due to severe bronchospasm. 11/30: Continued agitation but bronchospasm is minimally improved. Although she carries a prednisone allergy on her chart she is tolerating Solu-Medrol without difficulty. 12/01: Without heavy sedation patient becomes extremely agitated and developed severe airway collapse with very poor air movement. Unprovoked her wheezing has ceased but with agitation she developed some minimal tidal volume. We have added Precedex and will add p.o. Librium and try to rapidly extubate her. I am not optimistic. This is probably why she is required tracheostomy in the past. 12/02: Patient has developed right lower lobe atelectasis and partial collapse of the right middle lobe. Will undoubtedly require bronchoscopy to remove inspissated plugs. Her anxiety and agitation continues to be problematic and she does not respond to Precedex. 12/03: Resting comfortably in bed in no acute distress. FiO2 100%. X-ray this a.m. revealed resolution of lower lobe collapse. Minimal secretions from ET tube. Positive BM 1 12/04: T-max 99.9. Remains on epoprostenol. Did not tolerate bilevel or increased PEEP. Tolerating tube feeds at goal. Currently on propofol and fentanyl drips. SUBJECTIVE: 12/05: Afebrile. Remains on norepinephrine drip at 3 mcg/min. FiO2 requirements decreased to 60% overnight. Arousable the ventilator. She is on propofol and fentanyl drips. Objective Vital Signs Date Time Temp Pulse Resp B/P (MAP) Pulse Ox O2 Delivery O2 Flow Rate FiO2 12/05/17 08:33 95 60 12/05/17 08:00 98.9 68 16 /6 116/54 (74) 12/05/17 07:00 Mechanical Ventilator Intake and Output 6/07/2412/05/17 12/06/17 08:00 16:00 00:00 Intake Total 1810.5 ml 210 ml Output Total 750 ml Balance 1060.5 ml 210 ml Result Diagram: 12/05/17 0530 12/05/17 0530 Other Results Microbiology Date/Time Source Procedure Growth Status 12/03/17 12:44 Blood Peripheral Aerobic Blood Culture - Preliminary NO GROWTH IN 1 DAY Resulted 12/03/17 12:44 Blood Peripheral Anaerobic Blood Culture - Preliminary NO GROWTH IN 1 DAY Resulted 12/03/17 11:25 Sputum Endotracheal Gram Stain - Final Resulted 12/03/17 11:25 Sputum Culture - Preliminary S. Aureus Mrsa Resulted 11/28/17 05:25 Urine Clean Catch Urine Culture - Final NO GROWTH IN 48 HOURS. Complete Imaging Last Impressions Chest X-Ray 12/05/17 0600 Signed Impressions: CONCLUSION: Support apparatus in good position. Basilar airspace disease, right greater roger n left. Lower Extremity Ultrasound 12/03/17 0000 Signed Impressions: CONCLUSION: 1. The study is negative for bilateral lower extremity deep venous thrombosis. Ribs X-Ray 11/28/17 0000 Signed Impressions: CONCLUSION: Deformities at the anterior lateral left ninth and 10th ribs prior fracture. Lung Scan-VQ Nuclear Medicine 11/28/17 0000 Signed Impressions: CONCLUSION: Low probability scan for pulmonary embolism Objective Remarks General: 57-year-old female resting in bed orotracheally intubated Head: Atraumatic, normal Neck: Supple, orally intubated. Lungs: Minimal wheezes but bilateral air movement acceptable. Heart: Tachycardia, S1, S2. No S4. No murmur or rub, distant tones, no JVD. Abdomen: Soft, nondistended, no guarding, bowel sounds are present. No guarding. Extremities: Warm, well-perfused. 1+ peripheral leg edema Neuro: Moves 4 extremities with strength and purpose. Follows commands all 4 extremities Urinary Catheter: Yes Assessment to: Continue Phillip insert reason: Prolonged Immobilization Vascular Central Line Catheter: Yes Assessment to: Continue Date of Insertion: December 04, 2017 Line: Central Venous Catheter Side: Right Location: Internal, Jugular A/P Assessment and Plan Neuro/PSYCH: EtOH abuse/withdrawal History of right frontal CVA Depression/anxiety Currently on propofol drip at 30 mcg kilogram per minute and fentanyl drip at 150 mcg an hour for sedation/analgesia while intubated Goal of RASS -2 Daily sedation vacation Schedule on chlordiazepoxide 25 mg 3 times daily EtOH withdrawal Acetaminophen 650 mg p.o. every 6 hours as needed fever CV: Coronary artery disease Essential hypertension Hyperlipidemia Continue amiloride/hydrochlorthiazide 5/50 1 tablet daily Currently on norepinephrine 3 mcg/min Resp: Acute hypoxemic respiratory failure COPD Bilateral lower lobe lung collapse status post bronchoscopy 12/02 PRVC 16/550/0.95/5/60 Ventilator bundle Albuterol/ipratropium aerosols every 4 hours with albuterol aerosols every 2 hours as needed dyspnea Budesonide 0.5/2 1 inhalation twice daily On budesonide/formoterol 160/4.5 2 puffs twice daily at home On epoprostenol drip at 50 ng per kilogram per minute aerosolized to improve gas exchange and arterial oxygenation Previously started on methylprednisolone succinate currently at 60 mg every 6 hours. Noted allergy to prednisone VQ scan low probability for pulmonary embolism GI: Gastroesophageal reflux disease Hepatitis C Patient is currently on tube feeding t Jevity 1.5 goal 50 cc an hour Famotidine for GI prophylaxis Docusate serum/senna 1 tablet twice daily for bowel regimen. Added polyethylene glycol 17 g twice daily and lactulose 30 cc 4 times daily until BM. : Phillip catheter placed while on furosemide Endo: Sliding scale insulin with Accu-Cheks to maintain euglycemia while on high-dose steroids Renal: Creatinine currently within normal limits Monitor urine output Accurate I's and O's Heme: Factor V Leiden on chronic anticoagulation Normocytic anemia Leukocytosis Chronic warfarin use History of left lower extremity DVT status post IVC filter Currently on heparin drip at 1300 units an hour with transition to warfarin. INR currently 1.2 At home on enoxaparin 80 mg subcu twice daily with warfarin 7.5 mg daily Monitor CBC daily. ID: #[id number] pneumonia MRSA nares Currently levofloxacin prophylactically since 11/29 Vancomycin/Pipracil/tazobactam since 12/04 Urine culture no growth to date. Influenza negative. Blood cultures 2 no growth to date and sputum 12/03 MRSA FEN: Replace electrolytes as clinically indicated MSK: Osteoporosis/chronic low back pain PT evaluate and treat Access -Utilize peripheral IV. Central line if indicated Prophylaxis -GI -famotidine -DVT -SCD/heparin drip/warfarin Critical Care: The total critical care time was 35 minutes. Time to perform other separately billable procedures was not included in the critical care time. Rodo Wu MD Dec 05, 2017 09:12
[2017-12-05] MEDS: fentaNYL DRIP 250 ML IV PRN (13:39)
[2017-12-05] MEDS ORDERED: WARFARIN SOD 1 MG TAB PO ONE (16:00)
[2017-12-05] MEDS: WARFARIN SOD 5 MG TAB PO SCH (17:26)
[2017-12-05] MEDS: NOREPINEPHRINE INJ 4 MG in SODIUM CHLOR 0.9% 250 ML INJ 246 ML IV PRN (17:27)
[2017-12-06] VITALS (19 sets, daily range): BP systolic 105–115; BP diastolic 54–60; PULSE 50–98; RESP 16; TEMP 98.7–99.9; O2SAT 89–95
[2017-12-06] MEDS: PROPOFOL 1000 MG/100 ML INJ 100 ML IV PRN ×5 (00:37→19:30)
[2017-12-06] MEDS: methylPREDNISolone SOD SUCC 125 MG/2 ML VIAL IV PUSH SCH ×5 (00:37→23:04)
[2017-12-06] MEDS: EPOPROSTENOL NEB SOLUTION 50 NG/KG/MIN 100 ML NEB SCH ×6 (01:00→17:14)
[2017-12-06] MEDS: RESP: ALBUTEROL 2.5 MG/IPRATROPIUM 0.5 MG NEB (SCH) NEB ×5 (03:01→23:36)
[2017-12-06] MEDS: PIPERACIL-TAZO 4.5 GM PREMIX 100 ML IV SCH ×4 (04:06→21:51)
[2017-12-06] MEDS: CHLORHEXIDINE GLUCONATE 2 % 1 PACK (2 CLOTHS) TOP SCH (04:06)
[2017-12-06] MEDS: ARTIFICIAL TEARS OPTH SOLN 15 ML BTL EACH EYE SCH ×3 (04:06→21:52)
[2017-12-06] MEDS: fentaNYL DRIP 250 ML IV PRN ×2 (04:33→23:04)
[2017-12-06] MEDS ORDERED: PHARMACY ORDERED LAB ONE (04:45)
--- NOTE | 2017-12-06 04:56 | RADRPT ---
EXAM DATE: 12/06/2017 4:33 AM EDT AGE/SEX: 57 years / Female INDICATIONS: Respiratory failure CLINICAL DATA: This is the patient's subsequent encounter. Patient reports that signs and symptoms h ave been present for 1 week and indicates a pain score of Nonresponsive. MEDICAL/SURGICAL HISTORY: Hypercholesterolemia. Hypertension. Chronic obstructive pulmonary d isease. Asthma. Coronary artery disease. None. COMPARISON: [facility] – [place]ST SINGLE [place], 12/05/2017. . FINDINGS: ET tube, NG tube and right internal jugular central line are well placed. The heart size is normal. T here is increased density at the bases bilaterally being much more prominent on the right. CONCLUSION: Bibasilar areas of consolidation and/or atelectasis being much worse on the right. Some degree of rig ht effusion can be considered. Electronically signed by: Omer Lugo MD 12/06/2017 4:55 AM EDT
[2017-12-06 05:37] LABS: AUTOMATED NEUTROPHIL # 11.8 TH/MM3 (1.8-7.7); BASOPHIL % 0.1 % (0.0-2.0); HEMATOCRIT 32.5 % (35.0-46.0); HEMOGLOBIN 10.4 GM/DL (11.6-15.3); LYMPH % 1.7 % (9.0-44.0); LYMPHOCYTE # 0.2 TH/MM3 (1.0-4.8); MEAN CELL VOLUME 93.9 FL (80.0-100.0); MEAN PLATELET VOLUME 9.9 FL (7.0-11.0); MONO % 5.9 % (0.0-8.0); MONOCYTE # 0.7 TH/MM3 (0-0.9); NEUT % 92.3 % (16.0-70.0); PLATELET COUNT 196 TH/MM3 (150-450); RED BLOOD COUNT 3.46 MIL/MM3 (4.00-5.30); RED CELL DISTRIBUTION WIDTH 18.8 % (11.6-17.2); WHITE BLOOD COUNT 12.7 TH/MM3 (4.0-11.0)
[2017-12-06 05:43] LABS: INTERNATIONAL NORMALIZED RATIO 1.5 RATIO; PROTHROMBIN TIME - PATIENT 15.4 SEC (9.8-11.6)
[2017-12-06 05:56] LABS: ALT (GPT) 26 U/L (10-53); AST (GOT) 20 U/L (15-37); BICARBONATE 26.8 MEQ/L (21.0-32.0); BLOOD UREA NITROGEN 33 MG/DL (7-18); CALCIUM 8.2 MG/DL (8.5-10.1); CHLORIDE 107 MEQ/L (98-107); CREATININE 0.65 MG/DL (0.50-1.00); GLOMERULAR FILTRATION RATE 95 ML/MIN (>89); GLUCOSE,RANDOM 150 MG/DL (74-106); MAGNESIUM 2.3 MG/DL (1.5-2.5); SODIUM (NA) 144 MEQ/L (136-145)
[2017-12-06 05:58] LABS: ALKALINE PHOSPHATASE 48 U/L (45-117); TOTAL BILIRUBIN ADULT 0.2 MG/DL (0.2-1.0); TOTAL PROTEIN 5.8 GM/DL (6.4-8.2); VANCOMYCIN TROUGH 14.8 MCG/ML (5.0-10.0)
[2017-12-06] MEDS: VANCOMYCIN INJ 1,250 MG in SODIUM CHLOR 0.9% 250 ML INJ 250 ML IV SCH ×2 (06:07→16:39)
[2017-12-06] MEDS: INSULIN ASPART SUPPLEMENTAL SCALE SQ SCH ×5 (06:08→23:38)
[2017-12-06] MEDS ORDERED: PERMETHRIN 1% LOTION 60 ML BTL TOPICAL ONE (07:00)
[2017-12-06] MEDS: CHLORHEXIDINE 0.12% (ORAL KIT) 15 ML CUP MT SCH ×2 (08:00→20:00)
[2017-12-06] MEDS: RESP: BUDESONIDE 0.5 MG/2 ML NEB NEB SCH ×2 (08:13→20:22)
[2017-12-06] MEDS: MUPIROCIN 2% OINT 1 APPLIC/GM SYR EACH NARE SCH ×2 (08:33→21:50)
[2017-12-06] MEDS: POLYETHYLENE GLYCOL 17 GM PKG PO SCH ×2 (08:33→21:00)
[2017-12-06] MEDS: LACTULOSE SYRUP 20 GM/30 ML CUP PO SCH ×4 (08:33→21:00)
[2017-12-06] MEDS: SODIUM CHLORIDE 0.9% FLUSH 10 ML FLUSH IV FLUSH SCH ×3 (08:33→21:51)
[2017-12-06] MEDS: DOCUSATE SODIUM 50 MG/SENNA 8.6 MG TAB PO SCH ×2 (08:34→21:00)
[2017-12-06] MEDS: FAMOTIDINE 20 MG TAB NG SCH ×2 (08:35→21:51)
[2017-12-06] MEDS: chlordiazePOXIDE 25 MG CAP PO SCH ×3 (08:35→16:40)
[2017-12-06] MEDS: aMILoride/HCTZ 5 MG/50 MG TAB PO SCH (08:35)
[2017-12-06] MEDS: LEVOFLOXACIN ORAL SOLN 2500 MG/100 ML BOTTLE NG SCH (09:58)
--- NOTE | 2017-12-06 11:53 | HHI.CCPN ---
Subjective Remarks/Hospital Course 57-year-old female who presented to emergency department complaining of SOB and coughing. She has also complained of severe left back rib area pain. In the emergency department she was desaturating to 80s on room air and 88 on 2 L nasal cannula. She was intubated by ED attending for an acute hypoxemic respiratory failure. She was intubated by ED attending. She is on Coumadin/ Lovenox 1 mg/kg every 12 hours for factor V Leiden mutation. Her INR is subtherapeutic. Attempted SBTs but patient could not tolerate due to severe bronchospasm. 11/30: Continued agitation but bronchospasm is minimally improved. Although she carries a prednisone allergy on her chart she is tolerating Solu-Medrol without difficulty. 12/01: Without heavy sedation patient becomes extremely agitated and developed severe airway collapse with very poor air movement. Unprovoked her wheezing has ceased but with agitation she developed some minimal tidal volume. We have added Precedex and will add p.o. Librium and try to rapidly extubate her. I am not optimistic. This is probably why she is required tracheostomy in the past. 12/02: Patient has developed right lower lobe atelectasis and partial collapse of the right middle lobe. Will undoubtedly require bronchoscopy to remove inspissated plugs. Her anxiety and agitation continues to be problematic and she does not respond to Precedex. 12/03: Resting comfortably in bed in no acute distress. FiO2 100%. X-ray this a.m. revealed resolution of lower lobe collapse. Minimal secretions from ET tube. Positive BM 1 12/04: T-max 99.9. Remains on epoprostenol. Did not tolerate bilevel or increased PEEP. Tolerating tube feeds at goal. Currently on propofol and fentanyl drips. 12/05: Afebrile. Remains on norepinephrine drip at 3 mcg/min. FiO2 requirements decreased to 60% overnight. Arousable the ventilator. She is on propofol and fentanyl drips. SUBJECTIVE: 12/06: Afebrile. FiO2 currently 50%. Remains on epoprostenol aerosolized. Noted to have a pedicularis. Permethrin currently being applied. Objective Vital Signs Date Time Temp Pulse Resp B/P (MAP) Pulse Ox O2 Delivery O2 Flow Rate FiO2 12/06/17 10:00 84 12/06/17 08:14 90 50 12/06/17 08:00 98.9 16 115/60 (78) 12/06/17 07:00 Mechanical Ventilator Intake and Output 12/06/17 12/06/17 12/07/17 08:00 16:00 00:00 Intake Total 642 ml Output Total 850 ml Balance -208 ml Result Diagram: 12/06/17 0445 12/06/17 0445 Other Results Microbiology Date/Time Source Procedure Growth Status 12/03/17 12:44 Blood Peripheral Aerobic Blood Culture - Preliminary NO GROWTH IN 3 DAYS Resulted 12/03/17 12:44 Blood Peripheral Anaerobic Blood Culture - Preliminary NO GROWTH IN 3 DAYS Resulted 12/03/17 11:25 Sputum Endotracheal Gram Stain - Final Complete 12/03/17 11:25 Sputum Culture - Final S. Aureus Mrsa Complete 11/28/17 05:25 Urine Clean Catch Urine Culture - Final NO GROWTH IN 48 HOURS. Complete Imaging Last Impressions Chest X-Ray 12/06/17 0600 Signed Impressions: CONCLUSION: Bibasilar areas of consolidation and/or atelectasis being much worse on the rig ht. Some degree of right effusion can be considered. Lower Extremity Ultrasound 12/03/17 0000 Signed Impressions: CONCLUSION: 1. The study is negative for bilateral lower extremity deep venous thrombosis. Ribs X-Ray 11/28/17 0000 Signed Impressions: CONCLUSION: Deformities at the anterior lateral left ninth and 10th ribs prior fracture. Lung Scan-V Nuclear Medicine 11/28/17 0000 Signed Impressions: CONCLUSION: Low probability scan for pulmonary embolism Objective Remarks General: 57-year-old female resting in bed orotracheally intubated Head: Atraumatic, normal Neck: Supple, orally intubated. Lungs: Minimal wheezes but bilateral air movement acceptable. Heart: Tachycardia, S1, S2. No S4. No murmur or rub, distant tones, no JVD. Abdomen: Soft, nondistended, no guarding, bowel sounds are present. No guarding. Extremities: Warm, well-perfused. 1+ peripheral leg edema Neuro: Moves 4 extremities with strength and purpose. Follows commands all 4 extremities Urinary Catheter: Yes Assessment to: Continue Phillip insert reason: Prolonged Immobilization Vascular Central Line Catheter: Yes Assessment to: Continue Date of Insertion: December 04, 2017 Line: Central Venous Catheter Side: Right Location: Internal, Jugular A/P Assessment and Plan Neuro/PSYCH: EtOH abuse/withdrawal History of right frontal CVA Depression/anxiety Currently on propofol drip at 30 mcg kilogram per minute and fentanyl drip at 150 mcg an hour for sedation/analgesia while intubated Goal of RASS -2 Daily sedation vacation Schedule on chlordiazepoxide 25 mg 3 times daily EtOH withdrawal Acetaminophen 650 mg p.o. every 6 hours as needed fever CV: Coronary artery disease Essential hypertension Hyperlipidemia Continue amiloride/hydrochlorthiazide 5/50 1 tablet daily Currently on norepinephrine 3 mcg/min Resp: Acute hypoxemic respiratory failure COPD Bilateral lower lobe lung collapse status post bronchoscopy 12/02 PRVC 16/550/0.95/5/60 Ventilator bundle Albuterol/ipratropium aerosols every 4 hours with albuterol aerosols every 2 hours as needed dyspnea Budesonide 0.5/2 1 inhalation twice daily On budesonide/formoterol 160/4.5 2 puffs twice daily at home On epoprostenol drip at 50 ng per kilogram per minute aerosolized to improve gas exchange and arterial oxygenation Previously started on methylprednisolone succinate currently at 60 mg every 6 hours. Noted allergy to prednisone Chest x-ray worsening right lower lobe versus effusion. Will gently diurese 1 today. VQ scan low probability for pulmonary embolism Diurese with IV furosemide 40 mg 1 now. PEP 4 hours 3% hypertonic saline aerosols every 4 hours 5 days GI: Gastroesophageal reflux disease Hepatitis C Hypoalbuminemia Patient is currently on tube feeding t Jevity 1.5 goal 50 cc an hour Famotidine for GI prophylaxis Docusate serum/senna 1 tablet twice daily for bowel regimen. Added polyethylene glycol 17 g twice daily and lactulose 30 cc 4 times daily until BM. 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 INR currently 1.2 At home on enoxaparin 80 mg subcu twice daily with warfarin 7.5 mg daily Monitor CBC daily. ID: MRSA pneumonia Pediculosis capitis MRSA nares Currently levofloxacin prophylactically since 11/29 Vancomycin/Pipracil/tazobactam since 12/04 Continue permethrin 1 dose. We will/comb hair. U culture no growth to date. Influenza negative. Mupirocin to nares twice daily Blood cultures 2 no growth to date and sputum 12/03 MRSA FEN: Replace electrolytes as clinically indicated MSK: Osteoporosis/chronic low back pain PT evaluate and treat Access -Utilize peripheral IV. Central line if indicated Prophylaxis -GI -famotidine -DVT -SCD/heparin drip/warfarin Critical Care: The total critical care time was 35 minutes. Time to perform other separately billable procedures was not included in the critical care time. Rodo Wu MD Dec 06, 2017 11:53
[2017-12-06] MEDS ORDERED: FUROSEMIDE 40 MG/4 ML VIAL IV PUSH ONE (12:15)
[2017-12-06] MEDS ORDERED: ALBUMIN 25% INJ 50 ML IV ONE (12:15)
[2017-12-06] MEDS: guaiFENesin SOLUTION 200 MG/10 ML CUP NG SCH ×2 (13:36→21:51)
[2017-12-06] MEDS ORDERED: WARFARIN SOD 1 MG TAB PO ONE (16:00)
[2017-12-06] MEDS: RESP: SODIUM CHLORIDE 3% 4 ML NEB NEB SCH ×3 (16:17→23:36)
[2017-12-06] MEDS: WARFARIN SOD 5 MG TAB PO SCH (16:38)
[2017-12-06] MEDS: HEPARIN-D5W 25,000 U/250 ML 250 ML IV PRN (17:21)
[2017-12-07] VITALS (18 sets, daily range): BP systolic 102–126; BP diastolic 54–63; PULSE 52–87; RESP 16; TEMP 98–99; O2SAT 89–95
[2017-12-07] MEDS: EPOPROSTENOL NEB SOLUTION 50 NG/KG/MIN 100 ML NEB SCH ×6 (01:00→21:46)
[2017-12-07] MEDS: PROPOFOL 1000 MG/100 ML INJ 100 ML IV PRN ×3 (02:30→16:21)
[2017-12-07] MEDS: RESP: ALBUTEROL 2.5 MG/IPRATROPIUM 0.5 MG NEB (SCH) NEB ×5 (03:37→20:19)
[2017-12-07] MEDS: RESP: SODIUM CHLORIDE 3% 4 ML NEB NEB SCH ×4 (03:37→16:14)
[2017-12-07] MEDS: CHLORHEXIDINE GLUCONATE 2 % 1 PACK (2 CLOTHS) TOP SCH (03:54)
[2017-12-07] MEDS: PIPERACIL-TAZO 4.5 GM PREMIX 100 ML IV SCH ×4 (04:00→21:46)
--- NOTE | 2017-12-07 04:56 | RADRPT ---
EXAM DATE: 12/07/2017 4:20 AM EDT AGE/SEX: 57 years / Female INDICATIONS: Chronic obstructive pulmonary disorder. CLINICAL DATA: This is the patient's subsequent encounter. Patient reports that signs and symptoms h ave been present for 1 day and indicates a pain score of Nonresponsive. MEDICAL/SURGICAL HISTORY: . Hypercholesterolemia. Hypertension. Chronic obstructive pulmonary d isease. Asthma. Coronary artery disease. None. COMPARISON: [facility] – [place], CHEST SINGLE AP, 12/06/2017. . FINDINGS: The ET tube is 1.5 cm from the daija. The NG tube tip is directed into the stomach. There is a right internal jugular central line in place with the tip overlying the SVC. The heart size is normal. The re is increased density at the right base with silhouetting of the right hemidiaphragm. The left lung is grossly clear. CONCLUSION: Right lower lobe atelectasis or consolidation. Some degree of effusion may be present on the right. The ET tube is in a low position 1.5 cm from the daija. Electronically signed by: Omer Lugo MD 12/07/2017 4:55 AM EDT
[2017-12-07] MEDS: VANCOMYCIN INJ 1,250 MG in SODIUM CHLOR 0.9% 250 ML INJ 250 ML IV SCH ×2 (05:00→18:53)
[2017-12-07] MEDS: ARTIFICIAL TEARS OPTH SOLN 15 ML BTL EACH EYE SCH ×3 (05:38→21:46)
[2017-12-07] MEDS: methylPREDNISolone SOD SUCC 125 MG/2 ML VIAL IV PUSH SCH ×4 (05:38→23:55)
[2017-12-07] MEDS: guaiFENesin SOLUTION 200 MG/10 ML CUP NG SCH ×3 (05:38→21:07)
[2017-12-07 05:46] LABS: HEMATOCRIT 31.7 % (35.0-46.0); MEAN CELL VOLUME 92.9 FL (80.0-100.0); MEAN CORPUSCULAR HEMOGLOBIN 29.4 PG (27.0-34.0); MEAN CORPUSCULAR HGB CONC 31.7 % (32.0-36.0); MEAN PLATELET VOLUME 9.5 FL (7.0-11.0); PLATELET COUNT 208 TH/MM3 (150-450); RED BLOOD COUNT 3.42 MIL/MM3 (4.00-5.30); RED CELL DISTRIBUTION WIDTH 18.4 % (11.6-17.2); WHITE BLOOD COUNT 13.5 TH/MM3 (4.0-11.0)
[2017-12-07 05:48] LABS: INTERNATIONAL NORMALIZED RATIO 1.6 RATIO; PROTHROMBIN TIME - PATIENT 16.2 SEC (9.8-11.6)
[2017-12-07] MEDS: INSULIN ASPART SUPPLEMENTAL SCALE SQ SCH ×3 (06:00→18:00)
[2017-12-07 06:08] LABS: ALBUMIN 2.2 GM/DL (3.4-5.0); AST (GOT) 25 U/L (15-37); BICARBONATE 27.3 MEQ/L (21.0-32.0); BLOOD UREA NITROGEN 34 MG/DL (7-18); CALCIUM 8.5 MG/DL (8.5-10.1); CHLORIDE 101 MEQ/L (98-107); CREATININE 0.63 MG/DL (0.50-1.00); GLOMERULAR FILTRATION RATE 98 ML/MIN (>89); GLUCOSE,RANDOM 131 MG/DL (74-106); MAGNESIUM 2.2 MG/DL (1.5-2.5); SODIUM (NA) 139 MEQ/L (136-145)
[2017-12-07 06:09] LABS: ALT (GPT) 33 U/L (10-53); PHOSPHORUS 3.1 MG/DL (2.5-4.9)
[2017-12-07 06:11] LABS: ALKALINE PHOSPHATASE 47 U/L (45-117); TOTAL BILIRUBIN ADULT 0.2 MG/DL (0.2-1.0); TOTAL PROTEIN 5.5 GM/DL (6.4-8.2)
[2017-12-07] MEDS: RESP: BUDESONIDE 0.5 MG/2 ML NEB NEB SCH ×2 (08:14→20:19)
[2017-12-07] MEDS: SODIUM CHLORIDE 0.9% FLUSH 10 ML FLUSH IV FLUSH SCH ×3 (09:00→21:09)
[2017-12-07] MEDS: POLYETHYLENE GLYCOL 17 GM PKG PO SCH ×2 (09:00→21:00)
[2017-12-07] MEDS: CHLORHEXIDINE 0.12% (ORAL KIT) 15 ML CUP MT SCH ×2 (09:24→20:00)
[2017-12-07] MEDS: LACTULOSE SYRUP 20 GM/30 ML CUP PO SCH ×4 (09:24→21:07)
[2017-12-07] MEDS: MUPIROCIN 2% OINT 1 APPLIC/GM SYR EACH NARE SCH ×2 (09:24→21:09)
[2017-12-07] MEDS: FAMOTIDINE 20 MG TAB NG SCH ×2 (09:24→21:07)
[2017-12-07] MEDS: chlordiazePOXIDE 25 MG CAP PO SCH ×3 (09:24→18:52)
[2017-12-07] MEDS: DOCUSATE SODIUM 50 MG/SENNA 8.6 MG TAB PO SCH ×2 (09:25→21:00)
[2017-12-07] MEDS: aMILoride/HCTZ 5 MG/50 MG TAB PO SCH (09:25)
--- NOTE | 2017-12-07 09:41 | HHI.CCPN ---
Subjective Remarks/Hospital Course 57-year-old female who presented to emergency department complaining of SOB and coughing. She has also complained of severe left back rib area pain. In the emergency department she was desaturating to 80s on room air and 88 on 2 L nasal cannula. She was intubated by ED attending for an acute hypoxemic respiratory failure. She was intubated by ED attending. She is on Coumadin/ Lovenox 1 mg/kg every 12 hours for factor V Leiden mutation. Her INR is subtherapeutic. Attempted SBTs but patient could not tolerate due to severe bronchospasm. 11/30: Continued agitation but bronchospasm is minimally improved. Although she carries a prednisone allergy on her chart she is tolerating Solu-Medrol without difficulty. 12/01: Without heavy sedation patient becomes extremely agitated and developed severe airway collapse with very poor air movement. Unprovoked her wheezing has ceased but with agitation she developed some minimal tidal volume. We have added Precedex and will add p.o. Librium and try to rapidly extubate her. I am not optimistic. This is probably why she is required tracheostomy in the past. 12/02: Patient has developed right lower lobe atelectasis and partial collapse of the right middle lobe. Will undoubtedly require bronchoscopy to remove inspissated plugs. Her anxiety and agitation continues to be problematic and she does not respond to Precedex. 12/03: Resting comfortably in bed in no acute distress. FiO2 100%. X-ray this a.m. revealed resolution of lower lobe collapse. Minimal secretions from ET tube. Positive BM 1 12/04: T-max 99.9. Remains on epoprostenol. Did not tolerate bilevel or increased PEEP. Tolerating tube feeds at goal. Currently on propofol and fentanyl drips. 12/05: Afebrile. Remains on norepinephrine drip at 3 mcg/min. FiO2 requirements decreased to 60% overnight. Arousable the ventilator. She is on propofol and fentanyl drips. 12/06: Afebrile. FiO2 currently 50%. Remains on epoprostenol aerosolized. Noted to have a pediculosis capitis. Permethrin currently being applied. SUBJECTIVE: 12/07: FiO2 at 60%. Afebrile. Arousable on the ventilator and sedation. Appears comfortable. Tolerating tube feeding. Objective Vital Signs Date Time Temp Pulse Resp B/P (MAP) Pulse Ox O2 Delivery O2 Flow Rate FiO2 12/07/17 08:17 93 60 12/07/17 07:00 Mechanical Ventilator 12/07/17 06:00 70 12/07/17 04:00 98.7 16 116/60 (78) Intake and Output 12/07/17 12/07/17 12/08/17 08:00 16:00 00:00 Intake Total 1430 ml 638 ml Output Total 1550 ml Balance -120 ml 638 ml Result Diagram: 12/07/17 0530 12/07/17 0530 Other Results Microbiology Date/Time Source Procedure Growth Status 12/03/17 12:44 Blood Peripheral Aerobic Blood Culture - Preliminary NO GROWTH IN 3 DAYS Resulted 12/03/17 12:44 Blood Peripheral Anaerobic Blood Culture - Preliminary NO GROWTH IN 3 DAYS Resulted 12/03/17 11:25 Sputum Endotracheal Gram Stain - Final Complete 12/03/17 11:25 Sputum Culture - Final S. Aureus Mrsa Complete 11/28/17 05:25 Urine Clean Catch Urine Culture - Final NO GROWTH IN 48 HOURS. Complete Imaging Last Impressions Chest X-Ray 12/07/17 0600 Signed Impressions: CONCLUSION: Right lower lobe atelectasis or consolidation. Some degree of effusion may be p resent on the right. The ET tube is in a low position 1.5 cm from the daija. Lower Extremity Ultrasound 12/03/17 Signed Impressions: CONCLUSION: 1. The study is negative for bilateral lower extremity deep venous thrombosis. Ribs X-Ray 11/28/17 Signed Impressions: CONCLUSION: Deformities at the anterior lateral left ninth and 10th ribs prior fracture. Lung Scan-V Nuclear Medicine 11/28/17 Signed Impressions: CONCLUSION: Low probability scan for pulmonary embolism Objective Remarks General: 57-year-old female resting in bed orotracheally intubated Head: Atraumatic, normal Neck: Supple, orally intubated. Lungs: Minimal wheezes but bilateral air movement acceptable. Heart: Tachycardia, S1, S2. No S4. No murmur or rub, distant tones, no JVD. Abdomen: Soft, nondistended, no guarding, bowel sounds are present. No guarding. Extremities: Warm, well-perfused. 1+ peripheral leg edema Neuro: Moves 4 extremities with strength and purpose. Follows commands all 4 extremities Urinary Catheter: Yes Assessment to: Continue Phillip insert reason: ICU Pt Getting Diuretics Vascular Central Line Catheter: Yes Assessment to: Continue Date of Insertion: December 04, 2017 Line: Central Venous Catheter Side: Right Location: Internal, Jugular A/P Assessment and Plan Neuro/PSYCH: EtOH abuse/withdrawal History of right frontal CVA Depression/anxiety Currently on propofol drip at 30 mcg kilogram per minute and fentanyl drip at 150 mcg an hour for sedation/analgesia while intubated Goal of RASS -2 Daily sedation vacation Schedule on chlordiazepoxide 25 mg 3 times daily EtOH withdrawal Acetaminophen 650 mg p.o. every 6 hours as needed fever CV: Coronary artery disease Essential hypertension Hyperlipidemia Continue amiloride/hydrochlorthiazide 5/50 1 tablet daily Currently on norepinephrine 2 mcg/min Resp: Acute hypoxemic respiratory failure COPD Bilateral lower lobe lung collapse status post bronchoscopy 12/02 PRVC 16/550/0.95/5/60 Ventilator bundle Albuterol/ipratropium aerosols every 4 hours with albuterol aerosols every 2 hours as needed dyspnea Budesonide 0.5/2 1 inhalation twice daily On budesonide/formoterol 160/4.5 2 puffs twice daily at home On epoprostenol drip at 50 ng per kilogram per minute aerosolized to improve gas exchange and arterial oxygenation Previously started on methylprednisolone succinate currently at 60 mg every 6 hours. Noted allergy to prednisone Chest x-ray worsening right lower lobe versus effusion. Will gently diurese 1 today. VQ scan low probability for pulmonary embolism Diurese with IV furosemide 40 mg IV times 1 now. PEP 4 hours 3% hypertonic saline aerosols every 4 hours 5 days GI: Gastroesophageal reflux disease Hepatitis C Hypoalbuminemia Patient is currently on tube feeding t Jevity 1.5 goal 50 cc an hour Famotidine for GI prophylaxis Docusate serum/senna 1 tablet twice daily for bowel regimen. Added polyethylene glycol 17 g twice daily and lactulose 30 cc 4 times daily until BM. 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 INR currently 1.2 At home on enoxaparin 80 mg subcu twice daily with warfarin 7.5 mg daily Monitor CBC daily. ID: MRSA pneumonia Pediculosis capitis MRSA nares Currently levofloxacin prophylactically since 11/29 Vancomycin/Pipracil/tazobactam since 12/04 Continue permethrin 1 dose. We will/comb hair. U culture no growth to date. Influenza negative. Mupirocin to nares twice daily Blood cultures 2 no growth to date and sputum 12/03 MRSA FEN: Replace electrolytes as clinically indicated MSK: Osteoporosis/chronic low back pain PT evaluate and treat Access -Utilize peripheral IV. Central line if indicated Prophylaxis -GI -famotidine -DVT -SCD/heparin drip/warfarin Critical Care: The total critical care time was 35 minutes. Time to perform other separately billable procedures was not included in the critical care time. Rodo Wu MD Dec 07, 2017 09:41
[2017-12-07] MEDS ORDERED: FUROSEMIDE 20 MG/2 ML VIAL IV PUSH ONE ×2 (10:00→16:30)
[2017-12-07] MEDS ORDERED: ALBUMIN 25% INJ 50 ML IV ONE ×2 (10:00→16:30)
[2017-12-07] MEDS: LEVOFLOXACIN ORAL SOLN 2500 MG/100 ML BOTTLE NG SCH (10:38)
[2017-12-07] MEDS: NOREPINEPHRINE INJ 4 MG in SODIUM CHLOR 0.9% 250 ML INJ 246 ML IV PRN ×2 (10:39→14:21)
[2017-12-07] MEDS: HEPARIN-D5W 25,000 U/250 ML 250 ML IV PRN (12:34)
[2017-12-07] MEDS ORDERED: ETOMIDATE 40 MG/20 ML VIAL IV PUSH ONE (14:15)
[2017-12-07] MEDS ORDERED: ROCURONIUM INJ 100 MG/10 ML VIAL IV ONE (14:15)
--- NOTE | 2017-12-07 14:49 | PD.PROCEDR ---
Procedure Note Procedure DATE: 12/07/17 Bronchoscopy/diagnostic and therapeutic INDICATION: Hypoxia CONSENT Informed consent for procedure was obtained from sister. DESCRIPTION OF THE PROCEDURE The patient was placed in supine position. Patient FiO2 100%. [facility] 16/550/07/11. Sedated on propofol drip at 40 mg/kg/min. Patient was given 20 mg etomidate IV and 50 mg rocuronium IV 1. I entered the ET tube with flexible bronchoscopy. The daija was sharp. Thin frothy sputum was noted throughout the right upper, middle and lower lobes. These were suctioned until clear. 30 cc of sterile saline was sent a Lukens trap for culture see orders. The scope was withdrawn to the daija and the left upper/lingula and lower lobes were suctioned of clear/frothy sputum. Mucosa was normal without any signs of bleeding or sexual trauma. No masses were identified. Scope was withdrawn. No complications apparent. ESTIMATED BLOOD LOSS: Minimal COMPLICATIONS: No apparent complications. STAT chest x-ray pending at time of dictation Rodo Wu MD Dec 07, 2017 14:49
[2017-12-07] MEDS: fentaNYL DRIP 250 ML IV PRN (15:21)
[2017-12-07] MEDS ORDERED: WARFARIN SOD 1 MG TAB PO ONE (16:00)
--- NOTE | 2017-12-07 16:01 | RADRPT ---
EXAM DATE: 12/07/2017 3:50 PM EDT AGE/SEX: 57 years / Female INDICATIONS: ET tube placement. CLINICAL DATA: This is the patient's initial encounter. Patient reports that signs and symptoms have been present for 1 day and indicates a pain score of Nonresponsive. MEDICAL/SURGICAL HISTORY: . Hypercholesterolemia. Hypertension. Chronic obstructive pulmonary disease. Asthma. Coronary artery disease. None. COMPARISON: [facility] [place], 12/07/[place]. . FINDINGS: Mild bibasilar consolidation and small effusions again noted, not significantly changed. No pneumotho rax. Heart size stable, within normal limits. Endotracheal tube tip is approximately 2.5 cm above the daija. Nasogastric tube courses into the sto mach. CONCLUSION: 1. Endotracheal tube tip is approximately 2.5 cm above the daija. 2. Mild consolidation and small effusions at each lung base not significantly changed. Electronically signed by: Omer Cross MD 12/07/2017 3:59 PM EDT
[2017-12-07] MEDS: WARFARIN SOD 5 MG TAB PO SCH (16:52)
[2017-12-07] MEDS ORDERED: HEPARIN-D5W 25,000 U/250 ML 250 ML IV PRN (18:30)
[2017-12-08] VITALS (19 sets, daily range): BP systolic 92–120; BP diastolic 54–73; PULSE 74–112; RESP 16–22; TEMP 98–98.7; O2SAT 89–99
[2017-12-08] MEDS: RESP: ALBUTEROL 2.5 MG/IPRATROPIUM 0.5 MG NEB (SCH) NEB ×7 (00:05→23:36)
[2017-12-08] MEDS: INSULIN ASPART SUPPLEMENTAL SCALE SQ SCH ×4 (00:10→18:00)
[2017-12-08] MEDS: PROPOFOL 1000 MG/100 ML INJ 100 ML IV PRN ×4 (00:13→22:15)
[2017-12-08 01:21] LABS: INTERNATIONAL NORMALIZED RATIO 1.4 RATIO; PROTHROMBIN TIME - PATIENT 14.1 SEC (9.8-11.6)
[2017-12-08] MEDS: CHLORHEXIDINE GLUCONATE 2 % 1 PACK (2 CLOTHS) TOP SCH (03:43)
[2017-12-08] MEDS: PIPERACIL-TAZO 4.5 GM PREMIX 100 ML IV SCH ×4 (03:43→22:06)
--- NOTE | 2017-12-08 04:59 | RADRPT ---
EXAM DATE: 12/08/2017 4:56 AM EDT AGE/SEX: 57 years / Female INDICATIONS: Evaluate for chronic obstructive pulmonary disorder. CLINICAL DATA: This is the patient's subsequent encounter. Patient reports that signs and symptoms h ave been present for 3 days and indicates a pain score of Nonresponsive. MEDICAL/SURGICAL HISTORY: . . Hypercholesterolemia. Hypertension. Chronic obstructive pulmonar y disease. Asthma. Coronary artery disease None. COMPARISON: [facility] [place], 12/07/[place]. . FINDINGS: The support devices remain in place. There is no pneumothorax. There continues to be some infiltrates in both lung bases, right greater than left without significant change. The heart size is stable. Th e bony structures are stable. CONCLUSION: No significant interval change. Electronically signed by: Omar Wade MD 12/08/2017 4:58 AM EDT
[2017-12-08] MEDS: guaiFENesin SOLUTION 200 MG/10 ML CUP NG SCH ×3 (05:09→22:05)
[2017-12-08] MEDS: ARTIFICIAL TEARS OPTH SOLN 15 ML BTL EACH EYE SCH ×3 (05:09→22:06)
[2017-12-08] MEDS: methylPREDNISolone SOD SUCC 125 MG/2 ML VIAL IV PUSH SCH (05:09)
[2017-12-08] MEDS: VANCOMYCIN INJ 1,250 MG in SODIUM CHLOR 0.9% 250 ML INJ 250 ML IV SCH ×2 (05:10→16:30)
[2017-12-08 05:36] LABS: AUTOMATED NEUTROPHIL # 10.6 TH/MM3 (1.8-7.7); BASOPHIL % 0.1 % (0.0-2.0); EOSINOPHIL # 0.1 TH/MM3 (0-0.4); EOSINOPHIL % 0.7 % (0.0-4.0); HEMATOCRIT 32.6 % (35.0-46.0); HEMOGLOBIN 10.5 GM/DL (11.6-15.3); LYMPH % 7.5 % (9.0-44.0); LYMPHOCYTE # 0.9 TH/MM3 (1.0-4.8); MEAN CELL VOLUME 92.3 FL (80.0-100.0); MEAN CORPUSCULAR HEMOGLOBIN 29.7 PG (27.0-34.0); MEAN CORPUSCULAR HGB CONC 32.2 % (32.0-36.0); MEAN PLATELET VOLUME 9.3 FL (7.0-11.0); MONOCYTE # 0.9 TH/MM3 (0-0.9); NEUT % 84.7 % (16.0-70.0); PLATELET COUNT 204 TH/MM3 (150-450); RED BLOOD COUNT 3.53 MIL/MM3 (4.00-5.30); RED CELL DISTRIBUTION WIDTH 18.3 % (11.6-17.2); WHITE BLOOD COUNT 12.5 TH/MM3 (4.0-11.0)
[2017-12-08 06:01] LABS: ALBUMIN 2.7 GM/DL (3.4-5.0); AST (GOT) 40 U/L (15-37); BICARBONATE 28.3 MEQ/L (21.0-32.0); BLOOD UREA NITROGEN 33 MG/DL (7-18); CALCIUM 8.6 MG/DL (8.5-10.1); CHLORIDE 99 MEQ/L (98-107); CREATININE 0.59 MG/DL (0.50-1.00); GLOMERULAR FILTRATION RATE 106 ML/MIN (>89); GLUCOSE,RANDOM 95 MG/DL (74-106); MAGNESIUM 2.3 MG/DL (1.5-2.5); SODIUM (NA) 138 MEQ/L (136-145)
[2017-12-08 06:04] LABS: ALKALINE PHOSPHATASE 51 U/L (45-117); ALT (GPT) 48 U/L (10-53); PHOSPHORUS 3.3 MG/DL (2.5-4.9); TOTAL BILIRUBIN ADULT 0.3 MG/DL (0.2-1.0); TOTAL PROTEIN 6.1 GM/DL (6.4-8.2)
[2017-12-08] MEDS: EPOPROSTENOL NEB SOLUTION 50 NG/KG/MIN 100 ML NEB SCH ×8 (07:06→17:00)
[2017-12-08] MEDS: RESP: BUDESONIDE 0.5 MG/2 ML NEB NEB SCH ×2 (07:43→20:37)
[2017-12-08] MEDS: FAMOTIDINE 20 MG TAB NG SCH ×2 (08:52→22:05)
[2017-12-08] MEDS: DOCUSATE SODIUM 50 MG/SENNA 8.6 MG TAB PO SCH ×2 (08:52→22:05)
[2017-12-08] MEDS: chlordiazePOXIDE 25 MG CAP PO SCH ×3 (08:52→17:36)
[2017-12-08] MEDS: MUPIROCIN 2% OINT 1 APPLIC/GM SYR EACH NARE SCH ×2 (08:52→22:06)
[2017-12-08] MEDS: POLYETHYLENE GLYCOL 17 GM PKG PO SCH ×2 (08:52→22:06)
[2017-12-08] MEDS: aMILoride/HCTZ 5 MG/50 MG TAB PO SCH (08:52)
[2017-12-08] MEDS: SODIUM CHLORIDE 0.9% FLUSH 10 ML FLUSH IV FLUSH SCH ×3 (08:53→22:06)
[2017-12-08] MEDS: CHLORHEXIDINE 0.12% (ORAL KIT) 15 ML CUP MT SCH ×2 (08:54→20:34)
--- NOTE | 2017-12-08 08:58 | HHI.CCPN ---
Subjective Remarks/Hospital Course 57-year-old female who presented to emergency department complaining of SOB and coughing. She has also complained of severe left back rib area pain. In the emergency department she was desaturating to 80s on room air and 88 on 2 L nasal cannula. She was intubated by ED attending for an acute hypoxemic respiratory failure. She was intubated by ED attending. She is on Coumadin/ Lovenox 1 mg/kg every 12 hours for factor V Leiden mutation. Her INR is subtherapeutic. Attempted SBTs but patient could not tolerate due to severe bronchospasm. 11/30: Continued agitation but bronchospasm is minimally improved. Although she carries a prednisone allergy on her chart she is tolerating Solu-Medrol without difficulty. 12/01: Without heavy sedation patient becomes extremely agitated and developed severe airway collapse with very poor air movement. Unprovoked her wheezing has ceased but with agitation she developed some minimal tidal volume. We have added Precedex and will add p.o. Librium and try to rapidly extubate her. I am not optimistic. This is probably why she is required tracheostomy in the past. 12/02: Patient has developed right lower lobe atelectasis and partial collapse of the right middle lobe. Will undoubtedly require bronchoscopy to remove inspissated plugs. Her anxiety and agitation continues to be problematic and she does not respond to Precedex. 12/03: Resting comfortably in bed in no acute distress. FiO2 100%. X-ray this a.m. revealed resolution of lower lobe collapse. Minimal secretions from ET tube. Positive BM 1 12/04: T-max 99.9. Remains on epoprostenol. Did not tolerate bilevel or increased PEEP. Tolerating tube feeds at goal. Currently on propofol and fentanyl drips. 12/05: Afebrile. Remains on norepinephrine drip at 3 mcg/min. FiO2 requirements decreased to 60% overnight. Arousable the ventilator. She is on propofol and fentanyl drips. 12/06: Afebrile. FiO2 currently 50%. Remains on epoprostenol aerosolized. Noted to have a pediculosis capitis. Permethrin currently being applied. 12/07: FiO2 at 60%. Afebrile. Arousable on the ventilator and sedation. Appears comfortable. Tolerating tube feeding. SUBJECTIVE: 12/08: Still continues to have pediculosis capitis. Status post bronchoscopy yesterday with thin frothy clear secretions noted. No mucous plugging. Currently afebrile. Tolerating tube feeding. Arousable and follows commands on the ventilator remains on epoprostenol aerosolized maximum 50 ng/kg/min Objective Vital Signs Date Time Temp Pulse Resp B/P (MAP) Pulse Ox O2 Delivery O2 Flow Rate FiO2 12/08/17 07:43 92 75 12/08/17 06:00 81 12/08/17 04:00 98.0 16 108/60 (76) 12/07/17 19:00 Mechanical Ventilator Intake and Output 12/08/17 12/08/17 12/08/17 07:59 15:59 23:59 Intake Total 1233 ml Output Total 1200 ml Balance 33 ml Result Diagram: 12/08/17 0520 12/08/17 0520 Other Results Microbiology Date/Time Source Procedure Growth Status 12/03/17 12:44 Blood Peripheral Aerobic Blood Culture - Preliminary NO GROWTH IN 4 DAYS Resulted 12/03/17 12:44 Blood Peripheral Anaerobic Blood Culture - Preliminary NO GROWTH IN 4 DAYS Resulted 12/07/17 14:40 Bronchial Washings Right Lower Lobe Fungal Smear Pending Received 12/07/17 14:40 Bronchial Washings Right Lower Lobe Fungal Culture Pending Received 11/28/17 05:25 Urine Clean Catch Urine Culture - Final NO GROWTH IN 48 HOURS. Complete Imaging Last Impressions Chest X-Ray 12/08/17 0600 Signed Impressions: CONCLUSION: No significant interval change. Lower Extremity Ultrasound 12/03/17 0000 Signed Impressions: CONCLUSION: 1. The study is negative for bilateral lower extremity deep venous thrombosis. Ribs X-Ray 11/28/17 0000 Signed Impressions: CONCLUSION: Deformities at the anterior lateral left ninth and 10th ribs prior fracture. Lung Scan-V Nuclear Medicine 11/28/17 0000 Signed Impressions: CONCLUSION: Low probability scan for pulmonary embolism Objective Remarks General: 57-year-old female resting in bed orotracheally intubated Head: Atraumatic, normal Neck: Supple, orally intubated. Right IJ is clean dry and intact without erythema Lungs: Minimal wheezes but bilateral air movement acceptable. Heart: RRR. S1, S2. No S4. No murmur or rub, distant tones, no JVD. Abdomen: Soft, nondistended, no guarding, bowel sounds are present. No guarding. Extremities: Warm, well-perfused. 1+ peripheral leg edema Neuro: Moves 4 extremities with strength and purpose. Follows commands all 4 extremities Urinary Catheter: Yes Assessment to: Continue Phillip insert reason: Prolonged Immobilization Vascular Central Line Catheter: Yes Assessment to: Continue Date of Insertion: December 04, 2017 Line: Central Venous Catheter Side: Right Location: Internal, Jugular A/P Assessment and Plan NEURO/PSYCH: EtOH abuse/withdrawal History of right frontal CVA Depression/anxiety Currently on propofol drip at 20 mcg kilogram per minute and fentanyl drip at 100 mcg an hour for sedation/analgesia while intubated Goal of RASS -2 Daily sedation vacation Schedule on chlordiazepoxide 25 mg 3 times daily EtOH withdrawal Acetaminophen 650 mg p.o. every 6 hours as needed fever CV: Coronary artery disease Essential hypertension Hyperlipidemia Continue amiloride/hydrochlorthiazide 5/50 1 tablet daily Currently on norepinephrine 2 mcg/min intermittently to maintain mean arterial pressure greater than equal to 65 Resp: Acute hypoxemic respiratory failure COPD Bilateral lower lobe lung collapse status post bronchoscopy 12/02 PRVC 16/550/0.95/5/75 Ventilator bundle Albuterol/ipratropium aerosols every 4 hours with albuterol aerosols every 2 hours as needed dyspnea Budesonide 0.5/2 1 inhalation twice daily On budesonide/formoterol 160/4.5 2 puffs twice daily at home On epoprostenol drip at 50 ng per kilogram per minute aerosolized to improve gas exchange and arterial oxygenation Previously started on methylprednisolone succinate currently at 40 mg every 8 hours. Noted allergy to prednisone Chest x-ray worsening right lower lobe versus effusion. VQ scan low probability for pulmonary embolism GI: Gastroesophageal reflux disease Hepatitis C Hypoalbuminemia/moderate protein calorie malnutrition Elevated AST Patient is currently on tube feeding t Jevity 1.5 goal 50 cc an hour Famotidine for GI prophylaxis Docusate serum/senna 1 tablet twice daily for bowel regimen. Added polyethylene glycol 17 g twice daily and lactulose 30 cc 2 times daily until BM. : Phillip catheter placed while on furosemide intermittently Endo: Hyperglycemia Sliding scale insulin with Accu-Cheks to maintain euglycemia while on high-dose steroids Renal: Creatinine currently within normal limits Monitor urine output Accurate I's and O's Heme: Factor V Leiden on chronic anticoagulation Normocytic anemia Leukocytosis Chronic warfarin use History of left lower extremity DVT status post IVC filter Currently on heparin drip at 1200 units an hour with transition to warfarin per pharmacy consultation. INR currently 1.4 At home on enoxaparin 80 mg subcu twice daily with warfarin 7.5 mg daily Monitor CBC daily. Along with PT/INR/PTT ID: MRSA pneumonia Pediculosis capitis MRSA nares Currently levofloxacin prophylactically since 11/29 Vancomycin/Pipracil/tazobactam since 12/04 Continue permethrin 1 dose. We will/comb hair. U culture no growth to date. Influenza negative. Mupirocin to nares twice daily Blood cultures 2 no growth to date and sputum 12/03 MRSA FEN: Replace electrolytes as clinically indicated MSK: Osteoporosis/chronic low back pain PT evaluate and treat Access -Utilize peripheral IV. Central line if indicated Prophylaxis -GI -famotidine -DVT -SCD/heparin drip/warfarin Critical Care: The total critical care time was 35 minutes. Time to perform other separately billable procedures was not included in the critical care time. Discussed with sister/healthcare proxy 12/07. We will get palliative care to see today 12/08 for goals of care. Rodo Wu MD Dec 08, 2017 08:58
[2017-12-08] MEDS: LACTULOSE SYRUP 20 GM/30 ML CUP PO SCH ×2 (09:00→22:05)
[2017-12-08] MEDS: LEVOFLOXACIN ORAL SOLN 2500 MG/100 ML BOTTLE NG SCH (09:00)
[2017-12-08] MEDS: methylPREDNISolone SOD SUCC 40 MG/1 ML VIAL IV PUSH SCH ×2 (13:02→22:05)
[2017-12-08] MEDS: WARFARIN SOD 5 MG TAB PO SCH (15:18)
[2017-12-08] MEDS: HEPARIN-D5W 25,000 U/250 ML 250 ML IV PRN (15:28)
[2017-12-08] MEDS ORDERED: WARFARIN SOD 2.5 MG TAB PO ONE (16:00)
--- NOTE | 2017-12-08 16:11 | ECHRPT ---
Indication: HEART FAILURE CONCLUSIONS Normal left ventricular size and wall thickness. The left ventricular systolic function is normal wi th an estimated ejection fraction in the range of 60-65%. No definite wall motion abnormalities. The aortic valve is not well visualized. No definite significant valvular abnormalities. BP: / HR: Rhythm: MEASUREMENTS (Male / Female) Normal Values Technical Quality: 2D ECHO LV Diastolic Diameter PLAX 4.4 cm 4.2 - 5.9 / 3.9 - 5.3 cm LV Systolic Diameter PLAX 3.6 cm IVS Diastolic Thickness 1.0 cm 0.6 - 1.0 / 0.6 - 0.9 cm LVPW Diastolic Thickness 0.9 cm 0.6 - 1.0 / 0.6 - 0.9 cm LV Relative Wall Thickness 0.4 RV Internal Dim ED PLAX 1.6 cm DOPPLER Mitral E Point Velocity 68.1 cm/s Mitral A Point Velocity 84.4 cm/s Mitral E to A Ratio 0.8 TR Peak Velocity 138.0 cm/s TR Peak Gradient 7.6 mmHg FINDINGS LEFT VENTRICLE Normal left ventricular size and wall thickness. The left ventricular systolic function is normal wi th an estimated ejection fraction in the range of 60-65%. No definite wall motion abnormalities. RIGHT VENTRICLE Normal right ventricular size and systolic function. LEFT ATRIUM The left atrial size is normal. RIGHT ATRIUM The right atrial size is normal. ATRIAL SEPTUM Normal atrial septal thickness without atrial level shunting by limited color doppler interrogation. AORTA The aortic root and proximal ascending aorta are normal in size on limited imaging. MITRAL VALVE Structurally normal mitral valve. No mitral valve stenosis or regurgitation. AORTIC VALVE The aortic valve is not well visualized. TRICUSPID VALVE Structurally normal tricuspid valve. No tricuspid valve stenosis or regurgitation. PULMONARY VALVE The pulmonary valve is not well visualized. VESSELS The inferior vena cava is normal in size. PERICARDIUM No pericardial effusion. Honorio Hines MD (Electronically Signed) Final Date:08 December 2017 16:09
--- NOTE | 2017-12-08 18:06 | PD.CONS ---
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 Total Floor Time (mins): 71 (Total time to include review and summarization of available medical records to include prior hospitalization, physical exam, goals of care conversation with patient and sister, case discussion with Dr. Wu and bedside RN.) >50% Counseling/Coord of Care: Yes (Ginger Banerjee) Thank you for the opportunity to participate in the care of Ms. Lauren. (Ginger Banerjee) Attestation To help prompt me to consider important information that might be impacting today's encounter and assessment, information from prior notes written by myself or my colleagues may have been "brought forward" into today's note. My signature on this note, however, is an attestation that I personally performed the exam, history, and/or decision-making noted today, and, unless otherwise indicated, the interactions with patient, family, and staff as well as the review of records all occurred today. I also attest that the listed assessment and stated plan reflect my best clinical judgment today based on the combination of historical information, prior notes, and today's exam/ interactions. When time spent is documented, it refers only to time spent today by the signer, or if indicated, combined time spent today by collaborating physician/nurse practitioner. (Ginger Banerjee) Collaborating MD Comments Chart reviewed. Case discussed with palliative care MUSIC RESEARCHER. Above MUSIC RESEARCHER note reviewed and I concur. . (Arellano,Ginger Love Dec 08, 2017 18:03 Gerber Arellano MD Dec 20, 2017 16:03
[2017-12-09] VITALS (18 sets, daily range): BP systolic 111–132; BP diastolic 51–72; PULSE 82–110; RESP 16–21; TEMP 98.1–98.7; O2SAT 91–97
[2017-12-09] MEDS: EPOPROSTENOL NEB SOLUTION 50 NG/KG/MIN 100 ML NEB SCH ×6 (03:45→23:16)
[2017-12-09] MEDS: PIPERACIL-TAZO 4.5 GM PREMIX 100 ML IV SCH ×4 (03:45→22:14)
[2017-12-09] MEDS: CHLORHEXIDINE GLUCONATE 2 % 1 PACK (2 CLOTHS) TOP SCH (03:45)
[2017-12-09] MEDS: fentaNYL DRIP 250 ML IV PRN (03:52)
[2017-12-09] MEDS: RESP: ALBUTEROL 2.5 MG/IPRATROPIUM 0.5 MG NEB (SCH) NEB ×6 (04:14→23:48)
[2017-12-09] MEDS ORDERED: PHARMACY ORDERED LAB ONE (04:45)
[2017-12-09] MEDS: VANCOMYCIN INJ 1,250 MG in SODIUM CHLOR 0.9% 250 ML INJ 250 ML IV SCH (05:59)
[2017-12-09] MEDS: guaiFENesin SOLUTION 200 MG/10 ML CUP NG SCH ×3 (06:00→22:14)
[2017-12-09] MEDS: INSULIN ASPART SUPPLEMENTAL SCALE SQ SCH ×5 (06:00→23:27)
[2017-12-09] MEDS: methylPREDNISolone SOD SUCC 40 MG/1 ML VIAL IV PUSH SCH ×3 (06:00→22:14)
[2017-12-09] MEDS: ARTIFICIAL TEARS OPTH SOLN 15 ML BTL EACH EYE SCH ×3 (06:00→22:14)
[2017-12-09 07:27] LABS: INTERNATIONAL NORMALIZED RATIO 1.8 RATIO; PROTHROMBIN TIME - PATIENT 18.4 SEC (9.8-11.6)
[2017-12-09 07:30] LABS: AUTOMATED NEUTROPHIL # 11.4 TH/MM3 (1.8-7.7); BASOPHIL % 0.2 % (0.0-2.0); EOSINOPHIL # 0.1 TH/MM3 (0-0.4); HEMATOCRIT 31.7 % (35.0-46.0); HEMOGLOBIN 10.3 GM/DL (11.6-15.3); LYMPH % 7.4 % (9.0-44.0); MEAN CELL VOLUME 93.5 FL (80.0-100.0); MEAN CORPUSCULAR HEMOGLOBIN 30.3 PG (27.0-34.0); MEAN CORPUSCULAR HGB CONC 32.4 % (32.0-36.0); MEAN PLATELET VOLUME 9.9 FL (7.0-11.0); MONO % 5.9 % (0.0-8.0); MONOCYTE # 0.8 TH/MM3 (0-0.9); NEUT % 85.5 % (16.0-70.0); PLATELET COUNT 213 TH/MM3 (150-450); RED BLOOD COUNT 3.39 MIL/MM3 (4.00-5.30); RED CELL DISTRIBUTION WIDTH 18.3 % (11.6-17.2); WHITE BLOOD COUNT 13.4 TH/MM3 (4.0-11.0)
[2017-12-09 07:41] LABS: ALBUMIN 2.6 GM/DL (3.4-5.0); AST (GOT) 43 U/L (15-37); BICARBONATE 26.3 MEQ/L (21.0-32.0); BLOOD UREA NITROGEN 31 MG/DL (7-18); CALCIUM 8.8 MG/DL (8.5-10.1); CHLORIDE 102 MEQ/L (98-107); CREATININE 0.63 MG/DL (0.50-1.00); GLOMERULAR FILTRATION RATE 98 ML/MIN (>89); GLUCOSE,RANDOM 104 MG/DL (74-106); MAGNESIUM 2.6 MG/DL (1.5-2.5); SODIUM (NA) 139 MEQ/L (136-145)
[2017-12-09 07:46] LABS: ALKALINE PHOSPHATASE 48 U/L (45-117); ALT (GPT) 68 U/L (10-53); PHOSPHORUS 4.4 MG/DL (2.5-4.9); TOTAL BILIRUBIN ADULT 0.3 MG/DL (0.2-1.0); TOTAL PROTEIN 5.8 GM/DL (6.4-8.2)
[2017-12-09] MEDS: CHLORHEXIDINE 0.12% (ORAL KIT) 15 ML CUP MT SCH ×2 (08:00→19:25)
[2017-12-09] MEDS: DOCUSATE SODIUM 50 MG/SENNA 8.6 MG TAB PO SCH ×2 (09:00→21:00)
[2017-12-09] MEDS: SODIUM CHLORIDE 0.9% FLUSH 10 ML FLUSH IV FLUSH SCH ×3 (09:00→22:14)
[2017-12-09] MEDS: FAMOTIDINE 20 MG TAB NG SCH ×2 (09:00→22:13)
[2017-12-09] MEDS: POLYETHYLENE GLYCOL 17 GM PKG PO SCH ×2 (09:00→21:00)
[2017-12-09] MEDS: chlordiazePOXIDE 25 MG CAP PO SCH ×2 (09:00→13:00)
[2017-12-09] MEDS: MUPIROCIN 2% OINT 1 APPLIC/GM SYR EACH NARE SCH ×2 (09:00→22:13)
[2017-12-09] MEDS: aMILoride/HCTZ 5 MG/50 MG TAB PO SCH (09:00)
[2017-12-09] MEDS: LACTULOSE SYRUP 20 GM/30 ML CUP PO SCH ×2 (09:00→21:00)
[2017-12-09] MEDS: LEVOFLOXACIN ORAL SOLN 2500 MG/100 ML BOTTLE NG SCH (09:00)
[2017-12-09] MEDS: RESP: BUDESONIDE 0.5 MG/2 ML NEB NEB SCH ×2 (09:26→20:31)
[2017-12-09 10:32] LABS: BANDS 3 % (0-6); LYMPHOCYTES 4 % (9-44); METAMYELOCYTES 2 % (0-1); MONOCYTES 2 % (0-8); NEUTROPHIL # MANUAL DIFF 12.6 TH/MM3 (1.8-7.7); OVALOCYTES 1+ (NORMAL); POLYS (SEG NEUTROPHILS) 89 % (16-70)
[2017-12-09 10:33] LABS: TOXIC GRANULATION 2+ (NORMAL)
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
[2017-12-09] MEDS ORDERED: FUROSEMIDE 40 MG/4 ML VIAL IV PUSH ONE (15:30)
[2017-12-09] MEDS: WARFARIN SOD 5 MG TAB PO SCH (16:00)
[2017-12-09] MEDS: VANCOMYCIN 1,000 MG/NS 250 ML IV SCH ×2 (17:16)
--- NOTE | 2017-12-09 19:35 | HHI.CCPN ---
Subjective Remarks/Hospital Course 57-year-old female who presented to emergency department complaining of SOB and coughing. She has also complained of severe left back rib area pain. In the emergency department she was desaturating to 80s on room air and 88 on 2 L nasal cannula. She was intubated by ED attending for an acute hypoxemic respiratory failure. She was intubated by ED attending. She is on Coumadin/ Lovenox 1 mg/kg every 12 hours for factor V Leiden mutation. Her INR is subtherapeutic. Attempted SBTs but patient could not tolerate due to severe bronchospasm. 11/30: Continued agitation but bronchospasm is minimally improved. Although she carries a prednisone allergy on her chart she is tolerating Solu-Medrol without difficulty. 12/01: Without heavy sedation patient becomes extremely agitated and developed severe airway collapse with very poor air movement. Unprovoked her wheezing has ceased but with agitation she developed some minimal tidal volume. We have added Precedex and will add p.o. Librium and try to rapidly extubate her. I am not optimistic. This is probably why she is required tracheostomy in the past. 12/02: Patient has developed right lower lobe atelectasis and partial collapse of the right middle lobe. Will undoubtedly require bronchoscopy to remove inspissated plugs. Her anxiety and agitation continues to be problematic and she does not respond to Precedex. 12/03: Resting comfortably in bed in no acute distress. FiO2 100%. X-ray this a.m. revealed resolution of lower lobe collapse. Minimal secretions from ET tube. Positive BM 1 12/04: T-max 99.9. Remains on epoprostenol. Did not tolerate bilevel or increased PEEP. Tolerating tube feeds at goal. Currently on propofol and fentanyl drips. 12/05: Afebrile. Remains on norepinephrine drip at 3 mcg/min. FiO2 requirements decreased to 60% overnight. Arousable the ventilator. She is on propofol and fentanyl drips. 12/06: Afebrile. FiO2 currently 50%. Remains on epoprostenol aerosolized. Noted to have a pediculosis capitis. Permethrin currently being applied. 12/07: FiO2 at 60%. Afebrile. Arousable on the ventilator and sedation. Appears comfortable. Tolerating tube feeding. SUBJECTIVE: 12/08: Still continues to have pediculosis capitis. Status post bronchoscopy yesterday with thin frothy clear secretions noted. No mucous plugging. Currently afebrile. Tolerating tube feeding. Arousable and follows commands on the ventilator remains on epoprostenol aerosolized maximum 50 ng/kg/min 12/09: no improvements or changes. remains hypoxic on 70% fio2. requires inhaled flolan. Objective Vital Signs Date Time Temp Pulse Resp B/P (MAP) Pulse Ox O2 Delivery O2 Flow Rate FiO2 12/09/17 18:00 86 12/09/17 16:46 96 70 12/09/17 16:00 98.3 16 130/72 (91) 12/09/17 09:28 Ventilator Intake and Output 12/09/17 12/09/17 12/09/17 07:59 15:59 23:59 Intake Total 672 ml 750 ml Output Total 2301 ml 2301 ml Balance -1629 ml -1551 ml Result Diagram: 12/09/17 0600 12/09/17 06 Other Results Laboratory Tests Test 12/09/17 04:49 Blood Gas Puncture Site ANDREEA Blood Gas Patient Temperature 98.6 Blood Gas HCO3 26 mmol/L (22-26) Blood Gas Base Excess 2.5 mmol/L (-2-2) Blood Gas Oxygen Saturation 96 % (90-100) Arterial Blood pH 7.46 (7.380-7.420) Arterial Blood Partial Pressure CO2 37 mmHg (38-42) Arterial Blood Partial Pressure O2 107 mmHg (61-120) Arterial Blood Oxygen Content 13.8 Vol % (12.0-20.0) Arterial Blood Carboxyhemoglobin 0.9 % (0-4) Arterial Blood Methemoglobin 1.4 % (0-2) Blood Gas Hemoglobin 10.2 G/DL (12.0-16.0) Oxygen Delivery Device VENT Blood Gas Ventilator Setting SEE COMMENTS Imaging Last Impressions Chest X-Ray 12/08/17 0600 Signed Impressions: CONCLUSION: No significant interval change. Lower Extremity Ultrasound 12/03/17 Signed Impressions: CONCLUSION: 1. The study is negative for bilateral lower extremity deep venous thrombosis. Ribs X-Ray 11/28/17 0000 Signed Impressions: CONCLUSION: Deformities at the anterior lateral left ninth and 10th ribs prior fracture. Lung Scan-VQ Nuclear Medicine 11/28/17 0000 Signed Impressions: CONCLUSION: Low probability scan for pulmonary embolism Objective Remarks General: 57-year-old female resting in bed orotracheally intubated Head: Atraumatic, normal Neck: Supple, orally intubated. Right IJ is clean dry and intact without erythema Lungs: equal chest rise. fio2 70%. flolan at 50 ng/kg/min. Heart: RRR, no JVD. Abdomen: Soft, nondistended, no guarding. No guarding. Extremities: Warm, well-perfused. 1+ peripheral leg edema Neuro: Moves 4 extremities with strength and purpose. Follows commands all 4 extremities Date of Insertion: December 04, 2017 Line: Central Venous Catheter Side: Right Location: Internal, Jugular A/P Assessment and Plan NEURO/PSYCH: EtOH abuse/withdrawal History of right frontal CVA Depression/anxiety Currently on propofol and fentanyl for sedation/analgesia while intubated Goal of RASS -2 Daily sedation vacation Schedule on chlordiazepoxide 25 mg 3 times daily EtOH withdrawal: will start taper of this. likely out of etoh withdraw window. Acetaminophen 650 mg p.o. every 6 hours as needed fever CV: Coronary artery disease Essential hypertension Hyperlipidemia Continue amiloride/hydrochlorthiazide 5/50 1 tablet daily Currently on norepinephrine 2 mcg/min intermittently to maintain mean arterial pressure greater than equal to 65 mmHg Resp: Acute hypoxemic respiratory failure COPD Bilateral lower lobe lung collapse status post bronchoscopy 12/02 PRVC 16/550/0.95/5/70 Ventilator bundle Albuterol/ipratropium aerosols every 4 hours with albuterol aerosols every 2 hours as needed dyspnea Budesonide 0.5/2 1 inhalation twice daily On budesonide/formoterol 160/4.5 2 puffs twice daily at home On epoprostenol drip at 50 ng per kilogram per minute aerosolized to improve gas exchange and arterial oxygenation Previously started on methylprednisolone succinate currently at 40 mg every 8 hours. Noted allergy to prednisone Chest x-ray worsening right lower lobe versus effusion. VQ scan low probability for pulmonary embolism GI: Gastroesophageal reflux disease Hepatitis C Hypoalbuminemia/moderate protein calorie malnutrition Elevated AST Patient is currently on tube feeding t Jevity 1.5 goal 50 cc an hour Famotidine for GI prophylaxis Docusate serum/senna 1 tablet twice daily for bowel regimen. Added polyethylene glycol 17 g twice daily and lactulose 30 cc 2 times daily until BM. : Phillip catheter placed while on furosemide intermittently Endo: Hyperglycemia Sliding scale insulin with Accu-Cheks to maintain euglycemia while on high-dose steroids Renal: Creatinine currently within normal limits Monitor urine output Accurate I's and O's Heme: Factor V Leiden on chronic anticoagulation Normocytic anemia Leukocytosis Chronic warfarin use History of left lower extremity DVT status post IVC filter Currently on heparin drip at 1200 units an hour with transition to warfarin per pharmacy consultation. INR currently 1.8: if > 2 tomorrow, will d/c heparin drip. At home on enoxaparin 80 mg subcu twice daily with warfarin 7.5 mg daily Monitor CBC daily. Along with PT/INR/PTT ID: MRSA pneumonia Pediculosis capitis MRSA nares Currently levofloxacin prophylactically since 11/29 Vancomycin/Pipracil/tazobactam since 12/04 Continue permethrin 1 dose. We will/comb hair. U culture no growth to date. Influenza negative. Mupirocin to nares twice daily Blood cultures 2 no growth to date and sputum 12/03 MRSA FEN: Replace electrolytes as clinically indicated MSK: Osteoporosis/chronic low back pain PT evaluate and treat Access -CVL: requires while intermittently on vasopressors. Prophylaxis -GI -famotidine -DVT -SCD/heparin drip/warfarin Discussed with sister/healthcare proxy 12/07. palliative following: unclear who will ultimately make medical decisions for patient. OVERALL IMPRESSION: guarded prognosis. no meaningful improvements in days. will work on forced diuresis as a way to optimize gas exchange. chronic lung disease prevents successful weaning from mechanical ventilation. Guillermo Loza MD Dec 09, 2017 19:35
[2017-12-09] MEDS: PROPOFOL 1000 MG/100 ML INJ 100 ML IV PRN (23:28)
[2017-12-10] VITALS (16 sets, daily range): BP systolic 111–136; BP diastolic 60–76; PULSE 58–108; RESP 16–20; TEMP 98.1–99.2; O2SAT 91–97
[2017-12-10] MEDS: EPOPROSTENOL NEB SOLUTION 50 NG/KG/MIN 100 ML NEB SCH ×4 (01:00→08:20)
[2017-12-10] MEDS: chlordiazePOXIDE 25 MG CAP PO SCH ×2 (01:32→13:41)
[2017-12-10] MEDS: PIPERACIL-TAZO 4.5 GM PREMIX 100 ML IV SCH ×4 (03:46→22:15)
[2017-12-10] MEDS: CHLORHEXIDINE GLUCONATE 2 % 1 PACK (2 CLOTHS) TOP SCH (03:46)
[2017-12-10] MEDS: RESP: ALBUTEROL 2.5 MG/IPRATROPIUM 0.5 MG NEB (SCH) NEB ×5 (04:13→21:35)
[2017-12-10] MEDS: INSULIN ASPART SUPPLEMENTAL SCALE SQ SCH ×3 (05:12→17:20)
[2017-12-10] MEDS: methylPREDNISolone SOD SUCC 40 MG/1 ML VIAL IV PUSH SCH ×3 (05:18→20:07)
[2017-12-10] MEDS: VANCOMYCIN 1,000 MG/NS 250 ML IV SCH ×4 (05:18→17:44)
[2017-12-10] MEDS: ARTIFICIAL TEARS OPTH SOLN 15 ML BTL EACH EYE SCH ×3 (05:18→21:12)
[2017-12-10] MEDS: guaiFENesin SOLUTION 200 MG/10 ML CUP NG SCH ×3 (05:18→22:15)
[2017-12-10 06:02] LABS: HEMATOCRIT 32.1 % (35.0-46.0); HEMOGLOBIN 10.5 GM/DL (11.6-15.3); MEAN CELL VOLUME 92.7 FL (80.0-100.0); MEAN CORPUSCULAR HEMOGLOBIN 30.3 PG (27.0-34.0); MEAN CORPUSCULAR HGB CONC 32.7 % (32.0-36.0); PLATELET COUNT 228 TH/MM3 (150-450); RED BLOOD COUNT 3.46 MIL/MM3 (4.00-5.30); RED CELL DISTRIBUTION WIDTH 18.4 % (11.6-17.2); WHITE BLOOD COUNT 14.7 TH/MM3 (4.0-11.0)
[2017-12-10 06:06] LABS: INTERNATIONAL NORMALIZED RATIO 1.5 RATIO; PROTHROMBIN TIME - PATIENT 14.9 SEC (9.8-11.6)
[2017-12-10 06:26] LABS: BICARBONATE 27.3 MEQ/L (21.0-32.0); CALCIUM 8.6 MG/DL (8.5-10.1); CREATININE 0.72 MG/DL (0.50-1.00)
[2017-12-10] MEDS: NOREPINEPHRINE INJ 4 MG in SODIUM CHLOR 0.9% 250 ML INJ 246 ML IV PRN (07:00)
[2017-12-10] MEDS: DOCUSATE SODIUM 50 MG/SENNA 8.6 MG TAB PO SCH ×2 (08:16→20:05)
[2017-12-10] MEDS: aMILoride/HCTZ 5 MG/50 MG TAB PO SCH (08:16)
[2017-12-10] MEDS: MUPIROCIN 2% OINT 1 APPLIC/GM SYR EACH NARE SCH ×2 (08:16→20:05)
[2017-12-10] MEDS: POLYETHYLENE GLYCOL 17 GM PKG PO SCH ×2 (08:16→20:05)
[2017-12-10] MEDS: FAMOTIDINE 20 MG TAB NG SCH ×2 (08:16→20:05)
[2017-12-10] MEDS: LACTULOSE SYRUP 20 GM/30 ML CUP PO SCH ×2 (08:16→20:05)
[2017-12-10] MEDS: CHLORHEXIDINE 0.12% (ORAL KIT) 15 ML CUP MT SCH ×2 (08:16→20:06)
[2017-12-10] MEDS: SODIUM CHLORIDE 0.9% FLUSH 10 ML FLUSH IV FLUSH SCH ×3 (08:17→20:05)
[2017-12-10] MEDS: RESP: BUDESONIDE 0.5 MG/2 ML NEB NEB SCH ×2 (09:15→21:35)
[2017-12-10] MEDS: PROPOFOL 1000 MG/100 ML INJ 100 ML IV PRN ×2 (09:59→21:29)
[2017-12-10] MEDS: HEPARIN-D5W 25,000 U/250 ML 250 ML IV PRN (10:01)
--- NOTE | 2017-12-10 10:16 | HHI.CCPN ---
Subjective Remarks/Hospital Course 57-year-old female who presented to emergency department complaining of SOB and coughing. She has also complained of severe left back rib area pain. In the emergency department she was desaturating to 80s on room air and 88 on 2 L nasal cannula. She was intubated by ED attending for an acute hypoxemic respiratory failure. She was intubated by ED attending. She is on Coumadin/ Lovenox 1 mg/kg every 12 hours for factor V Leiden mutation. Her INR is subtherapeutic. Attempted SBTs but patient could not tolerate due to severe bronchospasm. 11/30: Continued agitation but bronchospasm is minimally improved. Although she carries a prednisone allergy on her chart she is tolerating Solu-Medrol without difficulty. 12/01: Without heavy sedation patient becomes extremely agitated and developed severe airway collapse with very poor air movement. Unprovoked her wheezing has ceased but with agitation she developed some minimal tidal volume. We have added Precedex and will add p.o. Librium and try to rapidly extubate her. I am not optimistic. This is probably why she is required tracheostomy in the past. 12/02: Patient has developed right lower lobe atelectasis and partial collapse of the right middle lobe. Will undoubtedly require bronchoscopy to remove inspissated plugs. Her anxiety and agitation continues to be problematic and she does not respond to Precedex. 12/03: Resting comfortably in bed in no acute distress. FiO2 100%. X-ray this a.m. revealed resolution of lower lobe collapse. Minimal secretions from ET tube. Positive BM 1 12/04: T-max 99.9. Remains on epoprostenol. Did not tolerate bilevel or increased PEEP. Tolerating tube feeds at goal. Currently on propofol and fentanyl drips. 12/05: Afebrile. Remains on norepinephrine drip at 3 mcg/min. FiO2 requirements decreased to 60% overnight. Arousable the ventilator. She is on propofol and fentanyl drips. 12/06: Afebrile. FiO2 currently 50%. Remains on epoprostenol aerosolized. Noted to have a pediculosis capitis. Permethrin currently being applied. 12/07: FiO2 at 60%. Afebrile. Arousable on the ventilator and sedation. Appears comfortable. Tolerating tube feeding. 12/08: Still continues to have pediculosis capitis. Status post bronchoscopy yesterday with thin frothy clear secretions noted. No mucous plugging. Currently afebrile. Tolerating tube feeding. Arousable and follows commands on the ventilator remains on epoprostenol aerosolized maximum 50 ng/kg/min 12/09: no improvements or changes. remains hypoxic on 70% fio2. requires inhaled flolan. SUBJECTIVE: 12/10: Afebrile. FiO2 down to 40%. Follows commands normally on the ventilator. Tolerating tube feeds. Positive BM. Objective Vital Signs Date Time Temp Pulse Resp B/P (MAP) Pulse Ox O2 Delivery O2 Flow Rate FiO2 12/10/17 09:14 95 40 12/10/17 08:00 98.1 68 16 111/67 (82) 12/10/17 07:00 Mechanical Ventilator Intake and Output 12/10/17 12/10/17 12/10/17 07:59 15:59 23:59 Intake Total 1021 ml Output Total 3700 ml Balance -2679 ml Result Diagram: 12/10/17 0530 12/10/17 0530 Other Results Microbiology Date/Time Source Procedure Growth Status 12/03/17 12:44 Blood Peripheral Aerobic Blood Culture - Final NO GROWTH IN 5 DAYS Complete 12/03/17 12:44 Blood Peripheral Anaerobic Blood Culture - Final NO GROWTH IN 5 DAYS Complete 12/07/17 14:40 Bronchial Washings Right Lower Lobe Fungal Smear - Final NO FUNGAL ELEMENTS SEEN. Resulted 12/07/17 14:40 Bronchial Washings Right Lower Lobe Fungal Culture Pending Resulted 11/28/17 05:25 Urine Clean Catch Urine Culture - Final NO GROWTH IN 48 HOURS. Complete Imaging Last Impressions Chest X-Ray 12/08/17 0600 Signed Impressions: CONCLUSION: No significant interval change. Lower Extremity Ultrasound 12/03/17 0000 Signed Impressions: CONCLUSION: 1. The study is negative for bilateral lower extremity deep venous thrombosis. Ribs X-Ray 11/28/17 0000 Signed Impressions: CONCLUSION: Deformities at the anterior lateral left ninth and 10th ribs prior fracture. Lung Scan-VQ Nuclear Medicine 11/28/17 0000 Signed Impressions: CONCLUSION: Low probability scan for pulmonary embolism Objective Remarks General: 57-year-old female resting in bed orotracheally intubated Head: Atraumatic, normal Neck: Supple, orally intubated. Right IJ is clean dry and intact without erythema Lungs: equal chest rise. Symmetrical excursion. Few fine crackles appreciated the bases bilaterally. Heart: RRR, S1, S2. No S4. No JVD. Abdomen: Soft, nondistended, no guarding. No guarding. Extremities: Warm, well-perfused. 1+ peripheral leg edema Neuro: Moves 4 extremities with strength and purpose. Follows commands all 4 extremities. Positive gag and cough. Positive corneal reflex. Urinary Catheter: Yes Assessment to: Continue Phillip insert reason: Prolonged Immobilization Vascular Central Line Catheter: Yes Assessment to: Continue Date of Insertion: December 04, 2017 Line: Central Venous Catheter Side: Right Location: Internal, Jugular A/P Assessment and Plan NEURO/PSYCH: EtOH abuse/withdrawal History of right frontal CVA Depression/anxiety Currently on propofol at 10 mcg/kg/min and fentanyl at 50 mcg an hour for sedation/analgesia while intubated Goal of RASS -2 Daily sedation vacation Schedule on chlordiazepoxide 25 mg 2 times daily EtOH withdrawal: In taper over the next week Acetaminophen 650 mg p.o. every 6 hours as needed fever CV: Coronary artery disease Essential hypertension Hyperlipidemia Continue amiloride/hydrochlorthiazide 5/50 1 tablet daily Currently on norepinephrine 2 mcg/min intermittently to maintain mean arterial pressure greater than equal to 65 mmHg Resp: Acute hypoxemic respiratory failure COPD Bilateral lower lobe lung collapse status post bronchoscopy 12/02 PRVC 16/550/0.95/5/40 Ventilator bundle Albuterol/ipratropium aerosols every 4 hours with albuterol aerosols every 2 hours as needed dyspnea Budesonide 0.5/2 1 inhalation twice daily On budesonide/formoterol 160/4.5 2 puffs twice daily at home On epoprostenol drip at 50 ng per kilogram per minute aerosolized to improve gas exchange and arterial oxygenation Previously started on methylprednisolone succinate currently at 40 mg every 8 hours. Noted allergy to prednisone Chest x-ray worsening right lower lobe versus effusion. VQ scan low probability for pulmonary embolism GI: Gastroesophageal reflux disease Hepatitis C Hypoalbuminemia/moderate protein calorie malnutrition Elevated AST Patient is currently on tube feeding t Jevity 1.5 goal 50 cc an hour Famotidine for GI prophylaxis Docusate serum/senna 1 tablet twice daily for bowel regimen. Added polyethylene glycol 17 g twice daily and lactulose 30 cc 2 times daily. One bowel movement 6/5 : Phillip catheter placed while on furosemide intermittently Endo: Hyperglycemia Sliding scale insulin with Accu-Cheks to maintain euglycemia while on high-dose steroids Renal: Creatinine currently within normal limits Monitor urine output Accurate I's and O's Heme: Factor V Leiden on chronic anticoagulation Normocytic anemia Leukocytosis Chronic warfarin use History of left lower extremity DVT status post IVC filter Currently on heparin drip at 1400 units an hour with transition to warfarin per pharmacy consultation. Currently at 6 mg daily INR currently 1.5: if > 2 tomorrow, will d/c heparin drip. At home on enoxaparin 80 mg subcu twice daily with warfarin 7.5 mg daily Monitor CBC daily. Along with PT/INR/PTT ID: MRSA pneumonia Pediculosis capitis MRSA nares Currently levofloxacin prophylactically since 11/29. Discontinue Vancomycin/Pipracil/tazobactam since 12/04 Continue permethrin 1 dose. We will/comb hair. Mupirocin to nares twice daily Pertinent cultures 12/07 -sputum from bronchoscopy-MSSA 12/03 -sputum -MRSA 12/03 -blood cultures 2 -no growth Influenza negative FEN: Replace electrolytes as clinically indicated MSK: Osteoporosis/chronic low back pain PT evaluate and treat Access -CVL/right IJ placed 12/03 l: requires while intermittently on vasopressors. Prophylaxis -GI -famotidine -DVT -SCD/heparin drip/warfarin Level 2 follow-up Rodo Wu MD Dec 10, 2017 10:16
--- NOTE | 2017-12-10 14:14 | HHI.HCPN ---
Patient remains incapacitated to make her own medical decisions. Ms. Lauren remains on mechanical ventilator, intermittently follows some commands but unable to determine further awareness of questions being asked. Shakes head "no " to all questions during visit with palliative [employer] today. Ms. Lauren reportedly does not have written advanced directives. In absence of such, per [place] Statutes, medical proxy decision making would fall to patient's son, Anders Rubio (booking number [id number]). He is currently incarcerated at the [facility]. Left message with Warden Badillo ([phone]) requesting son's participation on medical decision making. If son is unable or unwilling to participate then proxy would fall to patient's sister. Currently awaiting call back from halfway. Palliative care will continue to follow throughout hospitalization. Tequila Alcocer, [employer] TECHNICIAN Dec 10, 2017 14:14
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
[2017-12-10] MEDS: EPOPROSTENOL NEB SOLUTION 40 NG/KG/MIN 100 ML NEB SCH ×2 (15:40)
[2017-12-10] MEDS ORDERED: WARFARIN SOD 6 MG TAB PO SCH (16:00)
[2017-12-10] MEDS: fentaNYL DRIP 250 ML IV PRN (21:29)
[2017-12-11] VITALS (18 sets, daily range): BP systolic 90–129; BP diastolic 54–77; PULSE 70–98; RESP 16–21; TEMP 98.4–98.8; O2SAT 90–95
[2017-12-11] MEDS: EPOPROSTENOL NEB SOLUTION 40 NG/KG/MIN 100 ML NEB SCH ×6 (00:10→15:37)
[2017-12-11] MEDS: RESP: ALBUTEROL 2.5 MG/IPRATROPIUM 0.5 MG NEB (SCH) NEB ×7 (00:11→23:36)
[2017-12-11 00:41] LABS: INTERNATIONAL NORMALIZED RATIO 1.2 RATIO
[2017-12-11] MEDS: CHLORHEXIDINE GLUCONATE 2 % 1 PACK (2 CLOTHS) TOP SCH (04:00)
[2017-12-11] MEDS: methylPREDNISolone SOD SUCC 40 MG/1 ML VIAL IV PUSH SCH ×3 (05:08→21:17)
[2017-12-11] MEDS: PIPERACIL-TAZO 4.5 GM PREMIX 100 ML IV SCH ×3 (05:08→15:37)
[2017-12-11] MEDS: guaiFENesin SOLUTION 200 MG/10 ML CUP NG SCH ×3 (05:10→21:17)
[2017-12-11] MEDS: ARTIFICIAL TEARS OPTH SOLN 15 ML BTL EACH EYE SCH ×3 (05:12→21:19)
[2017-12-11] MEDS ORDERED: PHARMACY ORDERED LAB ONE (05:45)
[2017-12-11 05:55] LABS: HEMATOCRIT 32.6 % (35.0-46.0); HEMOGLOBIN 10.5 GM/DL (11.6-15.3); MEAN CORPUSCULAR HGB CONC 32.3 % (32.0-36.0); MEAN PLATELET VOLUME 9.9 FL (7.0-11.0); PLATELET COUNT 232 TH/MM3 (150-450); RED BLOOD COUNT 3.51 MIL/MM3 (4.00-5.30); RED CELL DISTRIBUTION WIDTH 18.5 % (11.6-17.2); WHITE BLOOD COUNT 14.7 TH/MM3 (4.0-11.0)
--- NOTE | 2017-12-11 05:57 | RADRPT ---
EXAM DATE: 12/11/2017 5:51 AM EDT AGE/SEX: 57 years / Female INDICATIONS: Shortness of breath. CLINICAL DATA: This is the patient's subsequent encounter. Patient reports that signs and symptoms h ave been present for 4 - 6 days and indicates a pain score of Nonresponsive. MEDICAL/SURGICAL HISTORY: . Hypercholesterolemia. Hypertension. Chronic obstructive pulmonary d isease. Asthma. Coronary artery disease. None. COMPARISON: [facility] [place], CHEST SINGLE AP, 12/08/2017. . FINDINGS: Endotracheal tube in good position. NG tube enters stomach. Right central line in superior vena cava. Bilateral mostly basilar airspace disease. Small effusions. No pneumothorax. CONCLUSION: Support apparatus unchanged. Improved right basilar airspace disease since December 08. Electronically signed by: Iftikhar Fraire MD 12/11/2017 5:56 AM EDT
[2017-12-11] MEDS: INSULIN ASPART SUPPLEMENTAL SCALE SQ SCH ×4 (06:00→17:11)
[2017-12-11 06:24] LABS: ALBUMIN 2.6 GM/DL (3.4-5.0); BICARBONATE 23.3 MEQ/L (21.0-32.0); CALCIUM 8.7 MG/DL (8.5-10.1); CREATININE 0.66 MG/DL (0.50-1.00); DIRECT BILIRUBIN ADULT 0.1 MG/DL (0.0-0.2); INDIRECT BILIRUBIN 0.2 MG/DL (0.0-0.8); MAGNESIUM 2.5 MG/DL (1.5-2.5); PHOSPHORUS 3.3 MG/DL (2.5-4.9); TOTAL BILIRUBIN ADULT 0.3 MG/DL (0.2-1.0); TOTAL PROTEIN 6.4 GM/DL (6.4-8.2); VANCOMYCIN TROUGH 21.6 MCG/ML (5.0-10.0)
[2017-12-11] MEDS: VANCOMYCIN 1,000 MG/NS 250 ML IV SCH ×2 (07:05)
[2017-12-11] MEDS: CHLORHEXIDINE 0.12% (ORAL KIT) 15 ML CUP MT SCH ×2 (08:00→21:17)
[2017-12-11] MEDS: RESP: BUDESONIDE 0.5 MG/2 ML NEB NEB SCH ×2 (08:23→19:51)
[2017-12-11] MEDS: POLYETHYLENE GLYCOL 17 GM PKG PO SCH ×2 (09:00→21:00)
[2017-12-11] MEDS: SODIUM CHLORIDE 0.9% FLUSH 10 ML FLUSH IV FLUSH SCH ×3 (09:00→21:17)
[2017-12-11] MEDS: LACTULOSE SYRUP 20 GM/30 ML CUP PO SCH ×2 (09:00→21:00)
[2017-12-11] MEDS: FAMOTIDINE 20 MG TAB NG SCH ×2 (09:09→21:17)
[2017-12-11] MEDS: MUPIROCIN 2% OINT 1 APPLIC/GM SYR EACH NARE SCH ×2 (09:09→21:00)
[2017-12-11] MEDS: DOCUSATE SODIUM 50 MG/SENNA 8.6 MG TAB PO SCH ×2 (09:09→21:00)
[2017-12-11] MEDS: aMILoride/HCTZ 5 MG/50 MG TAB PO SCH (09:10)
[2017-12-11] MEDS: PROPOFOL 1000 MG/100 ML INJ 100 ML IV PRN (09:10)
[2017-12-11] MEDS: chlordiazePOXIDE 25 MG CAP PO SCH (09:12)
[2017-12-11] MEDS: HEPARIN-D5W 25,000 U/250 ML 250 ML IV PRN (10:44)
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
[2017-12-11] MEDS ORDERED: WARFARIN SOD 7.5 MG TAB PO ONE (16:00)
--- NOTE | 2017-12-11 16:14 | HHI.CCPN ---
Subjective Remarks/Hospital Course 57-year-old female who presented to emergency department complaining of SOB and coughing. She has also complained of severe left back rib area pain. In the emergency department she was desaturating to 80s on room air and 88 on 2 L nasal cannula. She was intubated by ED attending for an acute hypoxemic respiratory failure. She was intubated by ED attending. She is on Coumadin/ Lovenox 1 mg/kg every 12 hours for factor V Leiden mutation. Her INR is subtherapeutic. Attempted SBTs but patient could not tolerate due to severe bronchospasm. 11/30: Continued agitation but bronchospasm is minimally improved. Although she carries a prednisone allergy on her chart she is tolerating Solu-Medrol without difficulty. 12/01: Without heavy sedation patient becomes extremely agitated and developed severe airway collapse with very poor air movement. Unprovoked her wheezing has ceased but with agitation she developed some minimal tidal volume. We have added Precedex and will add p.o. Librium and try to rapidly extubate her. I am not optimistic. This is probably why she is required tracheostomy in the past. 12/02: Patient has developed right lower lobe atelectasis and partial collapse of the right middle lobe. Will undoubtedly require bronchoscopy to remove inspissated plugs. Her anxiety and agitation continues to be problematic and she does not respond to Precedex. 12/03: Resting comfortably in bed in no acute distress. FiO2 100%. X-ray this a.m. revealed resolution of lower lobe collapse. Minimal secretions from ET tube. Positive BM 1 12/04: T-max 99.9. Remains on epoprostenol. Did not tolerate bilevel or increased PEEP. Tolerating tube feeds at goal. Currently on propofol and fentanyl drips. 12/05: Afebrile. Remains on norepinephrine drip at 3 mcg/min. FiO2 requirements decreased to 60% overnight. Arousable the ventilator. She is on propofol and fentanyl drips. 12/06: Afebrile. FiO2 currently 50%. Remains on epoprostenol aerosolized. Noted to have a pediculosis capitis. Permethrin currently being applied. 12/07: FiO2 at 60%. Afebrile. Arousable on the ventilator and sedation. Appears comfortable. Tolerating tube feeding. 12/08: Still continues to have pediculosis capitis. Status post bronchoscopy yesterday with thin frothy clear secretions noted. No mucous plugging. Currently afebrile. Tolerating tube feeding. Arousable and follows commands on the ventilator remains on epoprostenol aerosolized maximum 50 ng/kg/min 12/09: no improvements or changes. remains hypoxic on 70% fio2. requires inhaled flolan. 12/10: Afebrile. FiO2 down to 40%. Follows commands normally on the ventilator. Tolerating tube feeds. Positive BM. SUBJECTIVE: 12/11: no meaningful improvements in days. palliative care working with the son who is here on [facility] from [facility]. Objective Vital Signs Date Time Temp Pulse Resp B/P (MAP) Pulse Ox O2 Delivery O2 Flow Rate FiO2 12/11/17 15:36 95 50 12/11/17 14:00 80 12/11/17 12:30 87/52 12/11/17 12:00 98.6 16 12/11/17 07:00 Mechanical Ventilator Intake and Output 12/11/17 12/11/17 12/12/17 08:00 16:00 00:00 Intake Total 736 ml 700 ml Output Total 2825 ml Balance -2089 ml 700 ml Result Diagram: 12/11/17 0532 12/11/17 0532 Other Results Laboratory Tests Test 12/11/17 05:07 Blood Gas Puncture Site ART LINE Blood Gas Patient Temperature 98.6 Blood Gas HCO3 23 mmol/L (22-26) Blood Gas Base Excess -0.3 mmol/L (-2-2) Blood Gas Oxygen Saturation 94 % (90-100) Arterial Blood pH 7.48 (7.380-7.420) Arterial Blood Partial Pressure CO2 31 mmHg (38-42) Arterial Blood Partial Pressure O2 80 mmHg (61-120) Arterial Blood Oxygen Content 20.5 Vol % (12.0-20.0) Arterial Blood Carboxyhemoglobin 0.8 % (0-4) Arterial Blood Methemoglobin 1.0 % (0-2) Blood Gas Hemoglobin 15.6 G/DL (12.0-16.0) Oxygen Delivery Device VENTILATOR Blood Gas Ventilator Setting PRVC / AC / Blood Gas Inspired Oxygen 45 % Imaging Last Impressions Chest X-Ray 12/08/17 0600 Signed Impressions: CONCLUSION: No significant interval change. Lower Extremity Ultrasound 5/30/18 0000 Signed Impressions: CONCLUSION: 1. The study is negative for bilateral lower extremity deep venous thrombosis. Ribs X-Ray 11/28/17 Signed Impressions: CONCLUSION: Deformities at the anterior lateral left ninth and 10th ribs prior fracture. Lung Scan-VQ Nuclear Medicine 11/28/17 Signed Impressions: CONCLUSION: Low probability scan for pulmonary embolism Objective Remarks General: 57-year-old female resting in bed orotracheally intubated Head: Atraumatic, normal Neck: Supple, orally intubated. Right IJ is clean dry and intact without erythema Lungs: equal chest rise. Symmetrical excursion. Few fine crackles appreciated the bases bilaterally. Heart: RRR, No JVD. Abdomen: Soft, nondistended, no guarding. No guarding. Extremities: Warm, well-perfused. 1+ peripheral leg edema Neuro: Moves 4 extremities with strength and purpose. Follows commands all 4 extremities. Positive gag and cough. Positive corneal reflex. Date of Insertion: December 04, 2017 Line: Central Venous Catheter Side: Right Location: Internal, Jugular A/P Assessment and Plan NEURO/PSYCH: EtOH abuse/withdrawal History of right frontal CVA Depression/anxiety Currently on propofol and fentanyl for sedation/analgesia while intubated Goal of RASS -2 Daily sedation vacation Schedule on chlordiazepoxide 25 mg 2 times daily EtOH withdrawal: In taper over the next week Acetaminophen 650 mg p.o. every 6 hours as needed fever CV: Coronary artery disease Essential hypertension Hyperlipidemia Continue amiloride/hydrochlorthiazide 5/50 1 tablet daily Currently on norepinephrine 2 mcg/min intermittently to maintain mean arterial pressure greater than equal to 65 mmHg Resp: Acute hypoxemic respiratory failure COPD Bilateral lower lobe lung collapse status post bronchoscopy 12/02 PRVC 16/550/0.95/5/40 Ventilator bundle Albuterol/ipratropium aerosols every 4 hours with albuterol aerosols every 2 hours as needed dyspnea Budesonide 0.5/2 1 inhalation twice daily On budesonide/formoterol 160/4.5 2 puffs twice daily at home d/c Flolan. Previously started on methylprednisolone succinate currently at 40 mg every 8 hours. Noted allergy to prednisone Chest x-ray worsening right lower lobe versus effusion. VQ scan low probability for pulmonary embolism GI: Gastroesophageal reflux disease Hepatitis C Hypoalbuminemia/moderate protein calorie malnutrition Elevated AST Patient is currently on tube feeding t Jevity 1.5 goal 50 cc an hour Famotidine for GI prophylaxis Docusate serum/senna 1 tablet twice daily for bowel regimen. Added polyethylene glycol 17 g twice daily and lactulose 30 cc 2 times daily. One bowel movement 12/09 : d/c bird. Endo: Hyperglycemia Sliding scale insulin with Accu-Cheks to maintain euglycemia while on high-dose steroids Renal: Creatinine currently within normal limits Monitor urine output Accurate I's and O's Heme: Factor V Leiden on chronic anticoagulation Normocytic anemia Leukocytosis Chronic warfarin use History of left lower extremity DVT status post IVC filter Currently on heparin drip at 1400 units an hour with transition to warfarin per pharmacy consultation. Currently at 7.5 mg daily INR currently 1.2: plan to d/ c heparin drip once INR > 2. At home on enoxaparin 80 mg subcu twice daily with warfarin 7.5 mg daily Monitor CBC daily. Along with PT/INR/PTT ID: MRSA pneumonia Pediculosis capitis MRSA nares Vancomycin/Pipracil/tazobactam since 12/04: will d/c vancomycin and zosyn. sputum from bronch growing MSSA on 12/07. will give 3 days of Rocephin 2gm iv q24h which will complete 7 days of iv abx for MSSA pneumonia and then d/c abx, as we have completed full course for all identified organisms. Continue permethrin 1 dose. Mupirocin to nares twice daily Pertinent cultures 12/07 -sputum from bronchoscopy-MSSA 12/03 -sputum -MRSA 12/03 -blood cultures 2 -no growth Influenza negative FEN: Replace electrolytes as clinically indicated MSK: Osteoporosis/chronic low back pain PT evaluate and treat Access -CVL/right IJ placed 12/03 l: requires while intermittently on vasopressors. Prophylaxis -GI -famotidine -DVT -SCD/heparin drip/warfarin Guillermo Loza MD Dec 11, 2017 16:14
[2017-12-11] MEDS ORDERED: FUROSEMIDE 20 MG/2 ML VIAL IV PUSH ONE (16:15)
[2017-12-11] MEDS: cefTRIAXone INJ 2,000 MG in SODIUM CHLORIDE 0.9% INJ 100 ML IV SCH (17:11)
[2017-12-12] VITALS (19 sets, daily range): BP systolic 86–142; BP diastolic 48–74; PULSE 78–118; RESP 16–21; TEMP 98–99.1; O2SAT 89–94
[2017-12-12] MEDS ORDERED: VANCOMYCIN INJ 1,250 MG in SODIUM CHLOR 0.9% 250 ML INJ 250 ML IV SCH ×2
[2017-12-12] MEDS: RESP: ALBUTEROL 2.5 MG/IPRATROPIUM 0.5 MG NEB (SCH) NEB ×5 (03:27→23:27)
[2017-12-12] MEDS: CHLORHEXIDINE GLUCONATE 2 % 1 PACK (2 CLOTHS) TOP SCH (04:00)
[2017-12-12] MEDS: guaiFENesin SOLUTION 200 MG/10 ML CUP NG SCH ×3 (05:30→22:44)
[2017-12-12] MEDS: methylPREDNISolone SOD SUCC 40 MG/1 ML VIAL IV PUSH SCH ×3 (05:30→22:44)
[2017-12-12] MEDS: PROPOFOL 1000 MG/100 ML INJ 100 ML IV PRN ×2 (05:31→17:06)
[2017-12-12] MEDS: ARTIFICIAL TEARS OPTH SOLN 15 ML BTL EACH EYE SCH ×3 (05:31→22:45)
[2017-12-12] MEDS: INSULIN ASPART SUPPLEMENTAL SCALE SQ SCH ×4 (06:00→17:09)
[2017-12-12 06:17] LABS: HEMATOCRIT 36.1 % (35.0-46.0); HEMOGLOBIN 11.8 GM/DL (11.6-15.3); MEAN CELL VOLUME 92.6 FL (80.0-100.0); MEAN CORPUSCULAR HEMOGLOBIN 30.3 PG (27.0-34.0); MEAN CORPUSCULAR HGB CONC 32.7 % (32.0-36.0); MEAN PLATELET VOLUME 10.1 FL (7.0-11.0); PLATELET COUNT 282 TH/MM3 (150-450); WHITE BLOOD COUNT 14.8 TH/MM3 (4.0-11.0)
[2017-12-12 06:43] LABS: INTERNATIONAL NORMALIZED RATIO 1.3 RATIO; PROTHROMBIN TIME - PATIENT 12.8 SEC (9.8-11.6)
[2017-12-12 06:57] LABS: BICARBONATE 20.9 MEQ/L (21.0-32.0); CALCIUM 9.5 MG/DL (8.5-10.1); CREATININE 0.7 MG/DL (0.50-1.00)
[2017-12-12] MEDS: RESP: BUDESONIDE 0.5 MG/2 ML NEB NEB SCH ×2 (07:36→20:17)
[2017-12-12] MEDS: CHLORHEXIDINE 0.12% (ORAL KIT) 15 ML CUP MT SCH ×2 (08:00→22:44)
[2017-12-12] MEDS: aMILoride/HCTZ 5 MG/50 MG TAB PO SCH (08:47)
[2017-12-12] MEDS: MUPIROCIN 2% OINT 1 APPLIC/GM SYR EACH NARE SCH ×2 (08:47→21:00)
[2017-12-12] MEDS: LACTULOSE SYRUP 20 GM/30 ML CUP PO SCH ×2 (08:47→22:44)
[2017-12-12] MEDS: DOCUSATE SODIUM 50 MG/SENNA 8.6 MG TAB PO SCH ×2 (08:47→22:44)
[2017-12-12] MEDS: FAMOTIDINE 20 MG TAB NG SCH ×2 (08:47→22:44)
[2017-12-12] MEDS: POLYETHYLENE GLYCOL 17 GM PKG PO SCH ×2 (08:47→22:44)
[2017-12-12] MEDS: SODIUM CHLORIDE 0.9% FLUSH 10 ML FLUSH IV FLUSH SCH ×3 (09:00→22:45)
[2017-12-12] MEDS: HEPARIN-D5W 25,000 U/250 ML 250 ML IV PRN (10:52)
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
[2017-12-12] MEDS: WARFARIN SOD 7.5 MG TAB PO SCH (14:08)
--- NOTE | 2017-12-12 16:31 | HHI.CCPN ---
Subjective Remarks/Hospital Course 57-year-old female who presented to emergency department complaining of SOB and coughing. She has also complained of severe left back rib area pain. In the emergency department she was desaturating to 80s on room air and 88 on 2 L nasal cannula. She was intubated by ED attending for an acute hypoxemic respiratory failure. She was intubated by ED attending. She is on Coumadin/ Lovenox 1 mg/kg every 12 hours for factor V Leiden mutation. Her INR is subtherapeutic. Attempted SBTs but patient could not tolerate due to severe bronchospasm. 11/30: Continued agitation but bronchospasm is minimally improved. Although she carries a prednisone allergy on her chart she is tolerating Solu-Medrol without difficulty. 12/01: Without heavy sedation patient becomes extremely agitated and developed severe airway collapse with very poor air movement. Unprovoked her wheezing has ceased but with agitation she developed some minimal tidal volume. We have added Precedex and will add p.o. Librium and try to rapidly extubate her. I am not optimistic. This is probably why she is required tracheostomy in the past. 12/02: Patient has developed right lower lobe atelectasis and partial collapse of the right middle lobe. Will undoubtedly require bronchoscopy to remove inspissated plugs. Her anxiety and agitation continues to be problematic and she does not respond to Precedex. 12/03: Resting comfortably in bed in no acute distress. FiO2 100%. X-ray this a.m. revealed resolution of lower lobe collapse. Minimal secretions from ET tube. Positive BM 1 12/04: T-max 99.9. Remains on epoprostenol. Did not tolerate bilevel or increased PEEP. Tolerating tube feeds at goal. Currently on propofol and fentanyl drips. 12/05: Afebrile. Remains on norepinephrine drip at 3 mcg/min. FiO2 requirements decreased to 60% overnight. Arousable the ventilator. She is on propofol and fentanyl drips. 12/06: Afebrile. FiO2 currently 50%. Remains on epoprostenol aerosolized. Noted to have a pediculosis capitis. Permethrin currently being applied. 12/07: FiO2 at 60%. Afebrile. Arousable on the ventilator and sedation. Appears comfortable. Tolerating tube feeding. 12/08: Still continues to have pediculosis capitis. Status post bronchoscopy yesterday with thin frothy clear secretions noted. No mucous plugging. Currently afebrile. Tolerating tube feeding. Arousable and follows commands on the ventilator remains on epoprostenol aerosolized maximum 50 ng/kg/min 12/09: no improvements or changes. remains hypoxic on 70% fio2. requires inhaled flolan. 12/10: Afebrile. FiO2 down to 40%. Follows commands normally on the ventilator. Tolerating tube feeds. Positive BM. 12/11: no meaningful improvements in days. palliative care working with the son who is here on [facility] from [facility]. SUBJECTIVE: 12/12: no improvements. net -2L/24h. off flolan. remains intubated on full support. per the patient, she does not want her son making healthcare decisions , so legally it falls to her sister, who is currently undergoing elective surgery of her own today and cannot make medical decisions. Objective Vital Signs Date Time Temp Pulse Resp B/P (MAP) Pulse Ox O2 Delivery O2 Flow Rate FiO2 12/12/17 14:00 78 12/12/17 12:00 50 12/12/17 12:00 98.4 16 86/48 (61) 93 12/11/17 20:00 Mechanical Ventilator Intake and Output 12/12/17 12/12/17 12/13/17 08:00 16:00 00:00 Intake Total 808 ml 240 ml Output Total 2200 ml Balance -1392 ml 240 ml Result Diagram: 12/12/17 0544 12/12/17 0544 Imaging Last Impressions Chest X-Ray 12/08/17 0600 Signed Impressions: CONCLUSION: No significant interval change. Lower Extremity Ultrasound 12/03/17 0000 Signed Impressions: CONCLUSION: 1. The study is negative for bilateral lower extremity deep venous thrombosis. Ribs X-Ray 11/28/17 0000 Signed Impressions: CONCLUSION: Deformities at the anterior lateral left ninth and 10th ribs prior fracture. Lung Scan-VQ Nuclear Medicine 11/28/17 0000 Signed Impressions: CONCLUSION: Low probability scan for pulmonary embolism Objective Remarks General: 57-year-old female resting in bed orotracheally intubated Head: Atraumatic, normal Neck: Supple, orally intubated. Right IJ is clean dry and intact without erythema Lungs: equal chest rise. Symmetrical excursion. Few fine crackles appreciated the bases bilaterally. Heart: RRR, No JVD. Abdomen: Soft, nondistended, no guarding. No guarding. Extremities: Warm, well-perfused. 1+ peripheral leg edema Neuro: Moves 4 extremities with strength and purpose. Follows commands all 4 extremities. Positive gag and cough. Positive corneal reflex. Date of Insertion: December 04, 2017 Line: Central Venous Catheter Side: Right Location: Internal, Jugular A/P Assessment and Plan NEURO/PSYCH: EtOH abuse/withdrawal History of right frontal CVA Depression/anxiety Currently on propofol and fentanyl for sedation/analgesia while intubated Goal of RASS -2 Daily sedation vacation s/p librium taper. Acetaminophen 650 mg p.o. every 6 hours as needed fever CV: Coronary artery disease Essential hypertension Hyperlipidemia Continue amiloride/hydrochlorthiazide 5/50 1 tablet daily Currently on norepinephrine intermittently to maintain mean arterial pressure greater than equal to 65 mmHg Resp: Acute hypoxemic respiratory failure COPD Bilateral lower lobe lung collapse status post bronchoscopy 12/02 PRVC 16/550/0.95/5/40 Ventilator bundle Albuterol/ipratropium aerosols every 4 hours with albuterol aerosols every 2 hours as needed dyspnea Budesonide 0.5/2 1 inhalation twice daily On budesonide/formoterol 160/4.5 2 puffs twice daily at home Previously started on methylprednisolone succinate currently at 40 mg every 8 hours. Noted allergy to prednisone: wean to 40mg iv q12hr. Chest x-ray worsening right lower lobe versus effusion. VQ scan low probability for pulmonary embolism GI: Gastroesophageal reflux disease Hepatitis C Hypoalbuminemia/moderate protein calorie malnutrition Elevated AST Patient is currently on tube feeding t Jevity 1.5 goal 50 cc an hour Famotidine for GI prophylaxis Docusate serum/senna 1 tablet twice daily for bowel regimen. Added polyethylene glycol 17 g twice daily and lactulose 30 cc 2 times daily. One bowel movement 12/09 : voiding. 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 Currently at 7.5 mg daily INR currently 1.3: plan to d/c heparin drip once INR > 2. At home on enoxaparin 80 mg subcu twice daily with warfarin 7.5 mg daily Monitor CBC daily. Along with PT/INR/PTT ID: MRSA pneumonia Pediculosis capitis MRSA nares Vancomycin/Pipracil/tazobactam 12/04 - 12/11 Rocephin 12/11 - anticipated 12/14. completed course for all identified microbes. Continue permethrin 1 dose. Mupirocin to nares twice daily Pertinent cultures 12/07 -sputum from bronchoscopy-MSSA 12/03 -sputum -MRSA 12/03 -blood cultures 2 -no growth Influenza negative FEN: Replace electrolytes as clinically indicated MSK: Osteoporosis/chronic low back pain PT evaluate and treat Access -CVL/right IJ placed 12/03 l: requires while intermittently on vasopressors. Prophylaxis -GI -famotidine -DVT -SCD/heparin drip/warfarin Guillermo Loza MD Dec 12, 2017 16:30
[2017-12-12] MEDS ORDERED: FUROSEMIDE 20 MG/2 ML VIAL IV PUSH ONE (17:00)
[2017-12-12] MEDS: cefTRIAXone INJ 2,000 MG in SODIUM CHLORIDE 0.9% INJ 100 ML IV SCH (17:07)
[2017-12-13] VITALS (18 sets, daily range): BP systolic 95–129; BP diastolic 58–77; PULSE 75–110; RESP 16–23; TEMP 98.1–99; O2SAT 93–98
[2017-12-13] MEDS: PROPOFOL 1000 MG/100 ML INJ 100 ML IV PRN ×3 (02:29→20:22)
[2017-12-13] MEDS: fentaNYL DRIP 250 ML IV PRN (02:30)
[2017-12-13] MEDS: CHLORHEXIDINE GLUCONATE 2 % 1 PACK (2 CLOTHS) TOP SCH (04:00)
[2017-12-13] MEDS: RESP: ALBUTEROL 2.5 MG/IPRATROPIUM 0.5 MG NEB (SCH) NEB ×5 (04:13→23:26)
[2017-12-13 05:47] LABS: HEMATOCRIT 35.4 % (35.0-46.0); HEMOGLOBIN 11.5 GM/DL (11.6-15.3); MEAN CELL VOLUME 92.3 FL (80.0-100.0); MEAN CORPUSCULAR HEMOGLOBIN 30.1 PG (27.0-34.0); MEAN CORPUSCULAR HGB CONC 32.6 % (32.0-36.0); MEAN PLATELET VOLUME 9.5 FL (7.0-11.0); PLATELET COUNT 291 TH/MM3 (150-450); RED BLOOD COUNT 3.83 MIL/MM3 (4.00-5.30); RED CELL DISTRIBUTION WIDTH 18.7 % (11.6-17.2); WHITE BLOOD COUNT 12.4 TH/MM3 (4.0-11.0)
[2017-12-13 06:00] LABS: INTERNATIONAL NORMALIZED RATIO 1.3 RATIO; PROTHROMBIN TIME - PATIENT 13.4 SEC (9.8-11.6)
[2017-12-13] MEDS: INSULIN ASPART SUPPLEMENTAL SCALE SQ SCH ×4 (06:00→18:00)
[2017-12-13 06:10] LABS: CALCIUM 9.1 MG/DL (8.5-10.1); CREATININE 0.7 MG/DL (0.50-1.00)
[2017-12-13] MEDS: guaiFENesin SOLUTION 200 MG/10 ML CUP NG SCH (06:15)
[2017-12-13] MEDS: ARTIFICIAL TEARS OPTH SOLN 15 ML BTL EACH EYE SCH ×3 (06:15→22:00)
[2017-12-13] MEDS: CHLORHEXIDINE 0.12% (ORAL KIT) 15 ML CUP MT SCH ×2 (08:00→20:00)
[2017-12-13] MEDS: SODIUM CHLORIDE 0.9% FLUSH 10 ML FLUSH IV FLUSH SCH ×3 (09:00→21:00)
[2017-12-13] MEDS: aMILoride/HCTZ 5 MG/50 MG TAB PO SCH (09:45)
[2017-12-13] MEDS: methylPREDNISolone SOD SUCC 40 MG/1 ML VIAL IV PUSH SCH ×2 (09:45→20:21)
[2017-12-13] MEDS: MUPIROCIN 2% OINT 1 APPLIC/GM SYR EACH NARE SCH ×2 (09:45→20:20)
[2017-12-13] MEDS: LACTULOSE SYRUP 20 GM/30 ML CUP PO SCH ×2 (09:45→20:21)
[2017-12-13] MEDS: POLYETHYLENE GLYCOL 17 GM PKG PO SCH ×2 (09:45→20:20)
[2017-12-13] MEDS: FAMOTIDINE 20 MG TAB NG SCH ×2 (09:46→20:20)
[2017-12-13] MEDS: DOCUSATE SODIUM 50 MG/SENNA 8.6 MG TAB PO SCH ×2 (09:46→20:20)
[2017-12-13] MEDS: HEPARIN-D5W 25,000 U/250 ML 250 ML IV PRN (09:50)
[2017-12-13] MEDS: RESP: BUDESONIDE 0.5 MG/2 ML NEB NEB SCH ×2 (10:33→21:09)
[2017-12-13] MEDS ORDERED: PHARMACY ORDERED LAB ONE (11:45)
[2017-12-13] MEDS: WARFARIN SOD 7.5 MG TAB PO SCH (16:00)
[2017-12-13] MEDS: cefTRIAXone INJ 2,000 MG in SODIUM CHLORIDE 0.9% INJ 100 ML IV SCH (18:53)
--- NOTE | 2017-12-13 21:07 | HHI.CCPN ---
Subjective Remarks/Hospital Course 57-year-old female who presented to emergency department complaining of SOB and coughing. She has also complained of severe left back rib area pain. In the emergency department she was desaturating to 80s on room air and 88 on 2 L nasal cannula. She was intubated by ED attending for an acute hypoxemic respiratory failure. She was intubated by ED attending. She is on Coumadin/ Lovenox 1 mg/kg every 12 hours for factor V Leiden mutation. Her INR is subtherapeutic. Attempted SBTs but patient could not tolerate due to severe bronchospasm. 11/30: Continued agitation but bronchospasm is minimally improved. Although she carries a prednisone allergy on her chart she is tolerating Solu-Medrol without difficulty. 12/01: Without heavy sedation patient becomes extremely agitated and developed severe airway collapse with very poor air movement. Unprovoked her wheezing has ceased but with agitation she developed some minimal tidal volume. We have added Precedex and will add p.o. Librium and try to rapidly extubate her. I am not optimistic. This is probably why she is required tracheostomy in the past. 12/02: Patient has developed right lower lobe atelectasis and partial collapse of the right middle lobe. Will undoubtedly require bronchoscopy to remove inspissated plugs. Her anxiety and agitation continues to be problematic and she does not respond to Precedex. 12/03: Resting comfortably in bed in no acute distress. FiO2 100%. X-ray this a.m. revealed resolution of lower lobe collapse. Minimal secretions from ET tube. Positive BM 1 12/04: T-max 99.9. Remains on epoprostenol. Did not tolerate bilevel or increased PEEP. Tolerating tube feeds at goal. Currently on propofol and fentanyl drips. 12/05: Afebrile. Remains on norepinephrine drip at 3 mcg/min. FiO2 requirements decreased to 60% overnight. Arousable the ventilator. She is on propofol and fentanyl drips. 12/06: Afebrile. FiO2 currently 50%. Remains on epoprostenol aerosolized. Noted to have a pediculosis capitis. Permethrin currently being applied. 12/07: FiO2 at 60%. Afebrile. Arousable on the ventilator and sedation. Appears comfortable. Tolerating tube feeding. 12/08: Still continues to have pediculosis capitis. Status post bronchoscopy yesterday with thin frothy clear secretions noted. No mucous plugging. Currently afebrile. Tolerating tube feeding. Arousable and follows commands on the ventilator remains on epoprostenol aerosolized maximum 50 ng/kg/min 12/09: no improvements or changes. remains hypoxic on 70% fio2. requires inhaled flolan. 12/10: Afebrile. FiO2 down to 40%. Follows commands normally on the ventilator. Tolerating tube feeds. Positive BM. 12/11: no meaningful improvements in days. palliative care working with the son who is here on [facility] from [facility]. 12/12: no improvements. net -2L/24h. off flolan. remains intubated on full support. per the patient, she does not want her son making healthcare decisions , so legally it falls to her sister, who is currently undergoing elective surgery of her own today and cannot make medical decisions. SUBJECTIVE: 12/13: still failing weaning trials. no changes or improvements. 60% fio2. Objective Vital Signs Date Time Temp Pulse Resp B/P (MAP) Pulse Ox O2 Delivery O2 Flow Rate FiO2 12/13/17 20:00 98.7 90 16 129/77 (94) 94 12/13/17 16:00 60 12/13/17 07:00 Mechanical Ventilator Intake and Output 12/13/17 12/13/17 12/14/17 08:00 16:00 00:00 Intake Total 997 ml 600 ml Output Total 600 ml 950 ml Balance 397 ml -350 ml Result Diagram: 12/13/17 0535 12/13/17 0535 Imaging Last Impressions Chest X-Ray 12/08/17 0600 Signed Impressions: CONCLUSION: No significant interval change. Lower Extremity Ultrasound 12/03/17 0000 Signed Impressions: CONCLUSION: 1. The study is negative for bilateral lower extremity deep venous thrombosis. Ribs X-Ray 11/28/17 0000 Signed Impressions: CONCLUSION: Deformities at the anterior lateral left ninth and 10th ribs prior fracture. Lung Scan-VQ Nuclear Medicine 11/28/17 0000 Signed Impressions: CONCLUSION: Low probability scan for pulmonary embolism Objective Remarks General: 57-year-old female resting in bed orotracheally intubated Head: Atraumatic, normal Neck: Supple, orally intubated. Right IJ is clean dry and intact without erythema Lungs: equal chest rise. Symmetrical excursion. Few fine crackles appreciated the bases bilaterally. Heart: RRR, No JVD. Abdomen: Soft, nondistended, no guarding. No guarding. Extremities: Warm, well-perfused. 1+ peripheral leg edema Neuro: Moves 4 extremities with strength and purpose. Follows commands all 4 extremities. Positive gag and cough. Positive corneal reflex. Date of Insertion: December 04, 2017 Line: Central Venous Catheter Side: Right Location: Internal, Jugular A/P Assessment and Plan NEURO/PSYCH: EtOH abuse/withdrawal History of right frontal CVA Depression/anxiety Currently on propofol and fentanyl for sedation/analgesia while intubated Goal of RASS -2 Daily sedation vacation s/p librium taper. Acetaminophen 650 mg p.o. every 6 hours as needed fever CV: Coronary artery disease Essential hypertension Hyperlipidemia Continue amiloride/hydrochlorthiazide 5/50 1 tablet daily Currently on norepinephrine intermittently to maintain mean arterial pressure greater than equal to 65 mmHg Resp: Acute hypoxemic respiratory failure COPD Bilateral lower lobe lung collapse status post bronchoscopy 12/02 PRVC 16/550/0.95/5/60 Ventilator bundle Albuterol/ipratropium aerosols every 4 hours with albuterol aerosols every 2 hours as needed dyspnea Budesonide 0.5/2 1 inhalation twice daily On budesonide/formoterol 160/4.5 2 puffs twice daily at home Previously started on methylprednisolone succinate currently at 40 mg every 8 hours. Noted allergy to prednisone: wean to 40mg iv q12hr. Chest x-ray worsening right lower lobe versus effusion. VQ scan low probability for pulmonary embolism GI: Gastroesophageal reflux disease Hepatitis C Hypoalbuminemia/moderate protein calorie malnutrition Elevated AST Patient is currently on tube feeding t Jevity 1.5 goal 50 cc an hour Famotidine for GI prophylaxis Docusate serum/senna 1 tablet twice daily for bowel regimen. Added polyethylene glycol 17 g twice daily and lactulose 30 cc 2 times daily. One bowel movement 12/09 : voiding. 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 Currently at 7.5 mg daily INR currently 1.3: plan to d/c heparin drip once INR > 2. At home on enoxaparin 80 mg subcu twice daily with warfarin 7.5 mg daily Monitor CBC daily. Along with PT/INR/PTT ID: MRSA pneumonia Pediculosis capitis MRSA nares Vancomycin/Pipracil/tazobactam 12/04 - 12/11 Rocephin 12/11 - anticipated 12/14. completed course for all identified microbes. Continue permethrin 1 dose. Mupirocin to nares twice daily Pertinent cultures 12/07 -sputum from bronchoscopy-MSSA 12/03 -sputum -MRSA 12/03 -blood cultures 2 -no growth Influenza negative FEN: Replace electrolytes as clinically indicated MSK: Osteoporosis/chronic low back pain PT evaluate and treat Access -CVL/right IJ placed 12/03 l: requires while intermittently on vasopressors. Prophylaxis -GI -famotidine -DVT -SCD/heparin drip/warfarin Guillermo Loza MD Dec 13, 2017 21:06
[2017-12-13] MEDS ORDERED: FUROSEMIDE 40 MG/4 ML VIAL IV PUSH ONE (21:15)
[2017-12-13] MEDS ORDERED: ALBUMIN 25% INJ 100 ML IV ONE (21:15)
[2017-12-14] VITALS (19 sets, daily range): BP systolic 91–148; BP diastolic 60–82; PULSE 65–89; RESP 16–26; TEMP 98–99.1; O2SAT 88–100
[2017-12-14] MEDS: MIDAZOLAM HCL 2 MG/2 ML VIAL IV PUSH PRN (00:54)
[2017-12-14] MEDS: CHLORHEXIDINE GLUCONATE 2 % 1 PACK (2 CLOTHS) TOP SCH (03:09)
[2017-12-14] MEDS: RESP: ALBUTEROL 2.5 MG/IPRATROPIUM 0.5 MG NEB (SCH) NEB ×5 (04:22→20:32)
[2017-12-14 05:33] LABS: HEMATOCRIT 32.1 % (35.0-46.0); HEMOGLOBIN 10.6 GM/DL (11.6-15.3); MEAN CELL VOLUME 92.5 FL (80.0-100.0); MEAN CORPUSCULAR HEMOGLOBIN 30.5 PG (27.0-34.0); MEAN PLATELET VOLUME 9.3 FL (7.0-11.0); PLATELET COUNT 256 TH/MM3 (150-450); RED BLOOD COUNT 3.47 MIL/MM3 (4.00-5.30); RED CELL DISTRIBUTION WIDTH 18.4 % (11.6-17.2); WHITE BLOOD COUNT 9.3 TH/MM3 (4.0-11.0)
[2017-12-14 05:45] LABS: INTERNATIONAL NORMALIZED RATIO 1.3 RATIO; PROTHROMBIN TIME - PATIENT 13.2 SEC (9.8-11.6)
[2017-12-14] MEDS: ARTIFICIAL TEARS OPTH SOLN 15 ML BTL EACH EYE SCH ×3 (05:47→22:00)
[2017-12-14] MEDS: PROPOFOL 1000 MG/100 ML INJ 100 ML IV PRN (05:49)
[2017-12-14] MEDS: INSULIN ASPART SUPPLEMENTAL SCALE SQ SCH ×4 (06:00→18:00)
[2017-12-14 06:07] LABS: BICARBONATE 24.6 MEQ/L (21.0-32.0); CALCIUM 9.2 MG/DL (8.5-10.1); CREATININE 0.49 MG/DL (0.50-1.00)
[2017-12-14] MEDS: CHLORHEXIDINE 0.12% (ORAL KIT) 15 ML CUP MT SCH ×2 (08:00→20:19)
[2017-12-14] MEDS: SODIUM CHLORIDE 0.9% FLUSH 10 ML FLUSH IV FLUSH SCH ×3 (09:00→20:19)
[2017-12-14] MEDS: LACTULOSE SYRUP 20 GM/30 ML CUP PO SCH ×2 (09:02→20:20)
[2017-12-14] MEDS: aMILoride/HCTZ 5 MG/50 MG TAB PO SCH (09:03)
[2017-12-14] MEDS: FAMOTIDINE 20 MG TAB NG SCH ×2 (09:03→20:20)
[2017-12-14] MEDS: methylPREDNISolone SOD SUCC 40 MG/1 ML VIAL IV PUSH SCH ×2 (09:03→20:19)
[2017-12-14] MEDS: DOCUSATE SODIUM 50 MG/SENNA 8.6 MG TAB PO SCH ×2 (09:03→20:20)
[2017-12-14] MEDS: POLYETHYLENE GLYCOL 17 GM PKG PO SCH ×2 (09:03→20:20)
[2017-12-14] MEDS: MUPIROCIN 2% OINT 1 APPLIC/GM SYR EACH NARE SCH ×2 (09:03→20:19)
[2017-12-14] MEDS: RESP: BUDESONIDE 0.5 MG/2 ML NEB NEB SCH ×2 (11:22→20:32)
--- NOTE | 2017-12-14 12:37 | HHI.CCPN ---
Subjective Remarks/Hospital Course 57-year-old female who presented to emergency department complaining of SOB and coughing. She has also complained of severe left back rib area pain. In the emergency department she was desaturating to 80s on room air and 88 on 2 L nasal cannula. She was intubated by ED attending for an acute hypoxemic respiratory failure. She was intubated by ED attending. She is on Coumadin/ Lovenox 1 mg/kg every 12 hours for factor V Leiden mutation. Her INR is subtherapeutic. Attempted SBTs but patient could not tolerate due to severe bronchospasm. 11/30: Continued agitation but bronchospasm is minimally improved. Although she carries a prednisone allergy on her chart she is tolerating Solu-Medrol without difficulty. 12/01: Without heavy sedation patient becomes extremely agitated and developed severe airway collapse with very poor air movement. Unprovoked her wheezing has ceased but with agitation she developed some minimal tidal volume. We have added Precedex and will add p.o. Librium and try to rapidly extubate her. I am not optimistic. This is probably why she is required tracheostomy in the past. 12/02: Patient has developed right lower lobe atelectasis and partial collapse of the right middle lobe. Will undoubtedly require bronchoscopy to remove inspissated plugs. Her anxiety and agitation continues to be problematic and she does not respond to Precedex. 12/03: Resting comfortably in bed in no acute distress. FiO2 100%. X-ray this a.m. revealed resolution of lower lobe collapse. Minimal secretions from ET tube. Positive BM 1 12/04: T-max 99.9. Remains on epoprostenol. Did not tolerate bilevel or increased PEEP. Tolerating tube feeds at goal. Currently on propofol and fentanyl drips. 12/05: Afebrile. Remains on norepinephrine drip at 3 mcg/min. FiO2 requirements decreased to 60% overnight. Arousable the ventilator. She is on propofol and fentanyl drips. 12/06: Afebrile. FiO2 currently 50%. Remains on epoprostenol aerosolized. Noted to have a pediculosis capitis. Permethrin currently being applied. 12/07: FiO2 at 60%. Afebrile. Arousable on the ventilator and sedation. Appears comfortable. Tolerating tube feeding. 12/08: Still continues to have pediculosis capitis. Status post bronchoscopy yesterday with thin frothy clear secretions noted. No mucous plugging. Currently afebrile. Tolerating tube feeding. Arousable and follows commands on the ventilator remains on epoprostenol aerosolized maximum 50 ng/kg/min 12/09: no improvements or changes. remains hypoxic on 70% fio2. requires inhaled flolan. 12/10: Afebrile. FiO2 down to 40%. Follows commands normally on the ventilator. Tolerating tube feeds. Positive BM. 12/11: no meaningful improvements in days. palliative care working with the son who is here on [facility] from skilled nursing. 12/12: no improvements. net -2L/24h. off flolan. remains intubated on full support. per the patient, she does not want her son making healthcare decisions , so legally it falls to her sister, who is currently undergoing elective surgery of her own today and cannot make medical decisions. SUBJECTIVE: 12/13: still failing weaning trials. no changes or improvements. 60% fio2. 12/14: on SBT today. more awake. fio2 down to 40%. still very high risk for failing any trials of extubation. Objective Vital Signs Date Time Temp Pulse Resp B/P (MAP) Pulse Ox O2 Delivery O2 Flow Rate FiO2 12/14/17 11:23 95 40 12/14/17 07:00 Mechanical Ventilator 12/14/17 06:00 81 12/14/17 04:00 98.9 16 100/66 (77) Intake and Output 12/14/17 12/14/17 12/15/17 08:00 16:00 00:00 Intake Total 791 ml Output Total 800 ml Balance -9 ml Result Diagram: 12/14/17 0520 12/14/17 0520 Imaging Last Impressions Chest X-Ray 12/08/17 0600 Signed Impressions: CONCLUSION: No significant interval change. Lower Extremity Ultrasound 12/03/17 0000 Signed Impressions: CONCLUSION: 1. The study is negative for bilateral lower extremity deep venous thrombosis. Ribs X-Ray 11/28/17 0000 Signed Impressions: CONCLUSION: Deformities at the anterior lateral left ninth and 10th ribs prior fracture. Lung Scan-VQ Nuclear Medicine 11/28/17 0000 Signed Impressions: CONCLUSION: Low probability scan for pulmonary embolism Objective Remarks General: 57-year-old female resting in bed orotracheally intubated Head: Atraumatic, normal Neck: Supple, orally intubated. Right IJ is clean dry and intact without erythema Lungs: equal chest rise. Symmetrical excursion. Few fine crackles appreciated the bases bilaterally. Heart: RRR, No JVD. Abdomen: Soft, nondistended, no guarding. No guarding. Extremities: Warm, well-perfused. 1+ peripheral leg edema Neuro: Moves 4 extremities with strength and purpose. Follows commands all 4 extremities. Positive gag and cough. Positive corneal reflex. A/P Assessment and Plan NEURO/PSYCH: EtOH abuse/withdrawal History of right frontal CVA Depression/anxiety Currently on propofol and fentanyl for sedation/analgesia while intubated Goal of RASS -2 Daily sedation vacation s/p librium taper. Acetaminophen 650 mg p.o. every 6 hours as needed fever CV: Coronary artery disease Essential hypertension Hyperlipidemia Continue amiloride/hydrochlorthiazide 5/50 1 tablet daily off vasopressors. Resp: Acute hypoxemic respiratory failure COPD Bilateral lower lobe lung collapse status post bronchoscopy 12/02 Ventilator bundle Albuterol/ipratropium aerosols every 4 hours with albuterol aerosols every 2 hours as needed dyspnea Budesonide 0.5/2 1 inhalation twice daily On budesonide/formoterol 160/4.5 2 puffs twice daily at home Previously started on methylprednisolone succinate currently at 40 mg every 8 hours. Noted allergy to prednisone: wean to 40mg iv q12hr. daily SBTs. would consider extubation, but very high risk of re-intubation if she is extubated. Chest x-ray worsening right lower lobe versus effusion. VQ scan low probability for pulmonary embolism GI: Gastroesophageal reflux disease Hepatitis C Hypoalbuminemia/moderate protein calorie malnutrition Elevated AST Patient is currently on tube feeding t Jevity 1.5 goal 50 cc an hour Famotidine for GI prophylaxis Docusate serum/senna 1 tablet twice daily for bowel regimen. Added polyethylene glycol 17 g twice daily and lactulose 30 cc 2 times daily. One bowel movement 12/09 : voiding. 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 Currently at 7.5 mg daily INR currently 1.3: plan to d/c heparin drip once INR > 2. At home on enoxaparin 80 mg subcu twice daily with warfarin 7.5 mg daily Monitor CBC daily. Along with PT/INR/PTT ID: MRSA pneumonia Pediculosis capitis MRSA nares Vancomycin/Pipracil/tazobactam 12/04 - 12/11 Rocephin 12/11 - 12/14. d/c rocephin today. completed course for all identified microbes. Continue permethrin 1 dose. Mupirocin to nares twice daily Pertinent cultures 12/07 -sputum from bronchoscopy-MSSA 12/03 -sputum -MRSA 12/03 -blood cultures 2 -no growth Influenza negative FEN: Replace electrolytes as clinically indicated MSK: Osteoporosis/chronic low back pain PT evaluate and treat Access -CVL/right IJ placed 12/03 l: will d/c today. Prophylaxis -GI -famotidine -DVT -SCD/heparin drip/warfarin Guillermo Loza MD Dec 14, 2017 12:37
[2017-12-14] MEDS ORDERED: FUROSEMIDE 40 MG/4 ML VIAL IV PUSH ONE (12:45)
[2017-12-14] MEDS ORDERED: ALBUMIN 25% INJ 100 ML IV ONE (12:45)
[2017-12-14] MEDS ORDERED: WARFARIN SOD 2.5 MG TAB PO ONE (16:00)
[2017-12-14] MEDS: HEPARIN-D5W 25,000 U/250 ML 250 ML IV PRN (19:02)
[2017-12-15] VITALS (16 sets, daily range): BP systolic 113–136; BP diastolic 75–85; PULSE 62–100; RESP 16–21; TEMP 98.3–98.8; O2SAT 94–100
[2017-12-15] MEDS: RESP: ALBUTEROL 2.5 MG/IPRATROPIUM 0.5 MG NEB (SCH) NEB ×6 (00:25→21:19)
[2017-12-15] MEDS: CHLORHEXIDINE GLUCONATE 2 % 1 PACK (2 CLOTHS) TOP SCH (03:04)
[2017-12-15] MEDS: INSULIN ASPART SUPPLEMENTAL SCALE SQ SCH ×4 (05:03→18:00)
[2017-12-15] MEDS: ARTIFICIAL TEARS OPTH SOLN 15 ML BTL EACH EYE SCH ×3 (05:03→20:34)
[2017-12-15 05:39] LABS: HEMATOCRIT 38.6 % (35.0-46.0); HEMOGLOBIN 12.9 GM/DL (11.6-15.3); MEAN CELL VOLUME 93.4 FL (80.0-100.0); MEAN CORPUSCULAR HEMOGLOBIN 31.4 PG (27.0-34.0); MEAN CORPUSCULAR HGB CONC 33.6 % (32.0-36.0); PLATELET COUNT 270 TH/MM3 (150-450); RED BLOOD COUNT 4.13 MIL/MM3 (4.00-5.30); RED CELL DISTRIBUTION WIDTH 18.6 % (11.6-17.2); WHITE BLOOD COUNT 10.6 TH/MM3 (4.0-11.0)
[2017-12-15 05:45] LABS: INTERNATIONAL NORMALIZED RATIO 1.1 RATIO; PROTHROMBIN TIME - PATIENT 11.4 SEC (9.8-11.6)
[2017-12-15 06:11] LABS: BICARBONATE 24.2 MEQ/L (21.0-32.0); CALCIUM 10.1 MG/DL (8.5-10.1); CREATININE 0.57 MG/DL (0.50-1.00)
[2017-12-15] MEDS: CHLORHEXIDINE 0.12% (ORAL KIT) 15 ML CUP MT SCH ×2 (07:08→20:35)
[2017-12-15] MEDS: RESP: BUDESONIDE 0.5 MG/2 ML NEB NEB SCH ×2 (07:59→21:19)
[2017-12-15] MEDS: POLYETHYLENE GLYCOL 17 GM PKG PO SCH (08:24)
[2017-12-15] MEDS: LACTULOSE SYRUP 20 GM/30 ML CUP PO SCH ×2 (08:24→20:34)
[2017-12-15] MEDS: DOCUSATE SODIUM 50 MG/SENNA 8.6 MG TAB PO SCH ×2 (08:24→20:35)
[2017-12-15] MEDS: FAMOTIDINE 20 MG TAB NG SCH ×2 (08:25→20:33)
[2017-12-15] MEDS: aMILoride/HCTZ 5 MG/50 MG TAB PO SCH (08:25)
[2017-12-15] MEDS: MUPIROCIN 2% OINT 1 APPLIC/GM SYR EACH NARE SCH ×2 (08:26→20:35)
[2017-12-15] MEDS: SODIUM CHLORIDE 0.9% FLUSH 10 ML FLUSH IV FLUSH SCH ×3 (08:26→20:34)
[2017-12-15] MEDS: methylPREDNISolone SOD SUCC 40 MG/1 ML VIAL IV PUSH SCH (08:26)
[2017-12-15] MEDS: WARFARIN SOD 7.5 MG TAB PO SCH (15:44)
[2017-12-15] MEDS: HEPARIN-D5W 25,000 U/250 ML 250 ML IV PRN ×2 (15:46→15:54)
[2017-12-15] MEDS ORDERED: WARFARIN SOD 2.5 MG TAB PO ONE (16:00)
--- NOTE | 2017-12-15 16:14 | HHI.CCPN ---
Subjective Remarks/Hospital Course 57-year-old female who presented to emergency department complaining of SOB and coughing. She has also complained of severe left back rib area pain. In the emergency department she was desaturating to 80s on room air and 88 on 2 L nasal cannula. She was intubated by ED attending for an acute hypoxemic respiratory failure. She was intubated by ED attending. She is on Coumadin/ Lovenox 1 mg/kg every 12 hours for factor V Leiden mutation. Her INR is subtherapeutic. Attempted SBTs but patient could not tolerate due to severe bronchospasm. 11/30: Continued agitation but bronchospasm is minimally improved. Although she carries a prednisone allergy on her chart she is tolerating Solu-Medrol without difficulty. 12/01: Without heavy sedation patient becomes extremely agitated and developed severe airway collapse with very poor air movement. Unprovoked her wheezing has ceased but with agitation she developed some minimal tidal volume. We have added Precedex and will add p.o. Librium and try to rapidly extubate her. I am not optimistic. This is probably why she is required tracheostomy in the past. 12/02: Patient has developed right lower lobe atelectasis and partial collapse of the right middle lobe. Will undoubtedly require bronchoscopy to remove inspissated plugs. Her anxiety and agitation continues to be problematic and she does not respond to Precedex. 12/03: Resting comfortably in bed in no acute distress. FiO2 100%. X-ray this a.m. revealed resolution of lower lobe collapse. Minimal secretions from ET tube. Positive BM 1 12/04: T-max 99.9. Remains on epoprostenol. Did not tolerate bilevel or increased PEEP. Tolerating tube feeds at goal. Currently on propofol and fentanyl drips. 12/05: Afebrile. Remains on norepinephrine drip at 3 mcg/min. FiO2 requirements decreased to 60% overnight. Arousable the ventilator. She is on propofol and fentanyl drips. 12/06: Afebrile. FiO2 currently 50%. Remains on epoprostenol aerosolized. Noted to have a pediculosis capitis. Permethrin currently being applied. 12/07: FiO2 at 60%. Afebrile. Arousable on the ventilator and sedation. Appears comfortable. Tolerating tube feeding. 12/08: Still continues to have pediculosis capitis. Status post bronchoscopy yesterday with thin frothy clear secretions noted. No mucous plugging. Currently afebrile. Tolerating tube feeding. Arousable and follows commands on the ventilator remains on epoprostenol aerosolized maximum 50 ng/kg/min 12/09: no improvements or changes. remains hypoxic on 70% fio2. requires inhaled flolan. 12/10: Afebrile. FiO2 down to 40%. Follows commands normally on the ventilator. Tolerating tube feeds. Positive BM. 12/11: no meaningful improvements in days. palliative care working with the son who is here on [place] from alf. 12/12: no improvements. net -2L/24h. off flolan. remains intubated on full support. per the patient, she does not want her son making healthcare decisions , so legally it falls to her sister, who is currently undergoing elective surgery of her own today and cannot make medical decisions. 12/13: still failing weaning trials. no changes or improvements. 60% fio2. 12/14: on SBT today. more awake. fio2 down to 40%. still very high risk for failing any trials of extubation. SUBJECTIVE: 12/15: Extubated yesterday. Currently on honey thick liquid diet. Tolerating nasal cannula Objective Vital Signs Date Time Temp Pulse Resp B/P (MAP) Pulse Ox O2 Delivery O2 Flow Rate FiO2 12/15/17 14:00 72 12/15/17 12:00 98.8 16 121/76 (91) 95 12/15/17 07:59 Nasal Cannula 4.00 12/15/17 04:07 50 Intake and Output 12/15/17 12/15/17 12/15/17 07:59 15:59 23:59 Output Total 700 ml Balance -700 ml Result Diagram: 12/15/17 0530 12/15/17 0530 Other Results Microbiology Date/Time Source Procedure Growth Status 12/03/17 12:44 Blood Peripheral Aerobic Blood Culture - Final NO GROWTH IN 5 DAYS Complete 12/03/17 12:44 Blood Peripheral Anaerobic Blood Culture - Final NO GROWTH IN 5 DAYS Complete 12/07/17 14:40 Bronchial Washings Right Lower Lobe Fungal Smear - Final NO FUNGAL ELEMENTS SEEN. Resulted 12/07/17 14:40 Bronchial Washings Right Lower Lobe Fungal Culture - Preliminary NO GROWTH IN 1 WEEK Resulted 11/28/17 05:25 Urine Clean Catch Urine Culture - Final NO GROWTH IN 48 HOURS. Complete Imaging Last Impressions Chest X-Ray 12/11/17 0600 Signed Impressions: CONCLUSION: Support apparatus unchanged. Improved right basilar airspace disease since December 08. Lower Extremity Ultrasound 12/03/17 0000 Signed Impressions: CONCLUSION: 1. The study is negative for bilateral lower extremity deep venous thrombosis. Ribs X-Ray 11/28/17 0000 Signed Impressions: CONCLUSION: Deformities at the anterior lateral left ninth and 10th ribs prior fracture. Lung Scan-VQ Nuclear Medicine 11/28/17 0000 Signed Impressions: CONCLUSION: Low probability scan for pulmonary embolism Objective Remarks General: 57-year-old female resting in bed on nasal cannula Head: Atraumatic, normal Neck: Supple, orally intubated. Right IJ is clean dry and intact without erythema Lungs: equal chest rise. Symmetrical excursion. Few fine crackles appreciated the bases bilaterally. Heart: RRR, No JVD. Abdomen: Soft, nondistended, no guarding. No guarding. Extremities: Warm, well-perfused. 1+ peripheral leg edema Neuro: Moves 4 extremities with strength and purpose. Follows commands all 4 extremities. Urinary Catheter: No Assessment to: Continue Vascular Central Line Catheter: No Assessment to: Continue A/P Assessment and Plan NEURO/PSYCH: EtOH abuse/withdrawal History of right frontal CVA Depression/anxiety s/p chlordiazepoxide taper. Acetaminophen 650 mg p.o. every 6 hours as needed fever CV: Coronary artery disease Essential hypertension Hyperlipidemia Continue amiloride/hydrochlorthiazide 5/50 1 tablet daily Off all vasopressors. Resp: Acute hypoxemic respiratory failure COPD Bilateral lower lobe lung collapse status post bronchoscopy 12/02 Nasal cannula to maintain saturations greater than equal to 92% Incentive spirometry while awake Ventilator bundle Albuterol/ipratropium aerosols every 4 hours with albuterol aerosols every 2 hours as needed dyspnea Budesonide 0.5/2 1 inhalation twice daily On budesonide/formoterol 160/4.5 2 puffs twice daily at home Previously started on methylprednisolone succinate currently at 40 mg every 8 hours. Noted allergy to prednisone: wean to 40mg iv daily daily SBTs. would consider extubation, but very high risk of re-intubation if she is extubated. Chest x-ray worsening right lower lobe versus effusion. VQ scan low probability for pulmonary embolism GI: Gastroesophageal reflux disease Hepatitis C Hypoalbuminemia/moderate protein calorie malnutrition Elevated AST Patient is currently on honey thickened Famotidine for GI prophylaxis Docusate serum/senna 1 tablet twice daily for bowel regimen. : voiding.. No indication for Phillip catheter Endo: Hyperglycemia Sliding scale insulin with Accu-Cheks to maintain euglycemia while on high-dose steroids Renal: Creatinine currently within normal limits Monitor urine output Accurate I's and O's Heme: Factor V Leiden on chronic anticoagulation Normocytic anemia Leukocytosis Chronic warfarin use History of left lower extremity DVT status post IVC filter Currently on heparin drip at 900 units an hour with transition to warfarin per pharmacy consultation. Currently at 7.5 mg daily INR currently 1.1: plan to d/ c heparin drip once INR > 2. At home on enoxaparin 80 mg subcu twice daily with warfarin 7.5 mg daily Monitor CBC daily. Along with PT/INR/PTT ID: MRSA pneumonia Pediculosis capitis MRSA nares Vancomycin/Pipracil/tazobactam 12/04 - 12/11 Rocephin 12/11 - 12/14. d/c rocephin today. completed course for all identified microbes. Continue permethrin 1 dose. Mupirocin to nares twice daily Pertinent cultures 12/07 -sputum from bronchoscopy-MSSA 12/03 -sputum -MRSA 12/03 -blood cultures 2 -no growth Influenza negative FEN: Replace electrolytes as clinically indicated MSK: Osteoporosis/chronic low back pain PT evaluate and treat Access -CVL/right IJ placed 12/03-12/14 Prophylaxis -GI -famotidine -DVT -SCD/heparin drip/warfarin Level 2 follow-up Rodo Wu MD Dec 15, 2017 16:14
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
[2017-12-16] VITALS (12 sets, daily range): BP systolic 124–144; BP diastolic 70–91; PULSE 86–118; RESP 18–25; TEMP 97.8–98.8; O2SAT 95–99
[2017-12-16] MEDS: RESP: ALBUTEROL 2.5 MG/IPRATROPIUM 0.5 MG NEB (SCH) NEB ×7 (00:36→23:32)
[2017-12-16] MEDS: CHLORHEXIDINE GLUCONATE 2 % 1 PACK (2 CLOTHS) TOP SCH (04:00)
[2017-12-16 04:39] LABS: INTERNATIONAL NORMALIZED RATIO 1.1 RATIO; PROTHROMBIN TIME - PATIENT 11.3 SEC (9.8-11.6)
[2017-12-16] MEDS: ARTIFICIAL TEARS OPTH SOLN 15 ML BTL EACH EYE SCH ×3 (06:00→22:00)
[2017-12-16 07:11] LABS: HEMOGLOBIN 14.4 GM/DL (11.6-15.3); MEAN CELL VOLUME 92.5 FL (80.0-100.0); MEAN CORPUSCULAR HEMOGLOBIN 30.9 PG (27.0-34.0); MEAN CORPUSCULAR HGB CONC 33.4 % (32.0-36.0); MEAN PLATELET VOLUME 9.8 FL (7.0-11.0); PLATELET COUNT 326 TH/MM3 (150-450); RED BLOOD COUNT 4.65 MIL/MM3 (4.00-5.30)
[2017-12-16 07:16] LABS: BICARBONATE 21.4 MEQ/L (21.0-32.0); CALCIUM 10.5 MG/DL (8.5-10.1); CREATININE 0.73 MG/DL (0.50-1.00); MAGNESIUM 2.6 MG/DL (1.5-2.5); PHOSPHORUS 3.8 MG/DL (2.5-4.9)
--- NOTE | 2017-12-16 07:25 | HHI.CCPN ---
Subjective Remarks/Hospital Course 57-year-old female who presented to emergency department complaining of SOB and coughing. She has also complained of severe left back rib area pain. In the emergency department she was desaturating to 80s on room air and 88 on 2 L nasal cannula. She was intubated by ED attending for an acute hypoxemic respiratory failure. She was intubated by ED attending. She is on Coumadin/ Lovenox 1 mg/kg every 12 hours for factor V Leiden mutation. Her INR is subtherapeutic. Attempted SBTs but patient could not tolerate due to severe bronchospasm. 11/30: Continued agitation but bronchospasm is minimally improved. Although she carries a prednisone allergy on her chart she is tolerating Solu-Medrol without difficulty. 12/01: Without heavy sedation patient becomes extremely agitated and developed severe airway collapse with very poor air movement. Unprovoked her wheezing has ceased but with agitation she developed some minimal tidal volume. We have added Precedex and will add p.o. Librium and try to rapidly extubate her. I am not optimistic. This is probably why she is required tracheostomy in the past. 12/02: Patient has developed right lower lobe atelectasis and partial collapse of the right middle lobe. Will undoubtedly require bronchoscopy to remove inspissated plugs. Her anxiety and agitation continues to be problematic and she does not respond to Precedex. 12/03: Resting comfortably in bed in no acute distress. FiO2 100%. X-ray this a.m. revealed resolution of lower lobe collapse. Minimal secretions from ET tube. Positive BM 1 12/04: T-max 99.9. Remains on epoprostenol. Did not tolerate bilevel or increased PEEP. Tolerating tube feeds at goal. Currently on propofol and fentanyl drips. 12/05: Afebrile. Remains on norepinephrine drip at 3 mcg/min. FiO2 requirements decreased to 60% overnight. Arousable the ventilator. She is on propofol and fentanyl drips. 12/06: Afebrile. FiO2 currently 50%. Remains on epoprostenol aerosolized. Noted to have a pediculosis capitis. Permethrin currently being applied. 12/07: FiO2 at 60%. Afebrile. Arousable on the ventilator and sedation. Appears comfortable. Tolerating tube feeding. 12/08: Still continues to have pediculosis capitis. Status post bronchoscopy yesterday with thin frothy clear secretions noted. No mucous plugging. Currently afebrile. Tolerating tube feeding. Arousable and follows commands on the ventilator remains on epoprostenol aerosolized maximum 50 ng/kg/min 12/09: no improvements or changes. remains hypoxic on 70% fio2. requires inhaled flolan. 12/10: Afebrile. FiO2 down to 40%. Follows commands normally on the ventilator. Tolerating tube feeds. Positive BM. 12/11: no meaningful improvements in days. palliative care working with the son who is here on [facility] from [facility]. 12/12: no improvements. net -2L/24h. off flolan. remains intubated on full support. per the patient, she does not want her son making healthcare decisions , so legally it falls to her sister, who is currently undergoing elective surgery of her own today and cannot make medical decisions. 12/13: still failing weaning trials. no changes or improvements. 60% fio2. 12/14: on SBT today. more awake. fio2 down to 40%. still very high risk for failing any trials of extubation. SUBJECTIVE: 12/15: Extubated yesterday. Currently on honey thick liquid diet. Tolerating nasal cannula. 12/16: Extubated 36 hours ago, continues to breathe comfortably on NC O2. Objective Vital Signs Date Time Temp Pulse Resp B/P (MAP) Pulse Ox O2 Delivery O2 Flow Rate FiO2 12/16/17 06:00 95 12/16/17 04:00 97.8 25 126/85 (99) 98 12/15/17 21:21 Nasal Cannula 4.00 12/15/17 04:07 50 Intake and Output 12/16/17 12/16/17 12/17/17 08:00 16:00 00:00 Intake Total 60 ml Output Total 1200 ml Balance -1140 ml Result Diagram: 12/16/1763312/16/17633 Imaging Last Impressions Chest X-Ray 12/11/17 0600 Signed Impressions: CONCLUSION: Support apparatus unchanged. Improved right basilar airspace disease since December 08. Lower Extremity Ultrasound 12/03/17 0000 Signed Impressions: CONCLUSION: 1. The study is negative for bilateral lower extremity deep venous thrombosis. Ribs X-Ray 11/28/17 0000 Signed Impressions: CONCLUSION: Deformities at the anterior lateral left ninth and 10th ribs prior fracture. Lung Scan-VQ Nuclear Medicine 11/28/17 0000 Signed Impressions: CONCLUSION: Low probability scan for pulmonary embolism Objective Remarks General: 57-year-old female resting in bed on nasal cannula Head: Atraumatic, normal Neck: Supple, airway widely patent. Right IJ is clean dry and intact without erythema -> d/c Lungs: equal chest rise. Symmetrical excursion. Few fine crackles appreciated the bases bilaterally. No wheezes today. Heart: RRR, No JVD. Abdomen: Soft, nondistended, no guarding. No guarding. Extremities: Warm, well-perfused. 1+ peripheral leg edema Neuro: Moves 4 extremities with strength and purpose. Follows commands all 4 extremities. A/P Assessment and Plan NEURO/PSYCH: EtOH abuse/withdrawal History of right frontal CVA Depression/anxiety s/p chlordiazepoxide taper. Acetaminophen 650 mg p.o. every 6 hours as needed fever CV: Coronary artery disease Essential hypertension Hyperlipidemia Continue amiloride/hydrochlorthiazide 5/50 1 tablet daily Off all vasopressors. Resp: Acute hypoxemic respiratory failure COPD Bilateral lower lobe lung collapse status post bronchoscopy 12/02 Nasal cannula to maintain saturations greater than equal to 92% Incentive spirometry while awake Ventilator bundle Albuterol/ipratropium aerosols every 4 hours with albuterol aerosols every 2 hours as needed dyspnea Budesonide 0.5/2 1 inhalation twice daily On budesonide/formoterol 160/4.5 2 puffs twice daily at home Previously started on methylprednisolone succinate currently at 40 mg every 8 hours. Noted allergy to prednisone: wean to 40mg iv daily daily SBTs. would consider extubation, but very high risk of re-intubation if she is extubated. Chest x-ray worsening right lower lobe versus effusion. VQ scan low probability for pulmonary embolism GI: Gastroesophageal reflux disease Hepatitis C Hypoalbuminemia/moderate protein calorie malnutrition Elevated AST Patient is currently on honey thickened Famotidine for GI prophylaxis Docusate serum/senna 1 tablet twice daily for bowel regimen. : voiding.. No indication for Phillip catheter Endo: Hyperglycemia Sliding scale insulin with Accu-Cheks to maintain euglycemia while on high-dose steroids Renal: Creatinine currently within normal limits Monitor urine output Accurate I's and O's Heme: Factor V Leiden on chronic anticoagulation Normocytic anemia Leukocytosis Chronic warfarin use History of left lower extremity DVT status post IVC filter Currently on heparin drip at 900 units an hour with transition to warfarin per pharmacy consultation. Currently at 7.5 mg daily INR currently 1.1: plan to d/ c heparin drip once INR > 2. At home on enoxaparin 80 mg subcu twice daily with warfarin 7.5 mg daily Monitor CBC daily. Along with PT/INR/PTT ID: MRSA pneumonia Pediculosis capitis MRSA nares Vancomycin/Pipracil/tazobactam 12/04 - 12/11 Rocephin 12/11 - 12/14. d/c rocephin today. completed course for all identified microbes. Continue permethrin 1 dose. Mupirocin to nares twice daily Pertinent cultures 12/07 -sputum from bronchoscopy-MSSA 12/03 -sputum -MRSA 12/03 -blood cultures 2 -no growth Influenza negative FEN: Replace electrolytes as clinically indicated MSK: Osteoporosis/chronic low back pain PT evaluate and treat Access -CVL/right IJ placed 12/03-12/14 Prophylaxis -GI -famotidine -DVT -SCD/heparin drip/warfarin Overall impression: S/P exacerbated COPD. Extubated, treat lice, transfer. Jose Francisco Savage MD Dec 16, 2017 07:25
[2017-12-16] MEDS: CHLORHEXIDINE 0.12% (ORAL KIT) 15 ML CUP MT SCH ×2 (08:00→20:00)
[2017-12-16] MEDS: INSULIN ASPART SUPPLEMENTAL SCALE SQ SCH ×4 (08:00→21:00)
[2017-12-16] MEDS: aMILoride/HCTZ 5 MG/50 MG TAB PO SCH (09:00)
[2017-12-16] MEDS: MUPIROCIN 2% OINT 1 APPLIC/GM SYR EACH NARE SCH ×2 (09:00→21:00)
[2017-12-16] MEDS: FAMOTIDINE 20 MG TAB NG SCH ×2 (09:00→20:07)
[2017-12-16] MEDS: LACTULOSE SYRUP 20 GM/30 ML CUP PO SCH ×2 (09:00→20:08)
[2017-12-16] MEDS: SODIUM CHLORIDE 0.9% FLUSH 10 ML FLUSH IV FLUSH SCH ×3 (09:00→20:08)
[2017-12-16] MEDS: methylPREDNISolone SOD SUCC 40 MG/1 ML VIAL IV PUSH SCH (09:00)
[2017-12-16] MEDS: DOCUSATE SODIUM 50 MG/SENNA 8.6 MG TAB PO SCH ×2 (09:00→20:07)
[2017-12-16] MEDS: RESP: BUDESONIDE 0.5 MG/2 ML NEB NEB SCH ×2 (09:47→20:38)
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
[2017-12-16] MEDS ORDERED: WARFARIN SOD 5 MG TAB PO ONE (16:00)
[2017-12-16] MEDS: WARFARIN SOD 7.5 MG TAB PO SCH (16:00)
[2017-12-16] MEDS: HEPARIN-D5W 25,000 U/250 ML 250 ML IV PRN (20:13)
[2017-12-17] VITALS (8 sets, daily range): BP systolic 142–150; BP diastolic 92–102; PULSE 96–126; RESP 18–26; TEMP 97.7–98.3; O2SAT 92–97
[2017-12-17] MEDS: RESP: ALBUTEROL 2.5 MG/IPRATROPIUM 0.5 MG NEB (SCH) NEB ×5 (03:30→19:59)
[2017-12-17] MEDS: CHLORHEXIDINE GLUCONATE 2 % 1 PACK (2 CLOTHS) TOP SCH (04:00)
[2017-12-17 05:26] LABS: INTERNATIONAL NORMALIZED RATIO 1.5 RATIO; PROTHROMBIN TIME - PATIENT 14.8 SEC (9.8-11.6)
[2017-12-17] MEDS: ARTIFICIAL TEARS OPTH SOLN 15 ML BTL EACH EYE SCH ×3 (06:00→22:00)
[2017-12-17] MEDS: ACETAMINOPHEN 650 MG/20.3 ML UDC PO PRN (06:32)
[2017-12-17] MEDS: CHLORHEXIDINE 0.12% (ORAL KIT) 15 ML CUP MT SCH ×2 (08:00→20:00)
[2017-12-17] MEDS: INSULIN ASPART SUPPLEMENTAL SCALE SQ SCH ×4 (08:00→20:38)
[2017-12-17] MEDS: RESP: BUDESONIDE 0.5 MG/2 ML NEB NEB SCH ×2 (08:00→19:59)
[2017-12-17] MEDS: aMILoride/HCTZ 5 MG/50 MG TAB PO SCH (08:08)
[2017-12-17] MEDS: methylPREDNISolone SOD SUCC 40 MG/1 ML VIAL IV PUSH SCH (08:08)
[2017-12-17] MEDS: SODIUM CHLORIDE 0.9% FLUSH 10 ML FLUSH IV FLUSH SCH ×3 (08:09→21:00)
[2017-12-17] MEDS: FAMOTIDINE 20 MG TAB NG SCH ×2 (08:09→22:31)
[2017-12-17] MEDS: LACTULOSE SYRUP 20 GM/30 ML CUP PO SCH ×2 (08:09→21:00)
[2017-12-17] MEDS: MUPIROCIN 2% OINT 1 APPLIC/GM SYR EACH NARE SCH ×2 (08:09→22:30)
[2017-12-17] MEDS: HYDROmorphone HCL PF 2 MG/ML VIAL IV PUSH PRN ×2 (08:09→12:11)
[2017-12-17] MEDS: DOCUSATE SODIUM 50 MG/SENNA 8.6 MG TAB PO SCH ×2 (08:11→21:00)
--- NOTE | 2017-12-17 11:52 | HHI.PR ---
Subjective Remarks 57-year-old female who presented to emergency department complaining of SOB and coughing. She has also complained of severe left back rib area pain. In the emergency department she was desaturating to 80s on room air and 88 on 2 L nasal cannula. She was intubated by ED attending for an acute hypoxemic respiratory failure. She was intubated by ED attending. She is on Coumadin/ Lovenox 1 mg/kg every 12 hours for factor V Leiden mutation. Her INR is subtherapeutic. Attempted SBTs but patient could not tolerate due to severe bronchospasm. 11/30: Continued agitation but bronchospasm is minimally improved. Although she carries a prednisone allergy on her chart she is tolerating Solu-Medrol without difficulty. 12/01: Without heavy sedation patient becomes extremely agitated and developed severe airway collapse with very poor air movement. Unprovoked her wheezing has ceased but with agitation she developed some minimal tidal volume. We have added Precedex and will add p.o. Librium and try to rapidly extubate her. I am not optimistic. This is probably why she is required tracheostomy in the past. 12/02: Patient has developed right lower lobe atelectasis and partial collapse of the right middle lobe. Will undoubtedly require bronchoscopy to remove inspissated plugs. Her anxiety and agitation continues to be problematic and she does not respond to Precedex. 12/03: Resting comfortably in bed in no acute distress. FiO2 100%. X-ray this a.m. revealed resolution of lower lobe collapse. Minimal secretions from ET tube. Positive BM 1 12/04: T-max 99.9. Remains on epoprostenol. Did not tolerate bilevel or increased PEEP. Tolerating tube feeds at goal. Currently on propofol and fentanyl drips. 12/05: Afebrile. Remains on norepinephrine drip at 3 mcg/min. FiO2 requirements decreased to 60% overnight. Arousable the ventilator. She is on propofol and fentanyl drips. 12/06: Afebrile. FiO2 currently 50%. Remains on epoprostenol aerosolized. Noted to have a pediculosis capitis. Permethrin currently being applied. 12/07: FiO2 at 60%. Afebrile. Arousable on the ventilator and sedation. Appears comfortable. Tolerating tube feeding. 12/08: Still continues to have pediculosis capitis. Status post bronchoscopy yesterday with thin frothy clear secretions noted. No mucous plugging. Currently afebrile. Tolerating tube feeding. Arousable and follows commands on the ventilator remains on epoprostenol aerosolized maximum 50 ng/kg/min 12/09: no improvements or changes. remains hypoxic on 70% fio2. requires inhaled flolan. 12/10: Afebrile. FiO2 down to 40%. Follows commands normally on the ventilator. Tolerating tube feeds. Positive BM. 12/11: no meaningful improvements in days. palliative care working with the son who is here on [place] from half-way. 12/12: no improvements. net -2L/24h. off flolan. remains intubated on full support. per the patient, she does not want her son making healthcare decisions , so legally it falls to her sister, who is currently undergoing elective surgery of her own today and cannot make medical decisions. 12/13: still failing weaning trials. no changes or improvements. 60% fio2. 12/14: on SBT today. more awake. fio2 down to 40%. still very high risk for failing any trials of extubation. 12/15: Extubated yesterday. Currently on honey thick liquid diet. Tolerating nasal cannula. 12/16: Extubated 36 hours ago, continues to breathe comfortably on NC O2. 12-17 TRANSFERRED TO OUR SERVICE TODAY WILL RETREAT FOR LICE DW RN AND PT INCREASE ACTIVITY PT AND OT AM LABS CONTINUE TO RELOAD COUMADIN NOT AT GOAL INR 2.0 TO 3.0 YET Objective Vitals Vital Signs Date Time Temp Pulse Resp B/P (MAP) Pulse Ox O2 Delivery O2 Flow Rate FiO2 12/17/17 09:26 97 Nasal Cannula 3.00 12/17/17 04:00 98.3 126 26 142/92 (109) 96 12/17/17 04:00 126 12/17/17 00:00 97.8 112 24 146/101 (116) 97 12/17/17 00:00 112 12/16/17 22:00 118 12/16/17 20:37 96 Nasal Cannula 3.00 12/16/17 20:00 86 12/16/17 20:00 95 Nasal Cannula 2.00 12/16/17 20:00 98.4 86 25 124/89 (101) 95 Arterial Line 12/16/17 16:00 98.1 18 144/90 (108) 97 12/16/17 12:00 98.8 20 132/91 (105) 98 I/O 12/16/17 12/16/17 12/16/17 12/17/17 12/17/17 12/17/17 07:00 15:00 23:00 07:00 15:00 23:00 Intake Total 60 ml 730 ml 240 ml Output Total 1200 ml 2650 ml 700 ml Balance -1140 ml -1920 ml -460 ml Intake Oral 60 ml 60 ml 240 ml IV Total 250 ml Tube Feeding 330 ml Other 90 ml Output Urine Total 1200 ml 2650 ml 700 ml Bladder Scan Volume Amount 586 ml # Bowel Movements 0 0 0 Result Diagram: 12/16/17 0634 12/16/17 0634 Other Results Laboratory Tests Test 12/14/17 12:32 12/15/17 05:30 12/15/17 14:02 12/15/17 20:48 Blood Gas Puncture Site ART LINE Blood Gas Patient Temperature 98.6 Blood Gas HCO3 22 mmol/L Blood Gas Base Excess -2.0 mmol/L Blood Gas Oxygen Saturation 90 % Arterial Blood pH 7.40 Arterial Blood Partial Pressure CO2 36 mmHg Arterial Blood Partial Pressure O2 71 mmHg Arterial Blood Oxygen Content 12.2 Vol % Arterial Blood Carboxyhemoglobin 1.0 % Arterial Blood Methemoglobin 1.3 % Blood Gas Hemoglobin 9.6 G/DL Oxygen Delivery Device VENTILATOR Blood Gas Ventilator Setting CPAP/[id number]/PS8 Blood Gas Inspired Oxygen 40 % White Blood Count 10.6 TH/MM3 Red Blood Count 4.13 MIL/MM3 Hemoglobin 12.9 GM/DL Hematocrit 38.6 % Mean Corpuscular Volume 93.4 FL Mean Corpuscular Hemoglobin 31.4 PG Mean Corpuscular Hemoglobin Concent 33.6 % Red Cell Distribution Width 18.6 % Platelet Count 270 TH/MM3 Mean Platelet Volume 9.0 FL Prothrombin Time 11.4 SEC Prothromb Time International Ratio 1.1 RATIO Activated Partial Thromboplast Time 76.0 SEC 29.7 SEC 30.8 SEC Blood Urea Nitrogen 45 MG/DL Creatinine 0.57 MG/DL Random Glucose 107 MG/DL Calcium Level 10.1 MG/DL Sodium Level 138 MEQ/L Potassium Level 4.0 MEQ/L Chloride Level 103 MEQ/L Carbon Dioxide Level 24.2 MEQ/L Anion Gap 11 MEQ/L Estimat Glomerular Filtration Rate 110 ML/MIN Test 12/16/17 03:35 12/16/17 06:34 12/16/17 11:21 12/16/17 22:01 Prothrombin Time 11.3 SEC Prothromb Time International Ratio 1.1 RATIO Activated Partial Thromboplast Time 25.2 SEC 61.3 SEC 89.8 SEC 41.1 SEC White Blood Count 9.0 TH/MM3 Red Blood Count 4.65 MIL/MM3 Hemoglobin 14.4 GM/DL Hematocrit 43.0 % Mean Corpuscular Volume 92.5 FL Mean Corpuscular Hemoglobin 30.9 PG Mean Corpuscular Hemoglobin Concent 33.4 % Red Cell Distribution Width 19.0 % Platelet Count 326 TH/MM3 Mean Platelet Volume 9.8 FL Blood Urea Nitrogen 55 MG/DL Creatinine 0.73 MG/DL Random Glucose 132 MG/DL Calcium Level 10.5 MG/DL Phosphorus Level 3.8 MG/DL Magnesium Level 2.6 MG/DL Sodium Level 138 MEQ/L Potassium Level 3.6 MEQ/L Chloride Level 104 MEQ/L Carbon Dioxide Level 21.4 MEQ/L Anion Gap 13 MEQ/L Estimat Glomerular Filtration Rate 83 ML/MIN Test 12/17/17 04:57 12/17/17 09:26 Prothrombin Time 14.8 SEC Prothromb Time International Ratio 1.5 RATIO Activated Partial Thromboplast Time 94.8 SEC 48.5 SEC Imaging Last Impressions Chest X-Ray 12/11/17 0600 Signed Impressions: CONCLUSION: Support apparatus unchanged. Improved right basilar airspace disease since December 08. Lower Extremity Ultrasound 12/03/17 Signed Impressions: CONCLUSION: 1. The study is negative for bilateral lower extremity deep venous thrombosis. Ribs X-Ray 11/28/17 Signed Impressions: CONCLUSION: Deformities at the anterior lateral left ninth and 10th ribs prior fracture. Lung Scan-VQ Nuclear Medicine 11/28/17 Signed Impressions: CONCLUSION: Low probability scan for pulmonary embolism Objective Remarks GENERAL: AWAKE ALERT AND ORIENTED X 1 TO 2- SPEAKING IN WHISPER ONLY STLL SKIN: Warm and dry. HEAD: Atraumatic. Normocephalic. EYES: Pupils equal and round. No scleral icterus. No injection or drainage. EOMI ENT: No nasal bleeding or discharge. Mucous membranes pink and moist. TONGUE MIDLINE NECK: Trachea midline. No JVD. CARDIOVASCULAR: IRRegular rate and rhythm. S1, S2 NO S3 OR S4 RESPIRATORY: No accessory muscle use. RHONCHI AND WHEEZES BL. Breath sounds equal bilaterally. GASTROINTESTINAL: Abdomen soft, non-tender, nondistended. Hepatic and splenic margins not palpable. MUSCULOSKELETAL: Extremities without clubbing, cyanosis, or edema. No obvious deformities. NEUROLOGICAL: Awake and alert. No obvious cranial nerve deficits. Motor grossly within normal limits. 4 out of 5 muscle strength in the arms and legs. Normal speech. PSYCHIATRIC: INAppropriate mood and affect; insight and judgment ABnormal. Procedures MULTIPLE BRONCHOSCOPIES INTUBATION AND VENT MANAGEMENT Medications and IVs Current Medications Albuterol/ Ipratropium (Duoneb Neb) 1 ampule ONCE ONCE NEB Last administered on 11/28/17at 02:25; Start 11/28/17 at 02:30; Stop 11/28/17 at 02:31; Status DC Acetaminophen/ Hydrocodone Bitart ([place] 5-325 Mg) 1 tab ONCE ONCE PO ; Start 11/28/17 at 02:30; Stop 11/28/17 at 02:31; Status DC Ketorolac Tromethamine (Toradol Inj) 60 mg ONCE ONCE IM ; Start 11/28/17 at 02: 30; Stop 11/28/17 at 03:49; Status DC Lorazepam (Ativan Inj) 0.5 mg ONCE ONCE IV PUSH Last administered on at 03:55; Start 11/28/17 at 04:00; Stop 11/28/17 at 04:01; Status DC Ketorolac Tromethamine (Toradol Inj) 30 mg ONCE ONCE IV PUSH Last administered on 11/28/17at 03:55; Start 11/28/17 at 04:00; Stop 11/28/17 at 04:01 ; Status DC Morphine Sulfate (Morphine Inj) 2 mg ONCE ONCE IV PUSH ; Start 11/28/17 at 04: 15; Stop 11/28/17 at 04:16; Status DC Morphine Sulfate (Morphine Inj) 4 mg STK-MED ONCE .ROUTE ; Start 11/28/17 at 04: 09; Stop 11/28/17 at 04:10; Status DC Sodium Chloride 1,000 ml @ 999 mls/hr BOLUS ONCE IV Last administered on 11/28at 05:37; Start 11/28/17 at 04:30; Stop 11/28/17 at 05:30; Status DC Naloxone HCl (Narcan Inj) 2 mg ONCE ONCE IV PUSH Last administered on at 05:37; Start 11/28/17 at 04:45; Stop 11/28/17 at 04:46; Status DC Etomidate (Amidate Inj) 40 mg STK-MED ONCE .ROUTE ; Start 11/28/17 at 04:45; Stop 11/28/17 at 04:46; Status DC Propofol 100 ml @ 0 mls/hr TITRATE PRN IV SEDATION; Start 11/28/17 at 04:45; Stop 11/28/17 at 05:53; Status DC Propofol 50 ml @ As Directed STK-MED ONCE .ROUTE Last administered on at 05:47; Start 11/28/17 at 05:00; Stop 11/28/17 at 05:01; Status DC Midazolam HCl (Versed Inj) 5 mg STK-MED ONCE .ROUTE ; Start 11/28/17 at 05:03; Stop 11/28/17 at 05:04; Status DC Ceftriaxone Sodium 1000 mg/ Sodium Chloride 100 ml @ 200 mls/hr ONCE ONCE IV Last administered on 11/28/17at 05:56; Start 11/28/17 at 05:15; Stop 11/28/17 at 05:44; Status DC Fentanyl Citrate 250 ml TITRATE PRN IV SEDATION; Start 11/28/17 at 05:15; Stop 11/28/17 at 05:34; Status DC Midazolam HCl 100 ml TITRATE PRN IV SEDATION; Start 11/28/17 at 05:15; Status UNV Miscellaneous Information ([facility] Nursing Information) "NEED HT & WT TO VERIFY... Q15M .XX Last administered on 11/28/17at 08:00; Start 11/28/17 at 05:15; Stop at 10:01; Status DC Midazolam HCl (Versed Inj) 5 mg ONCE ONCE IV Last administered on 11/28/17at 05 :38; Start 11/28/17 at 05:15; Stop 11/28/17 at 05:20; Status DC Midazolam HCl 50 ml @ 2 mls/hr TITRATE PRN IV SEDATION Last administered on at 19:45; Start 11/28/17 at 05:45; Stop 12/15/17 at 16:16; Status DC Fentanyl Citrate 250 ml @ 5 mls/hr TITRATE PRN IV SEDATION Last administered on 12/13/17at 02:30; Start 11/28/17 at 05:45 Succinylcholine Chloride (Quelicin Inj) 100 mg ONCE ONCE IV PUSH Last administered on 11/28/17at 05:46; Start 11/28/17 at 05:45; Stop 11/28/17 at 05:46 ; Status DC Etomidate (Amidate Inj) 20 mg ONCE ONCE IV PUSH Last administered on at 05:46; Start 11/28/17 at 05:45; Stop 11/28/17 at 05:46; Status DC Sodium Chloride 1,000 ml @ 84 mls/hr [id number] IV Last administered on at 04:08; Start 11/28/17 at 05:33; Stop 12/01/17 at 06:32; Status DC Sodium Chloride (NS Flush) 2 ml UNSCH PRN IV FLUSH FLUSH AFTER USING IV ACCESS ; Start 11/28/17 at 05:45 Sodium Chloride (NS Flush) 2 ml BID IV FLUSH Last administered on 12/17/17at 08: 10; Start 11/28/17 at 09:00 Acetaminophen (Tylenol) 650 mg Q6H PRN PO PAIN 1-5 AND/OR FEVER >101F; Start at 05:45; Stop 12/03/17 at 10:51; Status DC Hydromorphone HCl (Dilaudid Pf Inj) 1 mg Q4H PRN IV PUSH PAIN SCALE 6 TO 10; Start 11/28/17 at 05:45; Stop 12/17/17 at 07:41; Status DC Famotidine (Pepcid Inj) 20 mg Q12HR IV PUSH ; Start 11/28/17 at 09:00; Status Cancel Midazolam HCl (Versed Inj) 2 mg Q1H PRN IV PUSH SEDATION Last administered on at 00:54; Start 11/28/17 at 05:45; Stop 12/15/17 at 16:16; Status DC Artificial Tears (Tears Naturale Opth Soln) 1 drop TID EACH EYE Last administered on 12/03/17at 07:58; Start 11/28/17 at 09:00; Stop 12/03/17 at 11:17 ; Status DC Ondansetron HCl (Zofran Odt) 4 mg Q6H PRN PO NAUSEA OR VOMITING; Start at 05:45 Albuterol/ Ipratropium (Duoneb Neb) 1 ampule Q6HR NEB INH Last administered on 11/28/17at 08:59; Start 11/28/17 at 10:00; Stop 11/28/17 at 10:00; Status DC Albuterol/ Ipratropium (Duoneb Neb) 1 ampule Q2HR NEB PRN INH WHEEZING; Start 11/28/17 at 05:45; Stop 12/03/17 at 10:00; Status DC Enoxaparin Sodium (Lovenox Inj) 80 mg Q12H SQ Last administered on 11/28/17at 06 :09; Start 11/28/17 at 06:00; Stop 11/28/17 at 11:40; Status DC Miscellaneous Information ([facility] Nursing Information) 1 [id number] XX Last administered on 11/28/17at 08:30; Start 11/28/17 at 05:45 Chlorhexidine Gluconate (Chlorhexidine 2% Cloth) Taper DAILY@04 TOP Last administered on 12/10/17at 03:46; Start 11/29/17 at 04:00; Stop 11/25/18 at 03:59 Chlorhexidine Gluconate (Chlorhexidine 2% Cloth) 3 pack UNSCH PRN TOP HYGIENIC CARE; Start 11/28/17 at 05:45 Senna/Docusate Sodium (Johnna-Colace) 1 tab BID PO Last administered on at 08:11; Start 11/28/17 at 09:00 Magnesium Hydroxide (Milk Of Magnesia Liq) 30 ml Q12H PRN PO Mild constipation Last administered on 12/13/17at 20:21; Start 11/28/17 at 05:45 Sennosides (Senokot) 17.2 mg Q12H PRN PO Moderate constipation; Start 11/28/17 at 05:45 Bisacodyl (Dulcolax Supp) 10 mg DAILY PRN RECTAL SEVERE CONSITIPATION; Start at 05:45 Lactulose (Lactulose Liq) 30 ml DAILY PRN PO SEVERE CONSITIPATION Last administered on 12/01/17at 04:08; Start 11/28/17 at 05:45 Chlorhexidine Gluconate (Peridex 0.12% Liq) 15 ml BID@08,20 MT Last administered on 12/16/17at 20:00; Start 11/28/17 at 08:00 Propofol 100 ml @ 2.4 mls/hr TITRATE PRN IV SEDATION Last administered on 12/14at 05:49; Start 11/28/17 at 05:45; Stop 12/15/17 at 16:16; Status DC Pharmacy Profile Note 0 ml @ 0 mls/hr UNSCH OTHER ; Start 11/28/17 at 06:00 Albuterol/ Ipratropium (Duoneb Neb) 1 ampule Q4HR NEB INH Last administered on 12/02/17at 11:51; Start 11/28/17 at 12:00; Stop 12/02/17 at 11:59; Status DC Famotidine (Pepcid Inj) 10 mg Q12HR IV PUSH ; Start 11/28/17 at 21:00; Status Cancel Famotidine (Pepcid Inj) 10 mg Q12HR IV PUSH Last administered on 12/02/17at 07: 59; Start 11/28/17 at 10:00; Stop 12/02/17 at 12:03; Status DC Methylprednisolone Sodium Succinate (SoluMEDROL INJ) 60 mg Q6HR IV PUSH Last administered on 12/08/17at 05:09; Start 11/29/17 at 12:00; Stop 12/08/17 at 08:51; Status DC Levofloxacin (Levaquin Liq) 500 mg DAILY NG Last administered on 12/09/17at 09: 00; Start 11/29/17 at 10:30; Stop 12/09/17 at 10:29; Status DC Potassium Chloride 100 ml @ 50 mls/hr Q2H PRN IV For Potassium 2.8 - 3.2 mEq/L ; Start 11/29/17 at 20:00 Potassium Chloride 100 ml @ 50 mls/hr Q2H PRN IV For Potassium 2.8 - 3.2 mEq/ L Last administered on 11/29/17at 23:01; Start 11/29/17 at 20:00 Potassium Bicarb/ Potassium Chloride (K-Lyte Cl Eff) 50 meq UNSCH PRN PO For Potassium 3.3 - 3.5 mEq/L; Start 11/29/17 at 20:00 Potassium Chloride 100 ml @ 25 mls/hr UNSCH PRN IV For Potassium 3.3 - 3.5 mEq /L; Start 11/29/17 at 20:00 Potassium Chloride 100 ml @ 50 mls/hr Q2H PRN IV For Potassium 3.3 - 3.5 mEq/L ; Start 11/29/17 at 20:00 Magnesium Sulfate 4 gm/Sodium Chloride 100 ml @ 50 mls/hr UNSCH PRN IV For Magnesium 0.9 - 1.1 mg/dL; Start 11/29/17 at 20:00 Magnesium Oxide (Mag-Ox) 800 mg UNSCH PRN PO For Magnesium 1.2 - 1.6 mg/dL; Start 11/29/17 at 20:00 Magnesium Sulfate 2 gm/Sodium Chloride 100 ml @ 50 mls/hr UNSCH PRN IV For Magnesium 1.2 - 1.6 mg/dL; Start 11/29/17 at 20:00 Potassium Phosphate (K-Phos) 2,000 mg Q4H PRN PO For Phosphorus < 2.5 mg/dL; Start 11/29/17 at 20:00 Sodium Phosphate 30 mmol/Sodium Chloride 250 ml @ 42 mls/hr UNSCH PRN IV For Phosphorus < 2.5 mg/dL Last administered on 12/01/17at 02:49; Start 11/29/17 at 20:00 Potassium Phosphate (K-Phos) 2,000 mg UNSCH PRN PO/TUBE SEE LABEL COMMENTS Last administered on 11/29/17at 23:25; Start 11/29/17 at 20:00 Potassium Phosphate 30 mmol/ Sodium Chloride 260 ml @ 42 mls/hr UNSCH PRN IV SEE LABEL COMMENTS; Start 11/29/17 at 20:00 Dexmedetomidine HCl (Precedex Inj) 38 mcg ONCE ONCE IV PUSH ; Start 11/30/17 at 08:30; Stop 11/30/17 at 08:31; Status DC Dexmedetomidine HCl 200 mcg/ Sodium Chloride 52 ml @ 3.93 mls/hr TITRATE PRN IV SEDATION Last administered on 12/02/17at 16:55; Start 11/30/17 at 08:30; Stop 12/02/17 at 19:21; Status DC Chlordiazepoxide (Librium) 25 mg TID PO Last administered on 12/09/17at 13:00; Start 12/01/17 at 09:00; Stop 12/09/17 at 15:29; Status DC Furosemide (Lasix Inj) 20 mg DAILY IV PUSH Last administered on 12/03/17at 07:56 ; Start 12/01/17 at 09:00; Status Future Hold Warfarin Sodium (Coumadin) 5 mg DAILY@1600 PO Last administered on 12/09/17at 16: 00; Start 12/01/17 at 16:00; Stop 12/10/17 at 08:30; Status DC Patient Medication Teaching (Coumadin Booklet) 1 ONCE ONCE .XX Last administered on 12/01/17at 16:00; Start 12/01/17 at 16:00; Stop 12/01/17 at 16:01 ; Status DC Midazolam HCl (Versed Inj) 5 mg STK-MED ONCE .ROUTE ; Start 12/02/17 at 11:14; Stop 12/02/17 at 11:15; Status DC Famotidine (Pepcid Inj) 20 mg Q12HR IV PUSH Last administered on 12/03/17at 07: 56; Start 12/02/17 at 21:00; Stop 12/03/17 at 10:43; Status DC Dexmedetomidine HCl 1000 mcg/ Sodium Chloride 250 ml @ 3.78 mls/hr TITRATE PRN IV SEDATION Last administered on 12/03/17at 09:31; Start 12/02/17 at 19:30; Stop 12/15/17 at 16:16; Status DC Albuterol/ Ipratropium (Duoneb Neb) 1 ampule Q4HR NEB NEB Last administered on 12/06/17at 08:13; Start 12/03/17 at 12:00; Stop 12/06/17 at 12:03; Status DC Albuterol Sulfate (Albuterol Neb) 2.5 mg Q2HR NEB PRN NEB dyspnea; Start at 10:00; Stop 12/03/17 at 10:43; Status DC Famotidine (Pepcid) 20 mg BID NG Last administered on 12/17/17at 08:09; Start at 21:00 Artificial Tears (Tears Naturale Opth Soln) 1 drop Q8HR EACH EYE Last administered on 12/16/17at 14:00; Start 12/03/17 at 14:00 Dextrose (D50w (Vial) Inj) 50 ml UNSCH PRN IV PUSH HYPOGLYCEMIA-SEE COMMENTS; Start 12/03/17 at 10:45 Glucagon (Glucagon Inj) 1 mg UNSCH PRN OTHER HYPOGLYCEMIA-SEE COMMENTS; Start 12/03/17 at 10:45 Insulin Human Regular (NovoLIN R SUPPLEMENTAL SCALE) 1 Q6HR SQ Last administered on 12/04/17at 05:56; Start 12/03/17 at 12:00; Stop 12/04/17 at 09:31 ; Status DC Budesonide (Pulmicort Respule Neb) 0.5 mg Q12HR NEB NEB Last administered on at 20:38; Start 12/03/17 at 20:00 Heparin Sodium (Porcine) (Heparin Inj) 5,000 units Q12HR SQ ; Start 12/03/17 at 21:00; Stop 12/03/17 at 21:00; Status DC Acetaminophen (Tylenol 650 Mg/ 20 ml Liq) 650 mg Q6H PRN PO fever Last administered on 12/17/17at 06:32; Start 12/03/17 at 11:00 Albuterol Sulfate (Albuterol Neb) 2.5 mg Q2HR NEB PRN NEB dyspnea; Start at 11:00 Heparin Sodium/ Dextrose 250 ml @ 14.058 mls/ hr TITRATE PRN IV Coagulation Management Last administered on 12/07/17at 12:34; Start 12/03/17 at 11:30; Stop at 15:28; Status DC Amiloride/HCTZ (Moduretic 5-50 Mg) 1 tab DAILY PO Last administered on at 08:08; Start 12/04/17 at 09:00 Epoprostenol Sodium 62.5 ml/ Sodium Chloride 100 ml @ 5 mls/hr Q8H NEB Last administered on 12/10/17at 08:20; Start 12/03/17 at 17:00; Stop 12/10/17 at 12:46; Status DC Acetazolamide Sodium (Diamox Inj) 500 mg ONCE ONCE IV PUSH Last administered on 12/04/17at 10:33; Start 12/04/17 at 09:30; Stop 12/04/17 at 09:31; Status DC Dextrose (D50w (Vial) Inj) 50 ml UNSCH PRN IV PUSH HYPOGLYCEMIA-SEE COMMENTS; Start 12/04/17 at 08:30; Stop 12/04/17 at 09:30; Status DC Glucagon (Glucagon Inj) 1 mg UNSCH PRN OTHER HYPOGLYCEMIA-SEE COMMENTS; Start 12/04/17 at 08:30; Stop 12/04/17 at 09:32; Status DC Insulin Aspart (NovoLOG SUPPLEMENTAL SCALE) 1 Q6HR SQ Last administered on at 12:00; Start 12/04/17 at 12:00; Stop 12/15/17 at 22:43; Status DC Polyethylene Glycol (Miralax) 17 gm ONCE ONCE PO Last administered on at 10:33; Start 12/04/17 at 09:45; Stop 12/04/17 at 09:59; Status DC Polyethylene Glycol (Miralax) 17 gm BID PO Last administered on 12/14/17at 09:03 ; Start 12/04/17 at 21:00; Stop 12/15/17 at 16:16; Status DC Lactulose (Lactulose Liq) 30 ml QID PO Last administered on 12/07/17at 21:07; Start 12/04/17 at 13:00; Stop 12/08/17 at 08:51; Status DC Mineral Oil (Kondremul Liq) 30 ml ONCE ONCE PO Last administered on 12/04/17at 11:22; Start 12/04/17 at 09:45; Stop 12/04/17 at 09:59; Status DC Potassium Phos/ Sodium Phos (K-Phos Neutral) 1,000 mg ONCE ONCE OG-TUBE Last administered on 12/04/17at 10:33; Start 12/04/17 at 09:45; Stop 12/04/17 at 09:59 ; Status DC Pharmacy Profile Note 0 ml @ 0 mls/hr UNSCH OTHER ; Start 12/04/17 at 14:45; Stop 12/11/17 at 16:10; Status DC Piperacillin Sod/ Tazobactam Sod 100 ml @ 200 mls/hr Q6H IV Last administered on 12/11/17at 15:37; Start 12/04/17 at 16:00; Stop 12/11/17 at 16:10; Status DC Norepinephrine Bitartrate 4 mg/ Sodium Chloride 250 ml @ 7.5 mls/hr TITRATE PRN IV Blood pressure management Last administered on 12/10/17at 07:00; Start at 15:30; Stop 12/15/17 at 16:16; Status DC Terbutaline Sulfate (Brethine Inj) 1 mg UNSCH PRN SQ For Extravasation; Start 12/04/17 at 15:30; Stop 12/15/17 at 16:16; Status DC Vancomycin HCl 1250 mg/Sodium Chloride 262.5 ml @ 250 mls/hr Q12H IV Last administered on 12/09/17at 05:59; Start 12/04/17 at 17:00; Stop 12/09/17 at 11:26; Status DC Miscellaneous Information ([facility] Ordered Lab Info) SPECIFIC LAB TO BE DRAWN:VANCO TROUGH DATE TO BE DR... ONCE ONCE .XX Last administered on at 04:45; Start 12/06/17 at 04:45; Stop 12/06/17 at 04:46; Status DC Mupirocin (Bactroban Nasal 2% Oint) Taper BID EACH NARE Last administered on at 08:09; Start 12/04/17 at 21:00; Stop 11/30/18 at 20:59 Sodium Chloride (NS Flush) DAILY IV FLUSH Last administered on 12/17/17at 08:09 ; Start 12/05/17 at 09:00 Sodium Chloride (NS Flush) UNSCH PRN IV FLUSH SEE PROTOCOL; Start 12/04/17 at 17:30 Acetaminophen (Tylenol) 650 mg Q4H PRN PO HEADACHE; Start 12/04/17 at 17:30; Status Cancel Cefazolin Sodium 1000 mg/Sodium Chloride 100 ml @ 200 mls/hr Q8H IV ; Start at 18:00; Status Cancel Warfarin Sodium (Coumadin) 1 mg ONCE@1600 ONCE PO Last administered on at 17:54; Start 12/05/17 at 16:00; Stop 12/05/17 at 16:01; Status DC Permethrin (Nix Creme Rinse 1% Lotion) 1 applic ONCE ONCE TOPICAL Last administered on 12/06/17at 07:00; Start 12/06/17 at 07:00; Stop 12/06/17 at 07:03; Status DC Albuterol/ Ipratropium (Duoneb Neb) 1 ampule Q4HR NEB NEB Last administered on 12/10/17at 09:15; Start 12/06/17 at 16:00; Stop 12/10/17 at 10:17; Status DC Furosemide (Lasix Inj) 40 mg ONCE ONCE IV PUSH Last administered on 12/06/17at 13:36; Start 12/06/17 at 12:15; Stop 12/06/17 at 12:16; Status DC Albumin Human 50 ml @ 60 mls/hr ONCE ONCE IV Last administered on 12/06/17at 13: 37; Start 12/06/17 at 12:15; Stop 12/06/17 at 13:04; Status DC Sodium Chloride (Sodium Chloride 3% Neb) 2 ml Q4HR NEB NEB Last administered on 12/07/17at 16:14; Start 12/06/17 at 16:00; Stop 12/07/17 at 16:45; Status DC Guaifenesin (Robitussin Liq) 400 mg Q8HR NG Last administered on 12/13/17at 06:15 ; Start 12/06/17 at 14:00; Stop 12/13/17 at 13:59; Status DC Warfarin Sodium (Coumadin) 1 mg ONCE@1600 ONCE PO Last administered on at 16:43; Start 12/06/17 at 16:00; Stop 12/06/17 at 16:01; Status DC Furosemide (Lasix Inj) 20 mg ONCE ONCE IV PUSH Last administered on 12/07/17at 10:40; Start 12/07/17 at 10:00; Stop 12/07/17 at 10:01; Status DC Albumin Human 50 ml @ 60 mls/hr ONCE ONCE IV Last administered on 12/07/17at 12: 45; Start 12/07/17 at 10:00; Stop 12/07/17 at 10:49; Status DC Warfarin Sodium (Coumadin) 1 mg ONCE@1600 ONCE PO Last administered on at 16:52; Start 12/07/17 at 16:00; Stop 12/07/17 at 16:01; Status DC Rocuronium [place] (Zemuron Inj) 100 mg BOLUS ONCE IV Last administered on 12/07 14:30; Start 12/07/17 at 14:15; Stop 12/07/17 at 14:16; Status DC Etomidate (Amidate Inj) 40 mg ONCE ONCE IV PUSH Last administered on 12/07/17 14:27; Start 12/07/17 at 14:15; Stop 12/07/17 at 14:16; Status DC Heparin Sodium/ Dextrose 250 ml @ 14.058 mls/ hr TITRATE PRN IV Coagulation Management Last administered on 12/07/17 19:00; Start 12/07/17 at 18:30; Stop 12/08/17 at 15:21; Status DC Albumin Human 50 ml @ 60 mls/hr ONCE ONCE IV Last administered on 12/07/17 17: 21; Start 12/07/17 at 16:30; Stop 12/07/17 at 17:19; Status DC Furosemide (Lasix Inj) 20 mg ONCE ONCE IV PUSH Last administered on 12/07/17 17:21; Start 12/07/17 at 16:30; Stop 12/07/17 at 16:34; Status DC Lactulose (Lactulose Liq) 30 ml BID PO Last administered on 12/17/17 08:09; Start 12/08/17 at 09:00 Methylprednisolone Sodium Succinate (SoluMEDROL INJ) 40 mg Q8HR IV PUSH Last administered on 12/12/17 14:08; Start 12/08/17 at 14:00; Stop 12/12/17 at 16:27; Status DC Warfarin Sodium (Coumadin) 2.5 mg ONCE ONCE PO Last administered on 12/08/17at 15:19; Start 12/08/17 at 16:00; Stop 12/08/17 at 16:01; Status DC Miscellaneous Information ([facility] Ordered Lab Info) SPECIFIC LAB TO BE CORINA... ONCE ONCE .XX Last administered on 12/09/17 06:00; Start 12/09/17 at 04: 45; Stop 12/09/17 at 04:46; Status DC Heparin Sodium/ Dextrose 250 ml @ 15 mls/hr TITRATE PRN IV Coagulation Management Last administered on 12/16/17at 20:13; Start 12/08/17 at 15:30 Vancomycin HCl 1000 mg/Sodium Chloride 250 ml @ 250 mls/hr Q12H IV Last administered on 12/11/17at 07:05; Start 12/09/17 at 18:00; Stop 12/11/17 at 09:18; Status DC Miscellaneous Information ([facility] Ordered Lab Info) SPECIFIC LAB TO BE DRAWN:VANCO TROUGH DATE... ONCE ONCE .XX Last administered on 12/11/17at 05:07; Start 12/11/17 at 05:45; Stop 12/11/17 at 05:46; Status DC Chlordiazepoxide (Librium) 25 mg Taper DAILY PO Last administered on 12/11/17at 09:12; Start 12/10/17 at 01:00; Stop 12/12/17 at 00:59; Status DC Acetazolamide Sodium (Diamox Inj) 500 mg ONCE ONCE IV PUSH Last administered on 12/09/17at 15:30; Start 12/09/17 at 15:30; Stop 12/09/17 at 15:31; Status DC Furosemide (Lasix Inj) 40 mg ONCE ONCE IV PUSH Last administered on 12/09/17at 15:30; Start 12/09/17 at 15:30; Stop 12/09/17 at 15:34; Status DC Warfarin Sodium (Coumadin) 6 mg DAILY@1600 PO Last administered on 12/10/17at 15: 41; Start 12/10/17 at 16:00; Stop 12/11/17 at 07:21; Status DC Albuterol/ Ipratropium (Duoneb Neb) 1 ampule Q4HR NEB NEB Last administered on 12/13/17at 12:40; Start 12/10/17 at 12:00; Stop 12/13/17 at 21:05; Status DC Epoprostenol Sodium 50 ml/ Sodium Chloride 100 ml @ 5 mls/hr Q8H NEB Last administered on 12/11/17at 15:37; Start 12/10/17 at 16:00; Stop 12/11/17 at 16:10; Status DC Warfarin Sodium (Coumadin) 7.5 mg ONCE@1600 ONCE PO Last administered on at 16:59; Start 12/11/17 at 16:00; Stop 12/11/17 at 16:01; Status DC Vancomycin HCl 1250 mg/Sodium Chloride 262.5 ml @ 250 mls/hr Q18H IV ; Start at 00:00; Stop 12/12/17 at 00:00; Status DC Miscellaneous Information ([facility] Ordered Lab Info) SPECIFIC LAB TO BE DRAWN:VA... ONCE ONCE .XX ; Start 12/13/17 at 11:45; Stop 12/13/17 at 11:46; Status Cancel Ceftriaxone Sodium 2000 mg/ Sodium Chloride 100 ml @ 200 mls/hr Q24H IV Last administered on 12/13/17at 18:53; Start 12/11/17 at 17:00; Stop 12/14/17 at 16:59; Status DC Furosemide (Lasix Inj) 20 mg ONCE ONCE IV PUSH Last administered on 12/11/17at 17:11; Start 12/11/17 at 16:15; Stop 12/11/17 at 16:48; Status DC Warfarin Sodium (Coumadin) 7.5 mg DAILY@1600 PO Last administered on 12/16/17at 16:00; Start 12/12/17 at 16:00 Methylprednisolone Sodium Succinate (SoluMEDROL INJ) 40 mg Q12HR IV PUSH Last administered on 12/15/17at 08:26; Start 12/12/17 at 21:00; Stop 12/15/17 at 16:16 ; Status DC Furosemide (Lasix Inj) 20 mg ONCE ONCE IV PUSH Last administered on 12/12/17at 17:07; Start 12/12/17 at 17:00; Stop 12/12/17 at 17:01; Status DC Albuterol/ Ipratropium (Duoneb Neb) 1 ampule Q4HR NEB NEB Last administered on 12/17/17at 03:30; Start 12/14/17 at 00:00 Furosemide (Lasix Inj) 40 mg ONCE ONCE IV PUSH Last administered on 12/13/17at 22:41; Start 12/13/17 at 21:15; Stop 12/13/17 at 21:21; Status DC Albumin Human 100 ml @ 60 mls/hr ONCE ONCE IV Last administered on 12/13/17at 22:41; Start 12/13/17 at 21:15; Stop 12/13/17 at 22:54; Status DC Warfarin Sodium (Coumadin) 2.5 mg ONCE ONCE PO Last administered on 12/14/17at 18:22; Start 12/14/17 at 16:00; Stop 12/14/17 at 16:01; Status DC Albumin Human 100 ml @ 60 mls/hr ONCE ONCE IV Last administered on 12/14/17at 12:45; Start 12/14/17 at 12:45; Stop 12/14/17 at 14:24; Status DC Furosemide (Lasix Inj) 40 mg ONCE ONCE IV PUSH Last administered on 12/14/17at 12:45; Start 12/14/17 at 12:45; Stop 12/14/17 at 13:22; Status DC Acetazolamide Sodium (Diamox Inj) 250 mg ONCE ONCE IV PUSH Last administered on 12/14/17at 12:45; Start 12/14/17 at 12:45; Stop 12/14/17 at 13:22; Status DC Warfarin Sodium (Coumadin) 2.5 mg ONCE ONCE PO Last administered on 12/15/17at 15:43; Start 12/15/17 at 16:00; Stop 12/15/17 at 16:01; Status DC Methylprednisolone Sodium Succinate (SoluMEDROL INJ) 40 mg DAILY IV PUSH Last administered on 12/17/17at 08:08; Start 12/16/17 at 09:00 Insulin Aspart (NovoLOG SUPPLEMENTAL SCALE) 1 ACHS SQ ; Start 12/16/17 at 08:00 Warfarin Sodium (Coumadin) 5 mg ONCE ONCE PO Last administered on 12/16/17at 16 :00; Start 12/16/17 at 16:00; Stop 12/16/17 at 16:01; Status DC Hydromorphone HCl (Dilaudid Pf Inj) 1 mg Q4H PRN IV PUSH PAIN SCALE 6 TO 10 Last administered on 12/17/17at 08:09; Start 12/17/17 at 07:45 A/P Assessment and Plan NEURO/PSYCH: EtOH abuse/withdrawal History of right frontal CVA Depression/anxiety s/p chlordiazepoxide taper. Acetaminophen 650 mg p.o. every 6 hours as needed fever CV: Coronary artery disease Essential hypertension Hyperlipidemia Continue amiloride/hydrochlorthiazide 5/50 1 tablet daily Off all vasopressors. Resp: Acute hypoxemic respiratory failure COPD Bilateral lower lobe lung collapse status post bronchoscopy 12/02 Nasal cannula to maintain saturations greater than equal to 92% Incentive spirometry while awake Ventilator bundle Albuterol/ipratropium aerosols every 4 hours with albuterol aerosols every 2 hours as needed dyspnea Budesonide 0.5/2 1 inhalation twice daily On budesonide/formoterol 160/4.5 2 puffs twice daily at home Previously started on methylprednisolone succinate currently at 40 mg every 8 hours. Noted allergy to prednisone: wean to 40mg iv daily daily SBTs. would consider extubation, but very high risk of re-intubation if she is extubated. Chest x-ray worsening right lower lobe versus effusion. VQ scan low probability for pulmonary embolism GI: Gastroesophageal reflux disease Hepatitis C Hypoalbuminemia/moderate protein calorie malnutrition Elevated AST Patient is currently on honey thickened Famotidine for GI prophylaxis Docusate serum/senna 1 tablet twice daily for bowel regimen. : voiding.. No indication for Phillip catheter Endo: Hyperglycemia Sliding scale insulin with Accu-Cheks to maintain euglycemia while on high-dose steroids Renal: Creatinine currently within normal limits Monitor urine output Accurate I's and O's Heme: Factor V Leiden on chronic anticoagulation Normocytic anemia Leukocytosis Chronic warfarin use History of left lower extremity DVT status post IVC filter Currently on heparin drip at 900 units an hour with transition to warfarin per pharmacy consultation. Currently at 7.5 mg daily INR currently 1.1: plan to d/ c heparin drip once INR > 2. At home on enoxaparin 80 mg subcu twice daily with warfarin 7.5 mg daily Monitor CBC daily. Along with PT/INR/PTT ID: MRSA pneumonia Pediculosis capitis MRSA nares Vancomycin/Pipracil/tazobactam 12/04 - 12/11 Rocephin 12/11 - 12/14. d/c rocephin today. completed course for all identified microbes. Continue permethrin 1 dose. Mupirocin to nares twice daily WILL RETREAT FOR LICE Pertinent cultures 12/07 -sputum from bronchoscopy-MSSA 12/03 -sputum -MRSA 12/03 -blood cultures 2 -no growth Influenza negative FEN: Replace electrolytes as clinically indicated MSK: Osteoporosis/chronic low back pain PT evaluate and treat Access -CVL/right IJ placed 12/03-12/14 Prophylaxis -GI -famotidine -DVT -SCD/heparin drip/warfarin Discharge Planning PENDING IMPROVEMENT MAY NEED SNF AT [place] Shaun Moe DO Dec 17, 2017 11:52
[2017-12-17] MEDS ORDERED: PERMETHRIN 5% CREAM 60 GM TOPICAL ONE (13:30)
[2017-12-17] MEDS: WARFARIN SOD 7.5 MG TAB PO SCH (16:00)
[2017-12-18] VITALS: BP 142/94; PULSE 111; RESP 18; TEMP 98.2; O2SAT 94
[2017-12-18] MEDS: CHLORHEXIDINE GLUCONATE 2 % 1 PACK (2 CLOTHS) TOP SCH (04:00)
[2017-12-18] MEDS: HEPARIN-D5W 25,000 U/250 ML 250 ML IV PRN (04:02)
[2017-12-18 05:25] LABS: AUTOMATED NEUTROPHIL # 9.4 TH/MM3 (1.8-7.7); BASOPHIL # 0.1 TH/MM3 (0-0.2); BASOPHIL % 0.8 % (0.0-2.0); EOSINOPHIL # 0.1 TH/MM3 (0-0.4); EOSINOPHIL % 0.5 % (0.0-4.0); HEMATOCRIT 47.9 % (35.0-46.0); HEMOGLOBIN 15.6 GM/DL (11.6-15.3); LYMPH % 10.4 % (9.0-44.0); LYMPHOCYTE # 1.2 TH/MM3 (1.0-4.8); MEAN CELL VOLUME 93.5 FL (80.0-100.0); MEAN CORPUSCULAR HEMOGLOBIN 30.4 PG (27.0-34.0); MEAN CORPUSCULAR HGB CONC 32.6 % (32.0-36.0); MEAN PLATELET VOLUME 10.3 FL (7.0-11.0); MONO % 7.7 % (0.0-8.0); MONOCYTE # 0.9 TH/MM3 (0-0.9); NEUT % 80.6 % (16.0-70.0); PLATELET COUNT 293 TH/MM3 (150-450); RED BLOOD COUNT 5.12 MIL/MM3 (4.00-5.30); RED CELL DISTRIBUTION WIDTH 19.7 % (11.6-17.2); WHITE BLOOD COUNT 11.6 TH/MM3 (4.0-11.0)
[2017-12-18 05:41] LABS: INTERNATIONAL NORMALIZED RATIO 2.1 RATIO; PROTHROMBIN TIME - PATIENT 21.1 SEC (9.8-11.6)
[2017-12-18 05:53] LABS: ALBUMIN 4.4 GM/DL (3.4-5.0); ALT (GPT) 71 U/L (10-53); AST (GOT) 33 U/L (15-37); BICARBONATE 18.5 MEQ/L (21.0-32.0); BLOOD UREA NITROGEN 78 MG/DL (7-18); CALCIUM 10.6 MG/DL (8.5-10.1); CHLORIDE 105 MEQ/L (98-107); CREATININE 1.08 MG/DL (0.50-1.00); GLOMERULAR FILTRATION RATE 53 ML/MIN (>89); GLUCOSE,RANDOM 132 MG/DL (74-106); MAGNESIUM 2.8 MG/DL (1.5-2.5); PHOSPHORUS 4.5 MG/DL (2.5-4.9); SODIUM (NA) 139 MEQ/L (136-145)
[2017-12-18 05:57] LABS: ALKALINE PHOSPHATASE 90 U/L (45-117); FREE T4 1.43 NG/DL (0.76-1.46); TOTAL BILIRUBIN ADULT 0.8 MG/DL (0.2-1.0); TOTAL PROTEIN 9.2 GM/DL (6.4-8.2)
[2017-12-18] MEDS: ARTIFICIAL TEARS OPTH SOLN 15 ML BTL EACH EYE SCH ×3 (06:03→22:08)
[2017-12-18] MEDS: CHLORHEXIDINE 0.12% (ORAL KIT) 15 ML CUP MT SCH ×2 (08:00→20:00)
[2017-12-18] MEDS: RESP: BUDESONIDE 0.5 MG/2 ML NEB NEB SCH ×2 (08:00→21:38)
[2017-12-18] MEDS: INSULIN ASPART SUPPLEMENTAL SCALE SQ SCH ×4 (08:00→22:08)
[2017-12-18 08:40] VITALS: BP 147/96; PULSE 95; RESP 18; TEMP 97.7; O2SAT 96
[2017-12-18] MEDS: SODIUM CHLORIDE 0.9% FLUSH 10 ML FLUSH IV FLUSH SCH ×3 (09:00→22:02)
[2017-12-18] MEDS: LACTULOSE SYRUP 20 GM/30 ML CUP PO SCH ×2 (09:00→21:59)
[2017-12-18] MEDS: FAMOTIDINE 20 MG TAB NG SCH ×2 (09:37→22:01)
[2017-12-18] MEDS: methylPREDNISolone SOD SUCC 40 MG/1 ML VIAL IV PUSH SCH (09:37)
[2017-12-18] MEDS: DOCUSATE SODIUM 50 MG/SENNA 8.6 MG TAB PO SCH ×2 (09:37→22:02)
[2017-12-18] MEDS: MUPIROCIN 2% OINT 1 APPLIC/GM SYR EACH NARE SCH ×2 (09:37→22:02)
[2017-12-18] MEDS: aMILoride/HCTZ 5 MG/50 MG TAB PO SCH (09:37)
[2017-12-18 12:00] VITALS: BP 142/101; PULSE 110; RESP 18; TEMP 97.7; O2SAT 95
--- NOTE | 2017-12-18 12:01 | HHI.PR ---
Subjective Remarks 57-year-old female who presented to emergency department complaining of SOB and coughing. She has also complained of severe left back rib area pain. In the emergency department she was desaturating to 80s on room air and 88 on 2 L nasal cannula. She was intubated by ED attending for an acute hypoxemic respiratory failure. She was intubated by ED attending. She is on Coumadin/ Lovenox 1 mg/kg every 12 hours for factor V Leiden mutation. Her INR is subtherapeutic. Attempted SBTs but patient could not tolerate due to severe bronchospasm. 11/30: Continued agitation but bronchospasm is minimally improved. Although she carries a prednisone allergy on her chart she is tolerating Solu-Medrol without difficulty. 12/01: Without heavy sedation patient becomes extremely agitated and developed severe airway collapse with very poor air movement. Unprovoked her wheezing has ceased but with agitation she developed some minimal tidal volume. We have added Precedex and will add p.o. Librium and try to rapidly extubate her. I am not optimistic. This is probably why she is required tracheostomy in the past. 12/02: Patient has developed right lower lobe atelectasis and partial collapse of the right middle lobe. Will undoubtedly require bronchoscopy to remove inspissated plugs. Her anxiety and agitation continues to be problematic and she does not respond to Precedex. 12/03: Resting comfortably in bed in no acute distress. FiO2 100%. X-ray this a.m. revealed resolution of lower lobe collapse. Minimal secretions from ET tube. Positive BM 1 12/04: T-max 99.9. Remains on epoprostenol. Did not tolerate bilevel or increased PEEP. Tolerating tube feeds at goal. Currently on propofol and fentanyl drips. 12/05: Afebrile. Remains on norepinephrine drip at 3 mcg/min. FiO2 requirements decreased to 60% overnight. Arousable the ventilator. She is on propofol and fentanyl drips. 12/06: Afebrile. FiO2 currently 50%. Remains on epoprostenol aerosolized. Noted to have a pediculosis capitis. Permethrin currently being applied. 12/07: FiO2 at 60%. Afebrile. Arousable on the ventilator and sedation. Appears comfortable. Tolerating tube feeding. 12/08: Still continues to have pediculosis capitis. Status post bronchoscopy yesterday with thin frothy clear secretions noted. No mucous plugging. Currently afebrile. Tolerating tube feeding. Arousable and follows commands on the ventilator remains on epoprostenol aerosolized maximum 50 ng/kg/min 12/09: no improvements or changes. remains hypoxic on 70% fio2. requires inhaled flolan. 12/10: Afebrile. FiO2 down to 40%. Follows commands normally on the ventilator. Tolerating tube feeds. Positive BM. 12/11: no meaningful improvements in days. palliative care working with the son who is here on [facility] from longterm. 12/12: no improvements. net -2L/24h. off flolan. remains intubated on full support. per the patient, she does not want her son making healthcare decisions , so legally it falls to her sister, who is currently undergoing elective surgery of her own today and cannot make medical decisions. 12/13: still failing weaning trials. no changes or improvements. 60% fio2. 12/14: on SBT today. more awake. fio2 down to 40%. still very high risk for failing any trials of extubation. 12/15: Extubated yesterday. Currently on honey thick liquid diet. Tolerating nasal cannula. 12/16: Extubated 36 hours ago, continues to breathe comfortably on NC O2. 12-17 TRANSFERRED TO OUR SERVICE TODAY WILL RETREAT FOR LICE DW RN AND PT INCREASE ACTIVITY PT AND OT AM LABS CONTINUE TO RELOAD COUMADIN NOT AT GOAL INR 2.0 TO 3.0 YET 12-18 INR IS 2.1 HAS BEEN TREATED AGAIN FOR LICE NOT VERY MOBILE YET STILL HAVING NEED FOR DYSPHAGIA DIET, THICKENED LIQUIDS Objective Vitals Vital Signs Date Time Temp Pulse Resp B/P (MAP) Pulse Ox O2 Delivery O2 Flow Rate FiO2 12/18/17 08:40 97.7 95 18 147/96 (113) 96 12/18/17 00:00 98.2 111 18 142/94 (110) 94 12/17/17 20:02 94 Nasal Cannula 2.00 12/17/17 20:00 98.1 112 18 147/102 (117) 94 12/17/17 17:00 97.7 107 18 150/92 (111) 92 12/17/17 12:00 96 12/17/17 12:00 98.3 126 26 142/92 (162) 96 I/O 12/17/17 12/17/17 12/17/17 12/18/17 12/18/17 12/18/17 07:00 15:00 23:00 07:00 15:00 23:00 Intake Total 240 ml Output Total 700 ml 600 ml Balance -460 ml -600 ml Intake Oral 240 ml Output Urine Total 700 ml 600 ml Bladder Scan Volume Amount 586 ml 586 ml 425 ml 425 ml # Bowel Movements 0 Result Diagram: 12/18/17 0425 12/18/17 0425 Other Results Laboratory Tests Test 12/15/17 14:02 12/15/17 20:48 12/16/17 03:35 12/16/17 06:34 Activated Partial Thromboplast Time 29.7 SEC 30.8 SEC 25.2 SEC 61.3 SEC Prothrombin Time 11.3 SEC Prothromb Time International Ratio 1.1 RATIO White Blood Count 9.0 TH/MM3 Red Blood Count 4.65 MIL/MM3 Hemoglobin 14.4 GM/DL Hematocrit 43.0 % Mean Corpuscular Volume 92.5 FL Mean Corpuscular Hemoglobin 30.9 PG Mean Corpuscular Hemoglobin Concent 33.4 % Red Cell Distribution Width 19.0 % Platelet Count 326 TH/MM3 Mean Platelet Volume 9.8 FL Blood Urea Nitrogen 55 MG/DL Creatinine 0.73 MG/DL Random Glucose 132 MG/DL Calcium Level 10.5 MG/DL Phosphorus Level 3.8 MG/DL Magnesium Level 2.6 MG/DL Sodium Level 138 MEQ/L Potassium Level 3.6 MEQ/L Chloride Level 104 MEQ/L Carbon Dioxide Level 21.4 MEQ/L Anion Gap 13 MEQ/L Estimat Glomerular Filtration Rate 83 ML/MIN Test 12/16/17 11:21 12/16/17 22:01 12/17/17 04:57 12/17/17 09:26 Activated Partial Thromboplast Time 89.8 SEC 41.1 SEC 94.8 SEC 48.5 SEC Prothrombin Time 14.8 SEC Prothromb Time International Ratio 1.5 RATIO Test 12/17/17 14:36 12/18/17 04:25 Activated Partial Thromboplast Time 54.1 SEC White Blood Count 11.6 TH/MM3 Red Blood Count 5.12 MIL/MM3 Hemoglobin 15.6 GM/DL Hematocrit 47.9 % Mean Corpuscular Volume 93.5 FL Mean Corpuscular Hemoglobin 30.4 PG Mean Corpuscular Hemoglobin Concent 32.6 % Red Cell Distribution Width 19.7 % Platelet Count 293 TH/MM3 Mean Platelet Volume 10.3 FL Neutrophils (%) (Auto) 80.6 % Lymphocytes (%) (Auto) 10.4 % Monocytes (%) (Auto) 7.7 % Eosinophils (%) (Auto) 0.5 % Basophils (%) (Auto) 0.8 % Neutrophils # (Auto) 9.4 TH/MM3 Lymphocytes # (Auto) 1.2 TH/MM3 Monocytes # (Auto) 0.9 TH/MM3 Eosinophils # (Auto) 0.1 TH/MM3 Basophils # (Auto) 0.1 TH/MM3 CBC Comment DIFF FINAL Differential Comment Prothrombin Time 21.1 SEC Prothromb Time International Ratio 2.1 RATIO Blood Urea Nitrogen 78 MG/DL Creatinine 1.08 MG/DL Random Glucose 132 MG/DL Total Protein 9.2 GM/DL Albumin 4.4 GM/DL Calcium Level 10.6 MG/DL Phosphorus Level 4.5 MG/DL Magnesium Level 2.8 MG/DL Alkaline Phosphatase 90 U/L Aspartate Amino Transf (AST/SGOT) 33 U/L Alanine Aminotransferase (ALT/SGPT) 71 U/L Total Bilirubin 0.8 MG/DL Sodium Level 139 MEQ/L Potassium Level 4.1 MEQ/L Chloride Level 105 MEQ/L Carbon Dioxide Level 18.5 MEQ/L Anion Gap 16 MEQ/L Estimat Glomerular Filtration Rate 53 ML/MIN Free Thyroxine 1.43 NG/DL Thyroid Stimulating Hormone 3rd Gen 0.622 uIU/ML Imaging Last Impressions Chest X-Ray 12/11/17 0600 Signed Impressions: CONCLUSION: Support apparatus unchanged. Improved right basilar airspace disease since December 08. Lower Extremity Ultrasound 12/03/17 Signed Impressions: CONCLUSION: 1. The study is negative for bilateral lower extremity deep venous thrombosis. Ribs X-Ray 11/28/17 Signed Impressions: CONCLUSION: Deformities at the anterior lateral left ninth and 10th ribs prior fracture. Lung Scan-[facility] Nuclear Medicine 11/28/17 Signed Impressions: CONCLUSION: Low probability scan for pulmonary embolism Objective Remarks GENERAL: AWAKE ALERT AND ORIENTED X 1 TO 2- SPEAKING IN WHISPER ONLY STLL SKIN: Warm and dry. HEAD: Atraumatic. Normocephalic. EYES: Pupils equal and round. No scleral icterus. No injection or drainage. EOMI ENT: No nasal bleeding or discharge. Mucous membranes pink and moist. TONGUE MIDLINE NECK: Trachea midline. No JVD. CARDIOVASCULAR: IRRegular rate and rhythm. S1, S2 NO S3 OR S4 RESPIRATORY: No accessory muscle use. RHONCHI AND WHEEZES BL. Breath sounds equal bilaterally. GASTROINTESTINAL: Abdomen soft, non-tender, nondistended. Hepatic and splenic margins not palpable. MUSCULOSKELETAL: Extremities without clubbing, cyanosis, or edema. No obvious deformities. NEUROLOGICAL: Awake and alert. No obvious cranial nerve deficits. Motor grossly within normal limits. 4 out of 5 muscle strength in the arms and legs. Normal speech. PSYCHIATRIC: INAppropriate mood and affect; insight and judgment ABnormal. Procedures MULTIPLE BRONCHOSCOPIES INTUBATION AND VENT MANAGEMENT Medications and IVs Current Medications Albuterol/ Ipratropium (Duoneb Neb) 1 ampule ONCE ONCE NEB Last administered on 11/28/17at 02:25; Start 11/28/17 at 02:30; Stop 11/28/17 at 02:31; Status DC Acetaminophen/ Hydrocodone Bitart ([place] 5-325 Mg) 1 tab ONCE ONCE PO ; Start 11/28/17 at 02:30; Stop 11/28/17 at 02:31; Status DC Ketorolac Tromethamine (Toradol Inj) 60 mg ONCE ONCE IM ; Start 11/28/17 at 02: 30; Stop 11/28/17 at 03:49; Status DC Lorazepam (Ativan Inj) 0.5 mg ONCE ONCE IV PUSH Last administered on at 03:55; Start 11/28/17 at 04:00; Stop 11/28/17 at 04:01; Status DC Ketorolac Tromethamine (Toradol Inj) 30 mg ONCE ONCE IV PUSH Last administered on 11/28/17at 03:55; Start 11/28/17 at 04:00; Stop 11/28/17 at 04:01 ; Status DC Morphine Sulfate (Morphine Inj) 2 mg ONCE ONCE IV PUSH ; Start 11/28/17 at 04: 15; Stop 11/28/17 at 04:16; Status DC Morphine Sulfate (Morphine Inj) 4 mg STK-MED ONCE .ROUTE ; Start 11/28/17 at 04: 09; Stop 11/28/17 at 04:10; Status DC Sodium Chloride 1,000 ml @ 999 mls/hr BOLUS ONCE IV Last administered on 11/28at 05:37; Start 11/28/17 at 04:30; Stop 11/28/17 at 05:30; Status DC Naloxone HCl (Narcan Inj) 2 mg ONCE ONCE IV PUSH Last administered on at 05:37; Start 11/28/17 at 04:45; Stop 11/28/17 at 04:46; Status DC Etomidate (Amidate Inj) 40 mg STK-MED ONCE .ROUTE ; Start 11/28/17 at 04:45; Stop 11/28/17 at 04:46; Status DC Propofol 100 ml @ 0 mls/hr TITRATE PRN IV SEDATION; Start 11/28/17 at 04:45; Stop 11/28/17 at 05:53; Status DC Propofol 50 ml @ As Directed STK-MED ONCE .ROUTE Last administered on at 05:47; Start 11/28/17 at 05:00; Stop 11/28/17 at 05:01; Status DC Midazolam HCl (Versed Inj) 5 mg STK-MED ONCE .ROUTE ; Start 11/28/17 at 05:03; Stop 11/28/17 at 05:04; Status DC Ceftriaxone Sodium 1000 mg/ Sodium Chloride 100 ml @ 200 mls/hr ONCE ONCE IV Last administered on 11/28/17at 05:56; Start 11/28/17 at 05:15; Stop 11/28/17 at 05:44; Status DC Fentanyl Citrate 250 ml TITRATE PRN IV SEDATION; Start 11/28/17 at 05:15; Stop 11/28/17 at 05:34; Status DC Midazolam HCl 100 ml TITRATE PRN IV SEDATION; Start 11/28/17 at 05:15; Status UNV Miscellaneous Information ([facility]) "NEED HT & WT TO VERIFY... Q15M .XX Last administered on 11/28/17at 08:00; Start 11/28/17 at 05:15; Stop at 10:01; Status DC Midazolam HCl (Versed Inj) 5 mg ONCE ONCE IV Last administered on 11/28/17at 05 :38; Start 11/28/17 at 05:15; Stop 11/28/17 at 05:20; Status DC Midazolam HCl 50 ml @ 2 mls/hr TITRATE PRN IV SEDATION Last administered on at 19:45; Start 11/28/17 at 05:45; Stop 12/15/17 at 16:16; Status DC Fentanyl Citrate 250 ml @ 5 mls/hr TITRATE PRN IV SEDATION Last administered on 12/13/17at 02:30; Start 11/28/17 at 05:45; Stop 12/18/17 at 07:22; Status DC Succinylcholine Chloride (Quelicin Inj) 100 mg ONCE ONCE IV PUSH Last administered on 11/28/17at 05:46; Start 11/28/17 at 05:45; Stop 11/28/17 at 05:46 ; Status DC Etomidate (Amidate Inj) 20 mg ONCE ONCE IV PUSH Last administered on at 05:46; Start 11/28/17 at 05:45; Stop 11/28/17 at 05:46; Status DC Sodium Chloride 1,000 ml @ 84 mls/hr [id number] IV Last administered on at 04:08; Start 11/28/17 at 05:33; Stop 12/01/17 at 06:32; Status DC Sodium Chloride (NS Flush) 2 ml UNSCH PRN IV FLUSH FLUSH AFTER USING IV ACCESS ; Start 11/28/17 at 05:45 Sodium Chloride (NS Flush) 2 ml BID IV FLUSH Last administered on 12/18/17at 09: 38; Start 11/28/17 at 09:00 Acetaminophen (Tylenol) 650 mg Q6H PRN PO PAIN 1-5 AND/OR FEVER >101F; Start at 05:45; Stop 12/03/17 at 10:51; Status DC Hydromorphone HCl (Dilaudid Pf Inj) 1 mg Q4H PRN IV PUSH PAIN SCALE 6 TO 10; Start 11/28/17 at 05:45; Stop 12/17/17 at 07:41; Status DC Famotidine (Pepcid Inj) 20 mg Q12HR IV PUSH ; Start 11/28/17 at 09:00; Status Cancel Midazolam HCl (Versed Inj) 2 mg Q1H PRN IV PUSH SEDATION Last administered on at 00:54; Start 11/28/17 at 05:45; Stop 12/15/17 at 16:16; Status DC Artificial Tears (Tears Naturale Opth Soln) 1 drop TID EACH EYE Last administered on 12/03/17at 07:58; Start 11/28/17 at 09:00; Stop 12/03/17 at 11:17 ; Status DC Ondansetron HCl (Zofran Odt) 4 mg Q6H PRN PO NAUSEA OR VOMITING; Start at 05:45 Albuterol/ Ipratropium (Duoneb Neb) 1 ampule Q6HR NEB INH Last administered on 11/28/17at 08:59; Start 11/28/17 at 10:00; Stop 11/28/17 at 10:00; Status DC Albuterol/ Ipratropium (Duoneb Neb) 1 ampule Q2HR NEB PRN INH WHEEZING; Start 11/28/17 at 05:45; Stop 12/03/17 at 10:00; Status DC Enoxaparin Sodium (Lovenox Inj) 80 mg Q12H SQ Last administered on 11/28/17at 06 :09; Start 11/28/17 at 06:00; Stop 11/28/17 at 11:40; Status DC Miscellaneous Information ([facility]) 1 [id number] Last administered on 11/28/17at 08:30; Start 11/28/17 at 05:45 Chlorhexidine Gluconate (Chlorhexidine 2% Cloth) 3 pack Taper DAILY@04 TOP Last administered on 12/10/17at 03:46; Start 11/29/17 at 04:00; Stop 11/25/18 at 03:59 Chlorhexidine Gluconate (Chlorhexidine 2% Cloth) 3 pack UNSCH PRN TOP HYGIENIC CARE; Start 11/28/17 at 05:45 Senna/Docusate Sodium (Johnna-Colace) 1 tab BID PO Last administered on at 09:37; Start 11/28/17 at 09:00 Magnesium Hydroxide (Milk Of Magnesia Liq) 30 ml Q12H PRN PO Mild constipation Last administered on 12/13/17at 20:21; Start 11/28/17 at 05:45 Sennosides (Senokot) 17.2 mg Q12H PRN PO Moderate constipation; Start 11/28/17 at 05:45 Bisacodyl (Dulcolax Supp) 10 mg DAILY PRN RECTAL SEVERE CONSITIPATION; Start at 05:45 Lactulose (Lactulose Liq) 30 ml DAILY PRN PO SEVERE CONSITIPATION Last administered on 12/01/17at 04:08; Start 11/28/17 at 05:45 Chlorhexidine Gluconate (Peridex 0.12% Liq) 15 ml BID@08,20 MT Last administered on 12/16/17at 20:00; Start 11/28/17 at 08:00 Propofol 100 ml @ 2.4 mls/hr TITRATE PRN IV SEDATION Last administered on 12/14at 05:49; Start 11/28/17 at 05:45; Stop 12/15/17 at 16:16; Status DC Pharmacy Profile Note 0 ml @ 0 mls/hr UNSCH OTHER ; Start 11/28/17 at 06:00 Albuterol/ Ipratropium (Duoneb Neb) 1 ampule Q4HR NEB INH Last administered on 12/02/17at 11:51; Start 11/28/17 at 12:00; Stop 12/02/17 at 11:59; Status DC Famotidine (Pepcid Inj) 10 mg Q12HR IV PUSH ; Start 11/28/17 at 21:00; Status Cancel Famotidine (Pepcid Inj) 10 mg Q12HR IV PUSH Last administered on 12/02/17at 07: 59; Start 11/28/17 at 10:00; Stop 12/02/17 at 12:03; Status DC Methylprednisolone Sodium Succinate (SoluMEDROL INJ) 60 mg Q6HR IV PUSH Last administered on 12/08/17at 05:09; Start 11/29/17 at 12:00; Stop 12/08/17 at 08:51; Status DC Levofloxacin (Levaquin Liq) 500 mg DAILY NG Last administered on 12/09/17at 09: 00; Start 11/29/17 at 10:30; Stop 12/09/17 at 10:29; Status DC Potassium Chloride 100 ml @ 50 mls/hr Q2H PRN IV For Potassium 2.8 - 3.2 mEq/L ; Start 11/29/17 at 20:00; Stop 12/18/17 at 07:22; Status DC Potassium Chloride 100 ml @ 50 mls/hr Q2H PRN IV For Potassium 2.8 - 3.2 mEq/ L Last administered on 11/29/17at 23:01; Start 11/29/17 at 20:00; Stop 12/18/17 at 07:22; Status DC Potassium Bicarb/ Potassium Chloride (K-Lyte Cl Eff) 50 meq UNSCH PRN PO For Potassium 3.3 - 3.5 mEq/L; Start 11/29/17 at 20:00; Stop 12/18/17 at 07:22; Status DC Potassium Chloride 100 ml @ 25 mls/hr UNSCH PRN IV For Potassium 3.3 - 3.5 mEq /L; Start 11/29/17 at 20:00; Stop 12/18/17 at 07:22; Status DC Potassium Chloride 100 ml @ 50 mls/hr Q2H PRN IV For Potassium 3.3 - 3.5 mEq/L ; Start 11/29/17 at 20:00; Stop 12/18/17 at 07:22; Status DC Magnesium Sulfate 4 gm/Sodium Chloride 100 ml @ 50 mls/hr UNSCH PRN IV For Magnesium 0.9 - 1.1 mg/dL; Start 11/29/17 at 20:00; Stop 12/18/17 at 07:22; Status DC Magnesium Oxide (Mag-Ox) 800 mg UNSCH PRN PO For Magnesium 1.2 - 1.6 mg/dL; Start 11/29/17 at 20:00; Stop 12/18/17 at 07:22; Status DC Magnesium Sulfate 2 gm/Sodium Chloride 100 ml @ 50 mls/hr UNSCH PRN IV For Magnesium 1.2 - 1.6 mg/dL; Start 11/29/17 at 20:00; Stop 12/18/17 at 07:22; Status DC Potassium Phosphate (K-Phos) 2,000 mg Q4H PRN PO For Phosphorus < 2.5 mg/dL; Start 11/29/17 at 20:00; Stop 12/18/17 at 07:22; Status DC Sodium Phosphate 30 mmol/Sodium Chloride 250 ml @ 42 mls/hr UNSCH PRN IV For Phosphorus < 2.5 mg/dL Last administered on 12/01/17at 02:49; Start 11/29/17 at 20:00; Stop 12/18/17 at 07:22; Status DC Potassium Phosphate (K-Phos) 2,000 mg UNSCH PRN PO/TUBE SEE LABEL COMMENTS Last administered on 11/29/17at 23:25; Start 11/29/17 at 20:00; Stop 12/18/17 at 07:22; Status DC Potassium Phosphate 30 mmol/ Sodium Chloride 260 ml @ 42 mls/hr UNSCH PRN IV SEE LABEL COMMENTS; Start 11/29/17 at 20:00; Stop 12/18/17 at 07:22; Status DC Dexmedetomidine HCl (Precedex Inj) 38 mcg ONCE ONCE IV PUSH ; Start 11/30/17 at 08:30; Stop 11/30/17 at 08:31; Status DC Dexmedetomidine HCl 200 mcg/ Sodium Chloride 52 ml @ 3.93 mls/hr TITRATE PRN IV SEDATION Last administered on 12/02/17at 16:55; Start 11/30/17 at 08:30; Stop 12/02/17 at 19:21; Status DC Chlordiazepoxide (Librium) 25 mg TID PO Last administered on 12/09/17at 13:00; Start 12/01/17 at 09:00; Stop 12/09/17 at 15:29; Status DC Furosemide (Lasix Inj) 20 mg DAILY IV PUSH Last administered on 12/03/17at 07:56 ; Start 12/01/17 at 09:00; Status Future Hold Warfarin Sodium (Coumadin) 5 mg DAILY@1600 PO Last administered on 12/09/17 16: 00; Start 12/01/17 at 16:00; Stop 12/10/17 at 08:30; Status DC Patient Medication Teaching (Coumadin Booklet) 1 ONCE ONCE .XX Last administered on 12/01/17at 16:00; Start 12/01/17 at 16:00; Stop 12/01/17 at 16:01 ; Status DC Midazolam HCl (Versed Inj) 5 mg STK-MED ONCE .ROUTE ; Start 12/02/17 at 11:14; Stop 12/02/17 at 11:15; Status DC Famotidine (Pepcid Inj) 20 mg Q12HR IV PUSH Last administered on 12/03/17at 07: 56; Start 12/02/17 at 21:00; Stop 12/03/17 at 10:43; Status DC Dexmedetomidine HCl 1000 mcg/ Sodium Chloride 250 ml @ 3.78 mls/hr TITRATE PRN IV SEDATION Last administered on 12/03/17at 09:31; Start 12/02/17 at 19:30; Stop 12/15/17 at 16:16; Status DC Albuterol/ Ipratropium (Duoneb Neb) 1 ampule Q4HR NEB NEB Last administered on 12/06/17at 08:13; Start 12/03/17 at 12:00; Stop 12/06/17 at 12:03; Status DC Albuterol Sulfate (Albuterol Neb) 2.5 mg Q2HR NEB PRN NEB dyspnea; Start at 10:00; Stop 12/03/17 at 10:43; Status DC Famotidine (Pepcid) 20 mg BID NG Last administered on 12/18/17at 09:37; Start at 21:00 Artificial Tears (Tears Naturale Opth Soln) 1 drop Q8HR EACH EYE Last administered on 12/18/17at 06:03; Start 12/03/17 at 14:00 Dextrose (D50w (Vial) Inj) 50 ml UNSCH PRN IV PUSH HYPOGLYCEMIA-SEE COMMENTS; Start 12/03/17 at 10:45 Glucagon (Glucagon Inj) 1 mg UNSCH PRN OTHER HYPOGLYCEMIA-SEE COMMENTS; Start 12/03/17 at 10:45 Insulin Human Regular (NovoLIN R SUPPLEMENTAL SCALE) 1 Q6HR SQ Last administered on 12/04/17at 05:56; Start 12/03/17 at 12:00; Stop 12/04/17 at 09:31 ; Status DC Budesonide (Pulmicort Respule Neb) 0.5 mg Q12HR NEB NEB Last administered on at 08:00; Start 12/03/17 at 20:00 Heparin Sodium (Porcine) (Heparin Inj) 5,000 units Q12HR SQ ; Start 12/03/17 at 21:00; Stop 12/03/17 at 21:00; Status DC Acetaminophen (Tylenol 650 Mg/ 20 ml Liq) 650 mg Q6H PRN PO fever Last administered on 12/17/17at 06:32; Start 12/03/17 at 11:00 Albuterol Sulfate (Albuterol Neb) 2.5 mg Q2HR NEB PRN NEB dyspnea; Start at 11:00 Heparin Sodium/ Dextrose 250 ml @ 14.058 mls/ hr TITRATE PRN IV Coagulation Management Last administered on 12/07/17at 12:34; Start 12/03/17 at 11:30; Stop at 15:28; Status DC Amiloride/HCTZ (Moduretic 5-50 Mg) 1 tab DAILY PO Last administered on at 09:37; Start 12/04/17 at 09:00 Epoprostenol Sodium 62.5 ml/ Sodium Chloride 100 ml @ 5 mls/hr Q8H NEB Last administered on 12/10/17at 08:20; Start 12/03/17 at 17:00; Stop 12/10/17 at 12:46; Status DC Acetazolamide Sodium (Diamox Inj) 500 mg ONCE ONCE IV PUSH Last administered on 12/04/17at 10:33; Start 12/04/17 at 09:30; Stop 12/04/17 at 09:31; Status DC Dextrose (D50w (Vial) Inj) 50 ml UNSCH PRN IV PUSH HYPOGLYCEMIA-SEE COMMENTS; Start 12/04/17 at 08:30; Stop 12/04/17 at 09:30; Status DC Glucagon (Glucagon Inj) 1 mg UNSCH PRN OTHER HYPOGLYCEMIA-SEE COMMENTS; Start 12/04/17 at 08:30; Stop 12/04/17 at 09:32; Status DC Insulin Aspart (NovoLOG SUPPLEMENTAL SCALE) 1 Q6HR SQ Last administered on at 12:00; Start 12/04/17 at 12:00; Stop 12/15/17 at 22:43; Status DC Polyethylene Glycol (Miralax) 17 gm ONCE ONCE PO Last administered on at 10:33; Start 12/04/17 at 09:45; Stop 12/04/17 at 09:59; Status DC Polyethylene Glycol (Miralax) 17 gm BID PO Last administered on 12/14/17at 09:03 ; Start 12/04/17 at 21:00; Stop 12/15/17 at 16:16; Status DC Lactulose (Lactulose Liq) 30 ml QID PO Last administered on 12/07/17at 21:07; Start 12/04/17 at 13:00; Stop 12/08/17 at 08:51; Status DC Mineral Oil (Kondremul Liq) 30 ml ONCE ONCE PO Last administered on 12/04/17at 11:22; Start 12/04/17 at 09:45; Stop 12/04/17 at 09:59; Status DC Potassium Phos/ Sodium Phos (K-Phos Neutral) 1,000 mg ONCE ONCE OG-TUBE Last administered on 12/04/17at 10:33; Start 12/04/17 at 09:45; Stop 12/04/17 at 09:59 ; Status DC Pharmacy Profile Note 0 ml @ 0 mls/hr UNSCH OTHER ; Start 12/04/17 at 14:45; Stop 12/11/17 at 16:10; Status DC Piperacillin Sod/ Tazobactam Sod 100 ml @ 200 mls/hr Q6H IV Last administered on 12/11/17at 15:37; Start 12/04/17 at 16:00; Stop 12/11/17 at 16:10; Status DC Norepinephrine Bitartrate 4 mg/ Sodium Chloride 250 ml @ 7.5 mls/hr TITRATE PRN IV Blood pressure management Last administered on 12/10/17at 07:00; Start at 15:30; Stop 12/15/17 at 16:16; Status DC Terbutaline Sulfate (Brethine Inj) 1 mg UNSCH PRN SQ For Extravasation; Start 12/04/17 at 15:30; Stop 12/15/17 at 16:16; Status DC Vancomycin HCl 1250 mg/Sodium Chloride 262.5 ml @ 250 mls/hr Q12H IV Last administered on 12/09/17at 05:59; Start 12/04/17 at 17:00; Stop 12/09/17 at 11:26; Status DC Miscellaneous Information ([facility] Ordered Lab Info) SPECIFIC LAB TO BE DRAWN:VANCO TROUGH DATE TO BE DRViktor.. ONCE ONCE .XX Last administered on at 04:45; Start 12/06/17 at 04:45; Stop 12/06/17 at 04:46; Status DC Mupirocin (Bactroban Nasal 2% Oint) Taper BID EACH NARE Last administered on at 09:37; Start 12/04/17 at 21:00; Stop 11/30/18 at 20:59 Sodium Chloride (NS Flush) DAILY IV FLUSH Last administered on 12/17/17at 08:09 ; Start 12/05/17 at 09:00 Sodium Chloride (NS Flush) UNSCH PRN IV FLUSH SEE PROTOCOL; Start 12/04/17 at 17:30 Acetaminophen (Tylenol) 650 mg Q4H PRN PO HEADACHE; Start 12/04/17 at 17:30; Status Cancel Cefazolin Sodium 1000 mg/Sodium Chloride 100 ml @ 200 mls/hr Q8H IV ; Start at 18:00; Status Cancel Warfarin Sodium (Coumadin) 1 mg ONCE@1600 ONCE PO Last administered on at 17:54; Start 12/05/17 at 16:00; Stop 12/05/17 at 16:01; Status DC Permethrin (Nix Creme Rinse 1% Lotion) 1 applic ONCE ONCE TOPICAL Last administered on 12/06/17at 07:00; Start 12/06/17 at 07:00; Stop 12/06/17 at 07:03; Status DC Albuterol/ Ipratropium (Duoneb Neb) 1 ampule Q4HR NEB NEB Last administered on 12/10/17at 09:15; Start 12/06/17 at 16:00; Stop 12/10/17 at 10:17; Status DC Furosemide (Lasix Inj) 40 mg ONCE ONCE IV PUSH Last administered on 12/06/17at 13:36; Start 12/06/17 at 12:15; Stop 12/06/17 at 12:16; Status DC Albumin Human 50 ml @ 60 mls/hr ONCE ONCE IV Last administered on 12/06/17at 13: 37; Start 12/06/17 at 12:15; Stop 12/06/17 at 13:04; Status DC Sodium Chloride (Sodium Chloride 3% Neb) 2 ml Q4HR NEB NEB Last administered on 12/07/17at 16:14; Start 12/06/17 at 16:00; Stop 12/07/17 at 16:45; Status DC Guaifenesin (Robitussin Liq) 400 mg Q8HR NG Last administered on 12/13/17at 06:15 ; Start 12/06/17 at 14:00; Stop 12/13/17 at 13:59; Status DC Warfarin Sodium (Coumadin) 1 mg ONCE@1600 ONCE PO Last administered on at 16:43; Start 12/06/17 at 16:00; Stop 12/06/17 at 16:01; Status DC Furosemide (Lasix Inj) 20 mg ONCE ONCE IV PUSH Last administered on 12/07/17at 10:40; Start 12/07/17 at 10:00; Stop 12/07/17 at 10:01; Status DC Albumin Human 50 ml @ 60 mls/hr ONCE ONCE IV Last administered on 12/07/17at 12: 45; Start 12/07/17 at 10:00; Stop 12/07/17 at 10:49; Status DC Warfarin Sodium (Coumadin) 1 mg ONCE@1600 ONCE PO Last administered on 16:52; Start 12/07/17 at 16:00; Stop 12/07/17 at 16:01; Status DC Rocuronium [place]send (Zemuron Inj) 100 mg BOLUS ONCE IV Last administered on 12/07 14:30; Start 12/07/17 at 14:15; Stop 12/07/17 at 14:16; Status DC Etomidate (Amidate Inj) 40 mg ONCE ONCE IV PUSH Last administered on 12/07/17at 14:27; Start 12/07/17 at 14:15; Stop 12/07/17 at 14:16; Status DC Heparin Sodium/ Dextrose 250 ml @ 14.058 mls/ hr TITRATE PRN IV Coagulation Management Last administered on 12/07/17 19:00; Start 12/07/17 at 18:30; Stop 12/08/17 at 15:21; Status DC Albumin Human 50 ml @ 60 mls/hr ONCE ONCE IV Last administered on 12/07/17 17: 21; Start 12/07/17 at 16:30; Stop 12/07/17 at 17:19; Status DC Furosemide (Lasix Inj) 20 mg ONCE ONCE IV PUSH Last administered on 12/07/17 17:21; Start 12/07/17 at 16:30; Stop 12/07/17 at 16:34; Status DC Lactulose (Lactulose Liq) 30 ml BID PO Last administered on 12/17/17at 08:09; Start 12/08/17 at 09:00 Methylprednisolone Sodium Succinate (SoluMEDROL INJ) 40 mg Q8HR IV PUSH Last administered on 12/12/17at 14:08; Start 12/08/17 at 14:00; Stop 12/12/17 at 16:27; Status DC Warfarin Sodium (Coumadin) 2.5 mg ONCE ONCE PO Last administered on 12/08/17at 15:19; Start 12/08/17 at 16:00; Stop 12/08/17 at 16:01; Status DC Miscellaneous Information ([facility] Ordered Lab Info) SPECIFIC LAB TO BE CORINA... ONCE ONCE .XX Last administered on 12/09/17at 06:00; Start 12/09/17 at 04: 45; Stop 12/09/17 at 04:46; Status DC Heparin Sodium/ Dextrose 250 ml @ 15 mls/hr TITRATE PRN IV Coagulation Management Last administered on 12/18/17at 04:02; Start 12/08/17 at 15:30 Vancomycin HCl 1000 mg/Sodium Chloride 250 ml @ 250 mls/hr Q12H IV Last administered on 12/11/17at 07:05; Start 12/09/17 at 18:00; Stop 12/11/17 at 09:18; Status DC Miscellaneous Information ([facility] Ordered Lab Info) SPECIFIC LAB TO BE DRAWN:VANCO TROUGH DATE... ONCE ONCE .XX Last administered on 12/11/17at 05:07; Start 12/11/17 at 05:45; Stop 12/11/17 at 05:46; Status DC Chlordiazepoxide (Librium) 25 mg Taper DAILY PO Last administered on 12/11/17at 09:12; Start 12/10/17 at 01:00; Stop 12/12/17 at 00:59; Status DC Acetazolamide Sodium (Diamox Inj) 500 mg ONCE ONCE IV PUSH Last administered on 12/09/17at 15:30; Start 12/09/17 at 15:30; Stop 12/09/17 at 15:31; Status DC Furosemide (Lasix Inj) 40 mg ONCE ONCE IV PUSH Last administered on 12/09/17at 15:30; Start 12/09/17 at 15:30; Stop 12/09/17 at 15:34; Status DC Warfarin Sodium (Coumadin) 6 mg DAILY@1600 PO Last administered on 12/10/17at 15: 41; Start 12/10/17 at 16:00; Stop 12/11/17 at 07:21; Status DC Albuterol/ Ipratropium (Duoneb Neb) 1 ampule Q4HR NEB NEB Last administered on 12/13/17at 12:40; Start 12/10/17 at 12:00; Stop 12/13/17 at 21:05; Status DC Epoprostenol Sodium 50 ml/ Sodium Chloride 100 ml @ 5 mls/hr Q8H NEB Last administered on 12/11/17at 15:37; Start 12/10/17 at 16:00; Stop 12/11/17 at 16:10; Status DC Warfarin Sodium (Coumadin) 7.5 mg ONCE@1600 ONCE PO Last administered on at 16:59; Start 12/11/17 at 16:00; Stop 12/11/17 at 16:01; Status DC Vancomycin HCl 1250 mg/Sodium Chloride 262.5 ml @ 250 mls/hr Q18H IV ; Start at 00:00; Stop 12/12/17 at 00:00; Status DC Miscellaneous Information ([facility] Ordered Lab Info) SPECIFIC LAB TO BE DRAWN:VA... ONCE ONCE .XX ; Start 12/13/17 at 11:45; Stop 12/13/17 at 11:46; Status Cancel Ceftriaxone Sodium 2000 mg/ Sodium Chloride 100 ml @ 200 mls/hr Q24H IV Last administered on 12/13/17at 18:53; Start 12/11/17 at 17:00; Stop 12/14/17 at 16:59; Status DC Furosemide (Lasix Inj) 20 mg ONCE ONCE IV PUSH Last administered on 12/11/17at 17:11; Start 12/11/17 at 16:15; Stop 12/11/17 at 16:48; Status DC Warfarin Sodium (Coumadin) 7.5 mg DAILY@1600 PO Last administered on 12/17/17at 16:00; Start 12/12/17 at 16:00; Stop 12/18/17 at 07:38; Status DC Methylprednisolone Sodium Succinate (SoluMEDROL INJ) 40 mg Q12HR IV PUSH Last administered on 12/15/17at 08:26; Start 12/12/17 at 21:00; Stop 12/15/17 at 16:16 ; Status DC Furosemide (Lasix Inj) 20 mg ONCE ONCE IV PUSH Last administered on 12/12/17at 17:07; Start 12/12/17 at 17:00; Stop 12/12/17 at 17:01; Status DC Albuterol/ Ipratropium (Duoneb Neb) 1 ampule Q4HR NEB NEB Last administered on 12/17/17at 19:59; Start 12/14/17 at 00:00; Stop 12/17/17 at 23:59; Status DC Furosemide (Lasix Inj) 40 mg ONCE ONCE IV PUSH Last administered on 12/13/17at 22:41; Start 12/13/17 at 21:15; Stop 12/13/17 at 21:21; Status DC Albumin Human 100 ml @ 60 mls/hr ONCE ONCE IV Last administered on 12/13/17at 22:41; Start 12/13/17 at 21:15; Stop 12/13/17 at 22:54; Status DC Warfarin Sodium (Coumadin) 2.5 mg ONCE ONCE PO Last administered on 12/14/17at 18:22; Start 12/14/17 at 16:00; Stop 12/14/17 at 16:01; Status DC Albumin Human 100 ml @ 60 mls/hr ONCE ONCE IV Last administered on 12/14/17at 12:45; Start 12/14/17 at 12:45; Stop 12/14/17 at 14:24; Status DC Furosemide (Lasix Inj) 40 mg ONCE ONCE IV PUSH Last administered on 12/14/17at 12:45; Start 12/14/17 at 12:45; Stop 12/14/17 at 13:22; Status DC Acetazolamide Sodium (Diamox Inj) 250 mg ONCE ONCE IV PUSH Last administered on 12/14/17at 12:45; Start 12/14/17 at 12:45; Stop 12/14/17 at 13:22; Status DC Warfarin Sodium (Coumadin) 2.5 mg ONCE ONCE PO Last administered on 12/15/17at 15:43; Start 12/15/17 at 16:00; Stop 12/15/17 at 16:01; Status DC Methylprednisolone Sodium Succinate (SoluMEDROL INJ) 40 mg DAILY IV PUSH Last administered on 12/18/17at 09:37; Start 12/16/17 at 09:00 Insulin Aspart (NovoLOG SUPPLEMENTAL SCALE) 1 ACHS SQ ; Start 12/16/17 at 08:00 Warfarin Sodium (Coumadin) 5 mg ONCE ONCE PO Last administered on 12/16/17at 16 :00; Start 12/16/17 at 16:00; Stop 12/16/17 at 16:01; Status DC Hydromorphone HCl (Dilaudid Pf Inj) 1 mg Q4H PRN IV PUSH PAIN SCALE 6 TO 10 Last administered on 12/17/17at 12:11; Start 12/17/17 at 07:45 Permethrin (Elimite 5% Cream) 1 applic ONCE ONCE TOPICAL Last administered on 12/17/17at 13:30; Start 12/17/17 at 13:30; Stop 12/17/17 at 13:31; Status DC Warfarin Sodium (Coumadin) 5 mg DAILY@1600 PO ; Start 12/18/17 at 16:00 A/P Assessment and Plan NEURO/PSYCH: EtOH abuse/withdrawal History of right frontal CVA Depression/anxiety s/p chlordiazepoxide taper. Acetaminophen 650 mg p.o. every 6 hours as needed fever CV: Coronary artery disease Essential hypertension Hyperlipidemia Continue amiloride/hydrochlorthiazide 5/50 1 tablet daily Off all vasopressors. Resp: Acute hypoxemic respiratory failure COPD Bilateral lower lobe lung collapse status post bronchoscopy 12/02 Nasal cannula to maintain saturations greater than equal to 92% Incentive spirometry while awake Ventilator bundle Albuterol/ipratropium aerosols every 4 hours with albuterol aerosols every 2 hours as needed dyspnea Budesonide 0.5/2 1 inhalation twice daily On budesonide/formoterol 160/4.5 2 puffs twice daily at home Previously started on methylprednisolone succinate currently at 40 mg every 8 hours. Noted allergy to prednisone: wean to 40mg iv daily daily SBTs. would consider extubation, but very high risk of re-intubation if she is extubated. Chest x-ray worsening right lower lobe versus effusion. VQ scan low probability for pulmonary embolism EXTUBATED GI: Gastroesophageal reflux disease Hepatitis C Hypoalbuminemia/moderate protein calorie malnutrition Elevated AST Patient is currently on honey thickened Famotidine for GI prophylaxis Docusate serum/senna 1 tablet twice daily for bowel regimen. : voiding.. No indication for Phillip catheter Endo: Hyperglycemia Sliding scale insulin with Accu-Cheks to maintain euglycemia while on high-dose steroids Renal: Creatinine currently within normal limits Monitor urine output Accurate I's and O's Heme: Factor V Leiden on chronic anticoagulation Normocytic anemia Leukocytosis Chronic warfarin use History of left lower extremity DVT status post IVC filter Currently on heparin drip at 900 units an hour with transition to warfarin per pharmacy consultation. Currently at 7.5 mg daily INR currently 1.1: plan to d/ c heparin drip once INR > 2. At home on enoxaparin 80 mg subcu twice daily with warfarin 7.5 mg daily Monitor CBC daily. Along with PT/INR/PTT PA HEPARIN DRIP INR IS 2.1 ID: MRSA pneumonia Pediculosis capitis MRSA nares Vancomycin/Pipracil/tazobactam 12/04 - 12/11 Rocephin 12/11 - 12/14. d/c rocephin today. completed course for all identified microbes. Continue permethrin 1 dose. Mupirocin to nares twice daily WILL RETREAT FOR LICE Pertinent cultures 12/07 -sputum from bronchoscopy-MSSA 12/03 -sputum -MRSA 12/03 -blood cultures 2 -no growth Influenza negative FEN: Replace electrolytes as clinically indicated MSK: Osteoporosis/chronic low back pain PT evaluate and treat Access -CVL/right IJ placed 12/03-12/14 Prophylaxis -GI -famotidine -DVT -SCD/heparin drip/warfarin Discharge Planning PENDING IMPROVEMENT MAY NEED SNF AT [facility] Shaun Moe DO Dec 18, 2017 12:01
[2017-12-18 16:00] VITALS: BP 137/86; PULSE 104; RESP 18; TEMP 98.5; O2SAT 95
[2017-12-18 17:40] LABS: HEMOGLOBIN A1C 6.4 % (4.3-6.0)
[2017-12-18] MEDS: WARFARIN SOD 5 MG TAB PO SCH (18:41)
[2017-12-18 20:00] VITALS: BP 160/90; PULSE 108; RESP 18; TEMP 98; O2SAT 96
[2017-12-18 21:38] VITALS: O2SAT 94
[2017-12-18] MEDS: HYDROmorphone HCL PF 2 MG/ML VIAL IV PUSH PRN (22:07)
[2017-12-19] VITALS: BP 147/104; PULSE 100; RESP 19; TEMP 98.5; O2SAT 95
[2017-12-19 04:00] VITALS: BP 134/99; PULSE 105; RESP 19; TEMP 97.1; O2SAT 94
[2017-12-19] MEDS: CHLORHEXIDINE GLUCONATE 2 % 1 PACK (2 CLOTHS) TOP SCH (04:00)
[2017-12-19] MEDS: ARTIFICIAL TEARS OPTH SOLN 15 ML BTL EACH EYE SCH ×3 (06:13→21:53)
[2017-12-19] MEDS: INSULIN ASPART SUPPLEMENTAL SCALE SQ SCH ×4 (08:00→21:00)
[2017-12-19] MEDS: CHLORHEXIDINE 0.12% (ORAL KIT) 15 ML CUP MT SCH ×2 (08:00→20:00)
[2017-12-19 08:35] VITALS: BP 142/95; PULSE 102; RESP 18; TEMP 96; O2SAT 92
[2017-12-19] MEDS: RESP: BUDESONIDE 0.5 MG/2 ML NEB NEB SCH ×2 (08:40→20:11)
[2017-12-19] MEDS: MUPIROCIN 2% OINT 1 APPLIC/GM SYR EACH NARE SCH ×2 (09:00→21:49)
[2017-12-19] MEDS: SODIUM CHLORIDE 0.9% FLUSH 10 ML FLUSH IV FLUSH SCH ×3 (09:00→21:50)
[2017-12-19] MEDS: DOCUSATE SODIUM 50 MG/SENNA 8.6 MG TAB PO SCH ×2 (09:56→21:00)
[2017-12-19] MEDS: aMILoride/HCTZ 5 MG/50 MG TAB PO SCH (09:56)
[2017-12-19] MEDS: methylPREDNISolone SOD SUCC 40 MG/1 ML VIAL IV PUSH SCH (09:56)
[2017-12-19] MEDS: FAMOTIDINE 20 MG TAB NG SCH ×2 (09:56→21:49)
[2017-12-19] MEDS: LACTULOSE SYRUP 20 GM/30 ML CUP PO SCH ×2 (09:56→21:00)
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
[2017-12-19 12:28] LABS: INTERNATIONAL NORMALIZED RATIO 2.3 RATIO; PROTHROMBIN TIME - PATIENT 23.6 SEC (9.8-11.6)
[2017-12-19 12:31] VITALS: BP 137/90; PULSE 102; RESP 18; TEMP 97.2; O2SAT 93
--- NOTE | 2017-12-19 13:07 | HHI.PR ---
Subjective Remarks 57-year-old female who presented to emergency department complaining of SOB and coughing. She has also complained of severe left back rib area pain. In the emergency department she was desaturating to 80s on room air and 88 on 2 L nasal cannula. She was intubated by ED attending for an acute hypoxemic respiratory failure. She was intubated by ED attending. She is on Coumadin/ Lovenox 1 mg/kg every 12 hours for factor V Leiden mutation. Her INR is subtherapeutic. Attempted SBTs but patient could not tolerate due to severe bronchospasm. 11/30: Continued agitation but bronchospasm is minimally improved. Although she carries a prednisone allergy on her chart she is tolerating Solu-Medrol without difficulty. 12/01: Without heavy sedation patient becomes extremely agitated and developed severe airway collapse with very poor air movement. Unprovoked her wheezing has ceased but with agitation she developed some minimal tidal volume. We have added Precedex and will add p.o. Librium and try to rapidly extubate her. I am not optimistic. This is probably why she is required tracheostomy in the past. 12/02: Patient has developed right lower lobe atelectasis and partial collapse of the right middle lobe. Will undoubtedly require bronchoscopy to remove inspissated plugs. Her anxiety and agitation continues to be problematic and she does not respond to Precedex. 12/03: Resting comfortably in bed in no acute distress. FiO2 100%. X-ray this a.m. revealed resolution of lower lobe collapse. Minimal secretions from ET tube. Positive BM 1 12/04: T-max 99.9. Remains on epoprostenol. Did not tolerate bilevel or increased PEEP. Tolerating tube feeds at goal. Currently on propofol and fentanyl drips. 12/05: Afebrile. Remains on norepinephrine drip at 3 mcg/min. FiO2 requirements decreased to 60% overnight. Arousable the ventilator. She is on propofol and fentanyl drips. 12/06: Afebrile. FiO2 currently 50%. Remains on epoprostenol aerosolized. Noted to have a pediculosis capitis. Permethrin currently being applied. 12/07: FiO2 at 60%. Afebrile. Arousable on the ventilator and sedation. Appears comfortable. Tolerating tube feeding. 12/08: Still continues to have pediculosis capitis. Status post bronchoscopy yesterday with thin frothy clear secretions noted. No mucous plugging. Currently afebrile. Tolerating tube feeding. Arousable and follows commands on the ventilator remains on epoprostenol aerosolized maximum 50 ng/kg/min 12/09: no improvements or changes. remains hypoxic on 70% fio2. requires inhaled flolan. 12/10: Afebrile. FiO2 down to 40%. Follows commands normally on the ventilator. Tolerating tube feeds. Positive BM. 12/11: no meaningful improvements in days. palliative care working with the son who is here on [facility] from senior care. 12/12: no improvements. net -2L/24h. off flolan. remains intubated on full support. per the patient, she does not want her son making healthcare decisions , so legally it falls to her sister, who is currently undergoing elective surgery of her own today and cannot make medical decisions. 12/13: still failing weaning trials. no changes or improvements. 60% fio2. 12/14: on SBT today. more awake. fio2 down to 40%. still very high risk for failing any trials of extubation. 12/15: Extubated yesterday. Currently on honey thick liquid diet. Tolerating nasal cannula. 12/16: Extubated 36 hours ago, continues to breathe comfortably on NC O2. 12-17 TRANSFERRED TO OUR SERVICE TODAY WILL RETREAT FOR LICE DW RN AND PT INCREASE ACTIVITY PT AND OT AM LABS CONTINUE TO RELOAD COUMADIN NOT AT GOAL INR 2.0 TO 3.0 YET 12-18 INR IS 2.1 HAS BEEN TREATED AGAIN FOR LICE NOT VERY MOBILE YET STILL HAVING NEED FOR DYSPHAGIA DIET, THICKENED LIQUIDS 12-19 DW PT AND RN AND SPEECH NEEDS TO WORK WITH PT AND OT AND SPEECH STILL SEEMS TO HAVE LICE ETC [facility]ARM[facility]Y TO FIND ANOTHER TREATMENT- PENDING INR 2.3 AM LABS RETREAT LICE TOMORROW AGAIN Objective Vitals Vital Signs Date Time Temp Pulse Resp B/P (MAP) Pulse Ox O2 Delivery O2 Flow Rate FiO2 12/19/17 12:31 97.2 102 18 137/90 (106) 93 12/19/17 08:35 96.0 102 18 142/95 (111) 92 12/19/17 04:00 97.1 105 19 134/99 (111) 94 12/19/17 00:00 98.5 100 19 147/104 (118) 95 12/18/17 21:38 94 Nasal Cannula 2.00 12/18/17 20:00 98.0 108 18 160/90 (113) 96 12/18/17 16:00 98.5 104 18 137/86 (103) 95 I/O 12/18/17 12/18/17 12/18/17 12/19/17 12/19/17 12/19/17 06:59 14:59 22:59 06:59 14:59 22:59 Intake Total 240 ml 360 ml Output Total 600 ml 1250 ml 350 ml Balance -600 ml 240 ml -1250 ml 10 ml Intake Oral 240 ml 360 ml Output Urine Total 600 ml 1250 ml 350 ml Bladder Scan Volume Amount 425 ml 321 ml 425 ml Result Diagram: 12/18/17 0425 12/18/17 0425 Other Results Laboratory Tests Test 12/16/17 22:01 12/17/17 04:57 12/17/17 09:26 12/17/17 14:36 Activated Partial Thromboplast Time 41.1 SEC 94.8 SEC 48.5 SEC 54.1 SEC Prothrombin Time 14.8 SEC Prothromb Time International Ratio 1.5 RATIO Test 12/18/17 04:25 12/19/17 11:50 White Blood Count 11.6 TH/MM3 Red Blood Count 5.12 MIL/MM3 Hemoglobin 15.6 GM/DL Hematocrit 47.9 % Mean Corpuscular Volume 93.5 FL Mean Corpuscular Hemoglobin 30.4 PG Mean Corpuscular Hemoglobin Concent 32.6 % Red Cell Distribution Width 19.7 % Platelet Count 293 TH/MM3 Mean Platelet Volume 10.3 FL Neutrophils (%) (Auto) 80.6 % Lymphocytes (%) (Auto) 10.4 % Monocytes (%) (Auto) 7.7 % Eosinophils (%) (Auto) 0.5 % Basophils (%) (Auto) 0.8 % Neutrophils # (Auto) 9.4 TH/MM3 Lymphocytes # (Auto) 1.2 TH/MM3 Monocytes # (Auto) 0.9 TH/MM3 Eosinophils # (Auto) 0.1 TH/MM3 Basophils # (Auto) 0.1 TH/MM3 CBC Comment DIFF FINAL Differential Comment Prothrombin Time 21.1 SEC 23.6 SEC Prothromb Time International Ratio 2.1 RATIO 2.3 RATIO Blood Urea Nitrogen 78 MG/DL Creatinine 1.08 MG/DL Random Glucose 132 MG/DL Total Protein 9.2 GM/DL Albumin 4.4 GM/DL Calcium Level 10.6 MG/DL Phosphorus Level 4.5 MG/DL Magnesium Level 2.8 MG/DL Alkaline Phosphatase 90 U/L Aspartate Amino Transf (AST/SGOT) 33 U/L Alanine Aminotransferase (ALT/SGPT) 71 U/L Total Bilirubin 0.8 MG/DL Sodium Level 139 MEQ/L Potassium Level 4.1 MEQ/L Chloride Level 105 MEQ/L Carbon Dioxide Level 18.5 MEQ/L Anion Gap 16 MEQ/L Estimat Glomerular Filtration Rate 53 ML/MIN Hemoglobin A1c 6.4 % Free Thyroxine 1.43 NG/DL Thyroid Stimulating Hormone 3rd Gen 0.622 uIU/ML Imaging Last Impressions Chest X-Ray 12/11/17 0600 Signed Impressions: CONCLUSION: Support apparatus unchanged. Improved right basilar airspace disease since December 08. Lower Extremity Ultrasound 12/03/17 0000 Signed Impressions: CONCLUSION: 1. The study is negative for bilateral lower extremity deep venous thrombosis. Ribs X-Ray 11/28/17 0000 Signed Impressions: CONCLUSION: Deformities at the anterior lateral left ninth and 10th ribs prior fracture. Lung Scan-V Nuclear Medicine 11/28/17 0000 Signed Impressions: CONCLUSION: Low probability scan for pulmonary embolism Objective Remarks GENERAL: AWAKE ALERT AND ORIENTED X 1 TO 2- SPEAKING IN WHISPER ONLY STLL SKIN: Warm and dry. HEAD: Atraumatic. Normocephalic. EYES: Pupils equal and round. No scleral icterus. No injection or drainage. EOMI ENT: No nasal bleeding or discharge. Mucous membranes pink and moist. TONGUE MIDLINE NECK: Trachea midline. No JVD. CARDIOVASCULAR: IRRegular rate and rhythm. S1, S2 NO S3 OR S4 RESPIRATORY: No accessory muscle use. RHONCHI AND WHEEZES BL. Breath sounds equal bilaterally. GASTROINTESTINAL: Abdomen soft, non-tender, nondistended. Hepatic and splenic margins not palpable. MUSCULOSKELETAL: Extremities without clubbing, cyanosis, or edema. No obvious deformities. NEUROLOGICAL: Awake and alert. No obvious cranial nerve deficits. Motor grossly within normal limits. 4 out of 5 muscle strength in the arms and legs. Normal speech. PSYCHIATRIC: INAppropriate mood and affect; insight and judgment ABnormal. Procedures MULTIPLE BRONCHOSCOPIES INTUBATION AND VENT MANAGEMENT Medications and IVs Current Medications Albuterol/ Ipratropium (Duoneb Neb) 1 ampule ONCE ONCE NEB Last administered on 11/28/17at 02:25; Start 11/28/17 at 02:30; Stop 11/28/17 at 02:31; Status DC Acetaminophen/ Hydrocodone Bitart ([place] 5-325 Mg) 1 tab ONCE ONCE PO ; Start 11/28/17 at 02:30; Stop 11/28/17 at 02:31; Status DC Ketorolac Tromethamine (Toradol Inj) 60 mg ONCE ONCE IM ; Start 11/28/17 at 02: 30; Stop 11/28/17 at 03:49; Status DC Lorazepam (Ativan Inj) 0.5 mg ONCE ONCE IV PUSH Last administered on at 03:55; Start 11/28/17 at 04:00; Stop 11/28/17 at 04:01; Status DC Ketorolac Tromethamine (Toradol Inj) 30 mg ONCE ONCE IV PUSH Last administered on 11/28/17at 03:55; Start 11/28/17 at 04:00; Stop 11/28/17 at 04:01 ; Status DC Morphine Sulfate (Morphine Inj) 2 mg ONCE ONCE IV PUSH ; Start 11/28/17 at 04: 15; Stop 11/28/17 at 04:16; Status DC Morphine Sulfate (Morphine Inj) 4 mg STK-MED ONCE .ROUTE ; Start 11/28/17 at 04: 09; Stop 11/28/17 at 04:10; Status DC Sodium Chloride 1,000 ml @ 999 mls/hr BOLUS ONCE IV Last administered on 11/28at 05:37; Start 11/28/17 at 04:30; Stop 11/28/17 at 05:30; Status DC Naloxone HCl (Narcan Inj) 2 mg ONCE ONCE IV PUSH Last administered on at 05:37; Start 11/28/17 at 04:45; Stop 11/28/17 at 04:46; Status DC Etomidate (Amidate Inj) 40 mg STK-MED ONCE .ROUTE ; Start 11/28/17 at 04:45; Stop 11/28/17 at 04:46; Status DC Propofol 100 ml @ 0 mls/hr TITRATE PRN IV SEDATION; Start 11/28/17 at 04:45; Stop 11/28/17 at 05:53; Status DC Propofol 50 ml @ As Directed STK-MED ONCE .ROUTE Last administered on at 05:47; Start 11/28/17 at 05:00; Stop 11/28/17 at 05:01; Status DC Midazolam HCl (Versed Inj) 5 mg STK-MED ONCE .ROUTE ; Start 11/28/17 at 05:03; Stop 11/28/17 at 05:04; Status DC Ceftriaxone Sodium 1000 mg/ Sodium Chloride 100 ml @ 200 mls/hr ONCE ONCE IV Last administered on 11/28/17at 05:56; Start 11/28/17 at 05:15; Stop 11/28/17 at 05:44; Status DC Fentanyl Citrate 250 ml TITRATE PRN IV SEDATION; Start 11/28/17 at 05:15; Stop 11/28/17 at 05:34; Status DC Midazolam HCl 100 ml TITRATE PRN IV SEDATION; Start 11/28/17 at 05:15; Status UNV Miscellaneous Information ([facility]) "NEED HT & WT TO VERIFY... Q15M .XX Last administered on 11/28/17at 08:00; Start 11/28/17 at 05:15; Stop at 10:01; Status DC Midazolam HCl (Versed Inj) 5 mg ONCE ONCE IV Last administered on 11/28/17at 05 :38; Start 11/28/17 at 05:15; Stop 11/28/17 at 05:20; Status DC Midazolam HCl 50 ml @ 2 mls/hr TITRATE PRN IV SEDATION Last administered on at 19:45; Start 11/28/17 at 05:45; Stop 12/15/17 at 16:16; Status DC Fentanyl Citrate 250 ml @ 5 mls/hr TITRATE PRN IV SEDATION Last administered on 12/13/17at 02:30; Start 11/28/17 at 05:45; Stop 12/18/17 at 07:22; Status DC Succinylcholine Chloride (Quelicin Inj) 100 mg ONCE ONCE IV PUSH Last administered on 11/28/17at 05:46; Start 11/28/17 at 05:45; Stop 11/28/17 at 05:46 ; Status DC Etomidate (Amidate Inj) 20 mg ONCE ONCE IV PUSH Last administered on at 05:46; Start 11/28/17 at 05:45; Stop 11/28/17 at 05:46; Status DC Sodium Chloride 1,000 ml @ 84 mls/hr [id number] IV Last administered on at 04:08; Start 11/28/17 at 05:33; Stop 12/01/17 at 06:32; Status DC Sodium Chloride (NS Flush) 2 ml UNSCH PRN IV FLUSH FLUSH AFTER USING IV ACCESS ; Start 11/28/17 at 05:45 Sodium Chloride (NS Flush) 2 ml BID IV FLUSH Last administered on 12/19/17at 09: 55; Start 11/28/17 at 09:00 Acetaminophen (Tylenol) 650 mg Q6H PRN PO PAIN 1-5 AND/OR FEVER >101F; Start at 05:45; Stop 12/03/17 at 10:51; Status DC Hydromorphone HCl (Dilaudid Pf Inj) 1 mg Q4H PRN IV PUSH PAIN SCALE 6 TO 10; Start 11/28/17 at 05:45; Stop 12/17/17 at 07:41; Status DC Famotidine (Pepcid Inj) 20 mg Q12HR IV PUSH ; Start 11/28/17 at 09:00; Status Cancel Midazolam HCl (Versed Inj) 2 mg Q1H PRN IV PUSH SEDATION Last administered on at 00:54; Start 11/28/17 at 05:45; Stop 12/15/17 at 16:16; Status DC Artificial Tears (Tears Naturale Opth Soln) 1 drop TID EACH EYE Last administered on 12/03/17at 07:58; Start 11/28/17 at 09:00; Stop 12/03/17 at 11:17 ; Status DC Ondansetron HCl (Zofran Odt) 4 mg Q6H PRN PO NAUSEA OR VOMITING; Start at 05:45 Albuterol/ Ipratropium (Duoneb Neb) 1 ampule Q6HR NEB INH Last administered on 11/28/17at 08:59; Start 11/28/17 at 10:00; Stop 11/28/17 at 10:00; Status DC Albuterol/ Ipratropium (Duoneb Neb) 1 ampule Q2HR NEB PRN INH WHEEZING; Start 11/28/17 at 05:45; Stop 12/03/17 at 10:00; Status DC Enoxaparin Sodium (Lovenox Inj) 80 mg Q12H SQ Last administered on 11/28/17at 06 :09; Start 11/28/17 at 06:00; Stop 11/28/17 at 11:40; Status DC Miscellaneous Information ([facility]) 1 [id number] Last administered on 11/28/17at 08:30; Start 11/28/17 at 05:45 Chlorhexidine Gluconate (Chlorhexidine 2% Cloth) 3 pack Taper DAILY@04 TOP Last administered on 12/10/17at 03:46; Start 11/29/17 at 04:00; Stop 11/25/18 at 03:59 Chlorhexidine Gluconate (Chlorhexidine 2% Cloth) 3 pack UNSCH PRN TOP HYGIENIC CARE; Start 11/28/17 at 05:45 Senna/Docusate Sodium (Johnna-Colace) 1 tab BID PO Last administered on at 09:56; Start 11/28/17 at 09:00 Magnesium Hydroxide (Milk Of Magnesia Liq) 30 ml Q12H PRN PO Mild constipation Last administered on 12/13/17at 20:21; Start 11/28/17 at 05:45 Sennosides (Senokot) 17.2 mg Q12H PRN PO Moderate constipation; Start 11/28/17 at 05:45 Bisacodyl (Dulcolax Supp) 10 mg DAILY PRN RECTAL SEVERE CONSITIPATION; Start at 05:45 Lactulose (Lactulose Liq) 30 ml DAILY PRN PO SEVERE CONSITIPATION Last administered on 12/01/17at 04:08; Start 11/28/17 at 05:45 Chlorhexidine Gluconate (Peridex 0.12% Liq) 15 ml BID@08,20 MT Last administered on 12/19/17at 08:00; Start 11/28/17 at 08:00 Propofol 100 ml @ 2.4 mls/hr TITRATE PRN IV SEDATION Last administered on 12/14at 05:49; Start 11/28/17 at 05:45; Stop 12/15/17 at 16:16; Status DC Pharmacy Profile Note 0 ml @ 0 mls/hr UNSCH OTHER ; Start 11/28/17 at 06:00 Albuterol/ Ipratropium (Duoneb Neb) 1 ampule Q4HR NEB INH Last administered on 12/02/17at 11:51; Start 11/28/17 at 12:00; Stop 12/02/17 at 11:59; Status DC Famotidine (Pepcid Inj) 10 mg Q12HR IV PUSH ; Start 11/28/17 at 21:00; Status Cancel Famotidine (Pepcid Inj) 10 mg Q12HR IV PUSH Last administered on 12/02/17at 07: 59; Start 11/28/17 at 10:00; Stop 12/02/17 at 12:03; Status DC Methylprednisolone Sodium Succinate (SoluMEDROL INJ) 60 mg Q6HR IV PUSH Last administered on 12/08/17at 05:09; Start 11/29/17 at 12:00; Stop 12/08/17 at 08:51; Status DC Levofloxacin (Levaquin Liq) 500 mg DAILY NG Last administered on 12/09/17at 09: 00; Start 11/29/17 at 10:30; Stop 12/09/17 at 10:29; Status DC Potassium Chloride 100 ml @ 50 mls/hr Q2H PRN IV For Potassium 2.8 - 3.2 mEq/L ; Start 11/29/17 at 20:00; Stop 12/18/17 at 07:22; Status DC Potassium Chloride 100 ml @ 50 mls/hr Q2H PRN IV For Potassium 2.8 - 3.2 mEq/ L Last administered on 11/29/17at 23:01; Start 11/29/17 at 20:00; Stop 12/18/17 at 07:22; Status DC Potassium Bicarb/ Potassium Chloride (K-Lyte Cl Eff) 50 meq UNSCH PRN PO For Potassium 3.3 - 3.5 mEq/L; Start 11/29/17 at 20:00; Stop 12/18/17 at 07:22; Status DC Potassium Chloride 100 ml @ 25 mls/hr UNSCH PRN IV For Potassium 3.3 - 3.5 mEq /L; Start 11/29/17 at 20:00; Stop 12/18/17 at 07:22; Status DC Potassium Chloride 100 ml @ 50 mls/hr Q2H PRN IV For Potassium 3.3 - 3.5 mEq/L ; Start 11/29/17 at 20:00; Stop 12/18/17 at 07:22; Status DC Magnesium Sulfate 4 gm/Sodium Chloride 100 ml @ 50 mls/hr UNSCH PRN IV For Magnesium 0.9 - 1.1 mg/dL; Start 11/29/17 at 20:00; Stop 12/18/17 at 07:22; Status DC Magnesium Oxide (Mag-Ox) 800 mg UNSCH PRN PO For Magnesium 1.2 - 1.6 mg/dL; Start 11/29/17 at 20:00; Stop 12/18/17 at 07:22; Status DC Magnesium Sulfate 2 gm/Sodium Chloride 100 ml @ 50 mls/hr UNSCH PRN IV For Magnesium 1.2 - 1.6 mg/dL; Start 11/29/17 at 20:00; Stop 12/18/17 at 07:22; Status DC Potassium Phosphate (K-Phos) 2,000 mg Q4H PRN PO For Phosphorus < 2.5 mg/dL; Start 11/29/17 at 20:00; Stop 12/18/17 at 07:22; Status DC Sodium Phosphate 30 mmol/Sodium Chloride 250 ml @ 42 mls/hr UNSCH PRN IV For Phosphorus < 2.5 mg/dL Last administered on 12/01/17at 02:49; Start 11/29/17 at 20:00; Stop 12/18/17 at 07:22; Status DC Potassium Phosphate (K-Phos) 2,000 mg UNSCH PRN PO/TUBE SEE LABEL COMMENTS Last administered on 11/29/17at 23:25; Start 11/29/17 at 20:00; Stop 12/18/17 at 07:22; Status DC Potassium Phosphate 30 mmol/ Sodium Chloride 260 ml @ 42 mls/hr UNSCH PRN IV SEE LABEL COMMENTS; Start 11/29/17 at 20:00; Stop 12/18/17 at 07:22; Status DC Dexmedetomidine HCl (Precedex Inj) 38 mcg ONCE ONCE IV PUSH ; Start 11/30/17 at 08:30; Stop 11/30/17 at 08:31; Status DC Dexmedetomidine HCl 200 mcg/ Sodium Chloride 52 ml @ 3.93 mls/hr TITRATE PRN IV SEDATION Last administered on 12/02/17at 16:55; Start 11/30/17 at 08:30; Stop 12/02/17 at 19:21; Status DC Chlordiazepoxide (Librium) 25 mg TID PO Last administered on 12/09/17at 13:00; Start 12/01/17 at 09:00; Stop 12/09/17 at 15:29; Status DC Furosemide (Lasix Inj) 20 mg DAILY IV PUSH Last administered on 12/03/17at 07:56 ; Start 12/01/17 at 09:00; Status Future Hold Warfarin Sodium (Coumadin) 5 mg DAILY@1600 PO Last administered on 12/09/17at 16: 00; Start 12/01/17 at 16:00; Stop 12/10/17 at 08:30; Status DC Patient Medication Teaching (Coumadin Booklet) 1 ONCE ONCE .XX Last administered on 12/01/17at 16:00; Start 12/01/17 at 16:00; Stop 12/01/17 at 16:01 ; Status DC Midazolam HCl (Versed Inj) 5 mg STK-MED ONCE .ROUTE ; Start 12/02/17 at 11:14; Stop 12/02/17 at 11:15; Status DC Famotidine (Pepcid Inj) 20 mg Q12HR IV PUSH Last administered on 12/03/17at 07: 56; Start 12/02/17 at 21:00; Stop 12/03/17 at 10:43; Status DC Dexmedetomidine HCl 1000 mcg/ Sodium Chloride 250 ml @ 3.78 mls/hr TITRATE PRN IV SEDATION Last administered on 12/03/17at 09:31; Start 12/02/17 at 19:30; Stop 12/15/17 at 16:16; Status DC Albuterol/ Ipratropium (Duoneb Neb) 1 ampule Q4HR NEB NEB Last administered on 12/06/17at 08:13; Start 12/03/17 at 12:00; Stop 12/06/17 at 12:03; Status DC Albuterol Sulfate (Albuterol Neb) 2.5 mg Q2HR NEB PRN NEB dyspnea; Start at 10:00; Stop 12/03/17 at 10:43; Status DC Famotidine (Pepcid) 20 mg BID NG Last administered on 12/19/17at 09:56; Start at 21:00 Artificial Tears (Tears Naturale Opth Soln) 1 drop Q8HR EACH EYE Last administered on 12/19/17at 06:13; Start 12/03/17 at 14:00 Dextrose (D50w (Vial) Inj) 50 ml UNSCH PRN IV PUSH HYPOGLYCEMIA-SEE COMMENTS; Start 12/03/17 at 10:45 Glucagon (Glucagon Inj) 1 mg UNSCH PRN OTHER HYPOGLYCEMIA-SEE COMMENTS; Start 12/03/17 at 10:45 Insulin Human Regular (NovoLIN R SUPPLEMENTAL SCALE) 1 Q6HR SQ Last administered on 12/04/17at 05:56; Start 12/03/17 at 12:00; Stop 12/04/17 at 09:31 ; Status DC Budesonide (Pulmicort Respule Neb) 0.5 mg Q12HR NEB NEB Last administered on at 08:40; Start 12/03/17 at 20:00 Heparin Sodium (Porcine) (Heparin Inj) 5,000 units Q12HR SQ ; Start 12/03/17 at 21:00; Stop 12/03/17 at 21:00; Status DC Acetaminophen (Tylenol 650 Mg/ 20 ml Liq) 650 mg Q6H PRN PO fever Last administered on 12/17/17at 06:32; Start 12/03/17 at 11:00 Albuterol Sulfate (Albuterol Neb) 2.5 mg Q2HR NEB PRN NEB dyspnea; Start at 11:00 Heparin Sodium/ Dextrose 250 ml @ 14.058 mls/ hr TITRATE PRN IV Coagulation Management Last administered on 12/07/17at 12:34; Start 12/03/17 at 11:30; Stop at 15:28; Status DC Amiloride/HCTZ (Moduretic 5-50 Mg) 1 tab DAILY PO Last administered on at 09:56; Start 12/04/17 at 09:00 Epoprostenol Sodium 62.5 ml/ Sodium Chloride 100 ml @ 5 mls/hr Q8H NEB Last administered on 12/10/17at 08:20; Start 12/03/17 at 17:00; Stop 12/10/17 at 12:46; Status DC Acetazolamide Sodium (Diamox Inj) 500 mg ONCE ONCE IV PUSH Last administered on 12/04/17at 10:33; Start 12/04/17 at 09:30; Stop 12/04/17 at 09:31; Status DC Dextrose (D50w (Vial) Inj) 50 ml UNSCH PRN IV PUSH HYPOGLYCEMIA-SEE COMMENTS; Start 12/04/17 at 08:30; Stop 12/04/17 at 09:30; Status DC Glucagon (Glucagon Inj) 1 mg UNSCH PRN OTHER HYPOGLYCEMIA-SEE COMMENTS; Start 12/04/17 at 08:30; Stop 12/04/17 at 09:32; Status DC Insulin Aspart (NovoLOG SUPPLEMENTAL SCALE) 1 Q6HR SQ Last administered on at 12:00; Start 12/04/17 at 12:00; Stop 12/15/17 at 22:43; Status DC Polyethylene Glycol (Miralax) 17 gm ONCE ONCE PO Last administered on at 10:33; Start 12/04/17 at 09:45; Stop 12/04/17 at 09:59; Status DC Polyethylene Glycol (Miralax) 17 gm BID PO Last administered on 12/14/17at 09:03 ; Start 12/04/17 at 21:00; Stop 12/15/17 at 16:16; Status DC Lactulose (Lactulose Liq) 30 ml QID PO Last administered on 12/07/17at 21:07; Start 12/04/17 at 13:00; Stop 12/08/17 at 08:51; Status DC Mineral Oil (Kondremul Liq) 30 ml ONCE ONCE PO Last administered on 12/04/17at 11:22; Start 12/04/17 at 09:45; Stop 12/04/17 at 09:59; Status DC Potassium Phos/ Sodium Phos (K-Phos Neutral) 1,000 mg ONCE ONCE OG-TUBE Last administered on 12/04/17at 10:33; Start 12/04/17 at 09:45; Stop 12/04/17 at 09:59 ; Status DC Pharmacy Profile Note 0 ml @ 0 mls/hr UNSCH OTHER ; Start 12/04/17 at 14:45; Stop 12/11/17 at 16:10; Status DC Piperacillin Sod/ Tazobactam Sod 100 ml @ 200 mls/hr Q6H IV Last administered on 12/11/17at 15:37; Start 12/04/17 at 16:00; Stop 12/11/17 at 16:10; Status DC Norepinephrine Bitartrate 4 mg/ Sodium Chloride 250 ml @ 7.5 mls/hr TITRATE PRN IV Blood pressure management Last administered on 12/10/17at 07:00; Start at 15:30; Stop 12/15/17 at 16:16; Status DC Terbutaline Sulfate (Brethine Inj) 1 mg UNSCH PRN SQ For Extravasation; Start 12/04/17 at 15:30; Stop 12/15/17 at 16:16; Status DC Vancomycin HCl 1250 mg/Sodium Chloride 262.5 ml @ 250 mls/hr Q12H IV Last administered on 12/09/17at 05:59; Start 12/04/17 at 17:00; Stop 12/09/17 at 11:26; Status DC Miscellaneous Information ([facility] Ordered Lab Info) SPECIFIC LAB TO BE DRAWN:VANCO TROUGH DATE TO BE DR... ONCE ONCE .XX Last administered on at 04:45; Start 12/06/17 at 04:45; Stop 12/06/17 at 04:46; Status DC Mupirocin (Bactroban Nasal 2% Oint) Taper BID EACH NARE Last administered on at 22:02; Start 12/04/17 at 21:00; Stop 11/30/18 at 20:59 Sodium Chloride (NS Flush) DAILY IV FLUSH Last administered on 12/17/17at 08:09 ; Start 12/05/17 at 09:00 Sodium Chloride (NS Flush) UNSCH PRN IV FLUSH SEE PROTOCOL; Start 12/04/17 at 17:30 Acetaminophen (Tylenol) 650 mg Q4H PRN PO HEADACHE; Start 12/04/17 at 17:30; Status Cancel Cefazolin Sodium 1000 mg/Sodium Chloride 100 ml @ 200 mls/hr Q8H IV ; Start at 18:00; Status Cancel Warfarin Sodium (Coumadin) 1 mg ONCE@1600 ONCE PO Last administered on at 17:54; Start 12/05/17 at 16:00; Stop 12/05/17 at 16:01; Status DC Permethrin (Nix Creme Rinse 1% Lotion) 1 applic ONCE ONCE TOPICAL Last administered on 12/06/17at 07:00; Start 12/06/17 at 07:00; Stop 12/06/17 at 07:03; Status DC Albuterol/ Ipratropium (Duoneb Neb) 1 ampule Q4HR NEB NEB Last administered on 12/10/17at 09:15; Start 12/06/17 at 16:00; Stop 12/10/17 at 10:17; Status DC Furosemide (Lasix Inj) 40 mg ONCE ONCE IV PUSH Last administered on 12/06/17at 13:36; Start 12/06/17 at 12:15; Stop 12/06/17 at 12:16; Status DC Albumin Human 50 ml @ 60 mls/hr ONCE ONCE IV Last administered on 12/06/17at 13: 37; Start 12/06/17 at 12:15; Stop 12/06/17 at 13:04; Status DC Sodium Chloride (Sodium Chloride 3% Neb) 2 ml Q4HR NEB NEB Last administered on 12/07/17at 16:14; Start 12/06/17 at 16:00; Stop 12/07/17 at 16:45; Status DC Guaifenesin (Robitussin Liq) 400 mg Q8HR NG Last administered on 12/13/17at 06:15 ; Start 12/06/17 at 14:00; Stop 12/13/17 at 13:59; Status DC Warfarin Sodium (Coumadin) 1 mg ONCE@1600 ONCE PO Last administered on at 16:43; Start 12/06/17 at 16:00; Stop 12/06/17 at 16:01; Status DC Furosemide (Lasix Inj) 20 mg ONCE ONCE IV PUSH Last administered on 12/07/17at 10:40; Start 12/07/17 at 10:00; Stop 12/07/17 at 10:01; Status DC Albumin Human 50 ml @ 60 mls/hr ONCE ONCE IV Last administered on 12/07/17at 12: 45; Start 12/07/17 at 10:00; Stop 12/07/17 at 10:49; Status DC Warfarin Sodium (Coumadin) 1 mg ONCE@1600 ONCE PO Last administered on 16:52; Start 12/07/17 at 16:00; Stop 12/07/17 at 16:01; Status DC Rocuronium [place] (Zemuron Inj) 100 mg BOLUS ONCE IV Last administered on 12/07 14:30; Start 12/07/17 at 14:15; Stop 12/07/17 at 14:16; Status DC Etomidate (Amidate Inj) 40 mg ONCE ONCE IV PUSH Last administered on 12/07/17 14:27; Start 12/07/17 at 14:15; Stop 12/07/17 at 14:16; Status DC Heparin Sodium/ Dextrose 250 ml @ 14.058 mls/ hr TITRATE PRN IV Coagulation Management Last administered on 12/07/17 19:00; Start 12/07/17 at 18:30; Stop 12/08/17 at 15:21; Status DC Albumin Human 50 ml @ 60 mls/hr ONCE ONCE IV Last administered on 12/07/17 17: 21; Start 12/07/17 at 16:30; Stop 12/07/17 at 17:19; Status DC Furosemide (Lasix Inj) 20 mg ONCE ONCE IV PUSH Last administered on 12/07/17 17:21; Start 12/07/17 at 16:30; Stop 12/07/17 at 16:34; Status DC Lactulose (Lactulose Liq) 30 ml BID PO Last administered on 12/19/17at 09:56; Start 12/08/17 at 09:00 Methylprednisolone Sodium Succinate (SoluMEDROL INJ) 40 mg Q8HR IV PUSH Last administered on 12/12/17at 14:08; Start 12/08/17 at 14:00; Stop 12/12/17 at 16:27; Status DC Warfarin Sodium (Coumadin) 2.5 mg ONCE ONCE PO Last administered on 12/08/17 15:19; Start 12/08/17 at 16:00; Stop 12/08/17 at 16:01; Status DC Miscellaneous Information ([facility] Ordered Lab Info) SPECIFIC LAB TO BE CORINA... ONCE ONCE .XX Last administered on 12/09/17at 06:00; Start 12/09/17 at 04: 45; Stop 12/09/17 at 04:46; Status DC Heparin Sodium/ Dextrose 250 ml @ 15 mls/hr TITRATE PRN IV Coagulation Management Last administered on 12/18/17at 04:02; Start 12/08/17 at 15:30; Status Future Hold Vancomycin HCl 1000 mg/Sodium Chloride 250 ml @ 250 mls/hr Q12H IV Last administered on 12/11/17at 07:05; Start 12/09/17 at 18:00; Stop 12/11/17 at 09:18; Status DC Miscellaneous Information ([facility] Ordered Lab Info) SPECIFIC LAB TO BE DRAWN:VANCO TROUGH DATE... ONCE ONCE .XX Last administered on 12/11/17at 05:07; Start 12/11/17 at 05:45; Stop 12/11/17 at 05:46; Status DC Chlordiazepoxide (Librium) 25 mg Taper DAILY PO Last administered on 12/11/17at 09:12; Start 12/10/17 at 01:00; Stop 12/12/17 at 00:59; Status DC Acetazolamide Sodium (Diamox Inj) 500 mg ONCE ONCE IV PUSH Last administered on 12/09/17at 15:30; Start 12/09/17 at 15:30; Stop 12/09/17 at 15:31; Status DC Furosemide (Lasix Inj) 40 mg ONCE ONCE IV PUSH Last administered on 12/09/17at 15:30; Start 12/09/17 at 15:30; Stop 12/09/17 at 15:34; Status DC Warfarin Sodium (Coumadin) 6 mg DAILY@1600 PO Last administered on 12/10/17at 15: 41; Start 12/10/17 at 16:00; Stop 12/11/17 at 07:21; Status DC Albuterol/ Ipratropium (Duoneb Neb) 1 ampule Q4HR NEB NEB Last administered on 12/13/17at 12:40; Start 12/10/17 at 12:00; Stop 12/13/17 at 21:05; Status DC Epoprostenol Sodium 50 ml/ Sodium Chloride 100 ml @ 5 mls/hr Q8H NEB Last administered on 12/11/17at 15:37; Start 12/10/17 at 16:00; Stop 12/11/17 at 16:10; Status DC Warfarin Sodium (Coumadin) 7.5 mg ONCE@1600 ONCE PO Last administered on 16:59; Start 12/11/17 at 16:00; Stop 12/11/17 at 16:01; Status DC Vancomycin HCl 1250 mg/Sodium Chloride 262.5 ml @ 250 mls/hr Q18H IV ; Start at 00:00; Stop 12/12/17 at 00:00; Status DC Miscellaneous Information ([facility] Ordered Lab Info) SPECIFIC LAB TO BE DRAWN:VA... ONCE ONCE .XX ; Start 12/13/17 at 11:45; Stop 12/13/17 at 11:46; Status Cancel Ceftriaxone Sodium 2000 mg/ Sodium Chloride 100 ml @ 200 mls/hr Q24H IV Last administered on 12/13/17at 18:53; Start 12/11/17 at 17:00; Stop 12/14/17 at 16:59; Status DC Furosemide (Lasix Inj) 20 mg ONCE ONCE IV PUSH Last administered on 12/11/17at 17:11; Start 12/11/17 at 16:15; Stop 12/11/17 at 16:48; Status DC Warfarin Sodium (Coumadin) 7.5 mg DAILY@1600 PO Last administered on 12/17/17at 16:00; Start 12/12/17 at 16:00; Stop 12/18/17 at 07:38; Status DC Methylprednisolone Sodium Succinate (SoluMEDROL INJ) 40 mg Q12HR IV PUSH Last administered on 12/15/17at 08:26; Start 12/12/17 at 21:00; Stop 12/15/17 at 16:16 ; Status DC Furosemide (Lasix Inj) 20 mg ONCE ONCE IV PUSH Last administered on 12/12/17at 17:07; Start 12/12/17 at 17:00; Stop 12/12/17 at 17:01; Status DC Albuterol/ Ipratropium (Duoneb Neb) 1 ampule Q4HR NEB NEB Last administered on 12/17/17at 19:59; Start 12/14/17 at 00:00; Stop 12/17/17 at 23:59; Status DC Furosemide (Lasix Inj) 40 mg ONCE ONCE IV PUSH Last administered on 12/13/17at 22:41; Start 12/13/17 at 21:15; Stop 12/13/17 at 21:21; Status DC Albumin Human 100 ml @ 60 mls/hr ONCE ONCE IV Last administered on 12/13/17at 22:41; Start 12/13/17 at 21:15; Stop 12/13/17 at 22:54; Status DC Warfarin Sodium (Coumadin) 2.5 mg ONCE ONCE PO Last administered on 12/14/17at 18:22; Start 12/14/17 at 16:00; Stop 12/14/17 at 16:01; Status DC Albumin Human 100 ml @ 60 mls/hr ONCE ONCE IV Last administered on 12/14/17at 12:45; Start 12/14/17 at 12:45; Stop 12/14/17 at 14:24; Status DC Furosemide (Lasix Inj) 40 mg ONCE ONCE IV PUSH Last administered on 12/14/17at 12:45; Start 12/14/17 at 12:45; Stop 12/14/17 at 13:22; Status DC Acetazolamide Sodium (Diamox Inj) 250 mg ONCE ONCE IV PUSH Last administered on 12/14/17at 12:45; Start 12/14/17 at 12:45; Stop 12/14/17 at 13:22; Status DC Warfarin Sodium (Coumadin) 2.5 mg ONCE ONCE PO Last administered on 12/15/17at 15:43; Start 12/15/17 at 16:00; Stop 12/15/17 at 16:01; Status DC Methylprednisolone Sodium Succinate (SoluMEDROL INJ) 40 mg DAILY IV PUSH Last administered on 12/19/17at 09:56; Start 12/16/17 at 09:00 Insulin Aspart (NovoLOG SUPPLEMENTAL SCALE) 1 ACHS SQ Last administered on 12/18at 22:08; Start 12/16/17 at 08:00 Warfarin Sodium (Coumadin) 5 mg ONCE ONCE PO Last administered on 12/16/17at 16 :00; Start 12/16/17 at 16:00; Stop 12/16/17 at 16:01; Status DC Hydromorphone HCl (Dilaudid Pf Inj) 1 mg Q4H PRN IV PUSH PAIN SCALE 6 TO 10 Last administered on 12/17/17at 12:11; Start 12/17/17 at 07:45 Permethrin (Elimite 5% Cream) 1 applic ONCE ONCE TOPICAL Last administered on 12/17/17at 13:30; Start 12/17/17 at 13:30; Stop 12/17/17 at 13:31; Status DC Warfarin Sodium (Coumadin) 5 mg DAILY@1600 PO Last administered on 12/18/17at 18 :41; Start 12/18/17 at 16:00 Nystatin (Mycostatin Liq) 5 ml QID SWISH-SWAL ; Start 12/19/17 at 13:00; Status UNV A/P Assessment and Plan NEURO/PSYCH: EtOH abuse/withdrawal History of right frontal CVA Depression/anxiety s/p chlordiazepoxide taper. Acetaminophen 650 mg p.o. every 6 hours as needed fever CV: Coronary artery disease Essential hypertension Hyperlipidemia Continue amiloride/hydrochlorthiazide 5/50 1 tablet daily Off all vasopressors. Resp: Acute hypoxemic respiratory failure COPD Bilateral lower lobe lung collapse status post bronchoscopy 12/02 Nasal cannula to maintain saturations greater than equal to 92% Incentive spirometry while awake Ventilator bundle Albuterol/ipratropium aerosols every 4 hours with albuterol aerosols every 2 hours as needed dyspnea Budesonide 0.5/2 1 inhalation twice daily On budesonide/formoterol 160/4.5 2 puffs twice daily at home Previously started on methylprednisolone succinate currently at 40 mg every 8 hours. Noted allergy to prednisone: wean to 40mg iv daily daily SBTs. would consider extubation, but very high risk of re-intubation if she is extubated. Chest x-ray worsening right lower lobe versus effusion. VQ scan low probability for pulmonary embolism EXTUBATED GI: Gastroesophageal reflux disease Hepatitis C Hypoalbuminemia/moderate protein calorie malnutrition Elevated AST Patient is currently on honey thickened Famotidine for GI prophylaxis Docusate serum/senna 1 tablet twice daily for bowel regimen. : voiding.. No indication for Phillip catheter Endo: Hyperglycemia Sliding scale insulin with Accu-Cheks to maintain euglycemia while on high-dose steroids Renal: Creatinine currently within normal limits Monitor urine output Accurate I's and O's Heme: Factor V Leiden on chronic anticoagulation Normocytic anemia Leukocytosis Chronic warfarin use History of left lower extremity DVT status post IVC filter Currently on heparin drip at 900 units an hour with transition to warfarin per pharmacy consultation. Currently at 7.5 mg daily INR currently 1.1: plan to d/ c heparin drip once INR > 2. At home on enoxaparin 80 mg subcu twice daily with warfarin 7.5 mg daily Monitor CBC daily. Along with PT/INR/PTT NM HEPARIN DRIP INR IS 2.1 ID: MRSA pneumonia Pediculosis capitis MRSA nares Vancomycin/Pipracil/tazobactam 12/04 - 12/11 Rocephin 12/11 - 12/14. d/c rocephin today. completed course for all identified microbes. Continue permethrin 1 dose. Mupirocin to nares twice daily WILL RETREAT FOR LICE WILL PROBABLY NEED 3RD TREATMENT FOR LICE Pertinent cultures 12/07 -sputum from bronchoscopy-MSSA 12/03 -sputum -MRSA 12/03 -blood cultures 2 -no growth Influenza negative FEN: Replace electrolytes as clinically indicated MSK: Osteoporosis/chronic low back pain PT evaluate and treat Access -CVL/right IJ placed 12/03-12/14 Prophylaxis -GI -famotidine -DVT -SCD/heparin drip/warfarin Discharge Planning PENDING IMPROVEMENT WILL NEED SNF AT [place] Shaun Moe DO Dec 19, 2017 13:07
[2017-12-19] MEDS: NYSTATIN SUSP 500,000 U/5 ML CUP SWISH-SWAL SCH ×3 (14:23→21:52)
[2017-12-19] MEDS: WARFARIN SOD 5 MG TAB PO SCH (17:15)
[2017-12-19 20:00] VITALS: BP 136/98; PULSE 98; RESP 16; TEMP 98.6; O2SAT 94
[2017-12-19 20:23] VITALS: O2SAT 93
[2017-12-20] VITALS: BP 130/86; PULSE 96; RESP 17; TEMP 98.4; O2SAT 95
[2017-12-20 04:00] VITALS: BP 146/98; PULSE 107; RESP 19; TEMP 97.2; O2SAT 97
[2017-12-20] MEDS: CHLORHEXIDINE GLUCONATE 2 % 1 PACK (2 CLOTHS) TOP SCH (04:00)
[2017-12-20] MEDS ORDERED: PERMETHRIN 5% CREAM 60 GM TOPICAL ONE (06:00)
[2017-12-20] MEDS ORDERED: PERMETHRIN 1% LOTION 60 ML BTL TOPICAL ONE (06:00)
[2017-12-20] MEDS: INSULIN ASPART SUPPLEMENTAL SCALE SQ SCH ×4 (08:00→21:00)
[2017-12-20] MEDS: RESP: BUDESONIDE 0.5 MG/2 ML NEB NEB SCH ×2 (08:00→19:34)
[2017-12-20] MEDS: CHLORHEXIDINE 0.12% (ORAL KIT) 15 ML CUP MT SCH ×2 (08:00→21:38)
[2017-12-20] MEDS: MUPIROCIN 2% OINT 1 APPLIC/GM SYR EACH NARE SCH ×2 (09:00→21:38)
[2017-12-20 09:37] VITALS: BP 131/89; PULSE 105; RESP 18; TEMP 97.7; O2SAT 92
[2017-12-20] MEDS: aMILoride/HCTZ 5 MG/50 MG TAB PO SCH (09:40)
[2017-12-20] MEDS: methylPREDNISolone SOD SUCC 40 MG/1 ML VIAL IV PUSH SCH (09:41)
[2017-12-20] MEDS: LACTULOSE SYRUP 20 GM/30 ML CUP PO SCH ×2 (09:41→21:00)
[2017-12-20] MEDS: NYSTATIN SUSP 500,000 U/5 ML CUP SWISH-SWAL SCH ×4 (09:43→21:38)
[2017-12-20] MEDS: DOCUSATE SODIUM 50 MG/SENNA 8.6 MG TAB PO SCH ×2 (09:43→21:38)
[2017-12-20] MEDS: SODIUM CHLORIDE 0.9% FLUSH 10 ML FLUSH IV FLUSH SCH ×3 (09:47→21:38)
[2017-12-20] MEDS: ARTIFICIAL TEARS OPTH SOLN 15 ML BTL EACH EYE SCH ×3 (09:49→21:39)
[2017-12-20] MEDS: FAMOTIDINE 20 MG TAB NG SCH ×2 (09:50→21:38)
--- NOTE | 2017-12-20 10:49 | HHI.PR ---
Subjective Remarks 57-year-old female who presented to emergency department complaining of SOB and coughing. She has also complained of severe left back rib area pain. In the emergency department she was desaturating to 80s on room air and 88 on 2 L nasal cannula. She was intubated by ED attending for an acute hypoxemic respiratory failure. She was intubated by ED attending. She is on Coumadin/ Lovenox 1 mg/kg every 12 hours for factor V Leiden mutation. Her INR is subtherapeutic. Attempted SBTs but patient could not tolerate due to severe bronchospasm. 11/30: Continued agitation but bronchospasm is minimally improved. Although she carries a prednisone allergy on her chart she is tolerating Solu-Medrol without difficulty. 12/01: Without heavy sedation patient becomes extremely agitated and developed severe airway collapse with very poor air movement. Unprovoked her wheezing has ceased but with agitation she developed some minimal tidal volume. We have added Precedex and will add p.o. Librium and try to rapidly extubate her. I am not optimistic. This is probably why she is required tracheostomy in the past. 12/02: Patient has developed right lower lobe atelectasis and partial collapse of the right middle lobe. Will undoubtedly require bronchoscopy to remove inspissated plugs. Her anxiety and agitation continues to be problematic and she does not respond to Precedex. 12/03: Resting comfortably in bed in no acute distress. FiO2 100%. X-ray this a.m. revealed resolution of lower lobe collapse. Minimal secretions from ET tube. Positive BM 1 12/04: T-max 99.9. Remains on epoprostenol. Did not tolerate bilevel or increased PEEP. Tolerating tube feeds at goal. Currently on propofol and fentanyl drips. 12/05: Afebrile. Remains on norepinephrine drip at 3 mcg/min. FiO2 requirements decreased to 60% overnight. Arousable the ventilator. She is on propofol and fentanyl drips. 12/06: Afebrile. FiO2 currently 50%. Remains on epoprostenol aerosolized. Noted to have a pediculosis capitis. Permethrin currently being applied. 12/07: FiO2 at 60%. Afebrile. Arousable on the ventilator and sedation. Appears comfortable. Tolerating tube feeding. 12/08: Still continues to have pediculosis capitis. Status post bronchoscopy yesterday with thin frothy clear secretions noted. No mucous plugging. Currently afebrile. Tolerating tube feeding. Arousable and follows commands on the ventilator remains on epoprostenol aerosolized maximum 50 ng/kg/min 12/09: no improvements or changes. remains hypoxic on 70% fio2. requires inhaled flolan. 12/10: Afebrile. FiO2 down to 40%. Follows commands normally on the ventilator. Tolerating tube feeds. Positive BM. 12/11: no meaningful improvements in days. palliative care working with the son who is here on [facility] from long term. 12/12: no improvements. net -2L/24h. off flolan. remains intubated on full support. per the patient, she does not want her son making healthcare decisions , so legally it falls to her sister, who is currently undergoing elective surgery of her own today and cannot make medical decisions. 12/13: still failing weaning trials. no changes or improvements. 60% fio2. 12/14: on SBT today. more awake. fio2 down to 40%. still very high risk for failing any trials of extubation. 12/15: Extubated yesterday. Currently on honey thick liquid diet. Tolerating nasal cannula. 12/16: Extubated 36 hours ago, continues to breathe comfortably on NC O2. 12-17 TRANSFERRED TO OUR SERVICE TODAY WILL RETREAT FOR LICE DW RN AND PT INCREASE ACTIVITY PT AND OT AM LABS CONTINUE TO RELOAD COUMADIN NOT AT GOAL INR 2.0 TO 3.0 YET 12-18 INR IS 2.1 HAS BEEN TREATED AGAIN FOR LICE NOT VERY MOBILE YET STILL HAVING NEED FOR DYSPHAGIA DIET, THICKENED LIQUIDS 12-19 DW PT AND RN AND SPEECH NEEDS TO WORK WITH PT AND OT AND SPEECH STILL SEEMS TO HAVE LICE ETC [facility] PHARMACY TO FIND ANOTHER TREATMENT- PENDING INR 2.3 AM LABS RETREAT LICE TOMORROW AGAIN -16 BEING TREATED AGAIN FOR LICE TODAY DW RN AND PT AM LABS POOR ORAL INTAKE LABS STILL PENDING Objective Vitals Vital Signs Date Time Temp Pulse Resp B/P (MAP) Pulse Ox O2 Delivery O2 Flow Rate FiO2 12/20/17 09:37 97.7 105 18 131/89 (103) 92 12/20/17 04:00 97.2 107 19 146/98 (114) 97 12/20/17 00:00 98.4 96 17 130/86 (101) 95 12/19/17 20:23 93 Nasal Cannula 2.00 12/19/17 20:00 98.6 98 16 136/98 (111) 94 12/19/17 12:31 97.2 102 18 137/90 (106) 93 I/O 12/19/17 12/19/17 12/19/17 12/20/17 12/20/17 12/20/17 07:00 15:00 23:00 07:00 15:00 23:00 Intake Total 360 ml Output Total 350 ml Balance 10 ml Intake Oral 360 ml Output Urine Total 350 ml Bladder Scan Volume Amount 321 ml Result Diagram: 12/18/17 0425 12/18/17 0425 Other Results Laboratory Tests Test 12/17/17 14:36 12/18/17 04:25 12/19/17 11:50 Activated Partial Thromboplast Time 54.1 SEC White Blood Count 11.6 TH/MM3 Red Blood Count 5.12 MIL/MM3 Hemoglobin 15.6 GM/DL Hematocrit 47.9 % Mean Corpuscular Volume 93.5 FL Mean Corpuscular Hemoglobin 30.4 PG Mean Corpuscular Hemoglobin Concent 32.6 % Red Cell Distribution Width 19.7 % Platelet Count 293 TH/MM3 Mean Platelet Volume 10.3 FL Neutrophils (%) (Auto) 80.6 % Lymphocytes (%) (Auto) 10.4 % Monocytes (%) (Auto) 7.7 % Eosinophils (%) (Auto) 0.5 % Basophils (%) (Auto) 0.8 % Neutrophils # (Auto) 9.4 TH/MM3 Lymphocytes # (Auto) 1.2 TH/MM3 Monocytes # (Auto) 0.9 TH/MM3 Eosinophils # (Auto) 0.1 TH/MM3 Basophils # (Auto) 0.1 TH/MM3 CBC Comment DIFF FINAL Differential Comment Prothrombin Time 21.1 SEC 23.6 SEC Prothromb Time International Ratio 2.1 RATIO 2.3 RATIO Blood Urea Nitrogen 78 MG/DL Creatinine 1.08 MG/DL Random Glucose 132 MG/DL Total Protein 9.2 GM/DL Albumin 4.4 GM/DL Calcium Level 10.6 MG/DL Phosphorus Level 4.5 MG/DL Magnesium Level 2.8 MG/DL Alkaline Phosphatase 90 U/L Aspartate Amino Transf (AST/SGOT) 33 U/L Alanine Aminotransferase (ALT/SGPT) 71 U/L Total Bilirubin 0.8 MG/DL Sodium Level 139 MEQ/L Potassium Level 4.1 MEQ/L Chloride Level 105 MEQ/L Carbon Dioxide Level 18.5 MEQ/L Anion Gap 16 MEQ/L Estimat Glomerular Filtration Rate 53 ML/MIN Hemoglobin A1c 6.4 % Free Thyroxine 1.43 NG/DL Thyroid Stimulating Hormone 3rd Gen 0.622 uIU/ML Imaging Last Impressions Chest X-Ray 12/11/17599 Signed Impressions: CONCLUSION: Support apparatus unchanged. Improved right basilar airspace disease since December 08. Lower Extremity Ultrasound 12/03/17 Signed Impressions: CONCLUSION: 1. The study is negative for bilateral lower extremity deep venous thrombosis. Ribs X-Ray 11/28/17 Signed Impressions: CONCLUSION: Deformities at the anterior lateral left ninth and 10th ribs prior fracture. Lung Scan-VQ Nuclear Medicine 11/28/17 Signed Impressions: CONCLUSION: Low probability scan for pulmonary embolism Objective Remarks GENERAL: AWAKE ALERT AND ORIENTED X 1 TO 2- SPEAKING IN WHISPER ONLY STLL SKIN: Warm and dry. HEAD: Atraumatic. Normocephalic. EYES: Pupils equal and round. No scleral icterus. No injection or drainage. EOMI ENT: No nasal bleeding or discharge. Mucous membranes pink and moist. TONGUE MIDLINE NECK: Trachea midline. No JVD. CARDIOVASCULAR: IRRegular rate and rhythm. S1, S2 NO S3 OR S4 RESPIRATORY: No accessory muscle use. RHONCHI AND WHEEZES BL. Breath sounds equal bilaterally. GASTROINTESTINAL: Abdomen soft, non-tender, nondistended. Hepatic and splenic margins not palpable. MUSCULOSKELETAL: Extremities without clubbing, cyanosis, or edema. No obvious deformities. NEUROLOGICAL: Awake and alert. No obvious cranial nerve deficits. Motor grossly within normal limits. 4 out of 5 muscle strength in the arms and legs. Normal speech. PSYCHIATRIC: INAppropriate mood and affect; insight and judgment ABnormal. Procedures MULTIPLE BRONCHOSCOPIES INTUBATION AND VENT MANAGEMENT Medications and IVs Last Impressions Chest X-Ray 12/11/17599 Signed Impressions: CONCLUSION: Support apparatus unchanged. Improved right basilar airspace disease since December 08. Lower Extremity Ultrasound 12/03/17 Signed Impressions: CONCLUSION: 1. The study is negative for bilateral lower extremity deep venous thrombosis. Ribs X-Ray 5/25/18 0000 Signed Impressions: CONCLUSION: Deformities at the anterior lateral left ninth and 10th ribs prior fracture. Lung Scan-VQ Nuclear Medicine 11/28/17 0000 Signed Impressions: CONCLUSION: Low probability scan for pulmonary embolism A/P Assessment and Plan NEURO/PSYCH: EtOH abuse/withdrawal History of right frontal CVA Depression/anxiety s/p chlordiazepoxide taper. Acetaminophen 650 mg p.o. every 6 hours as needed fever CV: Coronary artery disease Essential hypertension Hyperlipidemia Continue amiloride/hydrochlorthiazide 1 tablet daily Off all vasopressors. Resp: Acute hypoxemic respiratory failure COPD Bilateral lower lobe lung collapse status post bronchoscopy 12/02 Nasal cannula to maintain saturations greater than equal to 92% Incentive spirometry while awake Ventilator bundle Albuterol/ipratropium aerosols every 4 hours with albuterol aerosols every 2 hours as needed dyspnea Budesonide 0.5/2 1 inhalation twice daily On budesonide/formoterol 160/4.5 2 puffs twice daily at home Previously started on methylprednisolone succinate currently at 40 mg every 8 hours. Noted allergy to prednisone: wean to 40mg iv daily daily SBTs. would consider extubation, but very high risk of re-intubation if she is extubated. Chest x-ray worsening right lower lobe versus effusion. VQ scan low probability for pulmonary embolism EXTUBATED GI: Gastroesophageal reflux disease Hepatitis C Hypoalbuminemia/moderate protein calorie malnutrition Elevated AST Patient is currently on honey thickened Famotidine for GI prophylaxis Docusate serum/senna 1 tablet twice daily for bowel regimen. : voiding.. No indication for Phillip catheter Endo: Hyperglycemia Sliding scale insulin with Accu-Cheks to maintain euglycemia while on high-dose steroids Renal: Creatinine currently within normal limits Monitor urine output Accurate I's and O's Heme: Factor V Leiden on chronic anticoagulation Normocytic anemia Leukocytosis Chronic warfarin use History of left lower extremity DVT status post IVC filter Currently on heparin drip at 900 units an hour with transition to warfarin per pharmacy consultation. Currently at 7.5 mg daily INR currently 1.1: plan to d/ c heparin drip once INR > 2. At home on enoxaparin 80 mg subcu twice daily with warfarin 7.5 mg daily Monitor CBC daily. Along with PT/INR/PTT DC HEPARIN DRIP INR IS 2.1 ID: MRSA pneumonia Pediculosis capitis MRSA nares Vancomycin/Pipracil/tazobactam 12/04 - 12/11 Rocephin 12/11 - 12/14. d/c rocephin today. completed course for all identified microbes. Continue permethrin 1 dose. Mupirocin to nares twice daily WILL RETREAT FOR LICE WILL PROBABLY NEED 3RD TREATMENT FOR LICE Pertinent cultures 12/07 -sputum from bronchoscopy-MSSA 12/03 -sputum -MRSA 12/03 -blood cultures 2 -no growth Influenza negative FEN: Replace electrolytes as clinically indicated MSK: Osteoporosis/chronic low back pain PT evaluate and treat Access -CVL/right IJ placed 12/03-12/14 Prophylaxis -GI -famotidine -DVT -SCD/heparin drip/warfarin Discharge Planning PENDING IMPROVEMENT WILL NEED SNF AT [place] Shaun Moe DO Dec 20, 2017 10:49
[2017-12-20 12:09] VITALS: BP 140/97; PULSE 108; RESP 18; TEMP 97.2; O2SAT 94
[2017-12-20 13:16] LABS: BASOPHIL % 0.3 % (0.0-2.0); EOSINOPHIL # 0.1 TH/MM3 (0-0.4); EOSINOPHIL % 1.1 % (0.0-4.0); HEMATOCRIT 48.8 % (35.0-46.0); HEMOGLOBIN 15.7 GM/DL (11.6-15.3); LYMPH % 6.8 % (9.0-44.0); LYMPHOCYTE # 0.8 TH/MM3 (1.0-4.8); MEAN CORPUSCULAR HEMOGLOBIN 30.2 PG (27.0-34.0); MEAN CORPUSCULAR HGB CONC 32.1 % (32.0-36.0); MONO % 5.2 % (0.0-8.0); MONOCYTE # 0.6 TH/MM3 (0-0.9); NEUT % 86.6 % (16.0-70.0); PLATELET COUNT 251 TH/MM3 (150-450); RED BLOOD COUNT 5.19 MIL/MM3 (4.00-5.30); RED CELL DISTRIBUTION WIDTH 19.4 % (11.6-17.2); WHITE BLOOD COUNT 11.6 TH/MM3 (4.0-11.0)
[2017-12-20 13:25] LABS: PROTHROMBIN TIME - PATIENT 29.9 SEC (9.8-11.6)
[2017-12-20 13:35] LABS: ALT (GPT) 60 U/L (10-53)
[2017-12-20 13:36] LABS: ALBUMIN 3.9 GM/DL (3.4-5.0); AST (GOT) 38 U/L (15-37); BICARBONATE 18.6 MEQ/L (21.0-32.0); BLOOD UREA NITROGEN 80 MG/DL (7-18); CALCIUM 10.6 MG/DL (8.5-10.1); CHLORIDE 104 MEQ/L (98-107); CREATININE 1.23 MG/DL (0.50-1.00); GLOMERULAR FILTRATION RATE 45 ML/MIN (>89); GLUCOSE,RANDOM 157 MG/DL (74-106); MAGNESIUM 2.8 MG/DL (1.5-2.5); SODIUM (NA) 136 MEQ/L (136-145)
[2017-12-20 13:37] LABS: ALKALINE PHOSPHATASE 93 U/L (45-117); PHOSPHORUS 3.7 MG/DL (2.5-4.9); TOTAL BILIRUBIN ADULT 0.7 MG/DL (0.2-1.0); TOTAL PROTEIN 8.8 GM/DL (6.4-8.2)
[2017-12-20] MEDS: WARFARIN SOD 5 MG TAB PO SCH (13:47)
[2017-12-20 16:38] VITALS: BP 127/91; PULSE 112; RESP 18; TEMP 97.3; O2SAT 93
[2017-12-20 20:00] VITALS: BP 143/107; PULSE 104; RESP 17; TEMP 97.4; O2SAT 94
[2017-12-21] VITALS (7 sets, daily range): BP systolic 132–165; BP diastolic 84–106; PULSE 96–103; RESP 17–19; TEMP 97.6–98; O2SAT 94–97
[2017-12-21] MEDS: CHLORHEXIDINE GLUCONATE 2 % 1 PACK (2 CLOTHS) TOP SCH ×2 (04:00→22:33)
[2017-12-21] MEDS: ARTIFICIAL TEARS OPTH SOLN 15 ML BTL EACH EYE SCH ×4 (06:08→22:39)
[2017-12-21] MEDS: INSULIN ASPART SUPPLEMENTAL SCALE SQ SCH ×4 (08:00→21:00)
[2017-12-21] MEDS: CHLORHEXIDINE 0.12% (ORAL KIT) 15 ML CUP MT SCH ×2 (08:00→20:00)
[2017-12-21] MEDS: RESP: BUDESONIDE 0.5 MG/2 ML NEB NEB SCH ×2 (08:10→21:01)
[2017-12-21 08:25] LABS: AUTOMATED NEUTROPHIL # 10.2 TH/MM3 (1.8-7.7); BASOPHIL # 0.1 TH/MM3 (0-0.2); BASOPHIL % 0.5 % (0.0-2.0); EOSINOPHIL # 0.2 TH/MM3 (0-0.4); EOSINOPHIL % 1.2 % (0.0-4.0); HEMATOCRIT 49.4 % (35.0-46.0); LYMPH % 12.6 % (9.0-44.0); LYMPHOCYTE # 1.7 TH/MM3 (1.0-4.8); MEAN CELL VOLUME 94.6 FL (80.0-100.0); MEAN CORPUSCULAR HEMOGLOBIN 30.7 PG (27.0-34.0); MEAN CORPUSCULAR HGB CONC 32.4 % (32.0-36.0); MEAN PLATELET VOLUME 10.2 FL (7.0-11.0); MONO % 8.5 % (0.0-8.0); MONOCYTE # 1.1 TH/MM3 (0-0.9); NEUT % 77.2 % (16.0-70.0); PLATELET COUNT 264 TH/MM3 (150-450); RED BLOOD COUNT 5.22 MIL/MM3 (4.00-5.30); RED CELL DISTRIBUTION WIDTH 19.3 % (11.6-17.2); WHITE BLOOD COUNT 13.2 TH/MM3 (4.0-11.0)
[2017-12-21 08:44] LABS: ALT (GPT) 57 U/L (10-53); AST (GOT) 30 U/L (15-37); BLOOD UREA NITROGEN 70 MG/DL (7-18); CALCIUM 10.1 MG/DL (8.5-10.1); CHLORIDE 106 MEQ/L (98-107); CREATININE 0.99 MG/DL (0.50-1.00); GLOMERULAR FILTRATION RATE 58 ML/MIN (>89); GLUCOSE,RANDOM 112 MG/DL (74-106); MAGNESIUM 2.6 MG/DL (1.5-2.5); SODIUM (NA) 140 MEQ/L (136-145)
[2017-12-21 08:45] LABS: ALKALINE PHOSPHATASE 94 U/L (45-117); TOTAL BILIRUBIN ADULT 0.7 MG/DL (0.2-1.0); TOTAL PROTEIN 8.7 GM/DL (6.4-8.2)
[2017-12-21] MEDS: FAMOTIDINE 20 MG TAB NG SCH ×2 (09:00→22:35)
--- NOTE | 2017-12-21 09:29 | HHI.PR ---
Subjective Remarks Patient seen and examined this morning. Temperature 97.7, pulse 98, respiratory rate 19, blood pressure 145/94, pulse ox 94. Patient is lying in bed communicated with short sentences and head nods. Reports feeling mildly short of breath. Denies any pain. Denies any nausea vomiting. Denies any abdominal pain. Objective Vitals Vital Signs Date Time Temp Pulse Resp B/P (MAP) Pulse Ox O2 Delivery O2 Flow Rate FiO2 12/21/17 08:13 97 21 12/21/17 04:00 97.7 98 19 145/94 (111) 94 12/21/17 00:00 97.6 102 17 132/84 (100) 95 12/20/17 20:00 97.4 104 17 143/107 (119) 94 12/20/17 16:38 97.3 112 18 127/91 (103) 93 12/20/17 12:09 97.2 108 18 140/97 (111) 94 12/20/17 09:37 97.7 105 18 131/89 (103) 92 I/O 12/20/17 12/20/17 12/20/17 12/21/17 12/21/17 12/21/17 07:00 15:00 23:00 07:00 15:00 23:00 Bladder Scan Volume Amount 321 ml # Bowel Movements 1 Result Diagram: 12/21/17 0645 12/21/17 0645 Imaging Last Impressions Chest X-Ray 12/11/17 0600 Signed Impressions: CONCLUSION: Support apparatus unchanged. Improved right basilar airspace disease since December 08. Lower Extremity Ultrasound 12/03/17 0000 Signed Impressions: CONCLUSION: 1. The study is negative for bilateral lower extremity deep venous thrombosis. Ribs X-Ray 11/28/17 0000 Signed Impressions: CONCLUSION: Deformities at the anterior lateral left ninth and 10th ribs prior fracture. Lung Scan-VQ Nuclear Medicine 11/28/17 0000 Signed Impressions: CONCLUSION: Low probability scan for pulmonary embolism Objective Remarks GENERAL: AWAKE ALERT AND ORIENTED X 1 TO 2- SPEAKING IN WHISPER ONLY SKIN: Warm and dry. HEAD: Atraumatic. Normocephalic. EYES: Pupils equal and round. No scleral icterus. No injection or drainage. EOMI ENT: No nasal bleeding or discharge. Mucous membranes pink and moist. TONGUE MIDLINE NECK: Trachea midline. No JVD. CARDIOVASCULAR: Irregular rate and rhythm. S1, S2 NO S3 OR S4 RESPIRATORY: No accessory muscle use. RHONCHI AND WHEEZES BL. Breath sounds equal bilaterally. GASTROINTESTINAL: Abdomen soft, non-tender, nondistended. Hepatic and splenic margins not palpable. MUSCULOSKELETAL: Extremities without clubbing, cyanosis, or edema. No obvious deformities. NEUROLOGICAL: Awake and alert. No obvious cranial nerve deficits. Motor grossly within normal limits. 4 out of 5 muscle strength in the arms and legs. Normal speech. PSYCHIATRIC: Inappropriate mood and affect; insight and judgment Abnormal. Procedures MULTIPLE BRONCHOSCOPIES INTUBATION AND VENT MANAGEMENT Medications and IVs Current Medications Medications (Trade) Dose Ordered Sig/Danay Route Start Time Stop Time Status Last Admin (NS Flush) 2 ml UNSCH PRN IV FLUSH 11/28/17 05:45 (NS Flush) 2 ml BID IV FLUSH 11/28/17 09:00 12/20/17 21:38 (Zofran Odt) 4 mg Q6H PRN PO 11/28/17 05:45 ([facility] [place] Nursing Information) 1 Q361D XX 11/28/17 05:45 11/28/17 08:30 (Chlorhexidine 2% Cloth) 3 pack Taper DAILY@04 TOP 11/29/17 04:00 11/25/18 03:59 12/10/17 03:46 (Chlorhexidine 2% Cloth) 3 pack UNSCH PRN TOP 11/28/17 05:45 (Johnna-Colace) 1 tab BID PO 11/28/17 09:00 12/20/17 21:38 (Milk Of Magnesia Liq) 30 ml Q12H PRN PO 11/28/17 05:45 12/13/17 20:21 (Senokot) 17.2 mg Q12H PRN PO 11/28/17 05:45 (Dulcolax Supp) 10 mg DAILY PRN RECTAL 11/28/17 05:45 (Lactulose Liq) 30 ml DAILY PRN PO 11/28/17 05:45 12/01/17 04:08 (Peridex 0.12% Liq) 15 ml BID@08,20 MT 11/28/17 08:00 12/20/17 21:38 Pharmacy Profile Note 0 ml @ 0 mls/hr UNSCH OTHER 11/28/17 06:00 (Lasix Inj) 20 mg DAILY IV PUSH 12/01/17 09:00 Future Hold 12/03/17 07:56 (Pepcid) 20 mg BID NG 12/03/17 21:00 12/20/17 21:38 (Tears Naturale Opth Soln) 1 drop Q8HR EACH EYE 12/03/17 14:00 12/21/17 06:08 (D50w (Vial) Inj) 50 ml UNSCH PRN IV PUSH 12/03/17 10:45 (Glucagon Inj) 1 mg UNSCH PRN OTHER 12/03/17 10:45 (Pulmicort Respule Neb) 0.5 mg Q12HR NEB NEB 12/03/17 20:00 12/21/17 08:10 (Tylenol 650 Mg/ 20 ml Liq) 650 mg Q6H PRN PO 12/03/17 11:00 12/17/17 06:32 (Albuterol Neb) 2.5 mg Q2HR NEB PRN NEB 12/03/17 11:00 (Moduretic 5-50 Mg) 1 tab DAILY PO 12/04/17 09:00 12/20/17 09:40 (Bactroban Nasal 2% Oint) Taper BID EACH NARE 12/04/17 21:00 11/30/18 20:59 12/20/17 21:38 (NS Flush) DAILY IV FLUSH 12/05/17 09:00 12/20/17 09:47 (NS Flush) UNSCH PRN IV FLUSH 12/04/17 17:30 (Lactulose Liq) 30 ml BID PO 12/08/17 09:00 12/20/17 09:41 Heparin Sodium/ Dextrose 250 ml @ 15 mls/hr TITRATE PRN IV 12/08/17 15:30 Future Hold 12/18/17 04:02 (SoluMEDROL INJ) 40 mg DAILY IV PUSH 12/16/17 09:00 12/20/17 09:41 (NovoLOG SUPPLEMENTAL SCALE) 1 ACHS SQ 12/16/17 08:00 12/20/17 15:57 (Dilaudid Pf Inj) 1 mg Q4H PRN IV PUSH 12/17/17 07:45 12/17/17 12:11 (Coumadin) 5 mg DAILY@1600 PO 12/18/17 16:00 Future Hold 12/20/17 13:47 (Mycostatin Liq) 5 ml QID SWISH-SWAL 12/19/17 13:00 12/20/17 21:38 A/P Problem List: (1) Alcohol use ICD Code: F10.99 - Alcohol use, unspecified with unspecified alcohol-induced disorder Status: Chronic (2) Acute hypoxemic respiratory failure ICD Code: J96.01 - Acute respiratory failure with hypoxia (3) End stage COPD ICD Code: J44.9 - Chronic obstructive pulmonary disease, unspecified (4) MRSA pneumonia ICD Code: J15.212 - Pneumonia due to Methicillin resistant Staphylococcus aureus (5) Dependence on respirator, status ICD Code: Z99.11 - Dependence on respirator [ventilator] status (6) Factor V Leiden ICD Code: D68.51 - Activated protein C resistance Status: Acute (7) Hypertension ICD Code: I10 - Essential (primary) hypertension Status: Acute (8) Alcohol abuse ICD Code: F10.10 - Alcohol abuse, uncomplicated Status: Acute (9) Hepatitis C ICD Code: B19.20 - Unspecified viral hepatitis C without hepatic coma Assessment and Plan NEURO/PSYCH: EtOH abuse/withdrawal History of right frontal CVA Depression/anxiety s/p chlordiazepoxide taper. Acetaminophen 650 mg p.o. every 6 hours as needed fever CV: Coronary artery disease Essential hypertension Hyperlipidemia Continue amiloride/hydrochlorthiazide 5/50 1 tablet daily Off all vasopressors. Resp: Acute hypoxemic respiratory failure COPD Bilateral lower lobe lung collapse status post bronchoscopy 12/02 Nasal cannula to maintain saturations greater than equal to 92% Incentive spirometry while awake Albuterol/ipratropium aerosols every 4 hours with albuterol aerosols every 2 hours as needed dyspnea Budesonide 0.5/2 1 inhalation twice daily On budesonide/formoterol 160/4.5 2 puffs twice daily at home Previously started on methylprednisolone succinate currently at 40 mg every 8 hours. Noted allergy to prednisone: wean to 40mg iv daily EXTUBATED GI: Gastroesophageal reflux disease Hepatitis C Hypoalbuminemia/moderate protein calorie malnutrition Elevated AST Patient is currently on honey thickened Famotidine for GI prophylaxis Docusate serum/senna 1 tablet twice daily for bowel regimen. : voiding.. No indication for Phillip catheter Endo: Hyperglycemia Sliding scale insulin with Accu-Cheks to maintain euglycemia while on high-dose steroids Renal: Creatinine currently within normal limits Monitor urine output Accurate I's and O's Heme: Factor V Leiden on chronic anticoagulation Normocytic anemia Leukocytosis Chronic warfarin use History of left lower extremity DVT status post IVC filter INR is 3.0 at this time At home on enoxaparin 80 mg subcu twice daily with warfarin 7.5 mg daily: Restarting enoxaparin at this time Monitor CBC daily. Along with PT/INR/PTT ID: MRSA pneumonia Pediculosis capitis MRSA nares Vancomycin/Pipracil/tazobactam 12/04 - 12/11 Rocephin 12/11 - 12/14. d/c rocephin today. completed course for all identified microbes. Continue permethrin 1 dose. Mupirocin to nares twice daily WILL RETREAT FOR LICE WILL PROBABLY NEED 3RD TREATMENT FOR LICE Pertinent cultures 12/07 -sputum from bronchoscopy-MSSA 12/03 -sputum -MRSA 12/03 -blood cultures 2 -no growth Influenza negative FEN: Replace electrolytes as clinically indicated MSK: Osteoporosis/chronic low back pain PT evaluate and treat Access -CVL/right IJ placed 12/03-12/14 Prophylaxis -GI -famotidine -DVT -SCD/heparin drip/warfarin Discharge Planning Pending medical improvement will require prison facility upon discharge Pal Torres MD R3 Dec 21, 2017 09:29
[2017-12-21] MEDS: LACTULOSE SYRUP 20 GM/30 ML CUP PO SCH ×2 (10:24→22:35)
[2017-12-21] MEDS: DOCUSATE SODIUM 50 MG/SENNA 8.6 MG TAB PO SCH ×2 (10:24→22:35)
[2017-12-21] MEDS: methylPREDNISolone SOD SUCC 40 MG/1 ML VIAL IV PUSH SCH (10:24)
[2017-12-21] MEDS: NYSTATIN SUSP 500,000 U/5 ML CUP SWISH-SWAL SCH ×4 (10:24→22:35)
[2017-12-21] MEDS: SODIUM CHLORIDE 0.9% FLUSH 10 ML FLUSH IV FLUSH SCH ×3 (10:25→22:35)
[2017-12-21] MEDS: aMILoride/HCTZ 5 MG/50 MG TAB PO SCH (10:36)
[2017-12-21] MEDS: MUPIROCIN 2% OINT 1 APPLIC/GM SYR EACH NARE SCH ×2 (10:36→21:00)
[2017-12-21] MEDS ORDERED: ENOXAPARIN SODIUM 80 MG/0.8 ML SYRINGE SQ SCH (12:00)
[2017-12-21] MEDS: ENOXAPARIN SODIUM 40 MG/0.4 ML SYRINGE SQ SCH (12:00)
[2017-12-22] VITALS (9 sets, daily range): BP systolic 71–156; BP diastolic 34–101; PULSE 86–118; RESP 17–23; TEMP 97.3–98.9; O2SAT 94–100
[2017-12-22] MEDS: RESP: BUDESONIDE 0.5 MG/2 ML NEB NEB SCH ×2 (08:48→19:37)
[2017-12-22] MEDS: MUPIROCIN 2% OINT 1 APPLIC/GM SYR EACH NARE SCH ×2 (10:04→21:00)
[2017-12-22] MEDS: FAMOTIDINE 20 MG TAB NG SCH ×2 (10:05→21:00)
[2017-12-22] MEDS: NYSTATIN SUSP 500,000 U/5 ML CUP SWISH-SWAL SCH ×4 (10:05→21:00)
[2017-12-22] MEDS: LACTULOSE SYRUP 20 GM/30 ML CUP PO SCH ×2 (10:05→21:00)
[2017-12-22] MEDS: DOCUSATE SODIUM 50 MG/SENNA 8.6 MG TAB PO SCH ×2 (10:05→21:00)
[2017-12-22] MEDS: aMILoride/HCTZ 5 MG/50 MG TAB PO SCH (10:05)
[2017-12-22] MEDS: methylPREDNISolone SOD SUCC 40 MG/1 ML VIAL IV PUSH SCH (10:05)
[2017-12-22] MEDS: SODIUM CHLORIDE 0.9% FLUSH 10 ML FLUSH IV FLUSH SCH ×3 (10:07→21:00)
[2017-12-22] MEDS: CHLORHEXIDINE 0.12% (ORAL KIT) 15 ML CUP MT SCH ×2 (10:13→20:00)
[2017-12-22] MEDS: INSULIN ASPART SUPPLEMENTAL SCALE SQ SCH ×4 (10:27→21:00)
[2017-12-22] MEDS: ENOXAPARIN SODIUM 40 MG/0.4 ML SYRINGE SQ SCH (10:28)
[2017-12-22 10:40] LABS: HEMATOCRIT 46.7 % (35.0-46.0); HEMOGLOBIN 15.3 GM/DL (11.6-15.3); MEAN CELL VOLUME 93.5 FL (80.0-100.0); MEAN CORPUSCULAR HEMOGLOBIN 30.5 PG (27.0-34.0); MEAN CORPUSCULAR HGB CONC 32.6 % (32.0-36.0); MEAN PLATELET VOLUME 10.3 FL (7.0-11.0); PLATELET COUNT 264 TH/MM3 (150-450); RED CELL DISTRIBUTION WIDTH 18.8 % (11.6-17.2); WHITE BLOOD COUNT 13.3 TH/MM3 (4.0-11.0)
[2017-12-22 10:42] LABS: INTERNATIONAL NORMALIZED RATIO 2.6 RATIO; PROTHROMBIN TIME - PATIENT 26.5 SEC (9.8-11.6)
[2017-12-22 10:53] LABS: ALT (GPT) 55 U/L (10-53)
[2017-12-22 10:56] LABS: ALKALINE PHOSPHATASE 84 U/L (45-117); TOTAL BILIRUBIN ADULT 0.7 MG/DL (0.2-1.0); TOTAL PROTEIN 8.4 GM/DL (6.4-8.2)
[2017-12-22 11:01] LABS: ALBUMIN 3.8 GM/DL (3.4-5.0); AST (GOT) 35 U/L (15-37); BICARBONATE 18.6 MEQ/L (21.0-32.0); BLOOD UREA NITROGEN 70 MG/DL (7-18); CALCIUM 10.4 MG/DL (8.5-10.1); CHLORIDE 108 MEQ/L (98-107); CREATININE 1.16 MG/DL (0.50-1.00); GLOMERULAR FILTRATION RATE 49 ML/MIN (>89); GLUCOSE,RANDOM 179 MG/DL (74-106); SODIUM (NA) 141 MEQ/L (136-145)
--- NOTE | 2017-12-22 13:14 | HHI.PR ---
Subjective Remarks Follow up abdominal pain, anticoagulation, MRSA pneumonia. The patient states that she has some pain in her left lower quadrant, but feels that it is improving. No nausea or vomiting. She reports mild constipation. Objective Vitals Vital Signs Date Time Temp Pulse Resp B/P (MAP) Pulse Ox O2 Delivery O2 Flow Rate FiO2 12/22/17 11:48 98.9 110 18 140/96 (111) 96 12/22/17 08:05 98.2 113 17 133/99 (110) 96 12/22/17 04:00 98.2 118 18 138/101 (113) 94 12/22/17 00:00 98.2 114 18 156/87 (110) 95 12/21/17 21:02 97 21 12/21/17 20:00 98.0 96 18 165/106 (125) 94 12/21/17 17:26 97.8 102 18 149/96 (113) 96 I/O 12/21/17 12/21/17 12/21/17 12/22/17 12/22/17 12/22/17 07:00 15:00 23:00 07:00 15:00 23:00 # Voids 2 # Bowel Movements 1 Result Diagram: 12/22/17 1000 12/22/17 1000 Imaging Last Impressions Chest X-Ray 12/11/17 0600 Signed Impressions: CONCLUSION: Support apparatus unchanged. Improved right basilar airspace disease since December 08. Lower Extremity Ultrasound 12/03/17 0000 Signed Impressions: CONCLUSION: 1. The study is negative for bilateral lower extremity deep venous thrombosis. Ribs X-Ray 11/28/17 0000 Signed Impressions: CONCLUSION: Deformities at the anterior lateral left ninth and 10th ribs prior fracture. Lung Scan-V Nuclear Medicine 11/28/17 0000 Signed Impressions: CONCLUSION: Low probability scan for pulmonary embolism Objective Remarks General: No acute distress. Heart: Irregular rhythm. No murmur. Lungs: Mild bilateral rhonchi. Breathing is nonlabored. Abdomen: Soft, nontender, nondistended. Extremities: No lower extremity edema. Psych: Alert, answers questions appropriately. Neuro: Speaks only in a whisper. No focal deficits noted. 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 Acute hypoxemic respiratory failure: Resolved. Extubated. Supplemental oxygen as needed. Continue bronchodilators, incentive spirometry. Wean steroids. 2. MRSA pneumonia: Completed course of IV antibiotics. 3. Alcohol abuse/withdrawal: Status post Librium taper. 4. History of right frontal CVA: Continue anticoagulation, blood pressure control. 5. GERD: Continue famotidine. 6. Hepatitis C, elevated LFTs: Follow-up as outpatient. 7. Hypoalbuminemia, moderate protein calorie malnutrition: Appreciate dietary recommendations. Tube feeds discontinued 12/14/17. Continue Glucerna shakes. 8. Coronary artery disease, hypertension, hyperlipidemia: Currently asymptomatic. Continue current management. 9. Factor V Leiden: On chronic anticoagulation. INR is therapeutic. Restart Coumadin. Patient also apparently on Lovenox 80 mg twice daily at home in addition to warfarin. Continue Lovenox. Consult hematology for further recommendations. 10. Osteoporosis, chronic low back pain: Physical therapy. 11. Pediculosis capitis: Has been treated for lice with permethrin on 12/06/17, , and 12/20/17. 12. DVT prophylaxis: SCDs, warfarin, Lovenox. Discharge Planning Pending clinical improvement. Joe Quispe MD Dec 22, 2017 13:14
[2017-12-22] MEDS: ARTIFICIAL TEARS OPTH SOLN 15 ML BTL EACH EYE SCH ×2 (14:00→22:00)
[2017-12-22] MEDS ORDERED: LISINOPRIL 5 MG TAB PO SCH (14:00)
[2017-12-22] MEDS: WARFARIN SOD 4 MG TAB PO SCH (17:45)
[2017-12-22 19:26] LABS: TROPONIN I 0.14 NG/ML (0.02-0.05)
[2017-12-22] MEDS ORDERED: PHENYLEPHRINE HCL 10 MG/ML VIAL ONE (19:36)
[2017-12-22] MEDS: RESP: ALBUTEROL 2.5 MG/3 ML NEB (PRN) NEB (19:37)
--- NOTE | 2017-12-22 20:57 | RADRPT ---
EXAM DATE: 12/22/2017 8:45 PM EDT AGE/SEX: 57 years / Female INDICATIONS: Stroke alert; lethargic. CLINICAL DATA: This is the patient's initial encounter. Patient reports that signs and symptoms have been present for 1 day and indicates a pain score of 0/10. MEDICAL/SURGICAL HISTORY: Cardiovascular disease. Hypertension. Deep venous thrombosis. Craniotom y. Vena cava filter. RADIATION DOSE: 34.69 CTDI (mGy) COMPARISON: [facility] [place], CT BRAIN W/O CONTRAST, 04/30/2017. . Report was called by [Dr. Fraire to Dr. Rodrigues at 6:14 PM ] TECHNIQUE: CT of the head without contrast. Using automated exposure control and adjustment of the mA and/or kV according to patient size, radiation dose was kept as low as Achievable to obtain optima l diagnostic quality images. DICOM format image data is available electronically for review and comp arison. FINDINGS: Cerebrum: There is no hemorrhage or mass effect. No shift. There is previous left craniotomy with fl ap present and focal encephalomalacia near the sylvian fissure, stable since April 2017. Posterior Fossa: The cerebellum and brainstem are intact. The 4th ventricle is midline. The cerebe llopontine angle is unremarkable. Extracranial: The visualized portion of the orbits is intact. Skull: The calvaria is intact. No evidence of skull fracture. CONCLUSION: Stable postsurgical encephalomalacia on the left. No acute findings. No evidence for recent infarct o r hemorrhage. Findings called to Dr. Rodrigues at the time of dictation. Electronically signed by: Iftikhar Fraire MD 12/22/2017 8:56 PM EDT
[2017-12-22] MEDS ORDERED: Vancomycin Consult Pharmacy 1 EA OTHER SCH (21:15)
--- NOTE | 2017-12-22 21:17 | HHI.CCPN ---
Subjective Remarks/Hospital Course 57-year-old female who presented to emergency department complaining of SOB and coughing. She has also complained of severe left back rib area pain. In the emergency department she was desaturating to 80s on room air and 88 on 2 L nasal cannula. She was intubated by ED attending for an acute hypoxemic respiratory failure. She was intubated by ED attending. She is on Coumadin/ Lovenox 1 mg/kg every 12 hours for factor V Leiden mutation. Her INR is subtherapeutic. Attempted SBTs but patient could not tolerate due to severe bronchospasm. 11/30: Continued agitation but bronchospasm is minimally improved. Although she carries a prednisone allergy on her chart she is tolerating Solu-Medrol without difficulty. 12/01: Without heavy sedation patient becomes extremely agitated and developed severe airway collapse with very poor air movement. Unprovoked her wheezing has ceased but with agitation she developed some minimal tidal volume. We have added Precedex and will add p.o. Librium and try to rapidly extubate her. I am not optimistic. This is probably why she is required tracheostomy in the past. 12/02: Patient has developed right lower lobe atelectasis and partial collapse of the right middle lobe. Will undoubtedly require bronchoscopy to remove inspissated plugs. Her anxiety and agitation continues to be problematic and she does not respond to Precedex. 12/03: Resting comfortably in bed in no acute distress. FiO2 100%. X-ray this a.m. revealed resolution of lower lobe collapse. Minimal secretions from ET tube. Positive BM 1 12/04: T-max 99.9. Remains on epoprostenol. Did not tolerate bilevel or increased PEEP. Tolerating tube feeds at goal. Currently on propofol and fentanyl drips. 12/05: Afebrile. Remains on norepinephrine drip at 3 mcg/min. FiO2 requirements decreased to 60% overnight. Arousable the ventilator. She is on propofol and fentanyl drips. 12/06: Afebrile. FiO2 currently 50%. Remains on epoprostenol aerosolized. Noted to have a pediculosis capitis. Permethrin currently being applied. 12/07: FiO2 at 60%. Afebrile. Arousable on the ventilator and sedation. Appears comfortable. Tolerating tube feeding. 12/08: Still continues to have pediculosis capitis. Status post bronchoscopy yesterday with thin frothy clear secretions noted. No mucous plugging. Currently afebrile. Tolerating tube feeding. Arousable and follows commands on the ventilator remains on epoprostenol aerosolized maximum 50 ng/kg/min 12/09: no improvements or changes. remains hypoxic on 70% fio2. requires inhaled flolan. 12/10: Afebrile. FiO2 down to 40%. Follows commands normally on the ventilator. Tolerating tube feeds. Positive BM. 12/11: no meaningful improvements in days. palliative care working with the son who is here on [facility] from skilled nursing. 12/12: no improvements. net -2L/24h. off flolan. remains intubated on full support. per the patient, she does not want her son making healthcare decisions , so legally it falls to her sister, who is currently undergoing elective surgery of her own today and cannot make medical decisions. 12/13: still failing weaning trials. no changes or improvements. 60% fio2. 12/14: on SBT today. more awake. fio2 down to 40%. still very high risk for failing any trials of extubation. 12/15: Extubated yesterday. Currently on honey thick liquid diet. Tolerating nasal cannula. 12/16: Extubated 36 hours ago, continues to breathe comfortably on NC O2. SUBJECTIVE: RECONSULT NOTE: 12/22: stroke alert from floor for altered mentation. patient nearly obtunded although protecting airway with cough and gag. severely hypotensive. non-focal and moves all extremities. examined patient on arrival to ICU from floor along with neurologist Dr. Rodrigues: we both do not think this is a focal neurologic exam. in addition, patient is fully anticoagulated so ischemic event unlikely. placed piv access. gave ivf and phenylephrine infusion and blood pressure improved. with increasing bp, mentation improved. stat head CT negative for acute bleed. Cr significantly increased. ABG demonstrates metabolic acidosis with respiratory compensation. sepsis is a concern given long hospitalization. ROS unobtainable. Objective Vital Signs Date Time Temp Pulse Resp B/P (MAP) Pulse Ox O2 Delivery O2 Flow Rate FiO2 12/22/17 19:40 95 Simple Mask 6.00 12/22/17 15:45 98.7 103 18 133/89 (104) 12/21/17 21:02 21 Intake and Output 12/22/17 12/22/17 12/23/17 08:00 16:00 00:00 Intake Total 240 ml Output Total 250 ml Balance -10 ml Result Diagram: 12/22/17 1000 12/22/17 1000 Other Results Laboratory Tests Test 12/22/17 18:50 Blood Gas Puncture Site RT FEMORAL Blood Gas Patient Temperature 98.6 Blood Gas HCO3 16 mmol/L (22-26) Blood Gas Base Excess -8.4 mmol/L (-2-2) Blood Gas Oxygen Saturation 98 % (90-100) Arterial Blood pH 7.39 (7.380-7.420) Arterial Blood Partial Pressure CO2 26 mmHg (38-42) Arterial Blood Partial Pressure O2 306 mmHg (61-120) Arterial Blood Oxygen Content 21.4 Vol % (12.0-20.0) Arterial Blood Carboxyhemoglobin 0.9 % (0-4) Arterial Blood Methemoglobin 1.0 % (0-2) Blood Gas Hemoglobin 15.1 G/DL (12.0-16.0) Oxygen Delivery Device NRB Blood Gas Liter Flow 15 L/M Blood Gas Inspired Oxygen 100 % Imaging Last Impressions Chest X-Ray 12/11/17 0600 Signed Impressions: CONCLUSION: Support apparatus unchanged. Improved right basilar airspace disease since December 08. Lower Extremity Ultrasound 12/03/17 0000 Signed Impressions: CONCLUSION: 1. The study is negative for bilateral lower extremity deep venous thrombosis. Ribs X-Ray 11/28/17 0000 Signed Impressions: CONCLUSION: Deformities at the anterior lateral left ninth and 10th ribs prior fracture. Lung Scan-VQ Nuclear Medicine 11/28/17 0000 Signed Impressions: CONCLUSION: Low probability scan for pulmonary embolism Procedures MULTIPLE BRONCHOSCOPIES Objective Remarks General: 57-year-old female in acute distress, obtunded. Head: Atraumatic, normal Neck: Supple, airway widely patent. no jvd. NRB In place. Lungs: equal chest rise. Symmetrical excursion. Few fine crackles appreciated the bases bilaterally. No wheezes. Heart: tachycardic rate, regular rhythm, No JVD. sbp 70s at best initially. responded to ivf bolus and phenylephrine. Abdomen: Soft, nondistended, no guarding. Extremities: Warm, well-perfused. no peripheral edema. Neuro: RASS -3/-4. followed commands once blood pressure improved. A/P Assessment and Plan Assessment: 57yF with end-stage COPD and pulmonary hypertension whose course has been complicated by a prolonged ventilatory requirement and recently extubated, still remains with multiple acute and chronic medical problems and now has acute new metabolic encephalopathy and shock which appears distributive in nature, likely secondary to a new healthcare associated infection. ivf resuscitation, burns culture, empiric antibiotics. Traditionally, goals have always been aggressive (please refer to prior palliative care notes regarding medical decisionmakers and goals). When asked today, she vigorously shakes her head "no" when asked if she wants to be placed on life support, ventilation, reintubation. However, given her altered mental status, and her traditionally aggressive goals, I cannot trust that these are truly her wishes. If her mental status improves, we need to be clear about her wishes, and possibly re-define our goals of care. For now, goals are aggressive and she remains critically ill. NEURO/PSYCH: Acute metabolic encephalopathy EtOH abuse/withdrawal History of right frontal CVA Depression/anxiety s/p chlordiazepoxide taper. Acetaminophen 650 mg p.o. every 6 hours as needed fever unlikely to be focal and CVA frequent neuro checks avoid long-acting sedatives maintain map > 65 mmHg for adequate cerebral perfusion. CV: Coronary artery disease Essential hypertension Hyperlipidemia Septic shock hold home antihypertensives. phenylephrine drip, goal map > 65 mmHg. Resp: COPD Bilateral lower lobe lung collapse status post bronchoscopy 12/02 Nasal cannula to maintain saturations greater than equal to 92% Incentive spirometry while awake Albuterol/ipratropium aerosols every 4 hours with albuterol aerosols every 2 hours as needed dyspnea Budesonide 0.5/2 1 inhalation twice daily On budesonide/formoterol 160/4.5 2 puffs twice daily at home Previously started on methylprednisolone succinate currently at 40 mg every 8 hours. Noted allergy to prednisone: d/c methylprednisolone. Chest x-ray worsening right lower lobe versus effusion. VQ scan low probability for pulmonary embolism GI: Gastroesophageal reflux disease Hepatitis C Hypoalbuminemia/moderate protein calorie malnutrition Elevated AST Patient is currently on honey thickened Famotidine for GI prophylaxis Docusate serum/senna 1 tablet twice daily for bowel regimen. : Acute kidney injury currently has bird catheter. keep in the setting of acute kidney injury. may need to remove in near future. FER likely secondary to shock. Endo: Hyperglycemia Sliding scale insulin with Accu-Cheks to maintain euglycemia while on high-dose steroids Renal: Creatinine currently within normal limits Monitor urine output Accurate I's and O's Heme: Factor V Leiden on chronic anticoagulation Normocytic anemia Leukocytosis Chronic warfarin use History of left lower extremity DVT status post IVC filter on lovenox and coumadin. At home on enoxaparin 80 mg subcu twice daily with warfarin 7.5 mg daily Monitor CBC daily. Along with PT/INR/PTT ID: MRSA pneumonia Pediculosis capitis MRSA nares Vancomycin/Pipracil/tazobactam 12/04 - 12/11 Rocephin 12/11 - 12/14. d/c rocephin today. completed course for all identified microbes. Continue permethrin 1 dose. Mupirocin to nares twice daily Pertinent cultures 12/07 -sputum from bronchoscopy-MSSA 12/03 -sputum -MRSA 12/03 -blood cultures 2 -no growth Influenza negative burns culture Vancomycin with pharmacy dosing Cefepime Flagyl FEN: Replace electrolytes as clinically indicated MSK: Osteoporosis/chronic low back pain PT evaluate and treat Access -CVL/right IJ placed 12/03-12/14 - piv Prophylaxis -GI -famotidine -DVT -SCD/lovenox/warfarin Overall impression: critically ill, new shock. poor prognosis. Critical care time: 51 minutes, exclusive of separately billable procedures. Guillermo Loza MD Dec 22, 2017 21:17
[2017-12-22 21:43] LABS: AUTOMATED NEUTROPHIL # 14.3 TH/MM3 (1.8-7.7); BASOPHIL % 0.3 % (0.0-2.0); EOSINOPHIL % 0.1 % (0.0-4.0); HEMATOCRIT 44.9 % (35.0-46.0); HEMOGLOBIN 14.2 GM/DL (11.6-15.3); LYMPH % 4.9 % (9.0-44.0); LYMPHOCYTE # 0.8 TH/MM3 (1.0-4.8); MEAN CELL VOLUME 94.5 FL (80.0-100.0); MEAN CORPUSCULAR HGB CONC 31.7 % (32.0-36.0); MEAN PLATELET VOLUME 10.1 FL (7.0-11.0); MONO % 5.5 % (0.0-8.0); MONOCYTE # 0.9 TH/MM3 (0-0.9); NEUT % 89.2 % (16.0-70.0); PLATELET COUNT 266 TH/MM3 (150-450); RED BLOOD COUNT 4.75 MIL/MM3 (4.00-5.30); RED CELL DISTRIBUTION WIDTH 19.1 % (11.6-17.2); WHITE BLOOD COUNT 16.1 TH/MM3 (4.0-11.0)
[2017-12-22 21:50] LABS: BACTERIA, URINE MOD /hpf; BILIRUBIN, URINE NEG (NEG); BLOOD, URINE SMALL (NEG); GLUCOSE,URINE NEG (NEG); HYALINE CAST, URINE 3 /lpf (RARE); KETONE, URINE NEG (NEG); MUCUS URINE FEW /lpf (OCC); NITRITE,URINE NEG (NEG); SQUAMOUS EPITHELIAL CELL URINE 1 /hpf (0-5); URINE COLOR YELLOW (YELLW/STRAW); URINE LEUKOCYTE ESTERASE MOD (NEG)
[2017-12-22] MEDS: SODIUM CHLOR 0.9% 1000 ML INJ 1,000 ML IV SCH (22:00)
[2017-12-22] MEDS ORDERED: CEFEPIME INJ 2,000 MG in SODIUM CHLORIDE 0.9% INJ 100 ML IV SCH (22:00)
[2017-12-22 22:04] LABS: ALBUMIN 3.4 GM/DL (3.4-5.0); ALKALINE PHOSPHATASE 78 U/L (45-117); ALT (GPT) 86 U/L (10-53); AST (GOT) 96 U/L (15-37); BICARBONATE 22.8 MEQ/L (21.0-32.0); BLOOD UREA NITROGEN 76 MG/DL (7-18); CHLORIDE 113 MEQ/L (98-107); CREATININE 1.55 MG/DL (0.50-1.00); GLOMERULAR FILTRATION RATE 35 ML/MIN (>89); GLUCOSE,RANDOM 75 MG/DL (74-106); SODIUM (NA) 148 MEQ/L (136-145); TOTAL BILIRUBIN ADULT 0.6 MG/DL (0.2-1.0); TOTAL PROTEIN 7.4 GM/DL (6.4-8.2)
[2017-12-22 22:17] LABS: LACTIC ACID SEPSIS PROTOCOL 2.8 mmol/L (0.4-2.0)
[2017-12-22] MEDS ORDERED: TERBUTALINE INJ 1 MG/ML AMP SQ PRN (22:30)
[2017-12-22] MEDS: PHENYLEPHRINE 40 MG in D5W 500 ML IV PRN (22:30)
[2017-12-22] MEDS ORDERED: VANCOMYCIN INJ 1,250 MG in SODIUM CHLOR 0.9% 250 ML INJ 250 ML IV ONE (23:00)
[2017-12-22] MEDS: metroNIDAZOLE 500 MG INJ 100 ML IV SCH (23:00)
[2017-12-23] VITALS (12 sets, daily range): BP systolic 92–125; BP diastolic 55–72; PULSE 60–92; RESP 17–27; TEMP 97–97.8; O2SAT 96–100
[2017-12-23 01:18] LABS: INTERNATIONAL NORMALIZED RATIO 3.1 RATIO; PROTHROMBIN TIME - PATIENT 31.1 SEC (9.8-11.6)
[2017-12-23] MEDS: PHENYLEPHRINE 40 MG in D5W 500 ML IV PRN ×4 (01:41→18:54)
[2017-12-23] MEDS: CHLORHEXIDINE GLUCONATE 2 % 1 PACK (2 CLOTHS) TOP SCH (03:49)
[2017-12-23] MEDS: metroNIDAZOLE 500 MG INJ 100 ML IV SCH ×4 (04:57→23:03)
[2017-12-23] MEDS: ARTIFICIAL TEARS OPTH SOLN 15 ML BTL EACH EYE SCH ×3 (05:24→22:00)
[2017-12-23 05:46] LABS: AUTOMATED NEUTROPHIL # 13.3 TH/MM3 (1.8-7.7); BASOPHIL # 0.1 TH/MM3 (0-0.2); BASOPHIL % 0.6 % (0.0-2.0); EOSINOPHIL # 0.1 TH/MM3 (0-0.4); EOSINOPHIL % 0.8 % (0.0-4.0); HEMATOCRIT 40.4 % (35.0-46.0); HEMOGLOBIN 12.9 GM/DL (11.6-15.3); LYMPH % 10.4 % (9.0-44.0); LYMPHOCYTE # 1.7 TH/MM3 (1.0-4.8); MEAN CELL VOLUME 94.5 FL (80.0-100.0); MEAN CORPUSCULAR HEMOGLOBIN 30.1 PG (27.0-34.0); MEAN CORPUSCULAR HGB CONC 31.8 % (32.0-36.0); MEAN PLATELET VOLUME 10.2 FL (7.0-11.0); MONO % 5.5 % (0.0-8.0); MONOCYTE # 0.9 TH/MM3 (0-0.9); NEUT % 82.7 % (16.0-70.0); PLATELET COUNT 249 TH/MM3 (150-450); RED BLOOD COUNT 4.28 MIL/MM3 (4.00-5.30); RED CELL DISTRIBUTION WIDTH 19.1 % (11.6-17.2); WHITE BLOOD COUNT 16.1 TH/MM3 (4.0-11.0)
[2017-12-23 06:04] LABS: INTERNATIONAL NORMALIZED RATIO 3.1 RATIO; PROTHROMBIN TIME - PATIENT 31.4 SEC (9.8-11.6)
[2017-12-23 06:23] LABS: ALBUMIN 3.1 GM/DL (3.4-5.0); ALKALINE PHOSPHATASE 71 U/L (45-117); ALT (GPT) 140 U/L (10-53); AST (GOT) 144 U/L (15-37); BICARBONATE 21.8 MEQ/L (21.0-32.0); BLOOD UREA NITROGEN 58 MG/DL (7-18); CALCIUM 8.9 MG/DL (8.5-10.1); CHLORIDE 116 MEQ/L (98-107); CREATININE 0.87 MG/DL (0.50-1.00); GLOMERULAR FILTRATION RATE 68 ML/MIN (>89); GLUCOSE,RANDOM 95 MG/DL (74-106); SODIUM (NA) 150 MEQ/L (136-145); TOTAL BILIRUBIN ADULT 0.5 MG/DL (0.2-1.0); TOTAL PROTEIN 6.8 GM/DL (6.4-8.2)
--- NOTE | 2017-12-23 07:59 | MB ---
cc: Adam Rodrigues MD, PhD DATE: 12/22/2017 REASON FOR CONSULTATION: Stroke alert. HISTORY OF PRESENT ILLNESS: This is a 57-year-old female who was admitted with respiratory insufficiency, initially intubated. She was extubated, was on the floor. She suddenly became unresponsive, with flaccid weakness in all 4 extremities, as well as hypotensive. A stroke-alert was called. There was no focal deficit. She has since been improving, regaining consciousness, however, has still been very hypotensive. PAST MEDICAL HISTORY: She has history of previous stroke in the past. History of craniotomy, history of factor V Leiden gene mutation for which she is on anticoagulation, history of alcohol abuse, hepatitis C, GERD, MRSA pneumonia, coronary artery disease, hypertension, hyperlipidemia, osteoporosis. MEDICATIONS: Currently on Coumadin, lisinopril, nystatin, hydromorphone, methylprednisolone, lactulose, amiloride, hydrochlorothiazide, Pepcid, Pulmicort, Artificial Tears. PHYSICAL EXAMINATION: VITAL SIGNS: Blood pressure 133/89, pulse 103, respiratory rate is 18, temperature 98.7 degrees. NEUROLOGIC: function. The patient is starting to regain consciousness. She is following simple commands. Cranial nerves, the pupils are 3 mm, symmetric, without asymmetry. Extraocular movements intact. On motor exam, she moves all 4 extremities equally. IMAGING STUDIES: CT of the brain. The patient was not able to get up for a CT yet, as she is too unstable due to hypotension. LABORATORY DATA: The INR is 2.6, PT 26.5. Sodium is 141, potassium 3.6, chloride is 108, CO2 18.6, the BUN is 70, creatinine 1.16, glucose is 179, AST 35, ALT 55. White count is 13,300, hemoglobin 15.3, hematocrit 46%, platelet count is 264,000. IMPRESSION: Sudden loss of consciousness. Possible stroke, although at this time, there is no definite focal symptoms to indicate stroke, rule out cerebral hemorrhage. RECOMMENDATIONS: Recommend obtaining a CT of the brain when the patient is stable enough to get up for CT. She is not a candidate for TPA given the anticoagulated status with a therapeutic INR. Also, there is no definite indication at this time of stroke. Adam Rodrigues MD, PhD DAVY/MANUELA , 07:11 PM , 10:42 PM
[2017-12-23] MEDS: CHLORHEXIDINE 0.12% (ORAL KIT) 15 ML CUP MT SCH ×2 (08:00→20:00)
[2017-12-23] MEDS: INSULIN ASPART SUPPLEMENTAL SCALE SQ SCH ×4 (08:00→20:41)
[2017-12-23] MEDS: SODIUM CHLORIDE 0.9% FLUSH 10 ML FLUSH IV FLUSH SCH ×3 (08:04→20:15)
[2017-12-23] MEDS: MUPIROCIN 2% OINT 1 APPLIC/GM SYR EACH NARE SCH ×2 (08:04→20:15)
[2017-12-23] MEDS: aMILoride/HCTZ 5 MG/50 MG TAB PO SCH (08:05)
[2017-12-23] MEDS: SODIUM CHLOR 0.9% 1000 ML INJ 1,000 ML IV SCH ×2 (08:05→18:10)
[2017-12-23] MEDS: LACTULOSE SYRUP 20 GM/30 ML CUP PO SCH ×2 (08:06→20:41)
[2017-12-23] MEDS: CEFEPIME INJ 2,000 MG in SODIUM CHLORIDE 0.9% INJ 100 ML IV SCH ×2 (08:26→16:45)
[2017-12-23] MEDS: NYSTATIN SUSP 500,000 U/5 ML CUP SWISH-SWAL SCH ×4 (08:27→20:14)
[2017-12-23] MEDS: DOCUSATE SODIUM 50 MG/SENNA 8.6 MG TAB PO SCH ×2 (08:27→20:15)
[2017-12-23] MEDS: FAMOTIDINE 20 MG TAB NG SCH ×2 (08:27→20:15)
[2017-12-23] MEDS: RESP: BUDESONIDE 0.5 MG/2 ML NEB NEB SCH ×2 (08:45→19:35)
[2017-12-23] MEDS ORDERED: POTASSIUM PHOSPHATE MONOBASIC 500 MG TAB PO/TUBE PRN (11:00)
[2017-12-23] MEDS ORDERED: POTASSIUM CHLOR 20 MEQ PREMIX 100 ML IV PRN (11:00)
[2017-12-23] MEDS ORDERED: MAGNESIUM OXIDE 400 MG TAB PO PRN (11:00)
[2017-12-23] MEDS ORDERED: POTASSIUM PHOSPHATE MONOBASIC 500 MG TAB PO PRN (11:00)
[2017-12-23] MEDS ORDERED: MAGNESIUM SULFATE INJ 2 GM in SODIUM CHLORIDE 0.9% INJ 96 ML IV PRN (11:00)
[2017-12-23] MEDS ORDERED: POTASSIUM CHLOR 40 MEQ PREMIX 100 ML IV PRN ×2 (11:00)
[2017-12-23] MEDS ORDERED: POTASSIUM PHOSPHATE INJ 30 MMOL in SODIUM CHLOR 0.9% 250 ML INJ 250 ML IV PRN (11:00)
[2017-12-23] MEDS ORDERED: MAGNESIUM SULFATE INJ 4 GM in SODIUM CHLORIDE 0.9% INJ 92 ML IV PRN (11:00)
[2017-12-23] MEDS ORDERED: POTASSIUM CHLORIDE 25 MEQ EFFERVESCENT TAB PO PRN (11:00)
[2017-12-23] MEDS ORDERED: SODIUM PHOSPHATE INJ 30 MMOL in SODIUM CHLOR 0.9% 250 ML INJ 240 ML IV PRN (11:00)
--- NOTE | 2017-12-23 11:07 | HHI.CCPN ---
Subjective Remarks/Hospital Course 57-year-old female who presented to emergency department complaining of SOB and coughing. She has also complained of severe left back rib area pain. In the emergency department she was desaturating to 80s on room air and 88 on 2 L nasal cannula. She was intubated by ED attending for an acute hypoxemic respiratory failure. She was intubated by ED attending. She is on Coumadin/ Lovenox 1 mg/kg every 12 hours for factor V Leiden mutation. Her INR is subtherapeutic. Attempted SBTs but patient could not tolerate due to severe bronchospasm. 11/30: Continued agitation but bronchospasm is minimally improved. Although she carries a prednisone allergy on her chart she is tolerating Solu-Medrol without difficulty. 12/01: Without heavy sedation patient becomes extremely agitated and developed severe airway collapse with very poor air movement. Unprovoked her wheezing has ceased but with agitation she developed some minimal tidal volume. We have added Precedex and will add p.o. Librium and try to rapidly extubate her. I am not optimistic. This is probably why she is required tracheostomy in the past. 12/02: Patient has developed right lower lobe atelectasis and partial collapse of the right middle lobe. Will undoubtedly require bronchoscopy to remove inspissated plugs. Her anxiety and agitation continues to be problematic and she does not respond to Precedex. 12/03: Resting comfortably in bed in no acute distress. FiO2 100%. X-ray this a.m. revealed resolution of lower lobe collapse. Minimal secretions from ET tube. Positive BM 1 12/04: T-max 99.9. Remains on epoprostenol. Did not tolerate bilevel or increased PEEP. Tolerating tube feeds at goal. Currently on propofol and fentanyl drips. 12/05: Afebrile. Remains on norepinephrine drip at 3 mcg/min. FiO2 requirements decreased to 60% overnight. Arousable the ventilator. She is on propofol and fentanyl drips. 12/06: Afebrile. FiO2 currently 50%. Remains on epoprostenol aerosolized. Noted to have a pediculosis capitis. Permethrin currently being applied. 12/07: FiO2 at 60%. Afebrile. Arousable on the ventilator and sedation. Appears comfortable. Tolerating tube feeding. 12/08: Still continues to have pediculosis capitis. Status post bronchoscopy yesterday with thin frothy clear secretions noted. No mucous plugging. Currently afebrile. Tolerating tube feeding. Arousable and follows commands on the ventilator remains on epoprostenol aerosolized maximum 50 ng/kg/min 12/09: no improvements or changes. remains hypoxic on 70% fio2. requires inhaled flolan. 12/10: Afebrile. FiO2 down to 40%. Follows commands normally on the ventilator. Tolerating tube feeds. Positive BM. 12/11: no meaningful improvements in days. palliative care working with the son who is here on [facility] from residential. 12/12: no improvements. net -2L/24h. off flolan. remains intubated on full support. per the patient, she does not want her son making healthcare decisions , so legally it falls to her sister, who is currently undergoing elective surgery of her own today and cannot make medical decisions. 12/13: still failing weaning trials. no changes or improvements. 60% fio2. 12/14: on SBT today. more awake. fio2 down to 40%. still very high risk for failing any trials of extubation. 12/15: Extubated yesterday. Currently on honey thick liquid diet. Tolerating nasal cannula. 12/16: Extubated 36 hours ago, continues to breathe comfortably on NC O2. SUBJECTIVE: RECONSULT NOTE: 12/22: stroke alert from floor for altered mentation. patient nearly obtunded although protecting airway with cough and gag. severely hypotensive. non-focal and moves all extremities. examined patient on arrival to ICU from floor along with neurologist Dr. Rodrigues: we both do not think this is a focal neurologic exam. in addition, patient is fully anticoagulated so ischemic event unlikely. placed piv access. gave ivf and phenylephrine infusion and blood pressure improved. with increasing bp, mentation improved. stat head CT negative for acute bleed. Cr significantly increased. ABG demonstrates metabolic acidosis with respiratory compensation. sepsis is a concern given long hospitalization. ROS unobtainable. 12/23: mental status improved. remains on vasopressors in septic shock. unclear source: likely urine. no increase o2 requirement. asked palliative to re-engage goals of care discussion after she was quite clear last night she did not want life-support (has had very aggressive goals in the past; this is a change). Objective Vital Signs Date Time Temp Pulse Resp B/P (MAP) Pulse Ox O2 Delivery O2 Flow Rate FiO2 12/23/17 08:45 97 21 12/23/17 07:21 75 112/66 12/23/17 04:00 97.6 23 12/22/17 22:33 Nasal Cannula 4.00 Intake and Output 12/23/17 12/23/17 12/24/17 08:00 16:00 00:00 Intake Total 760 ml Output Total 1250 ml Balance -490 ml Result Diagram: 12/23/17 0515 12/23/17 0515 Other Results Laboratory Tests Test 12/22/17 18:50 Blood Gas Puncture Site RT FEMORAL Blood Gas Patient Temperature 98.6 Blood Gas HCO3 16 mmol/L (22-26) Blood Gas Base Excess -8.4 mmol/L (-2-2) Blood Gas Oxygen Saturation 98 % (90-100) Arterial Blood pH 7.39 (7.380-7.420) Arterial Blood Partial Pressure CO2 26 mmHg (38-42) Arterial Blood Partial Pressure O2 306 mmHg (61-120) Arterial Blood Oxygen Content 21.4 Vol % (12.0-20.0) Arterial Blood Carboxyhemoglobin 0.9 % (0-4) Arterial Blood Methemoglobin 1.0 % (0-2) Blood Gas Hemoglobin 15.1 G/DL (12.0-16.0) Oxygen Delivery Device NRB Blood Gas Liter Flow 15 L/M Blood Gas Inspired Oxygen 100 % Imaging Last Impressions Chest X-Ray 12/11/17 0600 Signed Impressions: CONCLUSION: Support apparatus unchanged. Improved right basilar airspace disease since December 08. Lower Extremity Ultrasound 12/03/17 Signed Impressions: CONCLUSION: 1. The study is negative for bilateral lower extremity deep venous thrombosis. Ribs X-Ray 11/28/17 Signed Impressions: CONCLUSION: Deformities at the anterior lateral left ninth and 10th ribs prior fracture. Lung Scan-VQ Nuclear Medicine 11/28/17 Signed Impressions: CONCLUSION: Low probability scan for pulmonary embolism Procedures MULTIPLE BRONCHOSCOPIES Objective Remarks General: 57-year-old female lying in bed, no acute distress. Head: Atraumatic, normal Neck: Supple, airway widely patent. no jvd. nc o2. Lungs: equal chest rise. Symmetrical excursion. Few fine crackles appreciated the bases bilaterally. No wheezes. Heart: normal rate, regular rhythm, No JVD. phenylephrine infusion. Abdomen: Soft, nondistended, no guarding. Extremities: Warm, well-perfused. no peripheral edema. Neuro: RASS -1. followed commands. no focal deficits. A/P Assessment and Plan Assessment: 57yF with end-stage COPD and pulmonary hypertension whose course has been complicated by a prolonged ventilatory requirement and recently extubated, still remains with multiple acute and chronic medical problems and now has acute new metabolic encephalopathy and septic shock, likely secondary to a new healthcare associated infection. iv abx and fluids, vasopressors, and follow cultures. appreciate palliative care assistance in re-engaging goals of care discussion. NEURO/PSYCH: Acute metabolic encephalopathy- improving. EtOH abuse/withdrawal History of right frontal CVA Depression/anxiety s/p chlordiazepoxide taper. Acetaminophen 650 mg p.o. every 6 hours as needed fever unlikely to be focal and CVA frequent neuro checks avoid long-acting sedatives maintain map > 65 mmHg for adequate cerebral perfusion. CV: Coronary artery disease Essential hypertension Hyperlipidemia Septic shock hold home antihypertensives. phenylephrine drip, goal map > 65 mmHg. Resp: COPD Bilateral lower lobe lung collapse status post bronchoscopy 12/02 Nasal cannula to maintain saturations greater than equal to 92% Incentive spirometry while awake Albuterol/ipratropium aerosols every 4 hours with albuterol aerosols every 2 hours as needed dyspnea Budesonide 0.5/2 1 inhalation twice daily On budesonide/formoterol 160/4.5 2 puffs twice daily at home s/p steroid course. may need stress dose this critical illness, but will hold off for now. Chest x-ray worsening right lower lobe versus effusion. VQ scan low probability for pulmonary embolism GI: Gastroesophageal reflux disease Hepatitis C Hypoalbuminemia/moderate protein calorie malnutrition Elevated AST Patient is currently on honey thickened Famotidine for GI prophylaxis Docusate serum/senna 1 tablet twice daily for bowel regimen. : Acute kidney injury- resolved. d/c bird FER likely secondary to shock. Endo: Hyperglycemia Sliding scale insulin with Accu-Cheks to maintain euglycemia while on high-dose steroids Renal: Creatinine currently within normal limits Monitor urine output Accurate I's and O's Heme: Factor V Leiden on chronic anticoagulation Normocytic anemia Leukocytosis Chronic warfarin use History of left lower extremity DVT status post IVC filter on lovenox and coumadin. At home on enoxaparin 80 mg subcu twice daily with warfarin 7.5 mg daily Monitor CBC daily. Along with PT/INR/PTT ID: MRSA pneumonia- resolved Pediculosis capitis MRSA nares new septic shock Vancomycin/Pipracil/tazobactam 12/04 - 12/11 Rocephin 12/11 - 12/14. Continue permethrin 1 dose. Mupirocin to nares twice daily Pertinent cultures 12/07 -sputum from bronchoscopy-MSSA 12/03 -sputum -MRSA 12/03 -blood cultures 2 -no growth Influenza negative Vancomycin with pharmacy dosing Cefepime Flagyl pancultures pending. FEN: Replace electrolytes as clinically indicated MSK: Osteoporosis/chronic low back pain PT evaluate and treat Access -CVL/right IJ placed 12/03-12/14 - piv Prophylaxis -GI -famotidine -DVT -SCD/lovenox/warfarin Overall impression: critically ill, new shock. poor prognosis. Guillermo Loza MD Dec 23, 2017 11:07
[2017-12-23] MEDS: POTASSIUM CHLOR 20 MEQ PREMIX 100 ML IV PRN ×2 (13:09→19:40)
--- NOTE | 2017-12-23 17:06 | EKG ---
Date Performed: 12/22/2017 Time Performed: 18:34:06 PTAGE: 57 years EKG: Sinus rhythm RIGHT ATRIAL ENLARGEMENT MARKED LEFT AXIS DEVIATION MODERATE ST DEPRESSION ABNORMAL ECG PREVIOUS TRACING : 11/28/2017 05.05 Since the previous tracing, no significant change noted DOCTOR: Franky Anna Interpretating Date/Time 12/23/2017 17:02:30
[2017-12-23] MEDS: HYDROCORTISONE SOD SUCCINATE 100 MG VIAL IV PUSH SCH ×2 (18:14→23:03)
[2017-12-23] MEDS: RESP: ALBUTEROL 2.5 MG/3 ML NEB (PRN) NEB (19:35)
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
[2017-12-23] MEDS ORDERED: VANCOMYCIN INJ 1,250 MG in SODIUM CHLOR 0.9% 250 ML INJ 250 ML IV SCH (23:00)
[2017-12-24] VITALS (13 sets, daily range): BP systolic 76–125; BP diastolic 46–84; PULSE 54–80; RESP 19–29; TEMP 97.6–98.3; O2SAT 91–98
[2017-12-24] MEDS: PHENYLEPHRINE 40 MG in D5W 500 ML IV PRN (00:31)
[2017-12-24] MEDS: CEFEPIME INJ 2,000 MG in SODIUM CHLORIDE 0.9% INJ 100 ML IV SCH ×2 (01:58→09:33)
[2017-12-24] MEDS: CHLORHEXIDINE GLUCONATE 2 % 1 PACK (2 CLOTHS) TOP SCH (04:00)
[2017-12-24] MEDS: SODIUM CHLOR 0.9% 1000 ML INJ 1,000 ML IV SCH ×2 (04:00→15:14)
[2017-12-24] MEDS: metroNIDAZOLE 500 MG INJ 100 ML IV SCH ×3 (04:51→13:04)
[2017-12-24] MEDS: ARTIFICIAL TEARS OPTH SOLN 15 ML BTL EACH EYE SCH ×3 (05:11→21:55)
[2017-12-24] MEDS: HYDROCORTISONE SOD SUCCINATE 100 MG VIAL IV PUSH SCH ×3 (05:11→17:25)
[2017-12-24 06:25] LABS: HEMATOCRIT 39.4 % (35.0-46.0); HEMOGLOBIN 12.8 GM/DL (11.6-15.3); MEAN CELL VOLUME 95.2 FL (80.0-100.0); MEAN CORPUSCULAR HEMOGLOBIN 30.9 PG (27.0-34.0); MEAN CORPUSCULAR HGB CONC 32.4 % (32.0-36.0); MEAN PLATELET VOLUME 10.4 FL (7.0-11.0); PLATELET COUNT 194 TH/MM3 (150-450); RED BLOOD COUNT 4.14 MIL/MM3 (4.00-5.30); RED CELL DISTRIBUTION WIDTH 19.3 % (11.6-17.2); WHITE BLOOD COUNT 14.4 TH/MM3 (4.0-11.0)
[2017-12-24 06:34] LABS: INTERNATIONAL NORMALIZED RATIO 3.1 RATIO; PROTHROMBIN TIME - PATIENT 31.4 SEC (9.8-11.6)
[2017-12-24 06:59] LABS: BICARBONATE 18.7 MEQ/L (21.0-32.0); CALCIUM 8.7 MG/DL (8.5-10.1); CREATININE 0.62 MG/DL (0.50-1.00)
[2017-12-24] MEDS: RESP: BUDESONIDE 0.5 MG/2 ML NEB NEB SCH ×2 (07:28→21:00)
[2017-12-24] MEDS: RESP: ALBUTEROL 2.5 MG/3 ML NEB (PRN) NEB (07:35)
[2017-12-24] MEDS: CHLORHEXIDINE 0.12% (ORAL KIT) 15 ML CUP MT SCH ×2 (08:00→20:05)
[2017-12-24] MEDS: INSULIN ASPART SUPPLEMENTAL SCALE SQ SCH ×4 (08:00→21:55)
--- NOTE | 2017-12-24 08:07 | MB ---
cc: Pastora Mckeon MD DATE: 12/24/2017 CHIEF COMPLAINT: Anticoagulation. HISTORY OF PRESENT ILLNESS: Ms. Lauren is a 57-year-old lady with a history of end-stage COPD, previous stroke, hypertension, coronary artery disease, hepatitis C, factor V Leiden mutation, depression, alcohol abuse, who was initially admitted to the hospital on 11/28/2017 with worsening shortness of breath and cough. She required intubation and mechanical ventilation due to hypoxemic respiratory failure. She was found to have old rib fractures and consolidation at the left lung base. V/Q scan at that time with low probability for PE. She underwent a bronchoscopy secondary to collapse of the right middle and right lower lobes. She was extubated on 12/14/2017 and then transferred to the floor. She was returned to the ICU on 12/22/2014 due to stroke alert for altered mentation. She was obtunded and severely hypotensive. She is currently being treated with vasopressors and broad spectrum antibiotics due to septic shock of unclear origin. She has currently changed goals of care to DNR/DNI. Inpatient hematology team consulted for recommendations on anticoagulation. She does have a history of factor V Leiden, as well as left lower extremity deep venous thrombosis, status post IVC filter. She was previously on Lovenox bridge to warfarin. The majority of information obtained through chart review, patient with difficulty of vocalizing. She is currently being followed by the palliative care team. PAST MEDICAL HISTORY: COPD, hypertension, stroke, coronary artery disease, hepatitis C, factor V Leiden mutation, venous thromboembolism, status post IVC filter, anxiety, depression, tobacco abuse, ethyl alcohol abuse. PAST SURGICAL HISTORY: IVC filter, , back surgery, craniotomy, hip replacement. FAMILY HISTORY: One son. SUBSTANCE ABUSE HISTORY: Current tobacco and alcohol abuse. PHYSICAL EXAMINATION: GENERAL: Chronically ill-appearing lady in no distress. SKIN: No jaundice. HEENT: Head is normocephalic, atraumatic. Eyes: No scleral icterus. NECK: Supple. No palpable lymphadenopathy. CARDIOVASCULAR: Regular rate and rhythm. RESPIRATORY: No respiratory distress. ABDOMEN: Soft, nontender, nondistended. Bowel sounds present. EXTREMITIES: No edema. LABORATORY STUDIES: White blood cell count 14.4, hemoglobin 12.8, and platelet count is 194,000. Chemistry studies with a creatinine of 0.62, total bilirubin is 0.5, AST and ALT are elevated at 144 and 140. ASSESSMENT AND PLAN: 1. History of venous thromboembolism with factor V Leiden mutation. She is currently anticoagulated on warfarin with her INR that is therapeutic at 3.1. We will continue warfarin at the same dose. Goal INR is between 2-3. Given history of factor V Leiden mutation and past clots, would continue warfarin unless there is clinically significant bleeding. 2. Critical illness and prolonged hospital stay requiring intubation. The patient has recently changed goals of care and she is currently DNR/DNI. Palliative care team is following closely. Inpatient hematology service will sign off at this time. Please reconsult if you have any further questions or concerns. Pastora Mckeon MD MARCK/DL , 07:29 AM , 08:06 AM LEILA
[2017-12-24] MEDS: SODIUM CHLORIDE 0.9% FLUSH 10 ML FLUSH IV FLUSH SCH ×3 (09:00→21:55)
[2017-12-24] MEDS: LACTULOSE SYRUP 20 GM/30 ML CUP PO SCH ×2 (09:00→21:55)
[2017-12-24] MEDS: MUPIROCIN 2% OINT 1 APPLIC/GM SYR EACH NARE SCH ×2 (09:32→21:55)
[2017-12-24] MEDS: DOCUSATE SODIUM 50 MG/SENNA 8.6 MG TAB PO SCH ×2 (09:32→21:55)
[2017-12-24] MEDS: FAMOTIDINE 20 MG TAB NG SCH ×2 (09:32→21:55)
[2017-12-24] MEDS: NYSTATIN SUSP 500,000 U/5 ML CUP SWISH-SWAL SCH ×4 (09:33→21:55)
[2017-12-24] MEDS: aMILoride/HCTZ 5 MG/50 MG TAB PO SCH (09:33)
[2017-12-24] MEDS ORDERED: ALBUMIN 5% INJ 500 ML IV ONE (12:00)
[2017-12-24] MEDS: POTASSIUM CHLOR 20 MEQ PREMIX 100 ML IV PRN (13:09)
--- NOTE | 2017-12-24 13:42 | HHI.CCPN ---
Subjective Remarks/Hospital Course 57-year-old female who presented to emergency department complaining of SOB and coughing. She has also complained of severe left back rib area pain. In the emergency department she was desaturating to 80s on room air and 88 on 2 L nasal cannula. She was intubated by ED attending for an acute hypoxemic respiratory failure. She was intubated by ED attending. She is on Coumadin/ Lovenox 1 mg/kg every 12 hours for factor V Leiden mutation. Her INR is subtherapeutic. Attempted SBTs but patient could not tolerate due to severe bronchospasm. 11/30: Continued agitation but bronchospasm is minimally improved. Although she carries a prednisone allergy on her chart she is tolerating Solu-Medrol without difficulty. 12/01: Without heavy sedation patient becomes extremely agitated and developed severe airway collapse with very poor air movement. Unprovoked her wheezing has ceased but with agitation she developed some minimal tidal volume. We have added Precedex and will add p.o. Librium and try to rapidly extubate her. I am not optimistic. This is probably why she is required tracheostomy in the past. 12/02: Patient has developed right lower lobe atelectasis and partial collapse of the right middle lobe. Will undoubtedly require bronchoscopy to remove inspissated plugs. Her anxiety and agitation continues to be problematic and she does not respond to Precedex. 12/03: Resting comfortably in bed in no acute distress. FiO2 100%. X-ray this a.m. revealed resolution of lower lobe collapse. Minimal secretions from ET tube. Positive BM 1 12/04: T-max 99.9. Remains on epoprostenol. Did not tolerate bilevel or increased PEEP. Tolerating tube feeds at goal. Currently on propofol and fentanyl drips. 12/05: Afebrile. Remains on norepinephrine drip at 3 mcg/min. FiO2 requirements decreased to 60% overnight. Arousable the ventilator. She is on propofol and fentanyl drips. 12/06: Afebrile. FiO2 currently 50%. Remains on epoprostenol aerosolized. Noted to have a pediculosis capitis. Permethrin currently being applied. 12/07: FiO2 at 60%. Afebrile. Arousable on the ventilator and sedation. Appears comfortable. Tolerating tube feeding. 12/08: Still continues to have pediculosis capitis. Status post bronchoscopy yesterday with thin frothy clear secretions noted. No mucous plugging. Currently afebrile. Tolerating tube feeding. Arousable and follows commands on the ventilator remains on epoprostenol aerosolized maximum 50 ng/kg/min 12/09: no improvements or changes. remains hypoxic on 70% fio2. requires inhaled flolan. 12/10: Afebrile. FiO2 down to 40%. Follows commands normally on the ventilator. Tolerating tube feeds. Positive BM. 12/11: no meaningful improvements in days. palliative care working with the son who is here on [facility] from nursing home. 12/12: no improvements. net -2L/24h. off flolan. remains intubated on full support. per the patient, she does not want her son making healthcare decisions , so legally it falls to her sister, who is currently undergoing elective surgery of her own today and cannot make medical decisions. 12/13: still failing weaning trials. no changes or improvements. 60% fio2. 12/14: on SBT today. more awake. fio2 down to 40%. still very high risk for failing any trials of extubation. 12/15: Extubated yesterday. Currently on honey thick liquid diet. Tolerating nasal cannula. 12/16: Extubated 36 hours ago, continues to breathe comfortably on NC O2. SUBJECTIVE: RECONSULT NOTE: 12/22: stroke alert from floor for altered mentation. patient nearly obtunded although protecting airway with cough and gag. severely hypotensive. non-focal and moves all extremities. examined patient on arrival to ICU from floor along with neurologist Dr. Rodrigues: we both do not think this is a focal neurologic exam. in addition, patient is fully anticoagulated so ischemic event unlikely. placed piv access. gave ivf and phenylephrine infusion and blood pressure improved. with increasing bp, mentation improved. stat head CT negative for acute bleed. Cr significantly increased. ABG demonstrates metabolic acidosis with respiratory compensation. sepsis is a concern given long hospitalization. ROS unobtainable. 12/23: mental status improved. remains on vasopressors in septic shock. unclear source: likely urine. no increase o2 requirement. asked palliative to re-engage goals of care discussion after she was quite clear last night she did not want life-support (has had very aggressive goals in the past; this is a change). 12/24: remains hypotensive. urine now growing ESBL/MDRO E. Coli which is not sensitive to current regimen. have initiated therapy with ertapenem 1gm iv q24h and have consulted ID. urine is not colonization, and she remains in shock from this. Objective Vital Signs Date Time Temp Pulse Resp B/P (MAP) Pulse Ox O2 Delivery O2 Flow Rate FiO2 12/24/17 12:00 97.9 76 19 76/46 (56) 95 12/24/17 07:36 21 12/24/17 07:00 Room Air 12/22/17 22:33 4.00 Intake and Output 12/24/17 12/24/17 12/25/17 08:00 16:00 00:00 Intake Total 418 ml Output Total 1200 ml Balance -782 ml Result Diagram: 12/24/17 0525 12/24/17 0525 Other Results Microbiology Date/Time Source Procedure Growth Status 12/22/17 21:15 Urine Catheterized Urine Urine Culture - Final Escherichia Coli Esbl Positive Multi-Drug Resistant Complete Imaging Last Impressions Chest X-Ray 12/11/17 0600 Signed Impressions: CONCLUSION: Support apparatus unchanged. Improved right basilar airspace disease since December 08. Lower Extremity Ultrasound 12/03/17 0000 Signed Impressions: CONCLUSION: 1. The study is negative for bilateral lower extremity deep venous thrombosis. Ribs X-Ray 11/28/17 0000 Signed Impressions: CONCLUSION: Deformities at the anterior lateral left ninth and 10th ribs prior fracture. Lung Scan-VQ Nuclear Medicine 11/28/17 0000 Signed Impressions: CONCLUSION: Low probability scan for pulmonary embolism Procedures MULTIPLE BRONCHOSCOPIES Objective Remarks General: 57-year-old female lying in bed, no acute distress. Head: Atraumatic, normal Neck: Supple, airway widely patent. no jvd. nc o2. Lungs: equal chest rise. Symmetrical excursion. Few fine crackles appreciated the bases bilaterally. No wheezes. Heart: normal rate, regular rhythm, No JVD. phenylephrine infusion. Abdomen: Soft, nondistended, no guarding. Extremities: Warm, well-perfused. no peripheral edema. Neuro: RASS -1. followed commands. no focal deficits. confused. CAM+. A/P Assessment and Plan Assessment: 57yF with end-stage COPD and pulmonary hypertension whose course has been complicated by a prolonged ventilatory requirement and recently extubated, still remains with multiple acute and chronic medical problems and now has acute new metabolic encephalopathy and septic shock, secondary to ESBL/ MDRO E. Coli CAUTI. appreciate palliative care assistance in re-engaging goals of care discussion. NEURO/PSYCH: Acute metabolic encephalopathy- improving. EtOH abuse/withdrawal History of right frontal CVA Depression/anxiety s/p chlordiazepoxide taper. Acetaminophen 650 mg p.o. every 6 hours as needed fever unlikely to be focal and CVA frequent neuro checks avoid long-acting sedatives maintain map > 65 mmHg for adequate cerebral perfusion. CV: Coronary artery disease Essential hypertension Hyperlipidemia Septic shock hold home antihypertensives. phenylephrine drip, goal map > 65 mmHg. 500mL 5% albumin iv x 1. Resp: COPD Bilateral lower lobe lung collapse status post bronchoscopy 12/02 Nasal cannula to maintain saturations greater than equal to 92% Incentive spirometry while awake Albuterol/ipratropium aerosols every 4 hours with albuterol aerosols every 2 hours as needed dyspnea Budesonide 0.5/2 1 inhalation twice daily On budesonide/formoterol 160/4.5 2 puffs twice daily at home s/p steroid course. may need stress dose this critical illness, but will hold off for now. Chest x-ray worsening right lower lobe versus effusion. VQ scan low probability for pulmonary embolism GI: Gastroesophageal reflux disease Hepatitis C Hypoalbuminemia/moderate protein calorie malnutrition Elevated AST Patient is currently on honey thickened Famotidine for GI prophylaxis Docusate serum/senna 1 tablet twice daily for bowel regimen. : Acute kidney injury- resolved. FER likely secondary to shock. Endo: Hyperglycemia Sliding scale insulin with Accu-Cheks to maintain euglycemia while on high-dose steroids Renal: Creatinine currently within normal limits Monitor urine output Accurate I's and O's Heme: Factor V Leiden on chronic anticoagulation Normocytic anemia Leukocytosis Chronic warfarin use History of left lower extremity DVT status post IVC filter on lovenox and coumadin. At home on enoxaparin 80 mg subcu twice daily with warfarin 7.5 mg daily Monitor CBC daily. Along with PT/INR/PTT ID: MRSA pneumonia- resolved Pediculosis capitis MRSA nares new septic shock ESBL/MDRO E. Coli HC-associated CAUTI Vancomycin/Pipracil/tazobactam 12/04 - 12/11 Rocephin 12/11 - 12/14. Continue permethrin 1 dose. Mupirocin to nares twice daily Pertinent cultures 12/07 -sputum from bronchoscopy-MSSA 12/03 -sputum -MRSA 12/03 -blood cultures 2 -no growth Influenza negative d/c vanc, cefepime,flagyl start ertapenem 1gm iv q24h x 7 days ID consulted per protocol. FEN: Replace electrolytes as clinically indicated MSK: Osteoporosis/chronic low back pain PT evaluate and treat Access -CVL/right IJ placed 12/03-12/14 - piv Prophylaxis -GI -famotidine -DVT -SCD/lovenox/warfarin Overall impression: critically ill, new shock. poor prognosis. Guillermo Loza MD Dec 24, 2017 13:42
[2017-12-24] MEDS ORDERED: ASP: Documented ESBL, MDR A baumannii or P. aeruginosa ONE (13:45)
[2017-12-24] MEDS ORDERED: ERTAPENEM SODIUM 1000 MG VIAL IV SCH (13:45)
[2017-12-24] MEDS: ERTAPENEM 1,000 MG/NS 100 ML IV SCH ×2 (15:14)
--- NOTE | 2017-12-24 16:10 | MB ---
cc: Sathish Herrera MD DATE: 12/24/2017 REQUESTING PHYSICIAN: Dr. Alcocer. REASON FOR CONSULTATION: Extended-spectrum coli urinary tract infection with shock. HISTORY OF PRESENT ILLNESS: This is a 57-year-old white female who presented to the emergency department on 11/28/2017 with shortness of breath and left-sided back/rib area pain. The patient was intubated when she presented. She was noted to have left rib fractures. The patient was extubated on 12/14/2017. Subsequently, on 12/22, she had a stroke alert for altered mental status and she was transferred to the intensive care unit. She received IV fluids for hypotension. Her blood pressure was 87/54 at one point and then after that the blood pressure improved. However, she has had periodic low blood pressure and currently the systolic blood pressure is 79. She looks lethargic. It is difficult to get any information from her since she is not interacting much. Blood cultures were taken on 12/22 with no growth. Urine culture on 12/22 has multidrug resistant Escherichia coli, ESBL positive. White count ambrosio to 16.1 on 12/22. Prior cultures shows a Staph aureus from bronchial washing on 12/07. There was also of MRSA in the sputum on 12/03/2017. PAST MEDICAL HISTORY: Hypertension. End-stage COPD. CVA x 2. Coronary artery disease. Hepatitis C. Anxiety and depression. Factor V Leiden mutation. History of IVC filter. History of deep venous thrombosis. PAST SURGICAL HISTORY: History of back surgery in 1983. Craniotomy in 1983. Hip replacement in 1983. ALLERGIES: PREDNISONE. MEDICATIONS: Ertapenem, hydrocortisone, potassium, phenylephrine, Nystatin swish and swallow, Pepcid, Pulmicort, albuterol, Johnna-Colace. SOCIAL HISTORY: Occasional alcohol. Positive tobacco. No illicit drugs. FAMILY HISTORY: Noncontributory. REVIEW OF SYSTEMS: Difficult to obtain since the patient is not verbally responding and she appears confused. PHYSICAL EXAMINATION: GENERAL: She is a well-developed female who is lying in bed and appears lethargic. VITAL SIGNS: Includes temperature 97.9, blood pressure 79/50, respirations 19, heart rate 76. HEENT: Head is atraumatic. Extraocular movements grossly intact. Pupils reactive to light. No icterus. Oropharynx moist mucosa. No visible thrush. NECK: Supple, no adenopathy. LUNGS: Decreased clear breath sounds. HEART: Regular S1 and S2, without audible murmurs. ABDOMEN: Bowel sounds present, but diminished, soft, no tenderness appreciated. RECTAL: Not performed. EXTREMITIES: No clubbing, no cyanosis or edema. SKIN: No diffuse rash. The patient has erythematous patch at the inner left foot. NEUROLOGIC: No gross focal finding. The patient moving all extremities. PSYCHIATRIC: Unable to assess. LABORATORY DATA: WBC 14.4, platelets 194, hemoglobin 12.8. Creatinine 0.62, BUN 32, sodium 140. AST 144, ALT 140. IMPRESSION: 1. Urinary tract infection due to extended-spectrum beta-lactamases Escherichia coli. 2. Hypertension. The patient is lethargic, in addition and could be developing sepsis. 3. Leukocytosis. RECOMMENDATIONS: 1. Continue the ertapenem. 2. Agree with removing current Phillip catheter. 3. Followup blood cultures until complete. 4. Monitor clinical status and blood pressure. 5. Repeat the blood cultures if the temperature spikes again. Thank you for this consultation. I will follow the patient's progress along with you and will make further recommendations upon followup if necessary. MD EVELYN Gant/ROCK , 03:25 PM , 04:08 PM
[2017-12-24] MEDS: ACETAMINOPHEN 650 MG/20.3 ML UDC PO PRN (18:26)
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
[2017-12-25] VITALS (14 sets, daily range): BP systolic 111–137; BP diastolic 66–81; PULSE 70–108; RESP 25–36; TEMP 97.7–98.2; O2SAT 94–97
[2017-12-25] MEDS: HYDROCORTISONE SOD SUCCINATE 100 MG VIAL IV PUSH SCH ×5 (00:03→23:26)
[2017-12-25] MEDS: ACETAMINOPHEN 650 MG/20.3 ML UDC PO PRN (01:17)
[2017-12-25] MEDS: CHLORHEXIDINE GLUCONATE 2 % 1 PACK (2 CLOTHS) TOP SCH (04:00)
[2017-12-25] MEDS: ARTIFICIAL TEARS OPTH SOLN 15 ML BTL EACH EYE SCH ×3 (06:22→21:17)
[2017-12-25 07:24] LABS: BICARBONATE 18.7 MEQ/L (21.0-32.0); CALCIUM 8.6 MG/DL (8.5-10.1); CREATININE 0.56 MG/DL (0.50-1.00)
[2017-12-25] MEDS: INSULIN ASPART SUPPLEMENTAL SCALE SQ SCH ×4 (08:00→21:31)
[2017-12-25] MEDS: RESP: BUDESONIDE 0.5 MG/2 ML NEB NEB SCH ×2 (08:13→19:47)
[2017-12-25] MEDS: LACTULOSE SYRUP 20 GM/30 ML CUP PO SCH ×2 (09:00→21:02)
[2017-12-25] MEDS: DOCUSATE SODIUM 50 MG/SENNA 8.6 MG TAB PO SCH ×2 (09:00→21:02)
[2017-12-25] MEDS: SODIUM CHLORIDE 0.9% FLUSH 10 ML FLUSH IV FLUSH SCH ×3 (09:00→21:17)
[2017-12-25] MEDS: aMILoride/HCTZ 5 MG/50 MG TAB PO SCH (09:30)
[2017-12-25] MEDS: NYSTATIN SUSP 500,000 U/5 ML CUP SWISH-SWAL SCH ×4 (09:30→21:17)
[2017-12-25] MEDS: CHLORHEXIDINE 0.12% (ORAL KIT) 15 ML CUP MT SCH ×2 (09:30→20:48)
[2017-12-25] MEDS: FAMOTIDINE 20 MG TAB NG SCH ×2 (09:30→21:17)
[2017-12-25] MEDS: MUPIROCIN 2% OINT 1 APPLIC/GM SYR EACH NARE SCH ×2 (09:30→21:17)
[2017-12-25] MEDS: SODIUM CHLOR 0.9% 1000 ML INJ 1,000 ML IV SCH ×3 (09:33→20:47)
[2017-12-25] MEDS: oxyCODONE/ACETAMINOPHEN 5 MG/325 MG TAB PO ONE ×2 (11:37→14:20)
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
[2017-12-25 14:02] LABS: MEAN CELL VOLUME 94.5 FL (80.0-100.0); MEAN CORPUSCULAR HEMOGLOBIN 30.6 PG (27.0-34.0); MEAN CORPUSCULAR HGB CONC 32.3 % (32.0-36.0); MEAN PLATELET VOLUME 9.5 FL (7.0-11.0); PLATELET COUNT 159 TH/MM3 (150-450); RED BLOOD COUNT 3.28 MIL/MM3 (4.00-5.30); RED CELL DISTRIBUTION WIDTH 19.5 % (11.6-17.2); WHITE BLOOD COUNT 8.7 TH/MM3 (4.0-11.0)
[2017-12-25 14:11] LABS: INTERNATIONAL NORMALIZED RATIO 2.5 RATIO
[2017-12-25] MEDS: ERTAPENEM 1,000 MG/NS 100 ML IV SCH ×2 (14:20)
--- NOTE | 2017-12-25 16:24 | HHI.PR ---
Subjective Remarks 57-year-old female who presented to emergency department complaining of SOB and coughing. She has also complained of severe left back rib area pain. In the emergency department she was desaturating to 80s on room air and 88 on 2 L nasal cannula. She was intubated by ED attending for an acute hypoxemic respiratory failure. She was intubated by ED attending. She is on Coumadin/ Lovenox 1 mg/kg every 12 hours for factor V Leiden mutation. Her INR is subtherapeutic. Attempted SBTs but patient could not tolerate due to severe bronchospasm. 11/30: Continued agitation but bronchospasm is minimally improved. Although she carries a prednisone allergy on her chart she is tolerating Solu-Medrol without difficulty. 12/01: Without heavy sedation patient becomes extremely agitated and developed severe airway collapse with very poor air movement. Unprovoked her wheezing has ceased but with agitation she developed some minimal tidal volume. We have added Precedex and will add p.o. Librium and try to rapidly extubate her. I am not optimistic. This is probably why she is required tracheostomy in the past. 12/02: Patient has developed right lower lobe atelectasis and partial collapse of the right middle lobe. Will undoubtedly require bronchoscopy to remove inspissated plugs. Her anxiety and agitation continues to be problematic and she does not respond to Precedex. 12/03: Resting comfortably in bed in no acute distress. FiO2 100%. X-ray this a.m. revealed resolution of lower lobe collapse. Minimal secretions from ET tube. Positive BM 1 12/04: T-max 99.9. Remains on epoprostenol. Did not tolerate bilevel or increased PEEP. Tolerating tube feeds at goal. Currently on propofol and fentanyl drips. 12/05: Afebrile. Remains on norepinephrine drip at 3 mcg/min. FiO2 requirements decreased to 60% overnight. Arousable the ventilator. She is on propofol and fentanyl drips. 12/06: Afebrile. FiO2 currently 50%. Remains on epoprostenol aerosolized. Noted to have a pediculosis capitis. Permethrin currently being applied. 12/07: FiO2 at 60%. Afebrile. Arousable on the ventilator and sedation. Appears comfortable. Tolerating tube feeding. 12/08: Still continues to have pediculosis capitis. Status post bronchoscopy yesterday with thin frothy clear secretions noted. No mucous plugging. Currently afebrile. Tolerating tube feeding. Arousable and follows commands on the ventilator remains on epoprostenol aerosolized maximum 50 ng/kg/min 12/09: no improvements or changes. remains hypoxic on 70% fio2. requires inhaled flolan. 12/10: Afebrile. FiO2 down to 40%. Follows commands normally on the ventilator. Tolerating tube feeds. Positive BM. 12/11: no meaningful improvements in days. palliative care working with the son who is here on [place] from alf. 12/12: no improvements. net -2L/24h. off flolan. remains intubated on full support. per the patient, she does not want her son making healthcare decisions , so legally it falls to her sister, who is currently undergoing elective surgery of her own today and cannot make medical decisions. 12/13: still failing weaning trials. no changes or improvements. 60% fio2. 12/14: on SBT today. more awake. fio2 down to 40%. still very high risk for failing any trials of extubation. 12/15: Extubated yesterday. Currently on honey thick liquid diet. Tolerating nasal cannula. 12/16: Extubated 36 hours ago, continues to breathe comfortably on NC O2. SUBJECTIVE: RECONSULT NOTE: 12/22: stroke alert from floor for altered mentation. patient nearly obtunded although protecting airway with cough and gag. severely hypotensive. non-focal and moves all extremities. examined patient on arrival to ICU from floor along with neurologist Dr. Rodrigues: we both do not think this is a focal neurologic exam. in addition, patient is fully anticoagulated so ischemic event unlikely. placed piv access. gave ivf and phenylephrine infusion and blood pressure improved. with increasing bp, mentation improved. stat head CT negative for acute bleed. Cr significantly increased. ABG demonstrates metabolic acidosis with respiratory compensation. sepsis is a concern given long hospitalization. ROS unobtainable. 12/23: mental status improved. remains on vasopressors in septic shock. unclear source: likely urine. no increase o2 requirement. asked palliative to re-engage goals of care discussion after she was quite clear last night she did not want life-support (has had very aggressive goals in the past; this is a change). 12/24: remains hypotensive. urine now growing ESBL/MDRO E. Coli which is not sensitive to current regimen. have initiated therapy with ertapenem 1gm iv q24h and have consulted ID. urine is not colonization, and she remains in shock from this. 12-25 PATIENT TRANSFERRED TO OUR SERVICE TODAY ANXIOUS NEEDING PAIN MEDS STILL NEEDS BARONE CATHETER DW RN AND PT NEEDS PT AND OT DW PALLIATIVE CARE IS A DNR DW DR SCHNEIDER AM LABS OK FOR FLOOR Objective Vitals Vital Signs Date Time Temp Pulse Resp B/P (MAP) Pulse Ox O2 Delivery O2 Flow Rate FiO2 12/25/17 15:32 26 12/25/17 12:00 97.7 94 36 121/81 (94) 94 12/25/17 12:00 94 12/25/17 10:00 94 12/25/17 08:14 96 21 12/25/17 08:00 97.9 78 29 97 12/25/17 08:00 78 12/25/17 07:00 97 Room Air 12/25/17 06:00 76 12/25/17 04:00 80 12/25/17 04:00 98.0 80 26 114/71 (85) 95 12/25/17 02:00 88 12/25/17 00:00 98.2 70 26 111/66 (81) 95 12/25/17 00:00 70 12/24/17 22:00 80 12/24/17 20:00 97.9 70 21 111/61 (78) 91 12/24/17 20:00 70 12/24/17 19:00 92 Room Air 12/24/17 18:00 76 I/O 12/24/17 12/24/17 12/24/17 12/25/17 12/25/17 12/25/17 07:00 15:00 23:00 07:00 15:00 23:00 Intake Total 918 ml 700 ml 200 ml 480 ml Output Total 1200 ml 1000 ml 500 ml Balance -282 ml 700 ml -800 ml -20 ml Intake Oral 60 ml 200 ml 480 ml IV Total 858 ml 700 ml Output Urine Total 1200 ml 1000 ml 500 ml # Bowel Movements 2 3 2 Result Diagram: 12/25/17 1340 12/25/17 0632 Other Results Laboratory Tests Test 12/22/17 18:50 6/18/18 21:15 12/23/17 00:47 12/23/17 05:15 Bedside Hemoglobin 15.3 G/DL Bedside Hematocrit 45.0 % Blood Gas Puncture Site RT FEMORAL Blood Gas Patient Temperature 98.6 Blood Gas HCO3 16 mmol/L Blood Gas Base Excess -8.4 mmol/L Blood Gas Oxygen Saturation 98 % Arterial Blood pH 7.39 Arterial Blood Partial Pressure CO2 26 mmHg Arterial Blood Partial Pressure O2 306 mmHg Arterial Blood Oxygen Content 21.4 Vol % Arterial Blood Carboxyhemoglobin 0.9 % Arterial Blood Methemoglobin 1.0 % Blood Gas Hemoglobin 15.1 G/DL Oxygen Delivery Device NRB Blood Gas Liter Flow 15 L/M Blood Gas Inspired Oxygen 100 % Bedside Sodium 144 MMOL/L Bedside Potassium 4.0 MMOL/L Bedside Chloride 115 MMOL/L Bedside Blood Urea Nitrogen 75 MG/DL Bedside Creatinine 1.4 MG/DL Bedside Glucose 203 MG/DL Total Creatine Kinase 53 U/L Troponin I 0.14 NG/ML White Blood Count 16.1 TH/MM3 16.1 TH/MM3 Red Blood Count 4.75 MIL/MM3 4.28 MIL/MM3 Hemoglobin 14.2 GM/DL 12.9 GM/DL Hematocrit 44.9 % 40.4 % Mean Corpuscular Volume 94.5 FL 94.5 FL Mean Corpuscular Hemoglobin 30.0 PG 30.1 PG Mean Corpuscular Hemoglobin Concent 31.7 % 31.8 % Red Cell Distribution Width 19.1 % 19.1 % Platelet Count 266 TH/MM3 249 TH/MM3 Mean Platelet Volume 10.1 FL 10.2 FL Neutrophils (%) (Auto) 89.2 % 82.7 % Lymphocytes (%) (Auto) 4.9 % 10.4 % Monocytes (%) (Auto) 5.5 % 5.5 % Eosinophils (%) (Auto) 0.1 % 0.8 % Basophils (%) (Auto) 0.3 % 0.6 % Neutrophils # (Auto) 14.3 TH/MM3 13.3 TH/MM3 Lymphocytes # (Auto) 0.8 TH/MM3 1.7 TH/MM3 Monocytes # (Auto) 0.9 TH/MM3 0.9 TH/MM3 Eosinophils # (Auto) 0.0 TH/MM3 0.1 TH/MM3 Basophils # (Auto) 0.0 TH/MM3 0.1 TH/MM3 CBC Comment DIFF FINAL DIFF FINAL Differential Comment Urine Color YELLOW Urine Turbidity CLOUDY Urine pH 6.0 Urine Specific [place] 1.012 Urine Protein 100 mg/dL Urine Glucose (UA) NEG mg/dL Urine Ketones NEG mg/dL Urine Occult Blood SMALL Urine Nitrite NEG Urine Bilirubin NEG Urine Urobilinogen LESS THAN 2 mg/dL Urine Leukocyte Esterase MOD Urine RBC 3 /hpf Urine WBC 37 /hpf Urine Squamous Epithelial Cells 1 /hpf Urine Bacteria MOD /hpf Urine Hyaline Casts 3 /lpf Urine Mucus FEW /lpf Microscopic Urinalysis Comment CATH-CULTURE IND Blood Urea Nitrogen 76 MG/DL 58 MG/DL Creatinine 1.55 MG/DL 0.87 MG/DL Random Glucose 75 MG/DL 95 MG/DL Total Protein 7.4 GM/DL 6.8 GM/DL Albumin 3.4 GM/DL 3.1 GM/DL Calcium Level 10.0 MG/DL 8.9 MG/DL Alkaline Phosphatase 78 U/L 71 U/L Aspartate Amino Transf (AST/SGOT) 96 U/L 144 U/L Alanine Aminotransferase (ALT/SGPT) 86 U/L 140 U/L Total Bilirubin 0.6 MG/DL 0.5 MG/DL Sodium Level 148 MEQ/L 150 MEQ/L Potassium Level 3.8 MEQ/L 3.1 MEQ/L Chloride Level 113 MEQ/L 116 MEQ/L Carbon Dioxide Level 22.8 MEQ/L 21.8 MEQ/L Anion Gap 12 MEQ/L 12 MEQ/L Estimat Glomerular Filtration Rate 35 ML/MIN 68 ML/MIN Lactic Acid Level 2.8 mmol/L 1.9 mmol/L Ammonia LESS THAN 10 MCMOL/L Prealbumin 20 MG/DL Prothrombin Time 31.1 SEC 31.4 SEC Prothromb Time International Ratio 3.1 RATIO 3.1 RATIO Activated Partial Thromboplast Time 34.2 SEC Fibrinogen 169 mg/dL Test 12/24/17 05:25 12/24/17 20:12 12/25/17 06:32 12/25/17 13:40 White Blood Count 14.4 TH/MM3 8.7 TH/MM3 Red Blood Count 4.14 MIL/MM3 3.28 MIL/MM3 Hemoglobin 12.8 GM/DL 10.0 GM/DL Hematocrit 39.4 % 31.0 % Mean Corpuscular Volume 95.2 FL 94.5 FL Mean Corpuscular Hemoglobin 30.9 PG 30.6 PG Mean Corpuscular Hemoglobin Concent 32.4 % 32.3 % Red Cell Distribution Width 19.3 % 19.5 % Platelet Count 194 TH/MM3 159 TH/MM3 Mean Platelet Volume 10.4 FL 9.5 FL Prothrombin Time 31.4 SEC 25.0 SEC Prothromb Time International Ratio 3.1 RATIO 2.5 RATIO Blood Urea Nitrogen 32 MG/DL 21 MG/DL Creatinine 0.62 MG/DL 0.56 MG/DL Random Glucose 128 MG/DL 85 MG/DL Calcium Level 8.7 MG/DL 8.6 MG/DL Sodium Level 140 MEQ/L 140 MEQ/L Potassium Level 3.3 MEQ/L 3.9 MEQ/L 4.0 MEQ/L Chloride Level 109 MEQ/L 111 MEQ/L Carbon Dioxide Level 18.7 MEQ/L 18.7 MEQ/L Anion Gap 12 MEQ/L 10 MEQ/L Estimat Glomerular Filtration Rate 100 ML/MIN 112 ML/MIN Imaging Last Impressions Head CT 12/22/17 Signed Impressions: CONCLUSION: Stable postsurgical encephalomalacia on the left. No acute findings. No evidenc e for recent infarct or hemorrhage. Findings called to Dr. Rodrigues at the time of dictation. Chest X-Ray 12/11/17 0600 Signed Impressions: CONCLUSION: Support apparatus unchanged. Improved right basilar airspace disease since December 08. Lower Extremity Ultrasound 12/03/17 Signed Impressions: CONCLUSION: 1. The study is negative for bilateral lower extremity deep venous thrombosis. Ribs X-Ray 11/28/17 Signed Impressions: CONCLUSION: Deformities at the anterior lateral left ninth and 10th ribs prior fracture. Lung Scan-[facility] Nuclear Medicine 11/28/17 Signed Impressions: CONCLUSION: Low probability scan for pulmonary embolism Objective Remarks GENERAL: AWAKE ALERT AND ORIENTED X 1 TO 2- SPEAKING IN WHISPER ONLY STLL SKIN: Warm and dry. HEAD: Atraumatic. Normocephalic. EYES: Pupils equal and round. No scleral icterus. No injection or drainage. EOMI ENT: No nasal bleeding or discharge. Mucous membranes pink and moist. TONGUE MIDLINE NECK: Trachea midline. No JVD. CARDIOVASCULAR: IRRegular rate and rhythm. S1, S2 NO S3 OR S4 RESPIRATORY: No accessory muscle use. RHONCHI AND WHEEZES BL. Breath sounds equal bilaterally. GASTROINTESTINAL: Abdomen soft, non-tender, nondistended. Hepatic and splenic margins not palpable. MUSCULOSKELETAL: Extremities without clubbing, cyanosis, or edema. No obvious deformities. NEUROLOGICAL: Awake and alert. No obvious cranial nerve deficits. Motor grossly within normal limits. 4 out of 5 muscle strength in the arms and legs. Normal speech. PSYCHIATRIC: INAppropriate mood and affect; insight and judgment ABnormal. Procedures MULTIPLE BRONCHOSCOPIES Medications and IVs Current Medications Albuterol/ Ipratropium (Duoneb Neb) 1 ampule ONCE ONCE NEB Last administered on 11/28/17at 02:25; Start 11/28/17 at 02:30; Stop 11/28/17 at 02:31; Status DC Acetaminophen/ Hydrocodone Bitart ([place]yffe 5-325 Mg) 1 tab ONCE ONCE PO ; Start 11/28/17 at 02:30; Stop 11/28/17 at 02:31; Status DC Ketorolac Tromethamine (Toradol Inj) 60 mg ONCE ONCE IM ; Start 11/28/17 at 02: 30; Stop 11/28/17 at 03:49; Status DC Lorazepam (Ativan Inj) 0.5 mg ONCE ONCE IV PUSH Last administered on at 03:55; Start 11/28/17 at 04:00; Stop 11/28/17 at 04:01; Status DC Ketorolac Tromethamine (Toradol Inj) 30 mg ONCE ONCE IV PUSH Last administered on 11/28/17at 03:55; Start 11/28/17 at 04:00; Stop 11/28/17 at 04:01 ; Status DC Morphine Sulfate (Morphine Inj) 2 mg ONCE ONCE IV PUSH ; Start 11/28/17 at 04: 15; Stop 11/28/17 at 04:16; Status DC Morphine Sulfate (Morphine Inj) 4 mg STK-MED ONCE .ROUTE ; Start 11/28/17 at 04: 09; Stop 11/28/17 at 04:10; Status DC Sodium Chloride 1,000 ml @ 999 mls/hr BOLUS ONCE IV Last administered on 11/28at 05:37; Start 11/28/17 at 04:30; Stop 11/28/17 at 05:30; Status DC Naloxone HCl (Narcan Inj) 2 mg ONCE ONCE IV PUSH Last administered on at 05:37; Start 11/28/17 at 04:45; Stop 11/28/17 at 04:46; Status DC Etomidate (Amidate Inj) 40 mg STK-MED ONCE .ROUTE ; Start 11/28/17 at 04:45; Stop 11/28/17 at 04:46; Status DC Propofol 100 ml @ 0 mls/hr TITRATE PRN IV SEDATION; Start 11/28/17 at 04:45; Stop 11/28/17 at 05:53; Status DC Propofol 50 ml @ As Directed STK-MED ONCE .ROUTE Last administered on at 05:47; Start 11/28/17 at 05:00; Stop 11/28/17 at 05:01; Status DC Midazolam HCl (Versed Inj) 5 mg STK-MED ONCE .ROUTE ; Start 11/28/17 at 05:03; Stop 11/28/17 at 05:04; Status DC Ceftriaxone Sodium 1000 mg/ Sodium Chloride 100 ml @ 200 mls/hr ONCE ONCE IV Last administered on 11/28/17at 05:56; Start 11/28/17 at 05:15; Stop 11/28/17 at 05:44; Status DC Fentanyl Citrate 250 ml TITRATE PRN IV SEDATION; Start 11/28/17 at 05:15; Stop 11/28/17 at 05:34; Status DC Midazolam HCl 100 ml TITRATE PRN IV SEDATION; Start 11/28/17 at 05:15; Status UNV Miscellaneous Information ([facility] Nursing Information) "NEED HT & WT TO VERIFY... Q15M .XX Last administered on 11/28/17at 08:00; Start 11/28/17 at 05:15; Stop at 10:01; Status DC Midazolam HCl (Versed Inj) 5 mg ONCE ONCE IV Last administered on 11/28/17at 05 :38; Start 11/28/17 at 05:15; Stop 11/28/17 at 05:20; Status DC Midazolam HCl 50 ml @ 2 mls/hr TITRATE PRN IV SEDATION Last administered on at 19:45; Start 11/28/17 at 05:45; Stop 12/15/17 at 16:16; Status DC Fentanyl Citrate 250 ml @ 5 mls/hr TITRATE PRN IV SEDATION Last administered on 12/13/17at 02:30; Start 11/28/17 at 05:45; Stop 12/18/17 at 07:22; Status DC Succinylcholine Chloride (Quelicin Inj) 100 mg ONCE ONCE IV PUSH Last administered on 11/28/17at 05:46; Start 11/28/17 at 05:45; Stop 11/28/17 at 05:46 ; Status DC Etomidate (Amidate Inj) 20 mg ONCE ONCE IV PUSH Last administered on at 05:46; Start 11/28/17 at 05:45; Stop 11/28/17 at 05:46; Status DC Sodium Chloride 1,000 ml @ 84 mls/hr [id number] IV Last administered on at 04:08; Start 11/28/17 at 05:33; Stop 12/01/17 at 06:32; Status DC Sodium Chloride (NS Flush) 2 ml UNSCH PRN IV FLUSH FLUSH AFTER USING IV ACCESS Last administered on 12/21/17at 22:35; Start 11/28/17 at 05:45 Sodium Chloride (NS Flush) 2 ml BID IV FLUSH Last administered on 12/24/17at 21: 55; Start 11/28/17 at 09:00 Acetaminophen (Tylenol) 650 mg Q6H PRN PO PAIN 1-5 AND/OR FEVER >101F; Start at 05:45; Stop 12/03/17 at 10:51; Status DC Hydromorphone HCl (Dilaudid Pf Inj) 1 mg Q4H PRN IV PUSH PAIN SCALE 6 TO 10; Start 11/28/17 at 05:45; Stop 12/17/17 at 07:41; Status DC Famotidine (Pepcid Inj) 20 mg Q12HR IV PUSH ; Start 11/28/17 at 09:00; Status Cancel Midazolam HCl (Versed Inj) 2 mg Q1H PRN IV PUSH SEDATION Last administered on at 00:54; Start 11/28/17 at 05:45; Stop 12/15/17 at 16:16; Status DC Artificial Tears (Tears Naturale Opth Soln) 1 drop TID EACH EYE Last administered on 12/03/17at 07:58; Start 11/28/17 at 09:00; Stop 12/03/17 at 11:17 ; Status DC Ondansetron HCl (Zofran Odt) 4 mg Q6H PRN PO NAUSEA OR VOMITING; Start at 05:45 Albuterol/ Ipratropium (Duoneb Neb) 1 ampule Q6HR NEB INH Last administered on 11/28/17at 08:59; Start 11/28/17 at 10:00; Stop 11/28/17 at 10:00; Status DC Albuterol/ Ipratropium (Duoneb Neb) 1 ampule Q2HR NEB PRN INH WHEEZING; Start 11/28/17 at 05:45; Stop 12/03/17 at 10:00; Status DC Enoxaparin Sodium (Lovenox Inj) 80 mg Q12H SQ Last administered on 11/28/17at 06 :09; Start 11/28/17 at 06:00; Stop 11/28/17 at 11:40; Status DC Miscellaneous Information ([facility] Nursing Information) 1 [id number] Last administered on 11/28/17at 08:30; Start 11/28/17 at 05:45 Chlorhexidine Gluconate (Chlorhexidine 2% Cloth) Taper DAILY@04 TOP Last administered on 12/10/17at 03:46; Start 11/29/17 at 04:00; Stop 11/25/18 at 03:59 Chlorhexidine Gluconate (Chlorhexidine 2% Cloth) 3 pack UNSCH PRN TOP HYGIENIC CARE; Start 11/28/17 at 05:45 Senna/Docusate Sodium (Johnna-Colace) 1 tab BID PO Last administered on at 09:32; Start 11/28/17 at 09:00 Magnesium Hydroxide (Milk Of Magnesia Liq) 30 ml Q12H PRN PO Mild constipation Last administered on 12/13/17at 20:21; Start 11/28/17 at 05:45 Sennosides (Senokot) 17.2 mg Q12H PRN PO Moderate constipation; Start 11/28/17 at 05:45 Bisacodyl (Dulcolax Supp) 10 mg DAILY PRN RECTAL SEVERE CONSITIPATION; Start at 05:45 Lactulose (Lactulose Liq) 30 ml DAILY PRN PO SEVERE CONSITIPATION Last administered on 12/01/17at 04:08; Start 11/28/17 at 05:45 Chlorhexidine Gluconate (Peridex 0.12% Liq) 15 ml BID@08,20 MT Last administered on 12/25/17at 09:30; Start 11/28/17 at 08:00 Propofol 100 ml @ 2.4 mls/hr TITRATE PRN IV SEDATION Last administered on 12/14at 05:49; Start 11/28/17 at 05:45; Stop 12/15/17 at 16:16; Status DC Pharmacy Profile Note 0 ml @ 0 mls/hr UNSCH OTHER ; Start 11/28/17 at 06:00 Albuterol/ Ipratropium (Duoneb Neb) 1 ampule Q4HR NEB INH Last administered on 12/02/17at 11:51; Start 11/28/17 at 12:00; Stop 12/02/17 at 11:59; Status DC Famotidine (Pepcid Inj) 10 mg Q12HR IV PUSH ; Start 11/28/17 at 21:00; Status Cancel Famotidine (Pepcid Inj) 10 mg Q12HR IV PUSH Last administered on 12/02/17at 07: 59; Start 11/28/17 at 10:00; Stop 12/02/17 at 12:03; Status DC Methylprednisolone Sodium Succinate (SoluMEDROL INJ) 60 mg Q6HR IV PUSH Last administered on 12/08/17at 05:09; Start 11/29/17 at 12:00; Stop 12/08/17 at 08:51; Status DC Levofloxacin (Levaquin Liq) 500 mg DAILY NG Last administered on 12/09/17at 09: 00; Start 11/29/17 at 10:30; Stop 12/09/17 at 10:29; Status DC Potassium Chloride 100 ml @ 50 mls/hr Q2H PRN IV For Potassium 2.8 - 3.2 mEq/L ; Start 11/29/17 at 20:00; Stop 12/18/17 at 07:22; Status DC Potassium Chloride 100 ml @ 50 mls/hr Q2H PRN IV For Potassium 2.8 - 3.2 mEq/ L Last administered on 11/29/17at 23:01; Start 11/29/17 at 20:00; Stop 12/18/17 at 07:22; Status DC Potassium Bicarb/ Potassium Chloride (K-Lyte Cl Eff) 50 meq UNSCH PRN PO For Potassium 3.3 - 3.5 mEq/L; Start 11/29/17 at 20:00; Stop 12/18/17 at 07:22; Status DC Potassium Chloride 100 ml @ 25 mls/hr UNSCH PRN IV For Potassium 3.3 - 3.5 mEq /L; Start 11/29/17 at 20:00; Stop 12/18/17 at 07:22; Status DC Potassium Chloride 100 ml @ 50 mls/hr Q2H PRN IV For Potassium 3.3 - 3.5 mEq/L ; Start 11/29/17 at 20:00; Stop 12/18/17 at 07:22; Status DC Magnesium Sulfate 4 gm/Sodium Chloride 100 ml @ 50 mls/hr UNSCH PRN IV For Magnesium 0.9 - 1.1 mg/dL; Start 11/29/17 at 20:00; Stop 12/18/17 at 07:22; Status DC Magnesium Oxide (Mag-Ox) 800 mg UNSCH PRN PO For Magnesium 1.2 - 1.6 mg/dL; Start 11/29/17 at 20:00; Stop 12/18/17 at 07:22; Status DC Magnesium Sulfate 2 gm/Sodium Chloride 100 ml @ 50 mls/hr UNSCH PRN IV For Magnesium 1.2 - 1.6 mg/dL; Start 11/29/17 at 20:00; Stop 12/18/17 at 07:22; Status DC Potassium Phosphate (K-Phos) 2,000 mg Q4H PRN PO For Phosphorus < 2.5 mg/dL; Start 11/29/17 at 20:00; Stop 12/18/17 at 07:22; Status DC Sodium Phosphate 30 mmol/Sodium Chloride 250 ml @ 42 mls/hr UNSCH PRN IV For Phosphorus < 2.5 mg/dL Last administered on 12/01/17at 02:49; Start 11/29/17 at 20:00; Stop 12/18/17 at 07:22; Status DC Potassium Phosphate (K-Phos) 2,000 mg UNSCH PRN PO/TUBE SEE LABEL COMMENTS Last administered on 11/29/17at 23:25; Start 11/29/17 at 20:00; Stop 12/18/17 at 07:22; Status DC Potassium Phosphate 30 mmol/ Sodium Chloride 260 ml @ 42 mls/hr UNSCH PRN IV SEE LABEL COMMENTS; Start 11/29/17 at 20:00; Stop 12/18/17 at 07:22; Status DC Dexmedetomidine HCl (Precedex Inj) 38 mcg ONCE ONCE IV PUSH ; Start 11/30/17 at 08:30; Stop 11/30/17 at 08:31; Status DC Dexmedetomidine HCl 200 mcg/ Sodium Chloride 52 ml @ 3.93 mls/hr TITRATE PRN IV SEDATION Last administered on 12/02/17at 16:55; Start 11/30/17 at 08:30; Stop 12/02/17 at 19:21; Status DC Chlordiazepoxide (Librium) 25 mg TID PO Last administered on 12/09/17at 13:00; Start 12/01/17 at 09:00; Stop 12/09/17 at 15:29; Status DC Furosemide (Lasix Inj) 20 mg DAILY IV PUSH Last administered on 12/03/17at 07:56 ; Start 12/01/17 at 09:00; Status Future Hold Warfarin Sodium (Coumadin) 5 mg DAILY@1600 PO Last administered on 12/09/17 16: 00; Start 12/01/17 at 16:00; Stop 12/10/17 at 08:30; Status DC Patient Medication Teaching (Coumadin Booklet) 1 ONCE ONCE .XX Last administered on 12/01/17at 16:00; Start 12/01/17 at 16:00; Stop 12/01/17 at 16:01 ; Status DC Midazolam HCl (Versed Inj) 5 mg STK-MED ONCE .ROUTE ; Start 12/02/17 at 11:14; Stop 12/02/17 at 11:15; Status DC Famotidine (Pepcid Inj) 20 mg Q12HR IV PUSH Last administered on 12/03/17at 07: 56; Start 12/02/17 at 21:00; Stop 12/03/17 at 10:43; Status DC Dexmedetomidine HCl 1000 mcg/ Sodium Chloride 250 ml @ 3.78 mls/hr TITRATE PRN IV SEDATION Last administered on 12/03/17at 09:31; Start 12/02/17 at 19:30; Stop 12/15/17 at 16:16; Status DC Albuterol/ Ipratropium (Duoneb Neb) 1 ampule Q4HR NEB NEB Last administered on 12/06/17at 08:13; Start 12/03/17 at 12:00; Stop 12/06/17 at 12:03; Status DC Albuterol Sulfate (Albuterol Neb) 2.5 mg Q2HR NEB PRN NEB dyspnea; Start at 10:00; Stop 12/03/17 at 10:43; Status DC Famotidine (Pepcid) 20 mg BID NG Last administered on 12/25/17at 09:30; Start at 21:00 Artificial Tears (Tears Naturale Opth Soln) 1 drop Q8HR EACH EYE Last administered on 12/25/17at 14:00; Start 12/03/17 at 14:00 Dextrose (D50w (Vial) Inj) 50 ml UNSCH PRN IV PUSH HYPOGLYCEMIA-SEE COMMENTS; Start 12/03/17 at 10:45 Glucagon (Glucagon Inj) 1 mg UNSCH PRN OTHER HYPOGLYCEMIA-SEE COMMENTS; Start 12/03/17 at 10:45 Insulin Human Regular (NovoLIN R SUPPLEMENTAL SCALE) 1 Q6HR SQ Last administered on 12/04/17at 05:56; Start 12/03/17 at 12:00; Stop 12/04/17 at 09:31 ; Status DC Budesonide (Pulmicort Respule Neb) 0.5 mg Q12HR NEB NEB Last administered on at 08:13; Start 12/03/17 at 20:00 Heparin Sodium (Porcine) (Heparin Inj) 5,000 units Q12HR SQ ; Start 12/03/17 at 21:00; Stop 12/03/17 at 21:00; Status DC Acetaminophen (Tylenol 650 Mg/ 20 ml Liq) 650 mg Q6H PRN PO fever Last administered on 12/25/17at 01:17; Start 12/03/17 at 11:00 Albuterol Sulfate (Albuterol Neb) 2.5 mg Q2HR NEB PRN NEB dyspnea Last administered on 12/24/17at 07:35; Start 12/03/17 at 11:00 Heparin Sodium/ Dextrose 250 ml @ 14.058 mls/ hr TITRATE PRN IV Coagulation Management Last administered on 12/07/17at 12:34; Start 12/03/17 at 11:30; Stop at 15:28; Status DC Amiloride/HCTZ (Moduretic 5-50 Mg) 1 tab DAILY PO Last administered on at 09:30; Start 12/04/17 at 09:00 Epoprostenol Sodium 62.5 ml/ Sodium Chloride 100 ml @ 5 mls/hr Q8H NEB Last administered on 12/10/17at 08:20; Start 12/03/17 at 17:00; Stop 12/10/17 at 12:46; Status DC Acetazolamide Sodium (Diamox Inj) 500 mg ONCE ONCE IV PUSH Last administered on 12/04/17at 10:33; Start 12/04/17 at 09:30; Stop 12/04/17 at 09:31; Status DC Dextrose (D50w (Vial) Inj) 50 ml UNSCH PRN IV PUSH HYPOGLYCEMIA-SEE COMMENTS; Start 12/04/17 at 08:30; Stop 12/04/17 at 09:30; Status DC Glucagon (Glucagon Inj) 1 mg UNSCH PRN OTHER HYPOGLYCEMIA-SEE COMMENTS; Start 12/04/17 at 08:30; Stop 12/04/17 at 09:32; Status DC Insulin Aspart (NovoLOG SUPPLEMENTAL SCALE) 1 Q6HR SQ Last administered on at 12:00; Start 12/04/17 at 12:00; Stop 12/15/17 at 22:43; Status DC Polyethylene Glycol (Miralax) 17 gm ONCE ONCE PO Last administered on at 10:33; Start 12/04/17 at 09:45; Stop 12/04/17 at 09:59; Status DC Polyethylene Glycol (Miralax) 17 gm BID PO Last administered on 12/14/17at 09:03 ; Start 12/04/17 at 21:00; Stop 12/15/17 at 16:16; Status DC Lactulose (Lactulose Liq) 30 ml QID PO Last administered on 12/07/17at 21:07; Start 12/04/17 at 13:00; Stop 12/08/17 at 08:51; Status DC Mineral Oil (Kondremul Liq) 30 ml ONCE ONCE PO Last administered on 12/04/17at 11:22; Start 12/04/17 at 09:45; Stop 12/04/17 at 09:59; Status DC Potassium Phos/ Sodium Phos (K-Phos Neutral) 1,000 mg ONCE ONCE OG-TUBE Last administered on 12/04/17at 10:33; Start 12/04/17 at 09:45; Stop 12/04/17 at 09:59 ; Status DC Pharmacy Profile Note 0 ml @ 0 mls/hr UNSCH OTHER ; Start 12/04/17 at 14:45; Stop 12/11/17 at 16:10; Status DC Piperacillin Sod/ Tazobactam Sod 100 ml @ 200 mls/hr Q6H IV Last administered on 12/11/17at 15:37; Start 12/04/17 at 16:00; Stop 12/11/17 at 16:10; Status DC Norepinephrine Bitartrate 4 mg/ Sodium Chloride 250 ml @ 7.5 mls/hr TITRATE PRN IV Blood pressure management Last administered on 12/10/17at 07:00; Start at 15:30; Stop 12/15/17 at 16:16; Status DC Terbutaline Sulfate (Brethine Inj) 1 mg UNSCH PRN SQ For Extravasation; Start 12/04/17 at 15:30; Stop 12/15/17 at 16:16; Status DC Vancomycin HCl 1250 mg/Sodium Chloride 262.5 ml @ 250 mls/hr Q12H IV Last administered on 12/09/17at 05:59; Start 12/04/17 at 17:00; Stop 12/09/17 at 11:26; Status DC Miscellaneous Information ([facility] Ordered Lab Info) SPECIFIC LAB TO BE DRAWN:VANCO TROUGH DATE TO BE DR... ONCE ONCE .XX Last administered on at 04:45; Start 12/06/17 at 04:45; Stop 12/06/17 at 04:46; Status DC Mupirocin (Bactroban Nasal 2% Oint) 1 applic Taper BID EACH NARE Last administered on 12/25/17at 09:30; Start 12/04/17 at 21:00; Stop 11/30/18 at 20:59 Sodium Chloride (NS Flush) DAILY IV FLUSH Last administered on 12/21/17at 10:25 ; Start 12/05/17 at 09:00 Sodium Chloride (NS Flush) UNSCH PRN IV FLUSH SEE PROTOCOL; Start 12/04/17 at 17:30 Acetaminophen (Tylenol) 650 mg Q4H PRN PO HEADACHE; Start 12/04/17 at 17:30; Status Cancel Cefazolin Sodium 1000 mg/Sodium Chloride 100 ml @ 200 mls/hr Q8H IV ; Start at 18:00; Status Cancel Warfarin Sodium (Coumadin) 1 mg ONCE@1600 ONCE PO Last administered on at 17:54; Start 12/05/17 at 16:00; Stop 12/05/17 at 16:01; Status DC Permethrin (Nix Creme Rinse 1% Lotion) 1 applic ONCE ONCE TOPICAL Last administered on 12/06/17at 07:00; Start 12/06/17 at 07:00; Stop 12/06/17 at 07:03; Status DC Albuterol/ Ipratropium (Duoneb Neb) 1 ampule Q4HR NEB NEB Last administered on 12/10/17at 09:15; Start 12/06/17 at 16:00; Stop 12/10/17 at 10:17; Status DC Furosemide (Lasix Inj) 40 mg ONCE ONCE IV PUSH Last administered on 12/06/17at 13:36; Start 12/06/17 at 12:15; Stop 12/06/17 at 12:16; Status DC Albumin Human 50 ml @ 60 mls/hr ONCE ONCE IV Last administered on 12/06/17at 13: 37; Start 12/06/17 at 12:15; Stop 12/06/17 at 13:04; Status DC Sodium Chloride (Sodium Chloride 3% Neb) 2 ml Q4HR NEB NEB Last administered on 12/07/17at 16:14; Start 12/06/17 at 16:00; Stop 12/07/17 at 16:45; Status DC Guaifenesin (Robitussin Liq) 400 mg Q8HR NG Last administered on 12/13/17at 06:15 ; Start 12/06/17 at 14:00; Stop 12/13/17 at 13:59; Status DC Warfarin Sodium (Coumadin) 1 mg ONCE@1600 ONCE PO Last administered on at 16:43; Start 12/06/17 at 16:00; Stop 12/06/17 at 16:01; Status DC Furosemide (Lasix Inj) 20 mg ONCE ONCE IV PUSH Last administered on 12/07/17 10:40; Start 12/07/17 at 10:00; Stop 12/07/17 at 10:01; Status DC Albumin Human 50 ml @ 60 mls/hr ONCE ONCE IV Last administered on 12/07/17 12: 45; Start 12/07/17 at 10:00; Stop 12/07/17 at 10:49; Status DC Warfarin Sodium (Coumadin) 1 mg ONCE@1600 ONCE PO Last administered on 16:52; Start 12/07/17 at 16:00; Stop 12/07/17 at 16:01; Status DC Rocuronium [place] (Zemuron Inj) 100 mg BOLUS ONCE IV Last administered on 12/07 14:30; Start 12/07/17 at 14:15; Stop 12/07/17 at 14:16; Status DC Etomidate (Amidate Inj) 40 mg ONCE ONCE IV PUSH Last administered on 12/07/17 14:27; Start 12/07/17 at 14:15; Stop 12/07/17 at 14:16; Status DC Heparin Sodium/ Dextrose 250 ml @ 14.058 mls/ hr TITRATE PRN IV Coagulation Management Last administered on 12/07/17 19:00; Start 12/07/17 at 18:30; Stop 12/08/17 at 15:21; Status DC Albumin Human 50 ml @ 60 mls/hr ONCE ONCE IV Last administered on 12/07/17 17: 21; Start 12/07/17 at 16:30; Stop 12/07/17 at 17:19; Status DC Furosemide (Lasix Inj) 20 mg ONCE ONCE IV PUSH Last administered on 12/07/17 17:21; Start 12/07/17 at 16:30; Stop 12/07/17 at 16:34; Status DC Lactulose (Lactulose Liq) 30 ml BID PO Last administered on 12/22/17 10:05; Start 12/08/17 at 09:00 Methylprednisolone Sodium Succinate (SoluMEDROL INJ) 40 mg Q8HR IV PUSH Last administered on 12/12/17 14:08; Start 12/08/17 at 14:00; Stop 12/12/17 at 16:27; Status DC Warfarin Sodium (Coumadin) 2.5 mg ONCE ONCE PO Last administered on 12/08/17at 15:19; Start 12/08/17 at 16:00; Stop 12/08/17 at 16:01; Status DC Miscellaneous Information ([facility] Ordered Lab Info) SPECIFIC LAB TO BE CORINA... ONCE ONCE .XX Last administered on 12/09/17at 06:00; Start 12/09/17 at 04: 45; Stop 12/09/17 at 04:46; Status DC Heparin Sodium/ Dextrose 250 ml @ 15 mls/hr TITRATE PRN IV Coagulation Management Last administered on 12/18/17at 04:02; Start 12/08/17 at 15:30; Stop at 09:29; Status DC Vancomycin HCl 1000 mg/Sodium Chloride 250 ml @ 250 mls/hr Q12H IV Last administered on 12/11/17at 07:05; Start 12/09/17 at 18:00; Stop 12/11/17 at 09:18; Status DC Miscellaneous Information ([facility] Ordered Lab Info) SPECIFIC LAB TO BE DRAWN:VANCO TROUGH DATE... ONCE ONCE .XX Last administered on 12/11/17at 05:07; Start 12/11/17 at 05:45; Stop 12/11/17 at 05:46; Status DC Chlordiazepoxide (Librium) 25 mg Taper DAILY PO Last administered on 12/11/17at 09:12; Start 12/10/17 at 01:00; Stop 12/12/17 at 00:59; Status DC Acetazolamide Sodium (Diamox Inj) 500 mg ONCE ONCE IV PUSH Last administered on 12/09/17at 15:30; Start 12/09/17 at 15:30; Stop 12/09/17 at 15:31; Status DC Furosemide (Lasix Inj) 40 mg ONCE ONCE IV PUSH Last administered on 12/09/17at 15:30; Start 12/09/17 at 15:30; Stop 12/09/17 at 15:34; Status DC Warfarin Sodium (Coumadin) 6 mg DAILY@1600 PO Last administered on 12/10/17at 15: 41; Start 12/10/17 at 16:00; Stop 12/11/17 at 07:21; Status DC Albuterol/ Ipratropium (Duoneb Neb) 1 ampule Q4HR NEB NEB Last administered on 12/13/17at 12:40; Start 12/10/17 at 12:00; Stop 12/13/17 at 21:05; Status DC Epoprostenol Sodium 50 ml/ Sodium Chloride 100 ml @ 5 mls/hr Q8H NEB Last administered on 12/11/17at 15:37; Start 12/10/17 at 16:00; Stop 12/11/17 at 16:10; Status DC Warfarin Sodium (Coumadin) 7.5 mg ONCE@1600 ONCE PO Last administered on at 16:59; Start 12/11/17 at 16:00; Stop 12/11/17 at 16:01; Status DC Vancomycin HCl 1250 mg/Sodium Chloride 262.5 ml @ 250 mls/hr Q18H IV ; Start at 00:00; Stop 12/12/17 at 00:00; Status DC Miscellaneous Information ([facility] Ordered Lab Info) SPECIFIC LAB TO BE DRAWN:VA... ONCE ONCE .XX ; Start 12/13/17 at 11:45; Stop 12/13/17 at 11:46; Status Cancel Ceftriaxone Sodium 2000 mg/ Sodium Chloride 100 ml @ 200 mls/hr Q24H IV Last administered on 12/13/17at 18:53; Start 12/11/17 at 17:00; Stop 12/14/17 at 16:59; Status DC Furosemide (Lasix Inj) 20 mg ONCE ONCE IV PUSH Last administered on 12/11/17at 17:11; Start 12/11/17 at 16:15; Stop 12/11/17 at 16:48; Status DC Warfarin Sodium (Coumadin) 7.5 mg DAILY@1600 PO Last administered on 12/17/17at 16:00; Start 12/12/17 at 16:00; Stop 12/18/17 at 07:38; Status DC Methylprednisolone Sodium Succinate (SoluMEDROL INJ) 40 mg Q12HR IV PUSH Last administered on 12/15/17at 08:26; Start 12/12/17 at 21:00; Stop 12/15/17 at 16:16 ; Status DC Furosemide (Lasix Inj) 20 mg ONCE ONCE IV PUSH Last administered on 12/12/17at 17:07; Start 12/12/17 at 17:00; Stop 12/12/17 at 17:01; Status DC Albuterol/ Ipratropium (Duoneb Neb) 1 ampule Q4HR NEB NEB Last administered on 12/17/17at 19:59; Start 12/14/17 at 00:00; Stop 12/17/17 at 23:59; Status DC Furosemide (Lasix Inj) 40 mg ONCE ONCE IV PUSH Last administered on 12/13/17at 22:41; Start 12/13/17 at 21:15; Stop 12/13/17 at 21:21; Status DC Albumin Human 100 ml @ 60 mls/hr ONCE ONCE IV Last administered on 12/13/17at 22:41; Start 12/13/17 at 21:15; Stop 12/13/17 at 22:54; Status DC Warfarin Sodium (Coumadin) 2.5 mg ONCE ONCE PO Last administered on 12/14/17at 18:22; Start 12/14/17 at 16:00; Stop 12/14/17 at 16:01; Status DC Albumin Human 100 ml @ 60 mls/hr ONCE ONCE IV Last administered on 12/14/17at 12:45; Start 12/14/17 at 12:45; Stop 12/14/17 at 14:24; Status DC Furosemide (Lasix Inj) 40 mg ONCE ONCE IV PUSH Last administered on 12/14/17at 12:45; Start 12/14/17 at 12:45; Stop 12/14/17 at 13:22; Status DC Acetazolamide Sodium (Diamox Inj) 250 mg ONCE ONCE IV PUSH Last administered on 12/14/17at 12:45; Start 12/14/17 at 12:45; Stop 12/14/17 at 13:22; Status DC Warfarin Sodium (Coumadin) 2.5 mg ONCE ONCE PO Last administered on 12/15/17at 15:43; Start 12/15/17 at 16:00; Stop 12/15/17 at 16:01; Status DC Methylprednisolone Sodium Succinate (SoluMEDROL INJ) 40 mg DAILY IV PUSH Last administered on 12/22/17at 10:05; Start 12/16/17 at 09:00; Stop 12/22/17 at 21:19 ; Status DC Insulin Aspart (NovoLOG SUPPLEMENTAL SCALE) 1 ACHS SQ Last administered on 12/22at 18:02; Start 12/16/17 at 08:00 Warfarin Sodium (Coumadin) 5 mg ONCE ONCE PO Last administered on 12/16/17at 16 :00; Start 12/16/17 at 16:00; Stop 12/16/17 at 16:01; Status DC Hydromorphone HCl (Dilaudid Pf Inj) 1 mg Q4H PRN IV PUSH PAIN SCALE 6 TO 10 Last administered on 12/17/17at 12:11; Start 12/17/17 at 07:45; Stop 12/22/17 at 21:19; Status DC Permethrin (Elimite 5% Cream) 1 applic ONCE ONCE TOPICAL Last administered on 12/17/17at 13:30; Start 12/17/17 at 13:30; Stop 12/17/17 at 13:31; Status DC Warfarin Sodium (Coumadin) 5 mg DAILY@1600 PO Last administered on 12/20/17at 13 :47; Start 12/18/17 at 16:00; Stop 12/22/17 at 14:39; Status DC Nystatin (Mycostatin Liq) 5 ml QID SWISH-SWAL Last administered on 12/25/17at 14:19; Start 12/19/17 at 13:00 Permethrin (Nix Creme Rinse 1% Lotion) 1 applic ONCE ONCE TOPICAL Last administered on 12/20/17at 05:30; Start 12/20/17 at 06:00; Stop 12/20/17 at 06:01 ; Status DC Permethrin (Elimite 5% Cream) 1 applic ONCE ONCE TOPICAL Last administered on 12/20/17at 05:30; Start 12/20/17 at 06:00; Stop 12/20/17 at 06:01; Status DC Enoxaparin Sodium (Lovenox Inj) 80 mg Q12H SQ ; Start 12/21/17 at 12:00; Status Cancel Enoxaparin Sodium (Lovenox Inj) 40 mg Q24H SQ Last administered on 12/22/17at 10 :28; Start 12/21/17 at 12:00; Stop 12/22/17 at 14:36; Status DC Lisinopril (Prinivil) 5 mg DAILY PO Last administered on 12/22/17at 13:59; Start 12/22/17 at 14:00; Status Future Hold Warfarin Sodium (Coumadin) 4 mg DAILY@1600 PO Last administered on 12/22/17at 17 :45; Start 12/22/17 at 16:00; Status Future Hold Phenylephrine HCl (Neosynephrine Inj) 40 mg STK-MED ONCE .ROUTE ; Start at 19:36; Stop 12/22/17 at 19:37; Status DC Pharmacy Profile Note 0 ml @ 0 mls/hr UNSCH OTHER ; Start 12/22/17 at 21:15; Stop 12/24/17 at 13:37; Status DC Vancomycin HCl 1250 mg/Sodium Chloride 262.5 ml @ 250 mls/hr ONCE ONCE IV Last administered on 12/22/17at 23:50; Start 12/22/17 at 23:00; Stop 12/23/17 at 00:02; Status DC Cefepime HCl 2000 mg/Sodium Chloride 100 ml @ 200 mls/hr Q12H IV Last administered on 12/22/17at 22:00; Start 12/22/17 at 22:00; Stop 12/23/17 at 08:08 ; Status DC Metronidazole 100 ml @ 100 mls/hr Q6H IV Last administered on 12/24/17at 13:04 ; Start 12/22/17 at 23:00; Stop 12/24/17 at 13:37; Status DC Sodium Chloride 1,000 ml @ 100 mls/hr Q10H IV Last administered on 12/25/17at 09:33; Start 12/22/17 at 22:00 Vancomycin HCl 1250 mg/Sodium Chloride 262.5 ml @ 250 mls/hr Q24H IV Last administered on 12/23/17at 23:59; Start 12/23/17 at 23:00; Stop 12/24/17 at 13:37 ; Status DC Miscellaneous Information ([facility] Ordered Lab Info) SPECIFIC LAB TO BE DRAWN:VANCO TROUGH DATE TO BE DRViktor.. ONCE ONCE .XX ; Start 12/25/17 at 22:45; Stop 12/25/17 at 22:45; Status DC Phenylephrine HCl 40 mg/Dextrose 500 ml @ 30 mls/hr TITRATE PRN IV Blood Pressure Management Last administered on 12/24/17at 00:31; Start 12/22/17 at 22: 30 Terbutaline Sulfate (Brethine Inj) 1 mg UNSCH PRN SQ FOR EXTRAVASATION PROTOCOL ; Start 12/22/17 at 22:30 Cefepime HCl 2000 mg/Sodium Chloride 100 ml @ 200 mls/hr Q8H IV Last administered on 12/24/17at 09:33; Start 12/23/17 at 09:00; Stop 12/24/17 at 13:37 ; Status DC Potassium Chloride 100 ml @ 50 mls/hr Q2H PRN IV For Potassium 2.8 - 3.2 mEq/L ; Start 12/23/17 at 11:00 Potassium Chloride 100 ml @ 50 mls/hr Q2H PRN IV For Potassium 2.8 - 3.2 mEq/ L Last administered on 12/24/17at 13:09; Start 12/23/17 at 11:00 Potassium Bicarb/ Potassium Chloride (K-Lyte Cl Eff) 50 meq UNSCH PRN PO For Potassium 3.3 - 3.5 mEq/L Last administered on 12/24/17at 01:58; Start 12/23/17 at 11:00 Potassium Chloride 100 ml @ 25 mls/hr UNSCH PRN IV For Potassium 3.3 - 3.5 mEq /L; Start 12/23/17 at 11:00 Potassium Chloride 100 ml @ 50 mls/hr Q2H PRN IV For Potassium 3.3 - 3.5 mEq/L ; Start 12/23/17 at 11:00 Magnesium Sulfate 4 gm/Sodium Chloride 100 ml @ 50 mls/hr UNSCH PRN IV For Magnesium 0.9 - 1.1 mg/dL; Start 12/23/17 at 11:00 Magnesium Oxide (Mag-Ox) 800 mg UNSCH PRN PO For Magnesium 1.2 - 1.6 mg/dL; Start 12/23/17 at 11:00 Magnesium Sulfate 2 gm/Sodium Chloride 100 ml @ 50 mls/hr UNSCH PRN IV For Magnesium 1.2 - 1.6 mg/dL; Start 12/23/17 at 11:00 Potassium Phosphate (K-Phos) 2,000 mg Q4H PRN PO For Phosphorus < 2.5 mg/dL; Start 12/23/17 at 11:00 Sodium Phosphate 30 mmol/Sodium Chloride 250 ml @ 42 mls/hr UNSCH PRN IV For Phosphorus < 2.5 mg/dL; Start 12/23/17 at 11:00 Potassium Phosphate (K-Phos) 2,000 mg UNSCH PRN PO/TUBE SEE LABEL COMMENTS; Start 12/23/17 at 11:00 Potassium Phosphate 30 mmol/ Sodium Chloride 260 ml @ 42 mls/hr UNSCH PRN IV SEE LABEL COMMENTS; Start 12/23/17 at 11:00 Hydrocortisone Sodium Succinate (SoluCORTEF INJ) 50 mg Q6HR IV PUSH Last administered on 12/25/17at 11:36; Start 12/23/17 at 18:00 Albumin Human 500 ml @ 166.667 mls/hr ONCE ONCE IV Last administered on at 12:03; Start 12/24/17 at 12:00; Stop 12/24/17 at 14:59; Status DC Ertapenem (INVanz INJ) 1,000 mg Q24H IV ; Start 12/24/17 at 13:45; Stop at 13:44; Status UNV Ertapenem 1000 mg/ Sodium Chloride 100 ml @ 200 mls/hr Q24H IV Last administered on 12/25/17at 14:20; Start 12/24/17 at 15:00; Stop 12/30/17 at 15:29 Miscellaneous Medication (ASP Crit: Doc ESBL, MDR A baumannii or P aer) 1 UNSCH ONCE .XX Last administered on 12/24/17at 13:45; Start 12/24/17 at 13:45; Stop 12/24/17 at 13:46; Status DC Oxycodone/ Acetaminophen (Percocet 5-325 Mg) 1 tab NOW ONCE PO Last administered on 12/25/17at 14:20; Start 12/25/17 at 11:15; Stop 12/25/17 at 11:16 ; Status DC A/P Problem List: (1) Alcohol use ICD Code: F10.99 - Alcohol use, unspecified with unspecified alcohol-induced disorder Status: Chronic (2) Acute hypoxemic respiratory failure ICD Code: J96.01 - Acute respiratory failure with hypoxia (3) End stage COPD ICD Code: J44.9 - Chronic obstructive pulmonary disease, unspecified (4) MRSA pneumonia ICD Code: J15.212 - Pneumonia due to Methicillin resistant Staphylococcus aureus (5) Dependence on respirator, status ICD Code: Z99.11 - Dependence on respirator [ventilator] status (6) Factor V Leiden ICD Code: D68.51 - Activated protein C resistance Status: Acute (7) Hypertension ICD Code: I10 - Essential (primary) hypertension Status: Acute (8) Alcohol abuse ICD Code: F10.10 - Alcohol abuse, uncomplicated Status: Acute (9) Hepatitis C ICD Code: B19.20 - Unspecified viral hepatitis C without hepatic coma Assessment and Plan Assessment: 57yF with end-stage COPD and pulmonary hypertension whose course has been complicated by a prolonged ventilatory requirement and recently extubated, still remains with multiple acute and chronic medical problems and now has acute new metabolic encephalopathy and septic shock, secondary to ESBL/ MDRO E. Coli CAUTI. appreciate palliative care assistance in re-engaging goals of care discussion. NEURO/PSYCH: Acute metabolic encephalopathy- improving. EtOH abuse/withdrawal History of right frontal CVA Depression/anxiety s/p chlordiazepoxide taper. Acetaminophen 650 mg p.o. every 6 hours as needed fever unlikely to be focal and CVA frequent neuro checks avoid long-acting sedatives maintain map > 65 mmHg for adequate cerebral perfusion. CV: Coronary artery disease Essential hypertension Hyperlipidemia Septic shock hold home antihypertensives. phenylephrine drip, goal map > 65 mmHg. 500mL 5% albumin iv x 1. \\WEANED OFF DRIPS Resp: COPD Bilateral lower lobe lung collapse status post bronchoscopy 12/02 Nasal cannula to maintain saturations greater than equal to 92% Incentive spirometry while awake Albuterol/ipratropium aerosols every 4 hours with albuterol aerosols every 2 hours as needed dyspnea Budesonide 0.5/2 1 inhalation twice daily On budesonide/formoterol 160/4.5 2 puffs twice daily at home s/p steroid course. may need stress dose this critical illness, but will hold off for now. Chest x-ray worsening right lower lobe versus effusion. VQ scan low probability for pulmonary embolism GI: Gastroesophageal reflux disease Hepatitis C Hypoalbuminemia/moderate protein calorie malnutrition Elevated AST Patient is currently on honey thickened Famotidine for GI prophylaxis Docusate serum/senna 1 tablet twice daily for bowel regimen. : Acute kidney injury- resolved. FER likely secondary to shock. Endo: Hyperglycemia Sliding scale insulin with Accu-Cheks to maintain euglycemia while on high-dose steroids Renal: Creatinine currently within normal limits Monitor urine output Accurate I's and O's Heme: Factor V Leiden on chronic anticoagulation Normocytic anemia Leukocytosis Chronic warfarin use History of left lower extremity DVT status post IVC filter on lovenox and coumadin. At home on enoxaparin 80 mg subcu twice daily with warfarin 7.5 mg daily Monitor CBC daily. Along with PT/INR/PTT RESTART COUMADIN AT 4MG PO DAILY ID: MRSA pneumonia- resolved Pediculosis capitis MRSA nares new septic shock ESBL/MDRO E. Coli HC-associated CAUTI Vancomycin/Pipracil/tazobactam 12/04 - 12/11 Rocephin 12/11 - 12/14. Continue permethrin 1 dose. Mupirocin to nares twice daily Pertinent cultures 12/07 -sputum from bronchoscopy-MSSA 12/03 -sputum -MRSA 12/03 -blood cultures 2 -no growth Influenza negative d/c vanc, cefepime,flagyl start ertapenem 1gm iv q24h x 7 days ID consulted per protocol. FEN: Replace electrolytes as clinically indicated MSK: Osteoporosis/chronic low back pain PT evaluate and treat Access -CVL/right IJ placed 12/03-12/14 - piv Prophylaxis -GI -famotidine -DVT -SCD/lovenox/warfarin TRANSFER TO FLOOR NEAR RN STATION Discharge Planning PENDING IMPROVEMENT WILL NEED SNF AT Shaun Robbins DO Dec 25, 2017 16:24
--- NOTE | 2017-12-25 18:47 | HHI.HCPN ---
IMPORTANT There has been confusion with health care decision making. The patient's sister is Nani Melchor who lives out of state. There is a friend -- Nani Villanueva [phone] - who lives locally and visits. Nani Villanueva, on occasion, has been contacted instead of Nani Melchor. I telephoned Nani Melchor today -- the health care surrogate. She was updated on the patient's condition. She agrees with the plan to enroll the patient in hospice and transition to comfort measures. I have telephoned the hospice admission office to make sure they have the number for the surrogate -- Nani Melchor, and NOT the friend -- Nani Villanueva. Gerber Arellano MD Dec 25, 2017 18:47
[2017-12-25] MEDS: oxyCODONE/ACETAMINOPHEN 5 MG/325 MG TAB PO PRN (21:35)
[2017-12-25] MEDS ORDERED: PHARMACY ORDERED LAB ONE (22:45)
[2017-12-25] MEDS: ALPRAZolam 0.25 MG TAB PO PRN (23:27)
[2017-12-26] VITALS (11 sets, daily range): BP systolic 121–145; BP diastolic 77–91; PULSE 74–105; RESP 15–27; TEMP 97.8–98.6; O2SAT 91–97
[2017-12-26] MEDS: CHLORHEXIDINE GLUCONATE 2 % 1 PACK (2 CLOTHS) TOP SCH (04:00)
[2017-12-26] MEDS: HYDROCORTISONE SOD SUCCINATE 100 MG VIAL IV PUSH SCH ×3 (06:00→19:41)
[2017-12-26] MEDS: ARTIFICIAL TEARS OPTH SOLN 15 ML BTL EACH EYE SCH ×3 (06:46→22:31)
[2017-12-26] MEDS: SODIUM CHLOR 0.9% 1000 ML INJ 1,000 ML IV SCH ×2 (06:46→15:44)
[2017-12-26] MEDS: NYSTATIN SUSP 500,000 U/5 ML CUP SWISH-SWAL SCH ×4 (08:11→22:22)
[2017-12-26] MEDS: CHLORHEXIDINE 0.12% (ORAL KIT) 15 ML CUP MT SCH ×2 (08:11→22:23)
[2017-12-26] MEDS: LACTULOSE SYRUP 20 GM/30 ML CUP PO SCH ×2 (08:12→22:23)
[2017-12-26] MEDS: FAMOTIDINE 20 MG TAB NG SCH ×2 (08:12→22:23)
[2017-12-26] MEDS: aMILoride/HCTZ 5 MG/50 MG TAB PO SCH (08:12)
[2017-12-26] MEDS: DOCUSATE SODIUM 50 MG/SENNA 8.6 MG TAB PO SCH ×2 (08:12→22:22)
[2017-12-26] MEDS: MUPIROCIN 2% OINT 1 APPLIC/GM SYR EACH NARE SCH ×2 (08:12→22:23)
[2017-12-26] MEDS: oxyCODONE/ACETAMINOPHEN 5 MG/325 MG TAB PO PRN (08:12)
[2017-12-26] MEDS: SODIUM CHLORIDE 0.9% FLUSH 10 ML FLUSH IV FLUSH SCH ×3 (08:13→22:23)
[2017-12-26 08:22] LABS: AUTOMATED NEUTROPHIL # 5.7 TH/MM3 (1.8-7.7); BASOPHIL % 0.2 % (0.0-2.0); EOSINOPHIL # 0.1 TH/MM3 (0-0.4); HEMOGLOBIN 10.7 GM/DL (11.6-15.3); LYMPH % 17.3 % (9.0-44.0); LYMPHOCYTE # 1.3 TH/MM3 (1.0-4.8); MEAN CELL VOLUME 94.2 FL (80.0-100.0); MEAN CORPUSCULAR HEMOGLOBIN 30.6 PG (27.0-34.0); MEAN CORPUSCULAR HGB CONC 32.5 % (32.0-36.0); MEAN PLATELET VOLUME 10.5 FL (7.0-11.0); MONO % 7.1 % (0.0-8.0); MONOCYTE # 0.5 TH/MM3 (0-0.9); NEUT % 74.4 % (16.0-70.0); PLATELET COUNT 148 TH/MM3 (150-450); RED BLOOD COUNT 3.51 MIL/MM3 (4.00-5.30); RED CELL DISTRIBUTION WIDTH 19.3 % (11.6-17.2); WHITE BLOOD COUNT 7.7 TH/MM3 (4.0-11.0)
[2017-12-26 08:33] LABS: ALBUMIN 2.9 GM/DL (3.4-5.0); ALKALINE PHOSPHATASE 73 U/L (45-117); ALT (GPT) 312 U/L (10-53); AST (GOT) 111 U/L (15-37); BICARBONATE 24.2 MEQ/L (21.0-32.0); CALCIUM 8.5 MG/DL (8.5-10.1); CHLORIDE 111 MEQ/L (98-107); GLOMERULAR FILTRATION RATE 104 ML/MIN (>89); GLUCOSE,RANDOM 79 MG/DL (74-106); MAGNESIUM 1.8 MG/DL (1.5-2.5); PHOSPHORUS 1.8 MG/DL (2.5-4.9); SODIUM (NA) 145 MEQ/L (136-145); TOTAL BILIRUBIN ADULT 0.4 MG/DL (0.2-1.0)
[2017-12-26 08:40] LABS: BLOOD UREA NITROGEN 18 MG/DL (7-18)
[2017-12-26] MEDS: INSULIN ASPART SUPPLEMENTAL SCALE SQ SCH ×2 (08:42→22:32)
[2017-12-26] MEDS: RESP: BUDESONIDE 0.5 MG/2 ML NEB NEB SCH ×2 (09:11→20:30)
--- NOTE | 2017-12-26 10:19 | HHI.PR ---
Subjective Remarks 57-year-old female who presented to emergency department complaining of SOB and coughing. She has also complained of severe left back rib area pain. In the emergency department she was desaturating to 80s on room air and 88 on 2 L nasal cannula. She was intubated by ED attending for an acute hypoxemic respiratory failure. She was intubated by ED attending. She is on Coumadin/ Lovenox 1 mg/kg every 12 hours for factor V Leiden mutation. Her INR is subtherapeutic. Attempted SBTs but patient could not tolerate due to severe bronchospasm. 11/30: Continued agitation but bronchospasm is minimally improved. Although she carries a prednisone allergy on her chart she is tolerating Solu-Medrol without difficulty. 12/01: Without heavy sedation patient becomes extremely agitated and developed severe airway collapse with very poor air movement. Unprovoked her wheezing has ceased but with agitation she developed some minimal tidal volume. We have added Precedex and will add p.o. Librium and try to rapidly extubate her. I am not optimistic. This is probably why she is required tracheostomy in the past. 12/02: Patient has developed right lower lobe atelectasis and partial collapse of the right middle lobe. Will undoubtedly require bronchoscopy to remove inspissated plugs. Her anxiety and agitation continues to be problematic and she does not respond to Precedex. 12/03: Resting comfortably in bed in no acute distress. FiO2 100%. X-ray this a.m. revealed resolution of lower lobe collapse. Minimal secretions from ET tube. Positive BM 1 12/04: T-max 99.9. Remains on epoprostenol. Did not tolerate bilevel or increased PEEP. Tolerating tube feeds at goal. Currently on propofol and fentanyl drips. 12/05: Afebrile. Remains on norepinephrine drip at 3 mcg/min. FiO2 requirements decreased to 60% overnight. Arousable the ventilator. She is on propofol and fentanyl drips. 12/06: Afebrile. FiO2 currently 50%. Remains on epoprostenol aerosolized. Noted to have a pediculosis capitis. Permethrin currently being applied. 12/07: FiO2 at 60%. Afebrile. Arousable on the ventilator and sedation. Appears comfortable. Tolerating tube feeding. 12/08: Still continues to have pediculosis capitis. Status post bronchoscopy yesterday with thin frothy clear secretions noted. No mucous plugging. Currently afebrile. Tolerating tube feeding. Arousable and follows commands on the ventilator remains on epoprostenol aerosolized maximum 50 ng/kg/min 12/09: no improvements or changes. remains hypoxic on 70% fio2. requires inhaled flolan. 12/10: Afebrile. FiO2 down to 40%. Follows commands normally on the ventilator. Tolerating tube feeds. Positive BM. 12/11: no meaningful improvements in days. palliative care working with the son who is here on [facility] from [facility]. 12/12: no improvements. net -2L/24h. off flolan. remains intubated on full support. per the patient, she does not want her son making healthcare decisions , so legally it falls to her sister, who is currently undergoing elective surgery of her own today and cannot make medical decisions. 12/13: still failing weaning trials. no changes or improvements. 60% fio2. 12/14: on SBT today. more awake. fio2 down to 40%. still very high risk for failing any trials of extubation. 12/15: Extubated yesterday. Currently on honey thick liquid diet. Tolerating nasal cannula. 12/16: Extubated 36 hours ago, continues to breathe comfortably on NC O2. SUBJECTIVE: RECONSULT NOTE: 12/22: stroke alert from floor for altered mentation. patient nearly obtunded although protecting airway with cough and gag. severely hypotensive. non-focal and moves all extremities. examined patient on arrival to ICU from floor along with neurologist Dr. Rodrigues: we both do not think this is a focal neurologic exam. in addition, patient is fully anticoagulated so ischemic event unlikely. placed piv access. gave ivf and phenylephrine infusion and blood pressure improved. with increasing bp, mentation improved. stat head CT negative for acute bleed. Cr significantly increased. ABG demonstrates metabolic acidosis with respiratory compensation. sepsis is a concern given long hospitalization. ROS unobtainable. 12/23: mental status improved. remains on vasopressors in septic shock. unclear source: likely urine. no increase o2 requirement. asked palliative to re-engage goals of care discussion after she was quite clear last night she did not want life-support (has had very aggressive goals in the past; this is a change). 12/24: remains hypotensive. urine now growing ESBL/MDRO E. Coli which is not sensitive to current regimen. have initiated therapy with ertapenem 1gm iv q24h and have consulted ID. urine is not colonization, and she remains in shock from this. 12-25 PATIENT TRANSFERRED TO OUR SERVICE TODAY ANXIOUS NEEDING PAIN MEDS STILL NEEDS [facility] CATHETER DW RN AND PT NEEDS PT AND OT DW PALLIATIVE CARE IS A DNR DW DR SCHNEIDER AM LABS OK FOR FLOOR 12-26 ELECTROLYTES STILL NOT CORRECTED REPLACE BY PO PROTOCOLS DW RN AND PT VERY CONFUSED AND PARANOID WILL CONSULT PSYCHIATRY FOR HELP IS A DNR CONTINUE [facility]ONE ONLY HAS IV IN FOOT HOSPICE CONSULT PALLIATIVE CARE FOLLOWING Objective Vitals Vital Signs Date Time Temp Pulse Resp B/P (MAP) Pulse Ox O2 Delivery O2 Flow Rate FiO2 12/26/17 09:25 22 12/26/17 08:00 92 Nasal Cannula 2.00 12/26/17 07:00 92 Room Air 12/26/17 06:00 105 12/26/17 04:00 97.9 102 24 145/90 (108) 94 12/26/17 04:00 102 12/26/17 02:00 96 12/26/17 00:00 96 12/26/17 00:00 98.0 96 24 143/86 (105) 94 12/25/17 22:00 100 12/25/17 20:00 98.2 108 29 128/79 (95) 94 12/25/17 20:00 108 12/25/17 19:47 94 21 12/25/17 19:00 95 Room Air 12/25/17 18:00 90 12/25/17 16:00 97 12/25/17 16:00 97.9 97 25 137/78 (97) 95 12/25/17 15:32 26 12/25/17 14:00 92 12/25/17 12:00 97.7 94 36 121/81 (94) 94 12/25/17 12:00 94 I/O 12/25/17 12/25/17 12/25/17 12/26/17 12/26/17 12/26/17 07:00 15:00 23:00 07:00 15:00 23:00 Intake Total 480 ml 300 ml 240 ml Output Total 500 ml 650 ml 800 ml Balance -20 ml -350 ml -560 ml Intake Oral 480 ml 300 ml 240 ml Output Urine Total 500 ml 650 ml 800 ml # Bowel Movements 2 3 0 Result Diagram: 12/26/17 0554 12/26/17 0554 Other Results Laboratory Tests Test 12/24/17 05:25 12/24/17 20:12 12/25/17 06:32 12/25/17 13:40 White Blood Count 14.4 TH/MM3 8.7 TH/MM3 Red Blood Count 4.14 MIL/MM3 3.28 MIL/MM3 Hemoglobin 12.8 GM/DL 10.0 GM/DL Hematocrit 39.4 % 31.0 % Mean Corpuscular Volume 95.2 FL 94.5 FL Mean Corpuscular Hemoglobin 30.9 PG 30.6 PG Mean Corpuscular Hemoglobin Concent 32.4 % 32.3 % Red Cell Distribution Width 19.3 % 19.5 % Platelet Count 194 TH/MM3 159 TH/MM3 Mean Platelet Volume 10.4 FL 9.5 FL Prothrombin Time 31.4 SEC 25.0 SEC Prothromb Time International Ratio 3.1 RATIO 2.5 RATIO Blood Urea Nitrogen 32 MG/DL 21 MG/DL Creatinine 0.62 MG/DL 0.56 MG/DL Random Glucose 128 MG/DL 85 MG/DL Calcium Level 8.7 MG/DL 8.6 MG/DL Sodium Level 140 MEQ/L 140 MEQ/L Potassium Level 3.3 MEQ/L 3.9 MEQ/L 4.0 MEQ/L Chloride Level 109 MEQ/L 111 MEQ/L Carbon Dioxide Level 18.7 MEQ/L 18.7 MEQ/L Anion Gap 12 MEQ/L 10 MEQ/L Estimat Glomerular Filtration Rate 100 ML/MIN 112 ML/MIN Test 12/26/17 05:54 White Blood Count 7.7 TH/MM3 Red Blood Count 3.51 MIL/MM3 Hemoglobin 10.7 GM/DL Hematocrit 33.0 % Mean Corpuscular Volume 94.2 FL Mean Corpuscular Hemoglobin 30.6 PG Mean Corpuscular Hemoglobin Concent 32.5 % Red Cell Distribution Width 19.3 % Platelet Count 148 TH/MM3 Mean Platelet Volume 10.5 FL Neutrophils (%) (Auto) 74.4 % Lymphocytes (%) (Auto) 17.3 % Monocytes (%) (Auto) 7.1 % Eosinophils (%) (Auto) 1.0 % Basophils (%) (Auto) 0.2 % Neutrophils # (Auto) 5.7 TH/MM3 Lymphocytes # (Auto) 1.3 TH/MM3 Monocytes # (Auto) 0.5 TH/MM3 Eosinophils # (Auto) 0.1 TH/MM3 Basophils # (Auto) 0.0 TH/MM3 CBC Comment DIFF FINAL Differential Comment Hematology Comments Blood Urea Nitrogen 18 MG/DL Creatinine 0.60 MG/DL Random Glucose 79 MG/DL Total Protein 6.0 GM/DL Albumin 2.9 GM/DL Calcium Level 8.5 MG/DL Phosphorus Level 1.8 MG/DL Magnesium Level 1.8 MG/DL Alkaline Phosphatase 73 U/L Aspartate Amino Transf (AST/SGOT) 111 U/L Alanine Aminotransferase (ALT/SGPT) 312 U/L Total Bilirubin 0.4 MG/DL Sodium Level 145 MEQ/L Potassium Level 3.0 MEQ/L Chloride Level 111 MEQ/L Carbon Dioxide Level 24.2 MEQ/L Anion Gap 10 MEQ/L Estimat Glomerular Filtration Rate 104 ML/MIN Imaging Last Impressions Head CT 12/22/17 Signed Impressions: CONCLUSION: Stable postsurgical encephalomalacia on the left. No acute findings. No evidenc e for recent infarct or hemorrhage. Findings called to Dr. Rodrigues at the time of dictation. Chest X-Ray 12/11/17 0600 Signed Impressions: CONCLUSION: Support apparatus unchanged. Improved right basilar airspace disease since December 08. Lower Extremity Ultrasound 12/03/17 Signed Impressions: CONCLUSION: 1. The study is negative for bilateral lower extremity deep venous thrombosis. Ribs X-Ray 11/28/17 Signed Impressions: CONCLUSION: Deformities at the anterior lateral left ninth and 10th ribs prior fracture. Lung Scan-[facility] Nuclear Medicine 11/28/17 Signed Impressions: CONCLUSION: Low probability scan for pulmonary embolism Objective Remarks GENERAL: AWAKE ALERT AND ORIENTED X 1 TO 2- SPEAKING IN WHISPER ONLY STLL SKIN: Warm and dry. HEAD: Atraumatic. Normocephalic. EYES: Pupils equal and round. No scleral icterus. No injection or drainage. EOMI ENT: No nasal bleeding or discharge. Mucous membranes pink and moist. TONGUE MIDLINE NECK: Trachea midline. No JVD. CARDIOVASCULAR: IRRegular rate and rhythm. S1, S2 NO S3 OR S4 RESPIRATORY: No accessory muscle use. RHONCHI AND WHEEZES BL. Breath sounds equal bilaterally. GASTROINTESTINAL: Abdomen soft, non-tender, nondistended. Hepatic and splenic margins not palpable. MUSCULOSKELETAL: Extremities without clubbing, cyanosis, or edema. No obvious deformities. NEUROLOGICAL: Awake and alert. No obvious cranial nerve deficits. Motor grossly within normal limits. 4 out of 5 muscle strength in the arms and legs. Normal speech. PSYCHIATRIC: INAppropriate mood and affect; insight and judgment ABnormal. Procedures MULTIPLE BRONCHOSCOPIES Medications and IVs Current Medications Albuterol/ Ipratropium (Duoneb Neb) 1 ampule ONCE ONCE NEB Last administered on 11/28/17at 02:25; Start 11/28/17 at 02:30; Stop 11/28/17 at 02:31; Status DC Acetaminophen/ Hydrocodone Bitart ([place] 5-325 Mg) 1 tab ONCE ONCE PO ; Start 11/28/17 at 02:30; Stop 11/28/17 at 02:31; Status DC Ketorolac Tromethamine (Toradol Inj) 60 mg ONCE ONCE IM ; Start 11/28/17 at 02: 30; Stop 11/28/17 at 03:49; Status DC Lorazepam (Ativan Inj) 0.5 mg ONCE ONCE IV PUSH Last administered on at 03:55; Start 11/28/17 at 04:00; Stop 11/28/17 at 04:01; Status DC Ketorolac Tromethamine (Toradol Inj) 30 mg ONCE ONCE IV PUSH Last administered on 11/28/17at 03:55; Start 11/28/17 at 04:00; Stop 11/28/17 at 04:01 ; Status DC Morphine Sulfate (Morphine Inj) 2 mg ONCE ONCE IV PUSH ; Start 11/28/17 at 04: 15; Stop 11/28/17 at 04:16; Status DC Morphine Sulfate (Morphine Inj) 4 mg STK-MED ONCE .ROUTE ; Start 11/28/17 at 04: 09; Stop 11/28/17 at 04:10; Status DC Sodium Chloride 1,000 ml @ 999 mls/hr BOLUS ONCE IV Last administered on 11/28at 05:37; Start 11/28/17 at 04:30; Stop 11/28/17 at 05:30; Status DC Naloxone HCl (Narcan Inj) 2 mg ONCE ONCE IV PUSH Last administered on at 05:37; Start 11/28/17 at 04:45; Stop 11/28/17 at 04:46; Status DC Etomidate (Amidate Inj) 40 mg STK-MED ONCE .ROUTE ; Start 11/28/17 at 04:45; Stop 11/28/17 at 04:46; Status DC Propofol 100 ml @ 0 mls/hr TITRATE PRN IV SEDATION; Start 11/28/17 at 04:45; Stop 11/28/17 at 05:53; Status DC Propofol 50 ml @ As Directed STK-MED ONCE .ROUTE Last administered on at 05:47; Start 11/28/17 at 05:00; Stop 11/28/17 at 05:01; Status DC Midazolam HCl (Versed Inj) 5 mg STK-MED ONCE .ROUTE ; Start 11/28/17 at 05:03; Stop 11/28/17 at 05:04; Status DC Ceftriaxone Sodium 1000 mg/ Sodium Chloride 100 ml @ 200 mls/hr ONCE ONCE IV Last administered on 11/28/17at 05:56; Start 11/28/17 at 05:15; Stop 11/28/17 at 05:44; Status DC Fentanyl Citrate 250 ml TITRATE PRN IV SEDATION; Start 11/28/17 at 05:15; Stop 11/28/17 at 05:34; Status DC Midazolam HCl 100 ml TITRATE PRN IV SEDATION; Start 11/28/17 at 05:15; Status UNV Miscellaneous Information ([facility] [place] [facility]) "NEED HT & WT TO VERIFY... Q15M .XX Last administered on 11/28/17at 08:00; Start 11/28/17 at 05:15; Stop at 10:01; Status DC Midazolam HCl (Versed Inj) 5 mg ONCE ONCE IV Last administered on 11/28/17at 05 :38; Start 11/28/17 at 05:15; Stop 11/28/17 at 05:20; Status DC Midazolam HCl 50 ml @ 2 mls/hr TITRATE PRN IV SEDATION Last administered on at 19:45; Start 11/28/17 at 05:45; Stop 12/15/17 at 16:16; Status DC Fentanyl Citrate 250 ml @ 5 mls/hr TITRATE PRN IV SEDATION Last administered on 12/13/17at 02:30; Start 11/28/17 at 05:45; Stop 12/18/17 at 07:22; Status DC Succinylcholine Chloride (Quelicin Inj) 100 mg ONCE ONCE IV PUSH Last administered on 11/28/17at 05:46; Start 11/28/17 at 05:45; Stop 11/28/17 at 05:46 ; Status DC Etomidate (Amidate Inj) 20 mg ONCE ONCE IV PUSH Last administered on at 05:46; Start 11/28/17 at 05:45; Stop 11/28/17 at 05:46; Status DC Sodium Chloride 1,000 ml @ 84 mls/hr [id number] IV Last administered on at 04:08; Start 11/28/17 at 05:33; Stop 12/01/17 at 06:32; Status DC Sodium Chloride (NS Flush) 2 ml UNSCH PRN IV FLUSH FLUSH AFTER USING IV ACCESS Last administered on 12/21/17at 22:35; Start 11/28/17 at 05:45 Sodium Chloride (NS Flush) 2 ml BID IV FLUSH Last administered on 12/25/17at 21: 17; Start 11/28/17 at 09:00 Acetaminophen (Tylenol) 650 mg Q6H PRN PO PAIN 1-5 AND/OR FEVER >101F; Start at 05:45; Stop 12/03/17 at 10:51; Status DC Hydromorphone HCl (Dilaudid Pf Inj) 1 mg Q4H PRN IV PUSH PAIN SCALE 6 TO 10; Start 11/28/17 at 05:45; Stop 12/17/17 at 07:41; Status DC Famotidine (Pepcid Inj) 20 mg Q12HR IV PUSH ; Start 11/28/17 at 09:00; Status Cancel Midazolam HCl (Versed Inj) 2 mg Q1H PRN IV PUSH SEDATION Last administered on at 00:54; Start 11/28/17 at 05:45; Stop 12/15/17 at 16:16; Status DC Artificial Tears (Tears Naturale Opth Soln) 1 drop TID EACH EYE Last administered on 12/03/17at 07:58; Start 11/28/17 at 09:00; Stop 12/03/17 at 11:17 ; Status DC Ondansetron HCl (Zofran Odt) 4 mg Q6H PRN PO NAUSEA OR VOMITING; Start at 05:45 Albuterol/ Ipratropium (Duoneb Neb) 1 ampule Q6HR NEB INH Last administered on 11/28/17at 08:59; Start 11/28/17 at 10:00; Stop 11/28/17 at 10:00; Status DC Albuterol/ Ipratropium (Duoneb Neb) 1 ampule Q2HR NEB PRN INH WHEEZING; Start 11/28/17 at 05:45; Stop 12/03/17 at 10:00; Status DC Enoxaparin Sodium (Lovenox Inj) 80 mg Q12H SQ Last administered on 11/28/17at 06 :09; Start 11/28/17 at 06:00; Stop 11/28/17 at 11:40; Status DC Miscellaneous Information ([facility] [place] [facility]) 1 [id number] Last administered on 11/28/17at 08:30; Start 11/28/17 at 05:45 Chlorhexidine Gluconate (Chlorhexidine 2% Cloth) Taper DAILY@04 TOP Last administered on 12/10/17at 03:46; Start 11/29/17 at 04:00; Stop 11/25/18 at 03:59 Chlorhexidine Gluconate (Chlorhexidine 2% Cloth) 3 pack UNSCH PRN TOP HYGIENIC CARE; Start 11/28/17 at 05:45 Senna/Docusate Sodium (Johnna-Colace) 1 tab BID PO Last administered on at 09:32; Start 11/28/17 at 09:00 Magnesium Hydroxide (Milk Of Magnesia Liq) 30 ml Q12H PRN PO Mild constipation Last administered on 12/13/17at 20:21; Start 11/28/17 at 05:45 Sennosides (Senokot) 17.2 mg Q12H PRN PO Moderate constipation; Start 11/28/17 at 05:45 Bisacodyl (Dulcolax Supp) 10 mg DAILY PRN RECTAL SEVERE CONSITIPATION; Start at 05:45 Lactulose (Lactulose Liq) 30 ml DAILY PRN PO SEVERE CONSITIPATION Last administered on 12/01/17at 04:08; Start 11/28/17 at 05:45 Chlorhexidine Gluconate (Peridex 0.12% Liq) 15 ml BID@08,20 MT Last administered on 12/26/17at 08:11; Start 11/28/17 at 08:00 Propofol 100 ml @ 2.4 mls/hr TITRATE PRN IV SEDATION Last administered on 12/14at 05:49; Start 11/28/17 at 05:45; Stop 12/15/17 at 16:16; Status DC Pharmacy Profile Note 0 ml @ 0 mls/hr UNSCH OTHER ; Start 11/28/17 at 06:00 Albuterol/ Ipratropium (Duoneb Neb) 1 ampule Q4HR NEB INH Last administered on 12/02/17at 11:51; Start 11/28/17 at 12:00; Stop 12/02/17 at 11:59; Status DC Famotidine (Pepcid Inj) 10 mg Q12HR IV PUSH ; Start 11/28/17 at 21:00; Status Cancel Famotidine (Pepcid Inj) 10 mg Q12HR IV PUSH Last administered on 12/02/17at 07: 59; Start 11/28/17 at 10:00; Stop 12/02/17 at 12:03; Status DC Methylprednisolone Sodium Succinate (SoluMEDROL INJ) 60 mg Q6HR IV PUSH Last administered on 12/08/17at 05:09; Start 11/29/17 at 12:00; Stop 12/08/17 at 08:51; Status DC Levofloxacin (Levaquin Liq) 500 mg DAILY NG Last administered on 12/09/17at 09: 00; Start 11/29/17 at 10:30; Stop 12/09/17 at 10:29; Status DC Potassium Chloride 100 ml @ 50 mls/hr Q2H PRN IV For Potassium 2.8 - 3.2 mEq/L ; Start 11/29/17 at 20:00; Stop 12/18/17 at 07:22; Status DC Potassium Chloride 100 ml @ 50 mls/hr Q2H PRN IV For Potassium 2.8 - 3.2 mEq/ L Last administered on 11/29/17at 23:01; Start 11/29/17 at 20:00; Stop 12/18/17 at 07:22; Status DC Potassium Bicarb/ Potassium Chloride (K-Lyte Cl Eff) 50 meq UNSCH PRN PO For Potassium 3.3 - 3.5 mEq/L; Start 11/29/17 at 20:00; Stop 12/18/17 at 07:22; Status DC Potassium Chloride 100 ml @ 25 mls/hr UNSCH PRN IV For Potassium 3.3 - 3.5 mEq /L; Start 11/29/17 at 20:00; Stop 12/18/17 at 07:22; Status DC Potassium Chloride 100 ml @ 50 mls/hr Q2H PRN IV For Potassium 3.3 - 3.5 mEq/L ; Start 11/29/17 at 20:00; Stop 12/18/17 at 07:22; Status DC Magnesium Sulfate 4 gm/Sodium Chloride 100 ml @ 50 mls/hr UNSCH PRN IV For Magnesium 0.9 - 1.1 mg/dL; Start 11/29/17 at 20:00; Stop 12/18/17 at 07:22; Status DC Magnesium Oxide (Mag-Ox) 800 mg UNSCH PRN PO For Magnesium 1.2 - 1.6 mg/dL; Start 11/29/17 at 20:00; Stop 12/18/17 at 07:22; Status DC Magnesium Sulfate 2 gm/Sodium Chloride 100 ml @ 50 mls/hr UNSCH PRN IV For Magnesium 1.2 - 1.6 mg/dL; Start 11/29/17 at 20:00; Stop 12/18/17 at 07:22; Status DC Potassium Phosphate (K-Phos) 2,000 mg Q4H PRN PO For Phosphorus < 2.5 mg/dL; Start 11/29/17 at 20:00; Stop 12/18/17 at 07:22; Status DC Sodium Phosphate 30 mmol/Sodium Chloride 250 ml @ 42 mls/hr UNSCH PRN IV For Phosphorus < 2.5 mg/dL Last administered on 12/01/17at 02:49; Start 11/29/17 at 20:00; Stop 12/18/17 at 07:22; Status DC Potassium Phosphate (K-Phos) 2,000 mg UNSCH PRN PO/TUBE SEE LABEL COMMENTS Last administered on 11/29/17at 23:25; Start 11/29/17 at 20:00; Stop 12/18/17 at 07:22; Status DC Potassium Phosphate 30 mmol/ Sodium Chloride 260 ml @ 42 mls/hr UNSCH PRN IV SEE LABEL COMMENTS; Start 11/29/17 at 20:00; Stop 12/18/17 at 07:22; Status DC Dexmedetomidine HCl (Precedex Inj) 38 mcg ONCE ONCE IV PUSH ; Start 11/30/17 at 08:30; Stop 11/30/17 at 08:31; Status DC Dexmedetomidine HCl 200 mcg/ Sodium Chloride 52 ml @ 3.93 mls/hr TITRATE PRN IV SEDATION Last administered on 12/02/17at 16:55; Start 11/30/17 at 08:30; Stop 12/02/17 at 19:21; Status DC Chlordiazepoxide (Librium) 25 mg TID PO Last administered on 12/09/17at 13:00; Start 12/01/17 at 09:00; Stop 12/09/17 at 15:29; Status DC Furosemide (Lasix Inj) 20 mg DAILY IV PUSH Last administered on 12/03/17at 07:56 ; Start 12/01/17 at 09:00; Status Future Hold Warfarin Sodium (Coumadin) 5 mg DAILY@1600 PO Last administered on 12/09/17at 16: 00; Start 12/01/17 at 16:00; Stop 12/10/17 at 08:30; Status DC Patient Medication Teaching (Coumadin Booklet) 1 ONCE ONCE .XX Last administered on 12/01/17at 16:00; Start 12/01/17 at 16:00; Stop 12/01/17 at 16:01 ; Status DC Midazolam HCl (Versed Inj) 5 mg STK-MED ONCE .ROUTE ; Start 12/02/17 at 11:14; Stop 12/02/17 at 11:15; Status DC Famotidine (Pepcid Inj) 20 mg Q12HR IV PUSH Last administered on 12/03/17at 07: 56; Start 12/02/17 at 21:00; Stop 12/03/17 at 10:43; Status DC Dexmedetomidine HCl 1000 mcg/ Sodium Chloride 250 ml @ 3.78 mls/hr TITRATE PRN IV SEDATION Last administered on 12/03/17at 09:31; Start 12/02/17 at 19:30; Stop 12/15/17 at 16:16; Status DC Albuterol/ Ipratropium (Duoneb Neb) 1 ampule Q4HR NEB NEB Last administered on 12/06/17at 08:13; Start 12/03/17 at 12:00; Stop 12/06/17 at 12:03; Status DC Albuterol Sulfate (Albuterol Neb) 2.5 mg Q2HR NEB PRN NEB dyspnea; Start at 10:00; Stop 12/03/17 at 10:43; Status DC Famotidine (Pepcid) 20 mg BID NG Last administered on 12/26/17at 08:12; Start at 21:00 Artificial Tears (Tears Naturale Opth Soln) 1 drop Q8HR EACH EYE Last administered on 12/26/17at 06:46; Start 12/03/17 at 14:00 Dextrose (D50w (Vial) Inj) 50 ml UNSCH PRN IV PUSH HYPOGLYCEMIA-SEE COMMENTS; Start 12/03/17 at 10:45 Glucagon (Glucagon Inj) 1 mg UNSCH PRN OTHER HYPOGLYCEMIA-SEE COMMENTS; Start 12/03/17 at 10:45 Insulin Human Regular (NovoLIN R SUPPLEMENTAL SCALE) 1 Q6HR SQ Last administered on 12/04/17at 05:56; Start 12/03/17 at 12:00; Stop 12/04/17 at 09:31 ; Status DC Budesonide (Pulmicort Respule Neb) 0.5 mg Q12HR NEB NEB Last administered on at 19:47; Start 12/03/17 at 20:00 Heparin Sodium (Porcine) (Heparin Inj) 5,000 units Q12HR SQ ; Start 12/03/17 at 21:00; Stop 12/03/17 at 21:00; Status DC Acetaminophen (Tylenol 650 Mg/ 20 ml Liq) 650 mg Q6H PRN PO fever Last administered on 12/25/17at 01:17; Start 12/03/17 at 11:00 Albuterol Sulfate (Albuterol Neb) 2.5 mg Q2HR NEB PRN NEB dyspnea Last administered on 12/24/17at 07:35; Start 12/03/17 at 11:00 Heparin Sodium/ Dextrose 250 ml @ 14.058 mls/ hr TITRATE PRN IV Coagulation Management Last administered on 12/07/17at 12:34; Start 12/03/17 at 11:30; Stop at 15:28; Status DC Amiloride/HCTZ (Moduretic 5-50 Mg) 1 tab DAILY PO Last administered on at 08:12; Start 12/04/17 at 09:00 Epoprostenol Sodium 62.5 ml/ Sodium Chloride 100 ml @ 5 mls/hr Q8H NEB Last administered on 12/10/17at 08:20; Start 12/03/17 at 17:00; Stop 12/10/17 at 12:46; Status DC Acetazolamide Sodium (Diamox Inj) 500 mg ONCE ONCE IV PUSH Last administered on 12/04/17at 10:33; Start 12/04/17 at 09:30; Stop 12/04/17 at 09:31; Status DC Dextrose (D50w (Vial) Inj) 50 ml UNSCH PRN IV PUSH HYPOGLYCEMIA-SEE COMMENTS; Start 12/04/17 at 08:30; Stop 12/04/17 at 09:30; Status DC Glucagon (Glucagon Inj) 1 mg UNSCH PRN OTHER HYPOGLYCEMIA-SEE COMMENTS; Start 12/04/17 at 08:30; Stop 12/04/17 at 09:32; Status DC Insulin Aspart (NovoLOG SUPPLEMENTAL SCALE) 1 Q6HR SQ Last administered on at 12:00; Start 12/04/17 at 12:00; Stop 12/15/17 at 22:43; Status DC Polyethylene Glycol (Miralax) 17 gm ONCE ONCE PO Last administered on at 10:33; Start 12/04/17 at 09:45; Stop 12/04/17 at 09:59; Status DC Polyethylene Glycol (Miralax) 17 gm BID PO Last administered on 12/14/17at 09:03 ; Start 12/04/17 at 21:00; Stop 12/15/17 at 16:16; Status DC Lactulose (Lactulose Liq) 30 ml QID PO Last administered on 12/07/17at 21:07; Start 12/04/17 at 13:00; Stop 12/08/17 at 08:51; Status DC Mineral Oil (Kondremul Liq) 30 ml ONCE ONCE PO Last administered on 12/04/17at 11:22; Start 12/04/17 at 09:45; Stop 12/04/17 at 09:59; Status DC Potassium Phos/ Sodium Phos (K-Phos Neutral) 1,000 mg ONCE ONCE OG-TUBE Last administered on 12/04/17at 10:33; Start 12/04/17 at 09:45; Stop 12/04/17 at 09:59 ; Status DC Pharmacy Profile Note 0 ml @ 0 mls/hr UNSCH OTHER ; Start 12/04/17 at 14:45; Stop 12/11/17 at 16:10; Status DC Piperacillin Sod/ Tazobactam Sod 100 ml @ 200 mls/hr Q6H IV Last administered on 12/11/17at 15:37; Start 12/04/17 at 16:00; Stop 12/11/17 at 16:10; Status DC Norepinephrine Bitartrate 4 mg/ Sodium Chloride 250 ml @ 7.5 mls/hr TITRATE PRN IV Blood pressure management Last administered on 12/10/17at 07:00; Start at 15:30; Stop 12/15/17 at 16:16; Status DC Terbutaline Sulfate (Brethine Inj) 1 mg UNSCH PRN SQ For Extravasation; Start 12/04/17 at 15:30; Stop 12/15/17 at 16:16; Status DC Vancomycin HCl 1250 mg/Sodium Chloride 262.5 ml @ 250 mls/hr Q12H IV Last administered on 12/09/17at 05:59; Start 12/04/17 at 17:00; Stop 12/09/17 at 11:26; Status DC Miscellaneous Information ([facility] Ordered Lab Info) SPECIFIC LAB TO BE DRAWN:VANCO TROUGH DATE TO BE DR... ONCE ONCE .XX Last administered on at 04:45; Start 12/06/17 at 04:45; Stop 12/06/17 at 04:46; Status DC Mupirocin (Bactroban Nasal 2% Oint) 1 applic Taper BID EACH NARE Last administered on 12/26/17at 08:12; Start 12/04/17 at 21:00; Stop 11/30/18 at 20:59 Sodium Chloride (NS Flush) DAILY IV FLUSH Last administered on 12/21/17at 10:25 ; Start 12/05/17 at 09:00 Sodium Chloride (NS Flush) UNSCH PRN IV FLUSH SEE PROTOCOL; Start 12/04/17 at 17:30 Acetaminophen (Tylenol) 650 mg Q4H PRN PO HEADACHE; Start 12/04/17 at 17:30; Status Cancel Cefazolin Sodium 1000 mg/Sodium Chloride 100 ml @ 200 mls/hr Q8H IV ; Start at 18:00; Status Cancel Warfarin Sodium (Coumadin) 1 mg ONCE@1600 ONCE PO Last administered on at 17:54; Start 12/05/17 at 16:00; Stop 12/05/17 at 16:01; Status DC Permethrin (Nix Creme Rinse 1% Lotion) 1 applic ONCE ONCE TOPICAL Last administered on 12/06/17at 07:00; Start 12/06/17 at 07:00; Stop 12/06/17 at 07:03; Status DC Albuterol/ Ipratropium (Duoneb Neb) 1 ampule Q4HR NEB NEB Last administered on 12/10/17at 09:15; Start 12/06/17 at 16:00; Stop 12/10/17 at 10:17; Status DC Furosemide (Lasix Inj) 40 mg ONCE ONCE IV PUSH Last administered on 12/06/17at 13:36; Start 12/06/17 at 12:15; Stop 12/06/17 at 12:16; Status DC Albumin Human 50 ml @ 60 mls/hr ONCE ONCE IV Last administered on 12/06/17at 13: 37; Start 12/06/17 at 12:15; Stop 12/06/17 at 13:04; Status DC Sodium Chloride (Sodium Chloride 3% Neb) 2 ml Q4HR NEB NEB Last administered on 12/07/17at 16:14; Start 12/06/17 at 16:00; Stop 12/07/17 at 16:45; Status DC Guaifenesin (Robitussin Liq) 400 mg Q8HR NG Last administered on 12/13/17at 06:15 ; Start 12/06/17 at 14:00; Stop 12/13/17 at 13:59; Status DC Warfarin Sodium (Coumadin) 1 mg ONCE@1600 ONCE PO Last administered on at 16:43; Start 12/06/17 at 16:00; Stop 12/06/17 at 16:01; Status DC Furosemide (Lasix Inj) 20 mg ONCE ONCE IV PUSH Last administered on 12/07/17 10:40; Start 12/07/17 at 10:00; Stop 12/07/17 at 10:01; Status DC Albumin Human 50 ml @ 60 mls/hr ONCE ONCE IV Last administered on 12/07/17at 12: 45; Start 12/07/17 at 10:00; Stop 12/07/17 at 10:49; Status DC Warfarin Sodium (Coumadin) 1 mg ONCE@1600 ONCE PO Last administered on 16:52; Start 12/07/17 at 16:00; Stop 12/07/17 at 16:01; Status DC Rocuronium Hamilton (Zemuron Inj) 100 mg BOLUS ONCE IV Last administered on 12/07 14:30; Start 12/07/17 at 14:15; Stop 12/07/17 at 14:16; Status DC Etomidate (Amidate Inj) 40 mg ONCE ONCE IV PUSH Last administered on 12/07/17 14:27; Start 12/07/17 at 14:15; Stop 12/07/17 at 14:16; Status DC Heparin Sodium/ Dextrose 250 ml @ 14.058 mls/ hr TITRATE PRN IV Coagulation Management Last administered on 12/07/17 19:00; Start 12/07/17 at 18:30; Stop 12/08/17 at 15:21; Status DC Albumin Human 50 ml @ 60 mls/hr ONCE ONCE IV Last administered on 12/07/17 17: 21; Start 12/07/17 at 16:30; Stop 12/07/17 at 17:19; Status DC Furosemide (Lasix Inj) 20 mg ONCE ONCE IV PUSH Last administered on 12/07/17 17:21; Start 12/07/17 at 16:30; Stop 12/07/17 at 16:34; Status DC Lactulose (Lactulose Liq) 30 ml BID PO Last administered on 12/22/17at 10:05; Start 12/08/17 at 09:00 Methylprednisolone Sodium Succinate (SoluMEDROL INJ) 40 mg Q8HR IV PUSH Last administered on 12/12/17at 14:08; Start 12/08/17 at 14:00; Stop 12/12/17 at 16:27; Status DC Warfarin Sodium (Coumadin) 2.5 mg ONCE ONCE PO Last administered on 12/08/17at 15:19; Start 12/08/17 at 16:00; Stop 12/08/17 at 16:01; Status DC Miscellaneous Information ([facility] Ordered Lab Info) SPECIFIC LAB TO BE CORINA... ONCE ONCE .XX Last administered on 12/09/17at 06:00; Start 12/09/17 at 04: 45; Stop 12/09/17 at 04:46; Status DC Heparin Sodium/ Dextrose 250 ml @ 15 mls/hr TITRATE PRN IV Coagulation Management Last administered on 12/18/17at 04:02; Start 12/08/17 at 15:30; Stop at 09:29; Status DC Vancomycin HCl 1000 mg/Sodium Chloride 250 ml @ 250 mls/hr Q12H IV Last administered on 12/11/17at 07:05; Start 12/09/17 at 18:00; Stop 12/11/17 at 09:18; Status DC Miscellaneous Information ([facility] Ordered Lab Info) SPECIFIC LAB TO BE DRAWN:VANCO TROUGH DATE... ONCE ONCE .XX Last administered on 12/11/17at 05:07; Start 12/11/17 at 05:45; Stop 12/11/17 at 05:46; Status DC Chlordiazepoxide (Librium) 25 mg Taper DAILY PO Last administered on 12/11/17at 09:12; Start 12/10/17 at 01:00; Stop 12/12/17 at 00:59; Status DC Acetazolamide Sodium (Diamox Inj) 500 mg ONCE ONCE IV PUSH Last administered on 12/09/17at 15:30; Start 12/09/17 at 15:30; Stop 12/09/17 at 15:31; Status DC Furosemide (Lasix Inj) 40 mg ONCE ONCE IV PUSH Last administered on 12/09/17at 15:30; Start 12/09/17 at 15:30; Stop 12/09/17 at 15:34; Status DC Warfarin Sodium (Coumadin) 6 mg DAILY@1600 PO Last administered on 12/10/17at 15: 41; Start 12/10/17 at 16:00; Stop 12/11/17 at 07:21; Status DC Albuterol/ Ipratropium (Duoneb Neb) 1 ampule Q4HR NEB NEB Last administered on 12/13/17at 12:40; Start 12/10/17 at 12:00; Stop 12/13/17 at 21:05; Status DC Epoprostenol Sodium 50 ml/ Sodium Chloride 100 ml @ 5 mls/hr Q8H NEB Last administered on 12/11/17at 15:37; Start 12/10/17 at 16:00; Stop 12/11/17 at 16:10; Status DC Warfarin Sodium (Coumadin) 7.5 mg ONCE@1600 ONCE PO Last administered on at 16:59; Start 12/11/17 at 16:00; Stop 12/11/17 at 16:01; Status DC Vancomycin HCl 1250 mg/Sodium Chloride 262.5 ml @ 250 mls/hr Q18H IV ; Start at 00:00; Stop 12/12/17 at 00:00; Status DC Miscellaneous Information ([facility] Ordered Lab Info) SPECIFIC LAB TO BE DRAWN:VA... ONCE ONCE .XX ; Start 12/13/17 at 11:45; Stop 12/13/17 at 11:46; Status Cancel Ceftriaxone Sodium 2000 mg/ Sodium Chloride 100 ml @ 200 mls/hr Q24H IV Last administered on 12/13/17at 18:53; Start 12/11/17 at 17:00; Stop 12/14/17 at 16:59; Status DC Furosemide (Lasix Inj) 20 mg ONCE ONCE IV PUSH Last administered on 12/11/17at 17:11; Start 12/11/17 at 16:15; Stop 12/11/17 at 16:48; Status DC Warfarin Sodium (Coumadin) 7.5 mg DAILY@1600 PO Last administered on 12/17/17at 16:00; Start 12/12/17 at 16:00; Stop 12/18/17 at 07:38; Status DC Methylprednisolone Sodium Succinate (SoluMEDROL INJ) 40 mg Q12HR IV PUSH Last administered on 12/15/17at 08:26; Start 12/12/17 at 21:00; Stop 12/15/17 at 16:16 ; Status DC Furosemide (Lasix Inj) 20 mg ONCE ONCE IV PUSH Last administered on 12/12/17at 17:07; Start 12/12/17 at 17:00; Stop 12/12/17 at 17:01; Status DC Albuterol/ Ipratropium (Duoneb Neb) 1 ampule Q4HR NEB NEB Last administered on 12/17/17at 19:59; Start 12/14/17 at 00:00; Stop 12/17/17 at 23:59; Status DC Furosemide (Lasix Inj) 40 mg ONCE ONCE IV PUSH Last administered on 12/13/17at 22:41; Start 12/13/17 at 21:15; Stop 12/13/17 at 21:21; Status DC Albumin Human 100 ml @ 60 mls/hr ONCE ONCE IV Last administered on 12/13/17at 22:41; Start 12/13/17 at 21:15; Stop 12/13/17 at 22:54; Status DC Warfarin Sodium (Coumadin) 2.5 mg ONCE ONCE PO Last administered on 12/14/17at 18:22; Start 12/14/17 at 16:00; Stop 12/14/17 at 16:01; Status DC Albumin Human 100 ml @ 60 mls/hr ONCE ONCE IV Last administered on 12/14/17at 12:45; Start 12/14/17 at 12:45; Stop 12/14/17 at 14:24; Status DC Furosemide (Lasix Inj) 40 mg ONCE ONCE IV PUSH Last administered on 12/14/17at 12:45; Start 12/14/17 at 12:45; Stop 12/14/17 at 13:22; Status DC Acetazolamide Sodium (Diamox Inj) 250 mg ONCE ONCE IV PUSH Last administered on 12/14/17at 12:45; Start 12/14/17 at 12:45; Stop 12/14/17 at 13:22; Status DC Warfarin Sodium (Coumadin) 2.5 mg ONCE ONCE PO Last administered on 12/15/17at 15:43; Start 12/15/17 at 16:00; Stop 12/15/17 at 16:01; Status DC Methylprednisolone Sodium Succinate (SoluMEDROL INJ) 40 mg DAILY IV PUSH Last administered on 12/22/17at 10:05; Start 12/16/17 at 09:00; Stop 12/22/17 at 21:19 ; Status DC Insulin Aspart (NovoLOG SUPPLEMENTAL SCALE) 1 ACHS SQ Last administered on 12/22at 18:02; Start 12/16/17 at 08:00; Stop 12/26/17 at 08:19; Status DC Warfarin Sodium (Coumadin) 5 mg ONCE ONCE PO Last administered on 12/16/17at 16 :00; Start 12/16/17 at 16:00; Stop 12/16/17 at 16:01; Status DC Hydromorphone HCl (Dilaudid Pf Inj) 1 mg Q4H PRN IV PUSH PAIN SCALE 6 TO 10 Last administered on 12/17/17at 12:11; Start 12/17/17 at 07:45; Stop 12/22/17 at 21:19; Status DC Permethrin (Elimite 5% Cream) 1 applic ONCE ONCE TOPICAL Last administered on 12/17/17 13:30; Start 12/17/17 at 13:30; Stop 12/17/17 at 13:31; Status DC Warfarin Sodium (Coumadin) 5 mg DAILY@1600 PO Last administered on 12/20/17at 13 :47; Start 12/18/17 at 16:00; Stop 12/22/17 at 14:39; Status DC Nystatin (Mycostatin Liq) 5 ml QID SWISH-SWAL Last administered on 12/26/17at 08:11; Start 12/19/17 at 13:00 Permethrin (Nix Creme Rinse 1% Lotion) 1 applic ONCE ONCE TOPICAL Last administered on 12/20/17at 05:30; Start 12/20/17 at 06:00; Stop 12/20/17 at 06:01 ; Status DC Permethrin (Elimite 5% Cream) 1 applic ONCE ONCE TOPICAL Last administered on 12/20/17at 05:30; Start 12/20/17 at 06:00; Stop 12/20/17 at 06:01; Status DC Enoxaparin Sodium (Lovenox Inj) 80 mg Q12H SQ ; Start 12/21/17 at 12:00; Status Cancel Enoxaparin Sodium (Lovenox Inj) 40 mg Q24H SQ Last administered on 12/22/17at 10 :28; Start 12/21/17 at 12:00; Stop 12/22/17 at 14:36; Status DC Lisinopril (Prinivil) 5 mg DAILY PO Last administered on 12/22/17at 13:59; Start 12/22/17 at 14:00; Status Future Hold Warfarin Sodium (Coumadin) 4 mg DAILY@1600 PO Last administered on 12/22/17at 17 :45; Start 12/22/17 at 16:00; Status Future hold Phenylephrine HCl (Neosynephrine Inj) 40 mg STK-MED ONCE .ROUTE ; Start at 19:36; Stop 12/22/17 at 19:37; Status DC Pharmacy Profile Note 0 ml @ 0 mls/hr UNSCH OTHER ; Start 12/22/17 at 21:15; Stop 12/24/17 at 13:37; Status DC Vancomycin HCl 1250 mg/Sodium Chloride 262.5 ml @ 250 mls/hr ONCE ONCE IV Last administered on 12/22/17at 23:50; Start 12/22/17 at 23:00; Stop 12/23/17 at 00:02; Status DC Cefepime HCl 2000 mg/Sodium Chloride 100 ml @ 200 mls/hr Q12H IV Last administered on 12/22/17at 22:00; Start 12/22/17 at 22:00; Stop 12/23/17 at 08:08 ; Status DC Metronidazole 100 ml @ 100 mls/hr Q6H IV Last administered on 12/24/17at 13:04 ; Start 12/22/17 at 23:00; Stop 12/24/17 at 13:37; Status DC Sodium Chloride 1,000 ml @ 100 mls/hr Q10H IV Last administered on 12/26/17at 06:46; Start 12/22/17 at 22:00 Vancomycin HCl 1250 mg/Sodium Chloride 262.5 ml @ 250 mls/hr Q24H IV Last administered on 12/23/17at 23:59; Start 12/23/17 at 23:00; Stop 12/24/17 at 13:37 ; Status DC Miscellaneous Information ([facility] Ordered Lab Info) SPECIFIC LAB TO BE DRAWN:VANCO TROUGH DATE TO BE DR... ONCE ONCE .XX ; Start 12/25/17 at 22:45; Stop 12/25/17 at 22:45; Status DC Phenylephrine HCl 40 mg/Dextrose 500 ml @ 30 mls/hr TITRATE PRN IV Blood Pressure Management Last administered on 12/24/17at 00:31; Start 12/22/17 at 22: 30 Terbutaline Sulfate (Brethine Inj) 1 mg UNSCH PRN SQ FOR EXTRAVASATION PROTOCOL ; Start 12/22/17 at 22:30 Cefepime HCl 2000 mg/Sodium Chloride 100 ml @ 200 mls/hr Q8H IV Last administered on 12/24/17at 09:33; Start 12/23/17 at 09:00; Stop 12/24/17 at 13:37 ; Status DC Potassium Chloride 100 ml @ 50 mls/hr Q2H PRN IV For Potassium 2.8 - 3.2 mEq/L ; Start 12/23/17 at 11:00 Potassium Chloride 100 ml @ 50 mls/hr Q2H PRN IV For Potassium 2.8 - 3.2 mEq/ L Last administered on 12/24/17at 13:09; Start 12/23/17 at 11:00 Potassium Bicarb/ Potassium Chloride (K-Lyte Cl Eff) 50 meq UNSCH PRN PO For Potassium 3.3 - 3.5 mEq/L Last administered on 12/24/17at 01:58; Start 12/23/17 at 11:00 Potassium Chloride 100 ml @ 25 mls/hr UNSCH PRN IV For Potassium 3.3 - 3.5 mEq /L; Start 12/23/17 at 11:00 Potassium Chloride 100 ml @ 50 mls/hr Q2H PRN IV For Potassium 3.3 - 3.5 mEq/L ; Start 12/23/17 at 11:00 Magnesium Sulfate 4 gm/Sodium Chloride 100 ml @ 50 mls/hr UNSCH PRN IV For Magnesium 0.9 - 1.1 mg/dL; Start 12/23/17 at 11:00 Magnesium Oxide (Mag-Ox) 800 mg UNSCH PRN PO For Magnesium 1.2 - 1.6 mg/dL; Start 12/23/17 at 11:00 Magnesium Sulfate 2 gm/Sodium Chloride 100 ml @ 50 mls/hr UNSCH PRN IV For Magnesium 1.2 - 1.6 mg/dL; Start 12/23/17 at 11:00 Potassium Phosphate (K-Phos) 2,000 mg Q4H PRN PO For Phosphorus < 2.5 mg/dL; Start 12/23/17 at 11:00 Sodium Phosphate 30 mmol/Sodium Chloride 250 ml @ 42 mls/hr UNSCH PRN IV For Phosphorus < 2.5 mg/dL; Start 12/23/17 at 11:00 Potassium Phosphate (K-Phos) 2,000 mg UNSCH PRN PO/TUBE SEE LABEL COMMENTS; Start 12/23/17 at 11:00 Potassium Phosphate 30 mmol/ Sodium Chloride 260 ml @ 42 mls/hr UNSCH PRN IV SEE LABEL COMMENTS; Start 12/23/17 at 11:00 Hydrocortisone Sodium Succinate (SoluCORTEF INJ) 50 mg Q6HR IV PUSH Last administered on 12/26/17at 06:00; Start 12/23/17 at 18:00 Albumin Human 500 ml @ 166.667 mls/hr ONCE ONCE IV Last administered on at 12:03; Start 12/24/17 at 12:00; Stop 12/24/17 at 14:59; Status DC Ertapenem (INVanz INJ) 1,000 mg Q24H IV ; Start 12/24/17 at 13:45; Stop at 13:44; Status UNV Ertapenem 1000 mg/ Sodium Chloride 100 ml @ 200 mls/hr Q24H IV Last administered on 12/25/17at 14:20; Start 12/24/17 at 15:00; Stop 12/30/17 at 15:29 Miscellaneous Medication (ASP Crit: Doc ESBL, MDR A baumannii or P aer) 1 UNSCH ONCE .XX Last administered on 12/24/17at 13:45; Start 12/24/17 at 13:45; Stop 12/24/17 at 13:46; Status DC Oxycodone/ Acetaminophen (Percocet 5-325 Mg) 1 tab NOW ONCE PO Last administered on 12/25/17at 14:20; Start 12/25/17 at 11:15; Stop 12/25/17 at 11:16 ; Status DC Oxycodone/ Acetaminophen (Percocet 5-325 Mg) 1 tab Q6H PRN PO PAIN 3 TO 5 Last administered on 12/26/17at 08:12; Start 12/25/17 at 16:15 Oxycodone/ Acetaminophen (Percocet 10-325 Mg) 1 tab Q6H PRN PO PAIN 6-10; Start 12/25/17 at 16:15 Alprazolam (Xanax) 0.25 mg Q8H PRN PO ANXIETY Last administered on 12/25/17at 23 :27; Start 12/25/17 at 16:30 Insulin Aspart (NovoLOG SUPPLEMENTAL SCALE) 1 BID SQ ; Start 12/26/17 at 09:00 A/P Problem List: (1) Alcohol use ICD Code: F10.99 - Alcohol use, unspecified with unspecified alcohol-induced disorder Status: Chronic (2) Acute hypoxemic respiratory failure ICD Code: J96.01 - Acute respiratory failure with hypoxia (3) End stage COPD ICD Code: J44.9 - Chronic obstructive pulmonary disease, unspecified (4) MRSA pneumonia ICD Code: J15.212 - Pneumonia due to Methicillin resistant Staphylococcus aureus (5) Dependence on respirator, status ICD Code: Z99.11 - Dependence on respirator [ventilator] status (6) Factor V Leiden ICD Code: D68.51 - Activated protein C resistance Status: Acute (7) Hypertension ICD Code: I10 - Essential (primary) hypertension Status: Acute (8) Alcohol abuse ICD Code: F10.10 - Alcohol abuse, uncomplicated Status: Acute (9) Hepatitis C ICD Code: B19.20 - Unspecified viral hepatitis C without hepatic coma Assessment and Plan Assessment: 57yF with end-stage COPD and pulmonary hypertension whose course has been complicated by a prolonged ventilatory requirement and recently extubated, still remains with multiple acute and chronic medical problems and now has acute new metabolic encephalopathy and septic shock, secondary to ESBL/ MDRO E. Coli CAUTI. appreciate palliative care assistance in re-engaging goals of care discussion. NEURO/PSYCH: Acute metabolic encephalopathy- BORDERLINE EtOH abuse/withdrawal History of right frontal CVA Depression/anxiety s/p chlordiazepoxide taper. Acetaminophen 650 mg p.o. every 6 hours as needed fever unlikely to be focal and CVA frequent neuro checks avoid long-acting sedatives maintain map > 65 mmHg for adequate cerebral perfusion. CONSULT PSYCHIATRY FOR PARANOIA CV: Coronary artery disease Essential hypertension Hyperlipidemia Septic shock hold home antihypertensives. phenylephrine drip, goal map > 65 mmHg. 500mL 5% albumin iv x 1. \\WEANED OFF DRIPS Resp: COPD Bilateral lower lobe lung collapse status post bronchoscopy 12/02 Nasal cannula to maintain saturations greater than equal to 92% Incentive spirometry while awake Albuterol/ipratropium aerosols every 4 hours with albuterol aerosols every 2 hours as needed dyspnea Budesonide 0.5/2 1 inhalation twice daily On budesonide/formoterol 160/4.5 2 puffs twice daily at home s/p steroid course. may need stress dose this critical illness, but will hold off for now. Chest x-ray worsening right lower lobe versus effusion. VQ scan low probability for pulmonary embolism GI: Gastroesophageal reflux disease Hepatitis C Hypoalbuminemia/moderate protein calorie malnutrition Elevated AST Patient is currently on honey thickened Famotidine for GI prophylaxis Docusate serum/senna 1 tablet twice daily for bowel regimen. : Acute kidney injury- resolved. FER likely secondary to shock. Endo: Hyperglycemia Sliding scale insulin with Accu-Cheks to maintain euglycemia while on high-dose steroids Renal: Creatinine currently within normal limits Monitor urine output Accurate I's and O's Heme: Factor V Leiden on chronic anticoagulation Normocytic anemia Leukocytosis Chronic warfarin use History of left lower extremity DVT status post IVC filter on lovenox and coumadin. At home on enoxaparin 80 mg subcu twice daily with warfarin 7.5 mg daily Monitor CBC daily. Along with PT/INR/PTT RESTART COUMADIN AT 4MG PO DAILY ID: MRSA pneumonia- resolved Pediculosis capitis MRSA nares new septic shock ESBL/MDRO E. Coli HC-associated CAUTI Vancomycin/Pipracil/tazobactam 12/04 - 12/11 Rocephin 12/11 - 12/14. Continue permethrin 1 dose. Mupirocin to nares twice daily Pertinent cultures 12/07 -sputum from bronchoscopy-MSSA 12/03 -sputum -MRSA 12/03 -blood cultures 2 -no growth Influenza negative d/c vanc, cefepime,flagyl start ertapenem 1gm iv q24h x 7 days ID consulted per protocol. FEN: Replace electrolytes as clinically indicated MSK: Osteoporosis/chronic low back pain PT evaluate and treat Access -CVL/right IJ placed 12/03-12/14 - piv Prophylaxis -GI -famotidine -DVT -SCD/lovenox/warfarin TRANSFER TO FLOOR NEAR RN STATION HYPOKALEMIA REPLACE BY PROTOCOLS CONTINUE BARONE Discharge Planning PENDING IMPROVEMENT WILL NEED SNF AT [place] Shaun Moe DO Dec 26, 2017 10:19
[2017-12-26 11:40] LABS: INTERNATIONAL NORMALIZED RATIO 1.8 RATIO; PROTHROMBIN TIME - PATIENT 18.2 SEC (9.8-11.6)
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
[2017-12-26] MEDS: RESP: ALBUTEROL 2.5 MG/3 ML NEB (PRN) NEB ×2 (15:25→20:30)
[2017-12-26] MEDS: WARFARIN SOD 4 MG TAB PO SCH (15:45)
[2017-12-26] MEDS: ERTAPENEM 1,000 MG/NS 100 ML IV SCH ×2 (15:45)
[2017-12-26] MEDS: ALPRAZolam 0.25 MG TAB PO PRN (23:49)
[2017-12-27] VITALS (7 sets, daily range): BP systolic 116–158; BP diastolic 61–80; PULSE 82–87; RESP 16–20; TEMP 96.3–98.1; O2SAT 92–98
[2017-12-27] MEDS: HYDROCORTISONE SOD SUCCINATE 100 MG VIAL IV PUSH SCH ×3 (00:28→15:56)
[2017-12-27] MEDS: SODIUM CHLOR 0.9% 1000 ML INJ 1,000 ML IV SCH ×3 (02:59→21:53)
[2017-12-27] MEDS: RESP: ALBUTEROL 2.5 MG/3 ML NEB (PRN) NEB (03:49)
[2017-12-27] MEDS: CHLORHEXIDINE GLUCONATE 2 % 1 PACK (2 CLOTHS) TOP SCH (04:00)
[2017-12-27] MEDS: ARTIFICIAL TEARS OPTH SOLN 15 ML BTL EACH EYE SCH ×3 (04:56→21:50)
[2017-12-27] MEDS: oxyCODONE/ACETAMINOPHEN 5 MG/325 MG TAB PO PRN ×2 (05:28→15:55)
[2017-12-27 05:34] LABS: AUTOMATED NEUTROPHIL # 4.8 TH/MM3 (1.8-7.7); BASOPHIL % 0.3 % (0.0-2.0); EOSINOPHIL % 0.2 % (0.0-4.0); HEMOGLOBIN 10.5 GM/DL (11.6-15.3); LYMPH % 11.1 % (9.0-44.0); LYMPHOCYTE # 0.6 TH/MM3 (1.0-4.8); MEAN CELL VOLUME 94.4 FL (80.0-100.0); MEAN CORPUSCULAR HEMOGLOBIN 31.1 PG (27.0-34.0); MEAN PLATELET VOLUME 9.1 FL (7.0-11.0); MONO % 5.4 % (0.0-8.0); MONOCYTE # 0.3 TH/MM3 (0-0.9); PLATELET COUNT 205 TH/MM3 (150-450); RED BLOOD COUNT 3.39 MIL/MM3 (4.00-5.30); RED CELL DISTRIBUTION WIDTH 19.1 % (11.6-17.2); WHITE BLOOD COUNT 5.8 TH/MM3 (4.0-11.0)
[2017-12-27 05:37] LABS: INTERNATIONAL NORMALIZED RATIO 1.7 RATIO; PROTHROMBIN TIME - PATIENT 16.7 SEC (9.8-11.6)
[2017-12-27 06:01] LABS: ALBUMIN 2.9 GM/DL (3.4-5.0); ALKALINE PHOSPHATASE 82 U/L (45-117); ALT (GPT) 240 U/L (10-53); AST (GOT) 81 U/L (15-37); BICARBONATE 29.3 MEQ/L (21.0-32.0); BLOOD UREA NITROGEN 9 MG/DL (7-18); CHLORIDE 107 MEQ/L (98-107); GLOMERULAR FILTRATION RATE 166 ML/MIN (>89); GLUCOSE,RANDOM 125 MG/DL (74-106); MAGNESIUM 1.5 MG/DL (1.5-2.5); SODIUM (NA) 145 MEQ/L (136-145); TOTAL BILIRUBIN ADULT 0.3 MG/DL (0.2-1.0); TOTAL PROTEIN 5.8 GM/DL (6.4-8.2)
[2017-12-27] MEDS ORDERED: POTASSIUM CHLORIDE 20 MEQ CONTROLLED RELEASE TAB PO ONE (06:30)
[2017-12-27] MEDS ORDERED: POTASSIUM CHLORIDE 25 MEQ EFFERVESCENT TAB PO ONE ×2 (06:45→19:30)
[2017-12-27] MEDS ORDERED: POTASSIUM PHOSPHATE INJ 30 MMOL in SODIUM CHLOR 0.9% 250 ML INJ 250 ML IV ONE (07:00)
[2017-12-27] MEDS: CHLORHEXIDINE 0.12% (ORAL KIT) 15 ML CUP MT SCH ×2 (08:00→19:44)
[2017-12-27] MEDS: DOCUSATE SODIUM 50 MG/SENNA 8.6 MG TAB PO SCH ×2 (08:20→19:43)
[2017-12-27] MEDS: FAMOTIDINE 20 MG TAB NG SCH ×2 (08:20→19:43)
[2017-12-27] MEDS: aMILoride/HCTZ 5 MG/50 MG TAB PO SCH (08:20)
[2017-12-27] MEDS: NYSTATIN SUSP 500,000 U/5 ML CUP SWISH-SWAL SCH ×4 (08:21→19:43)
[2017-12-27] MEDS: INSULIN ASPART SUPPLEMENTAL SCALE SQ SCH ×2 (08:21→19:51)
[2017-12-27] MEDS: LACTULOSE SYRUP 20 GM/30 ML CUP PO SCH ×2 (08:22→19:43)
[2017-12-27] MEDS: SODIUM CHLORIDE 0.9% FLUSH 10 ML FLUSH IV FLUSH SCH ×3 (08:23→19:55)
[2017-12-27] MEDS: MUPIROCIN 2% OINT 1 APPLIC/GM SYR EACH NARE SCH ×2 (08:26→19:44)
--- NOTE | 2017-12-27 08:42 | HHI.PR ---
Subjective Remarks in no acute distress. has some pain to the right ankle. no fever. d/w the RN and no acute issues over night. Objective Vitals Vital Signs Date Time Temp Pulse Resp B/P (MAP) Pulse Ox O2 Delivery O2 Flow Rate FiO2 12/27/17 00:00 98.1 82 20 150/72 (98) 96 12/26/17 23:50 Nasal Cannula 2.00 12/26/17 20:30 95 Nasal Cannula 2.00 12/26/17 20:00 98.0 101 20 141/82 (101) 95 12/26/17 16:00 98.1 90 19 139/77 (97) 97 12/26/17 15:29 93 Nasal Cannula 2.00 12/26/17 12:00 98.6 74 15 121/83 (96) 95 12/26/17 12:00 74 12/26/17 10:00 94 12/26/17 09:25 22 I/O 12/26/17 12/26/17 12/26/17 12/27/17 12/27/17 12/27/17 07:00 15:00 23:00 07:00 15:00 23:00 Intake Total 240 ml 580 ml 1360 ml Output Total 800 ml 700 ml 1750 ml Balance -560 ml -120 ml -390 ml Intake Oral 240 ml 480 ml 360 ml IV Total 100 ml 1000 ml Output Urine Total 800 ml 700 ml 1750 ml # Bowel Movements 0 0 0 Result Diagram: 12/27/17 0515 12/27/17 0515 Imaging Last Impressions Head CT 12/22/17 0000 Signed Impressions: CONCLUSION: Stable postsurgical encephalomalacia on the left. No acute findings. No evidenc e for recent infarct or hemorrhage. Findings called to Dr. Rodrigues at the time of dictation. Chest X-Ray 12/11/17 0600 Signed Impressions: CONCLUSION: Support apparatus unchanged. Improved right basilar airspace disease since December 08. Lower Extremity Ultrasound 12/03/17 Signed Impressions: CONCLUSION: 1. The study is negative for bilateral lower extremity deep venous thrombosis. Ribs X-Ray 11/28/17 Signed Impressions: CONCLUSION: Deformities at the anterior lateral left ninth and 10th ribs prior fracture. Lung Scan-[facility] 11/28/17 Signed Impressions: CONCLUSION: Low probability scan for pulmonary embolism Objective Remarks GENERAL: This is a well-nourished, well-developed patient, in no apparent distress. CARDIOVASCULAR: Regular rate and regular rhythm without murmurs, gallops, or rubs. RESPIRATORY: Clear to auscultation. Breath sounds equal bilaterally. No wheezes , rales, or rhonchi. GASTROINTESTINAL: Abdomen soft, non-tender, nondistended. Normal, active bowel sounds MUSCULOSKELETAL: Extremities without clubbing, cyanosis, or edema. NEURO: awake and alert. Procedures MULTIPLE BRONCHOSCOPIES Medications and IVs Inpatient Medications Acetaminophen (Tylenol 650 Mg/ 20 ml Liq) 650 mg Q6H PRN PO fever Last administered on 12/25/17at 01:17; Start 12/03/17 at 11:00 Acetaminophen (Tylenol) 650 mg Q6H PRN PO PAIN 1-5 AND/OR FEVER >101F; Start at 05:45; Stop 12/03/17 at 10:51; Status DC Acetaminophen/ Hydrocodone Bitart (Americus 5-325 Mg) 1 tab ONCE ONCE PO ; Start 11/28/17 at 02:30; Stop 11/28/17 at 02:31; Status DC Acetazolamide Sodium (Diamox Inj) 250 mg ONCE ONCE IV PUSH Last administered on 12/14/17at 12:45; Start 12/14/17 at 12:45; Stop 12/14/17 at 13:22; Status DC Albumin Human 500 ml @ 166.667 mls/hr ONCE ONCE IV Last administered on at 12:03; Start 12/24/17 at 12:00; Stop 12/24/17 at 14:59; Status DC Albuterol Sulfate (Albuterol Neb) 2.5 mg Q2HR NEB PRN NEB dyspnea Last administered on 12/27/17at 03:49; Start 12/03/17 at 11:00 Albuterol/ Ipratropium (Duoneb Neb) 1 ampule Q4HR NEB NEB Last administered on 12/17/17at 19:59; Start 12/14/17 at 00:00; Stop 12/17/17 at 23:59; Status DC Alprazolam (Xanax) 0.25 mg Q8H PRN PO ANXIETY Last administered on 12/26/17at 23 :49; Start 12/25/17 at 16:30 Amiloride/HCTZ (Moduretic 5-50 Mg) 1 tab DAILY PO Last administered on at 08:20; Start 12/04/17 at 09:00 Artificial Tears (Tears Naturale Opth Soln) 1 drop Q8HR EACH EYE Last administered on 12/27/17at 04:56; Start 12/03/17 at 14:00 Bisacodyl (Dulcolax Supp) 10 mg DAILY PRN RECTAL SEVERE CONSITIPATION; Start at 05:45 Budesonide (Pulmicort Respule Neb) 0.5 mg Q12HR NEB NEB Last administered on at 19:47; Start 12/03/17 at 20:00 Cefepime HCl 2000 mg/Sodium Chloride 100 ml @ 200 mls/hr Q8H IV Last administered on 12/24/17at 09:33; Start 12/23/17 at 09:00; Stop 12/24/17 at 13:37 ; Status DC Ceftriaxone Sodium 1000 mg/ Sodium Chloride 100 ml @ 200 mls/hr ONCE ONCE IV Last administered on 11/28/17at 05:56; Start 11/28/17 at 05:15; Stop 11/28/17 at 05:44; Status DC Ceftriaxone Sodium 2000 mg/ Sodium Chloride 100 ml @ 200 mls/hr Q24H IV Last administered on 12/13/17at 18:53; Start 12/11/17 at 17:00; Stop 12/14/17 at 16:59; Status DC Chlordiazepoxide (Librium) 25 mg Taper DAILY PO Last administered on 12/11/17at 09:12; Start 12/10/17 at 01:00; Stop 12/12/17 at 00:59; Status DC Chlorhexidine Gluconate (Chlorhexidine 2% Cloth) 3 pack UNSCH PRN TOP HYGIENIC CARE; Start 11/28/17 at 05:45 Chlorhexidine Gluconate (Peridex 0.12% Liq) 15 ml BID@08,20 MT Last administered on 12/27/17at 08:00; Start 11/28/17 at 08:00 Dexmedetomidine HCl (Precedex Inj) 38 mcg ONCE ONCE IV PUSH ; Start 11/30/17 at 08:30; Stop 11/30/17 at 08:31; Status DC Dexmedetomidine HCl 1000 mcg/ Sodium Chloride 250 ml @ 3.78 mls/hr TITRATE PRN IV SEDATION Last administered on 12/03/17at 09:31; Start 12/02/17 at 19:30; Stop 12/15/17 at 16:16; Status DC Dexmedetomidine HCl 200 mcg/ Sodium Chloride 52 ml @ 3.93 mls/hr TITRATE PRN IV SEDATION Last administered on 12/02/17at 16:55; Start 11/30/17 at 08:30; Stop 12/02/17 at 19:21; Status DC Dextrose (D50w (Vial) Inj) 50 ml UNSCH PRN IV PUSH HYPOGLYCEMIA-SEE COMMENTS; Start 12/04/17 at 08:30; Stop 12/04/17 at 09:30; Status DC Enoxaparin Sodium (Lovenox Inj) 40 mg Q24H SQ Last administered on 12/22/17at 10 :28; Start 12/21/17 at 12:00; Stop 12/22/17 at 14:36; Status DC Epoprostenol Sodium 50 ml/ Sodium Chloride 100 ml @ 5 mls/hr Q8H NEB Last administered on 12/11/17at 15:37; Start 12/10/17 at 16:00; Stop 12/11/17 at 16:10; Status DC Epoprostenol Sodium 62.5 ml/ Sodium Chloride 100 ml @ 5 mls/hr Q8H NEB Last administered on 12/10/17at 08:20; Start 12/03/17 at 17:00; Stop 12/10/17 at 12:46; Status DC Ertapenem 1000 mg/ Sodium Chloride 100 ml @ 200 mls/hr Q24H IV Last administered on 12/26/17at 15:45; Start 12/24/17 at 15:00; Stop 12/30/17 at 15:29 Etomidate (Amidate Inj) 40 mg ONCE ONCE IV PUSH Last administered on 12/07/17at 14:27; Start 12/07/17 at 14:15; Stop 12/07/17 at 14:16; Status DC Famotidine (Pepcid Inj) 20 mg Q12HR IV PUSH Last administered on 12/03/17at 07: 56; Start 12/02/17 at 21:00; Stop 12/03/17 at 10:43; Status DC Famotidine (Pepcid) 20 mg BID NG Last administered on 12/27/17 08:20; Start at 21:00 Fentanyl Citrate 250 ml @ 5 mls/hr TITRATE PRN IV SEDATION Last administered on 12/13/17at 02:30; Start 11/28/17 at 05:45; Stop 12/18/17 at 07:22; Status DC Furosemide (Lasix Inj) 40 mg ONCE ONCE IV PUSH Last administered on 12/14/17at 12:45; Start 12/14/17 at 12:45; Stop 12/14/17 at 13:22; Status DC Glucagon (Glucagon Inj) 1 mg UNSCH PRN OTHER HYPOGLYCEMIA-SEE COMMENTS; Start 12/04/17 at 08:30; Stop 12/04/17 at 09:32; Status DC Guaifenesin (Robitussin Liq) 400 mg Q8HR NG Last administered on 12/13/17at 06:15 ; Start 12/06/17 at 14:00; Stop 12/13/17 at 13:59; Status DC Heparin Sodium (Porcine) (Heparin Inj) 5,000 units Q12HR SQ ; Start 12/03/17 at 21:00; Stop 12/03/17 at 21:00; Status DC Heparin Sodium/ Dextrose 250 ml @ 15 mls/hr TITRATE PRN IV Coagulation Management Last administered on 12/18/17at 04:02; Start 12/08/17 at 15:30; Stop at 09:29; Status DC Hydrocortisone Sodium Succinate (SoluCORTEF INJ) 50 mg Q6HR IV PUSH Last administered on 12/27/17at 04:56; Start 12/23/17 at 18:00 Hydromorphone HCl (Dilaudid Pf Inj) 1 mg Q4H PRN IV PUSH PAIN SCALE 6 TO 10 Last administered on 12/17/17at 12:11; Start 12/17/17 at 07:45; Stop 12/22/17 at 21:19; Status DC Insulin Aspart (NovoLOG SUPPLEMENTAL SCALE) 1 BID SQ Last administered on at 08:21; Start 12/26/17 at 09:00 Insulin Human Regular (NovoLIN R SUPPLEMENTAL SCALE) 1 Q6HR SQ Last administered on 12/04/17at 05:56; Start 12/03/17 at 12:00; Stop 12/04/17 at 09:31 ; Status DC Ketorolac Tromethamine (Toradol Inj) 30 mg ONCE ONCE IV PUSH Last administered on 11/28/17at 03:55; Start 11/28/17 at 04:00; Stop 11/28/17 at 04:01 ; Status DC Lactulose (Lactulose Liq) 30 ml BID PO Last administered on 12/22/17at 10:05; Start 12/08/17 at 09:00 Levofloxacin (Levaquin Liq) 500 mg DAILY NG Last administered on 12/09/17at 09: 00; Start 11/29/17 at 10:30; Stop 12/09/17 at 10:29; Status DC Lisinopril (Prinivil) 5 mg DAILY PO Last administered on 12/22/17at 13:59; Start 12/22/17 at 14:00; Status Future Hold Lorazepam (Ativan Inj) 0.5 mg ONCE ONCE IV PUSH Last administered on at 03:55; Start 11/28/17 at 04:00; Stop 11/28/17 at 04:01; Status DC Magnesium Hydroxide (Milk Of Magnesia Liq) 30 ml Q12H PRN PO Mild constipation Last administered on 12/13/17at 20:21; Start 11/28/17 at 05:45 Magnesium Oxide (Mag-Ox) 800 mg UNSCH PRN PO For Magnesium 1.2 - 1.6 mg/dL; Start 12/23/17 at 11:00; Stop 12/26/17 at 13:35; Status DC Magnesium Sulfate 2 gm/Sodium Chloride 100 ml @ 50 mls/hr UNSCH PRN IV For Magnesium 1.2 - 1.6 mg/dL; Start 12/23/17 at 11:00; Stop 12/26/17 at 13:35; Status DC Magnesium Sulfate 4 gm/Sodium Chloride 100 ml @ 50 mls/hr UNSCH PRN IV For Magnesium 0.9 - 1.1 mg/dL; Start 12/23/17 at 11:00; Stop 12/26/17 at 13:35; Status DC Methylprednisolone Sodium Succinate (SoluMEDROL INJ) 40 mg DAILY IV PUSH Last administered on 12/22/17at 10:05; Start 12/16/17 at 09:00; Stop 12/22/17 at 21:19 ; Status DC Metronidazole 100 ml @ 100 mls/hr Q6H IV Last administered on 12/24/17at 13:04 ; Start 12/22/17 at 23:00; Stop 12/24/17 at 13:37; Status DC Midazolam HCl (Versed Inj) 2 mg Q1H PRN IV PUSH SEDATION Last administered on at 00:54; Start 11/28/17 at 05:45; Stop 12/15/17 at 16:16; Status DC Mineral Oil (Kondremul Liq) 30 ml ONCE ONCE PO Last administered on 12/04/17at 11:22; Start 12/04/17 at 09:45; Stop 12/04/17 at 09:59; Status DC Miscellaneous Information ([facility]) 1 [id number] XX Last administered on 11/28/17at 08:30; Start 11/28/17 at 05:45 Miscellaneous Information ([facility] Ordered Lab Info) SPECIFIC LAB TO BE DRAWN:VANCO TROUGH DATE TO BE DR... ONCE ONCE .XX ; Start 12/25/17 at 22:45; Stop 12/25/17 at 22:45; Status DC Miscellaneous Medication (ASP Crit: Doc ESBL, MDR A baumannii or P aer) 1 UNSCH ONCE .XX Last administered on 12/24/17at 13:45; Start 12/24/17 at 13:45; Stop 12/24/17 at 13:46; Status DC Morphine Sulfate (Morphine Inj) 2 mg ONCE ONCE IV PUSH ; Start 11/28/17 at 04: 15; Stop 11/28/17 at 04:16; Status DC Mupirocin (Bactroban Nasal 2% Oint) 1 applic Taper BID EACH NARE Last administered on 12/27/17at 08:26; Start 12/04/17 at 21:00; Stop 11/30/18 at 20:59 Naloxone HCl (Narcan Inj) 2 mg ONCE ONCE IV PUSH Last administered on at 05:37; Start 11/28/17 at 04:45; Stop 11/28/17 at 04:46; Status DC Norepinephrine Bitartrate 4 mg/ Sodium Chloride 250 ml @ 7.5 mls/hr TITRATE PRN IV Blood pressure management Last administered on 12/10/17at 07:00; Start at 15:30; Stop 12/15/17 at 16:16; Status DC Nystatin (Mycostatin Liq) 5 ml QID SWISH-SWAL Last administered on 12/27/17at 08:21; Start 12/19/17 at 13:00 Ondansetron HCl (Zofran Odt) 4 mg Q6H PRN PO NAUSEA OR VOMITING; Start at 05:45 Oxycodone/ Acetaminophen (Percocet 5-325 Mg) 1 tab Q6H PRN PO PAIN 3 TO 5 Last administered on 12/27/17at 05:28; Start 12/25/17 at 16:15 Oxycodone/ Acetaminophen (Percocet 10-325 Mg) 1 tab Q6H PRN PO PAIN 6-10; Start 12/25/17 at 16:15 Patient Medication Teaching (Coumadin Booklet) 1 ONCE ONCE .XX Last administered on 12/01/17at 16:00; Start 12/01/17 at 16:00; Stop 12/01/17 at 16:01 ; Status DC Permethrin (Elimite 5% Cream) 1 applic ONCE ONCE TOPICAL Last administered on 12/20/17at 05:30; Start 12/20/17 at 06:00; Stop 12/20/17 at 06:01; Status DC Permethrin (Nix Creme Rinse 1% Lotion) 1 applic ONCE ONCE TOPICAL Last administered on 12/20/17at 05:30; Start 12/20/17 at 06:00; Stop 12/20/17 at 06:01 ; Status DC Pharmacy Profile Note 0 ml @ 0 mls/hr UNSCH OTHER ; Start 12/22/17 at 21:15; Stop 12/24/17 at 13:37; Status DC Phenylephrine HCl 40 mg/Dextrose 500 ml @ 30 mls/hr TITRATE PRN IV Blood Pressure Management Last administered on 12/24/17at 00:31; Start 12/22/17 at 22: 30 Piperacillin Sod/ Tazobactam Sod 100 ml @ 200 mls/hr Q6H IV Last administered on 12/11/17at 15:37; Start 12/04/17 at 16:00; Stop 12/11/17 at 16:10; Status DC Polyethylene Glycol (Miralax) 17 gm BID PO Last administered on 12/14/17at 09:03 ; Start 12/04/17 at 21:00; Stop 12/15/17 at 16:16; Status DC Potassium Phosphate (K-Phos) 2,000 mg UNSCH PRN PO/TUBE SEE LABEL COMMENTS; Start 12/23/17 at 11:00; Stop 12/26/17 at 13:35; Status DC Potassium Phosphate 30 mmol/ Sodium Chloride 260 ml @ 43.333 mls/ hr ONCE ONCE IV Last administered on 12/27/17at 06:54; Start 12/27/17 at 07:00; Stop at 12:59 Potassium Bicarb/ Potassium Chloride (K-Lyte Cl Eff) 50 meq ONCE ONCE PO Last administered on 12/27/17at 06:53; Start 12/27/17 at 06:45; Stop 12/27/17 at 06:46; Status DC Potassium Chloride (KCl) 40 meq ONCE ONCE PO ; Start 12/27/17 at 06:30; Stop at 06:36; Status DC Potassium Phos/ Sodium Phos (K-Phos Neutral) 1,000 mg ONCE ONCE OG-TUBE Last administered on 12/04/17at 10:33; Start 12/04/17 at 09:45; Stop 12/04/17 at 09:59 ; Status DC Propofol 100 ml @ 2.4 mls/hr TITRATE PRN IV SEDATION Last administered on 12/14at 05:49; Start 11/28/17 at 05:45; Stop 12/15/17 at 16:16; Status DC Rocuronium [place] (Zemuron Inj) 100 mg BOLUS ONCE IV Last administered on 12/07at 14:30; Start 12/07/17 at 14:15; Stop 12/07/17 at 14:16; Status DC Senna/Docusate Sodium (Johnna-Colace) 1 tab BID PO Last administered on at 08:20; Start 11/28/17 at 09:00 Sennosides (Senokot) 17.2 mg Q12H PRN PO Moderate constipation; Start 11/28/17 at 05:45 Sodium Chloride 1,000 ml @ 100 mls/hr Q10H IV Last administered on 12/27/17at 02:59; Start 12/22/17 at 22:00 Sodium Chloride (NS Flush) UNSCH PRN IV FLUSH SEE PROTOCOL; Start 12/04/17 at 17:30 Sodium Chloride (Sodium Chloride 3% Neb) 2 ml Q4HR NEB NEB Last administered on 12/07/17at 16:14; Start 12/06/17 at 16:00; Stop 12/07/17 at 16:45; Status DC Sodium Phosphate 30 mmol/Sodium Chloride 250 ml @ 42 mls/hr UNSCH PRN IV For Phosphorus < 2.5 mg/dL; Start 12/23/17 at 11:00; Stop 12/26/17 at 13:35; Status DC Succinylcholine Chloride (Quelicin Inj) 100 mg ONCE ONCE IV PUSH Last administered on 11/28/17at 05:46; Start 11/28/17 at 05:45; Stop 11/28/17 at 05:46 ; Status DC Terbutaline Sulfate (Brethine Inj) 1 mg UNSCH PRN SQ FOR EXTRAVASATION PROTOCOL ; Start 12/22/17 at 22:30 Vancomycin HCl 1000 mg/Sodium Chloride 250 ml @ 250 mls/hr Q12H IV Last administered on 12/11/17at 07:05; Start 12/09/17 at 18:00; Stop 12/11/17 at 09:18; Status DC Vancomycin HCl 1250 mg/Sodium Chloride 262.5 ml @ 250 mls/hr Q24H IV Last administered on 12/23/17at 23:59; Start 12/23/17 at 23:00; Stop 12/24/17 at 13:37 ; Status DC Warfarin Sodium (Coumadin) 4 mg DAILY@1600 PO Last administered on 12/26/17at 15 :45; Start 12/22/17 at 16:00; Status Future hold A/P Problem List: (1) Alcohol use ICD Code: F10.99 - Alcohol use, unspecified with unspecified alcohol-induced disorder Status: Chronic (2) Acute hypoxemic respiratory failure ICD Code: J96.01 - Acute respiratory failure with hypoxia (3) End stage COPD ICD Code: J44.9 - Chronic obstructive pulmonary disease, unspecified (4) MRSA pneumonia ICD Code: J15.212 - Pneumonia due to Methicillin resistant Staphylococcus aureus (5) Dependence on respirator, status ICD Code: Z99.11 - Dependence on respirator [ventilator] status (6) Factor V Leiden ICD Code: D68.51 - Activated protein C resistance Status: Acute (7) Hypertension ICD Code: I10 - Essential (primary) hypertension Status: Acute (8) Alcohol abuse ICD Code: F10.10 - Alcohol abuse, uncomplicated Status: Acute (9) Hepatitis C ICD Code: B19.20 - Unspecified viral hepatitis C without hepatic coma Assessment and Plan Acute metabolic encephalopathy- EtOH abuse/withdrawal History of right frontal CVA Depression/anxiety s/p chlordiazepoxide taper. Acetaminophen 650 mg p.o. every 6 hours as needed fever unlikely to be focal and CVA frequent neuro checks avoid long-acting sedatives psych consulted for paranoia Coronary artery disease Essential hypertension Hyperlipidemia Septic shock hold home antihypertensives. COPD Bilateral lower lobe lung collapse status post bronchoscopy 12/02 Nasal cannula to maintain saturations greater than equal to 92% Incentive spirometry while awake Albuterol/ipratropium aerosols every 4 hours with albuterol aerosols every 2 hours as needed dyspnea Budesonide 0.5/2 1 inhalation twice daily On budesonide/formoterol 160/4.5 2 puffs twice daily at home will taper down the IV steroids. VQ scan low probability for pulmonary embolism Gastroesophageal reflux disease Hepatitis C Hypoalbuminemia/moderate protein calorie malnutrition Elevated AST Famotidine for GI prophylaxis Docusate serum/senna 1 tablet twice daily for bowel regimen. Acute kidney injury- resolved. FER likely secondary to shock. Hyperglycemia Sliding scale insulin with Accu-Cheks to maintain euglycemia while on high-dose steroids Factor V Leiden on chronic anticoagulation Normocytic anemia Leukocytosis Chronic warfarin use History of left lower extremity DVT status post IVC filter on lovenox and coumadin. At home on enoxaparin 80 mg subcu twice daily with warfarin 7.5 mg daily Monitor CBC daily. Along with PT/INR/PTT MRSA pneumonia- resolved Pediculosis capitis MRSA nares new septic shock ESBL/MDRO E. Coli HC-associated CAUTI Vancomycin/Pipracil/tazobactam 12/04 - 12/11 Rocephin 12/11 - 12/14. pertinent cultures 12/07 -sputum from bronchoscopy-MSSA 12/03 -sputum -MRSA 12/03 -blood cultures 2 -no growth Influenza negative d/c vanc, cefepime,flagyl start ertapenem 1gm iv q24h x 7 days ID consulted per protocol. Hypokalemia Replace electrolytes as clinically indicated MSK: Osteoporosis/chronic low back pain PT evaluate and treat Discharge Planning likely hospice- within the next 24 hrs. Luis Fatima MD Dec 27, 2017 08:42
[2017-12-27] MEDS ORDERED: ALPR.25 PO (08:44)
[2017-12-27] MEDS ORDERED: OXYC1TAB36 PO (08:44)
[2017-12-27] MEDS ORDERED: POTASSIUM CHLORIDE 10 MEQ CONTROLLED RELEASE TAB PO ONE ×2 (08:45→12:00)
[2017-12-27] MEDS ORDERED: POTASSIUM CHLOR 20 MEQ PREMIX 100 ML IV ONE ×2 (08:45→19:30)
[2017-12-27] MEDS: RESP: BUDESONIDE 0.5 MG/2 ML NEB NEB SCH ×2 (09:40→20:39)
[2017-12-27] MEDS: ALPRAZolam 0.25 MG TAB PO PRN (15:55)
[2017-12-27] MEDS: ERTAPENEM 1,000 MG/NS 100 ML IV SCH ×2 (15:55)
[2017-12-27] MEDS: WARFARIN SOD 4 MG TAB PO SCH (15:55)
--- NOTE | 2017-12-27 18:19 | PD.PSY.CON ---
Provisional Diagnosis Admission Date November 28, 2017 at 05:13 [place]. Delirium, acute metabolic encephalopathy History of Present Illness Service Psychiatry Consult Requested By Shaun Moe Reason for Consult Paranoid behavior Primary Care Physician Adam Hodge, HPI Patient is a 57-year-old woman, domiciled with son, with no formal past psychiatric history, no previous psychiatric diagnoses, hospitalizations or suicide attempts, with a past medical history significant for hypertension, COPD end-stage, hep C, alcohol use disorder was admitted to the medical floor due to recent respiratory failure status post extubation along with recent acute metabolic encephalopathy, septic shock secondary to ESBL/MDRO E. coli which patient was noted to have paranoid behavior which psychiatry was consulted for evaluation. Discussion with nursing staff reported the patient continues to be confused, alert and oriented only 1 continues to remove nasal cannula but no agitation or aggressive behavior. Patient was found lying hospital bed noted B, cooperative. 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 Patient states that she has difficulty speaking as she is noted to have low volume stating that she had "broke my neck recently" and states that she has been talking this way ever since. She is noted to be perseverative on topics related to her sister and son but not able to make sense of some statements provided due to confusion at this time. Patient states that her mood has been "good" but denies feeling depressed, denies any manic or psychotic symptoms. Patient denies any perceptional services or delusions at this time. Patient did endorse having alcohol use 2 shots per day daily prior to her admission but denying having any episodes of DTs. Patient reports having a family history of bipolar disorder from her sister but no suicides in the family. Patient denies any psychiatric history only that she had been prescribed Xanax as needed basis by her primary care doctor. Patient this time denies any SI, HI, AVH or delusions. Past Family Social History Coded Allergies: prednisone (Unverified Allergy, Severe, facial swelling, 04/30/17) Active Scripts Alprazolam (Xanax) 0.25 Mg Tab, 0.25 MG PO Q8H Y for ANXIETY, #6 TAB 0 Refills Prov:Luis Fatima MD 12/27/17 Oxycodone HCl/Acetaminophen (Oxycodone-Acetaminophen 10-325) 10 Mg-325 Mg Tablet , 1 TAB PO Q6H Y for pain, #10 TAB 0 Refills Prov:Luis Fatima MD 12/27/17 Enoxaparin Inj (Lovenox Inj) 80 mg/0.8 ML Syr, 80 MG SQ Q12H for Blood Clot Prevention for 5 Days, #10 INJECTION Prov:Janna Landers 05/05/17 Warfarin (Warfarin) 7.5 Mg Tab, 7.5 MG PO DAILY for Blood Clot Prevention for 30 Days, #30 TAB 0 Refills Prov:Janna Landers 05/05/17 Reported Medications Albuterol 8.5 GM Inh (Proair Hfa 8.5 GM Inh) 90 Mcg/Act Aer, 2 PUFF INH Q4-6H Y for SHORTNESS OF BREATH, #1 INHALER 0 Refills 108 mcg/actuation 04/30/17 Budesonide-Formoterol Inh (Symbicort Inh) 160-4.5 Mcg/Act Aero, 1 PUFF INH Q12HR , #1 INHALER 0 Refills 04/30/17 Amiloride-Hydrochlorothiazide (Amiloride-Hydrochlorothiazide) 5-50 Mg Tab, 1 TAB PO DAILY for Blood Pressure Management, #30 TAB 0 Refills Give with food. 04/30/17 Current Medications Medications (Trade) Dose Ordered Sig/Danay Route Start Time Stop Time Status Last Admin (NS Flush) 2 ml UNSCH PRN IV FLUSH 11/28/17 05:45 12/21/17 22:35 (NS Flush) 2 ml BID IV FLUSH 11/28/17 09:00 12/25/17 21:17 (Zofran Odt) 4 mg Q6H PRN PO 11/28/17 05:45 ([facility]) 1 Q361D XX 11/28/17 05:45 11/28/17 08:30 (Chlorhexidine 2% Cloth) Taper DAILY@04 TOP 11/29/17 04:00 11/25/18 03:59 12/10/17 03:46 (Chlorhexidine 2% Cloth) 3 pack UNSCH PRN TOP 11/28/17 05:45 (Johnna-Colace) 1 tab BID PO 11/28/17 09:00 12/27/17 08:20 (Milk Of Magnesia Liq) 30 ml Q12H PRN PO 11/28/17 05:45 12/13/17 20:21 (Senokot) 17.2 mg Q12H PRN PO 11/28/17 05:45 (Dulcolax Supp) 10 mg DAILY PRN RECTAL 11/28/17 05:45 (Lactulose Liq) 30 ml DAILY PRN PO 11/28/17 05:45 12/01/17 04:08 (Peridex 0.12% Liq) 15 ml BID@08,20 MT 11/28/17 08:00 12/27/17 08:00 Pharmacy Profile Note 0 ml @ 0 mls/hr UNSCH OTHER 11/28/17 06:00 (Lasix Inj) 20 mg DAILY IV PUSH 12/01/17 09:00 Future Hold 12/03/17 07:56 (Pepcid) 20 mg BID NG 12/03/17 21:00 12/27/17 08:20 (Tears Naturale Opth Soln) 1 drop Q8HR EACH EYE 12/03/17 14:00 12/27/17 13:20 (D50w (Vial) Inj) 50 ml UNSCH PRN IV PUSH 12/03/17 10:45 (Glucagon Inj) 1 mg UNSCH PRN OTHER 12/03/17 10:45 (Pulmicort Respule Neb) 0.5 mg Q12HR NEB NEB 12/03/17 20:00 12/27/17 09:40 (Tylenol 650 Mg/ 20 ml Liq) 650 mg Q6H PRN PO 12/03/17 11:00 12/25/17 01:17 (Albuterol Neb) 2.5 mg Q2HR NEB PRN NEB 12/03/17 11:00 12/27/17 03:49 (Moduretic 5-50 Mg) 1 tab DAILY PO 12/04/17 09:00 12/27/17 08:20 (Bactroban Nasal 2% Oint) 1 applic Taper BID EACH NARE 12/04/17 21:00 11/30/18 20:59 12/27/17 08:26 (NS Flush) DAILY IV FLUSH 12/05/17 09:00 12/21/17 10:25 (NS Flush) UNSCH PRN IV FLUSH 12/04/17 17:30 (Lactulose Liq) 30 ml BID PO 12/08/17 09:00 12/22/17 10:05 (Mycostatin Liq) 5 ml QID SWISH-SWAL 12/19/17 13:00 12/27/17 13:20 (Prinivil) 5 mg DAILY PO 12/22/17 14:00 Future Hold 12/22/17 13:59 (Coumadin) 4 mg DAILY@1600 PO 12/22/17 16:00 Future hold 12/27/17 15:55 Sodium Chloride 1,000 ml @ 100 mls/hr Q10H IV 12/22/17 22:00 12/27/17 02:59 Phenylephrine HCl 40 mg/Dextrose 500 ml @ 30 mls/hr TITRATE PRN IV 12/22/17 22:30 12/24/17 00:31 (Brethine Inj) 1 mg UNSCH PRN SQ 12/22/17 22:30 Ertapenem 1000 mg/ Sodium Chloride 100 ml @ 200 mls/hr Q24H IV 12/24/17 15:00 12/30/17 15:29 12/27/17 15:55 (Percocet 5-325 Mg) 1 tab Q6H PRN PO 12/25/17 16:15 12/27/17 15:55 (Percocet 10-325 Mg) 1 tab Q6H PRN PO 12/25/17 16:15 (Xanax) 0.25 mg Q8H PRN PO 12/25/17 16:30 12/27/17 15:55 (NovoLOG SUPPLEMENTAL SCALE) 1 BID SQ 12/26/17 09:00 12/27/17 08:21 (SoluCORTEF INJ) 50 mg Q12H IV PUSH 12/27/17 17:00 12/27/17 15:56 Physical Exam Vital Signs Vital Signs Date Time Temp Pulse Resp B/P (MAP) Pulse Ox O2 Delivery O2 Flow Rate FiO2 12/27/17 12:02 96.7 86 18 116/61 (79) 93 12/27/17 09:42 21 12/26/17 23:50 Nasal Cannula 2.00 I/O 12/27/17 12/27/17 12/28/17 08:00 16:00 00:00 Intake Total 1360 ml 260 ml Output Total 1750 ml Balance -390 ml 260 ml Lab Results Test 12/27/17 05:15 12/27/17 13:54 White Blood Count 5.8 TH/MM3 Red Blood Count 3.39 MIL/MM3 Hemoglobin 10.5 GM/DL Hematocrit 32.0 % Mean Corpuscular Volume 94.4 FL Mean Corpuscular Hemoglobin 31.1 PG Mean Corpuscular Hemoglobin Concent 33.0 % Red Cell Distribution Width 19.1 % Platelet Count 205 TH/MM3 Mean Platelet Volume 9.1 FL Neutrophils (%) (Auto) 83.0 % Lymphocytes (%) (Auto) 11.1 % Monocytes (%) (Auto) 5.4 % Eosinophils (%) (Auto) 0.2 % Basophils (%) (Auto) 0.3 % Neutrophils # (Auto) 4.8 TH/MM3 Lymphocytes # (Auto) 0.6 TH/MM3 Monocytes # (Auto) 0.3 TH/MM3 Eosinophils # (Auto) 0.0 TH/MM3 Basophils # (Auto) 0.0 TH/MM3 CBC Comment DIFF FINAL Differential Comment Prothrombin Time 16.7 SEC Prothromb Time International Ratio 1.7 RATIO Blood Urea Nitrogen 9 MG/DL Creatinine 0.40 MG/DL Random Glucose 125 MG/DL Total Protein 5.8 GM/DL Albumin 2.9 GM/DL Calcium Level 8.0 MG/DL Phosphorus Level 2.0 MG/DL Magnesium Level 1.5 MG/DL Alkaline Phosphatase 82 U/L Aspartate Amino Transf (AST/SGOT) 81 U/L Alanine Aminotransferase (ALT/SGPT) 240 U/L Total Bilirubin 0.3 MG/DL Sodium Level 145 MEQ/L Potassium Level 2.4 MEQ/L 2.6 MEQ/L Chloride Level 107 MEQ/L Carbon Dioxide Level 29.3 MEQ/L Anion Gap 9 MEQ/L Estimat Glomerular Filtration Rate 166 ML/MIN Date/Time Source Procedure Growth Status 12/22/17 22:49 Blood Peripheral Aerobic Blood Culture - Final NO GROWTH IN 5 DAYS Complete 12/22/17 22:49 Blood Peripheral Anaerobic Blood Culture - Final QNS - SEE AEROBE REPORT Complete 12/07/17 14:40 Bronchial Washings Right Lower Lobe Fungal Smear - Final NO FUNGAL ELEMENTS SEEN. Resulted 12/07/17 14:40 Bronchial Washings Right Lower Lobe Fungal Culture - Preliminary Resulted 12/22/17 21:15 Urine Catheterized Urine Urine Culture - Final Escherichia Coli Esbl Positive Multi-Drug Resistant Complete Mental Status Examination Appearance: Disheveled Consciousness: Alert Orientation: Person Speech: Slow Language: Adequate Fund of Knowledge: Inadequate Attention and Concentration: Easily Distracted Memory: Impaired Mood: Other ("Not good") Affect: Other (Restricted) Thought Process & Associations: Other Thought Content: Preoccupations (Related to her family) Hallucination Type: None Delusion Type: None Suicidal Ideation: No Suicidal Plan: No Suicidal Intention: No Homicidal Ideation: No Homicidal Plan: No Homicidal Intention: No Insight: Poor Judgment: Poor Assessment & Plan Problem List: (1) Delirium due to general medical condition ICD Codes: F05 - Delirium due to known physiological condition (2) Encephalopathy ICD Codes: G93.40 - Encephalopathy, unspecified Assessment & Plan Patient is a 57-year-old woman who carries no formal past psychiatric history, admitted to the medical floor due to acute respiratory failure with acute metabolic encephalopathy and septic shock secondary to ESBL/MDRO E.coli, this patient was noted to have paranoid behavior psychiatry was consulted for evaluation. Patient this time noted to be alert and oriented only to person continues with confusion, disorientation, and distortion of reality construct likely secondary to delirium from current medical issues. Recommend starting patient on quetiapine 25 mg p.o. twice daily for paranoia which is likely secondary to delirium. Monitor for orthostatic hypotension although on low- dose antipsychotic. Recommended trying to avoid benzodiazepines if possible as this may worsen confusion. Continue to monitor mood and behavior. Patient with no recent agitation or aggressive behavior noted. Continue recommendations as per primary medical team. Consult appreciated. Deepak Hickey MD Dec 27, 2017 18:19
[2017-12-27] MEDS: QUEtiapine FUMARATE 25 MG TAB PO SCH (19:43)
[2017-12-28] VITALS (8 sets, daily range): BP systolic 115–154; BP diastolic 63–86; PULSE 78–95; RESP 16–18; TEMP 97.3–98; O2SAT 94–98
[2017-12-28] MEDS: RESP: ALBUTEROL 2.5 MG/3 ML NEB (PRN) NEB ×3 (02:02→18:10)
[2017-12-28] MEDS ORDERED: PERMETHRIN 1% LOTION 60 ML BTL TOPICAL ONE (02:15)
[2017-12-28] MEDS: ALPRAZolam 0.25 MG TAB PO PRN ×2 (02:56→17:46)
[2017-12-28] MEDS: oxyCODONE/ACETAMINOPHEN 10 MG/325 MG TAB PO PRN ×2 (02:57→08:25)
[2017-12-28] MEDS: CHLORHEXIDINE GLUCONATE 2 % 1 PACK (2 CLOTHS) TOP SCH (03:59)
[2017-12-28] MEDS: ARTIFICIAL TEARS OPTH SOLN 15 ML BTL EACH EYE SCH ×3 (05:19→21:20)
[2017-12-28] MEDS: HYDROCORTISONE SOD SUCCINATE 100 MG VIAL IV PUSH SCH ×2 (05:19→17:44)
[2017-12-28 06:41] LABS: HEMOGLOBIN 10.2 GM/DL (11.6-15.3); MEAN CELL VOLUME 95.4 FL (80.0-100.0); MEAN CORPUSCULAR HEMOGLOBIN 31.3 PG (27.0-34.0); MEAN CORPUSCULAR HGB CONC 32.8 % (32.0-36.0); PLATELET COUNT 226 TH/MM3 (150-450); RED BLOOD COUNT 3.25 MIL/MM3 (4.00-5.30); RED CELL DISTRIBUTION WIDTH 19.4 % (11.6-17.2); WHITE BLOOD COUNT 6.9 TH/MM3 (4.0-11.0)
[2017-12-28 07:10] LABS: BICARBONATE 29.4 MEQ/L (21.0-32.0); CALCIUM 8.2 MG/DL (8.5-10.1); CREATININE 0.45 MG/DL (0.50-1.00); MAGNESIUM 1.5 MG/DL (1.5-2.5)
[2017-12-28 07:25] LABS: INTERNATIONAL NORMALIZED RATIO 1.7 RATIO; PROTHROMBIN TIME - PATIENT 17.6 SEC (9.8-11.6)
[2017-12-28] MEDS: INSULIN ASPART SUPPLEMENTAL SCALE SQ SCH ×2 (08:08→21:00)
[2017-12-28] MEDS: QUEtiapine FUMARATE 25 MG TAB PO SCH ×2 (08:10→21:19)
[2017-12-28] MEDS: aMILoride/HCTZ 5 MG/50 MG TAB PO SCH (08:10)
[2017-12-28] MEDS: DOCUSATE SODIUM 50 MG/SENNA 8.6 MG TAB PO SCH ×2 (08:10→21:19)
[2017-12-28] MEDS: FAMOTIDINE 20 MG TAB NG SCH ×2 (08:10→21:19)
[2017-12-28] MEDS: SODIUM CHLORIDE 0.9% FLUSH 10 ML FLUSH IV FLUSH SCH ×3 (08:11→21:19)
[2017-12-28] MEDS: SODIUM CHLOR 0.9% 1000 ML INJ 1,000 ML IV SCH ×2 (08:11→15:21)
[2017-12-28] MEDS: RESP: BUDESONIDE 0.5 MG/2 ML NEB NEB SCH ×2 (08:19→20:00)
[2017-12-28] MEDS: LACTULOSE SYRUP 20 GM/30 ML CUP PO SCH ×2 (08:26→21:19)
[2017-12-28] MEDS: NYSTATIN SUSP 500,000 U/5 ML CUP SWISH-SWAL SCH ×4 (08:26→21:20)
[2017-12-28] MEDS: CHLORHEXIDINE 0.12% (ORAL KIT) 15 ML CUP MT SCH ×2 (08:27→21:19)
[2017-12-28] MEDS ORDERED: POTASSIUM CHLORIDE 20 MEQ CONTROLLED RELEASE TAB PO ONE (10:45)
--- NOTE | 2017-12-28 10:46 | HHI.PR ---
Subjective Remarks in no distress. denies pain. no fever. d/w the RN. Objective Vitals Vital Signs Date Time Temp Pulse Resp B/P (MAP) Pulse Ox O2 Delivery O2 Flow Rate FiO2 12/28/17 08:20 97 Nasal Cannula 2.00 12/28/17 08:00 97.7 80 17 132/78 (96) 95 12/28/17 04:29 97.4 78 18 154/86 (108) 96 12/28/17 03:57 18 12/28/17 00:06 98.0 83 16 121/67 (85) 98 12/27/17 20:40 95 Nasal Cannula 2.00 12/27/17 20:23 96.3 87 16 130/80 (97) 98 12/27/17 19:48 Nasal Cannula 2.00 12/27/17 16:00 97.8 86 17 129/80 (96) 93 12/27/17 12:02 96.7 86 18 116/61 (79) 93 I/O 12/27/17 12/27/17 12/27/17 12/28/17 12/28/17 12/28/17 07:00 15:00 23:00 07:00 15:00 23:00 Intake Total 1360 ml 260 ml 1475 ml 580 ml Output Total 1750 ml 1300 ml 2000 ml Balance -390 ml 260 ml 175 ml -1420 ml Intake Oral 360 ml 275 ml 580 ml IV Total 1000 ml 260 ml 1200 ml Output Urine Total 1750 ml 1300 ml 2000 ml # Bowel Movements 0 0 1 Result Diagram: 12/28/17 0546 12/28/17 0546 Objective Remarks GENERAL: This is a well-nourished, well-developed patient, in no apparent distress. CARDIOVASCULAR: Regular rate and regular rhythm without murmurs, gallops, or rubs. RESPIRATORY: Clear to auscultation. Breath sounds equal bilaterally. No wheezes , rales, or rhonchi. GASTROINTESTINAL: Abdomen soft, non-tender, nondistended. Normal, active bowel sounds MUSCULOSKELETAL: Extremities without clubbing, cyanosis, or edema. NEURO: awake and alert. Procedures MULTIPLE BRONCHOSCOPIES Medications and IVs Inpatient Medications Acetaminophen (Tylenol 650 Mg/ 20 ml Liq) 650 mg Q6H PRN PO fever Last administered on 12/25/17at 01:17; Start 12/03/17 at 11:00 Acetaminophen (Tylenol) 650 mg Q6H PRN PO PAIN 1-5 AND/OR FEVER >101F; Start at 05:45; Stop 12/03/17 at 10:51; Status DC Acetaminophen/ Hydrocodone Bitart ([place] 5-325 Mg) 1 tab ONCE ONCE PO ; Start 11/28/17 at 02:30; Stop 11/28/17 at 02:31; Status DC Acetazolamide Sodium (Diamox Inj) 250 mg ONCE ONCE IV PUSH Last administered on 12/14/17at 12:45; Start 12/14/17 at 12:45; Stop 12/14/17 at 13:22; Status DC Albumin Human 500 ml @ 166.667 mls/hr ONCE ONCE IV Last administered on at 12:03; Start 12/24/17 at 12:00; Stop 12/24/17 at 14:59; Status DC Albuterol Sulfate (Albuterol Neb) 2.5 mg Q2HR NEB PRN NEB dyspnea Last administered on 12/28/17at 08:19; Start 12/03/17 at 11:00 Albuterol/ Ipratropium (Duoneb Neb) 1 ampule Q4HR NEB NEB Last administered on 12/17/17at 19:59; Start 12/14/17 at 00:00; Stop 12/17/17 at 23:59; Status DC Alprazolam (Xanax) 0.25 mg Q8H PRN PO ANXIETY Last administered on 12/28/17at 02 :56; Start 12/25/17 at 16:30 Amiloride/HCTZ (Moduretic 5-50 Mg) 1 tab DAILY PO Last administered on at 08:10; Start 12/04/17 at 09:00 Artificial Tears (Tears Naturale Opth Soln) 1 drop Q8HR EACH EYE Last administered on 12/28/17at 05:19; Start 12/03/17 at 14:00 Bisacodyl (Dulcolax Supp) 10 mg DAILY PRN RECTAL SEVERE CONSITIPATION; Start at 05:45 Budesonide (Pulmicort Respule Neb) 0.5 mg Q12HR NEB NEB Last administered on at 08:19; Start 12/03/17 at 20:00 Cefepime HCl 2000 mg/Sodium Chloride 100 ml @ 200 mls/hr Q8H IV Last administered on 12/24/17at 09:33; Start 12/23/17 at 09:00; Stop 12/24/17 at 13:37 ; Status DC Ceftriaxone Sodium 1000 mg/ Sodium Chloride 100 ml @ 200 mls/hr ONCE ONCE IV Last administered on 11/28/17at 05:56; Start 11/28/17 at 05:15; Stop 11/28/17 at 05:44; Status DC Ceftriaxone Sodium 2000 mg/ Sodium Chloride 100 ml @ 200 mls/hr Q24H IV Last administered on 12/13/17at 18:53; Start 12/11/17 at 17:00; Stop 12/14/17 at 16:59; Status DC Chlordiazepoxide (Librium) 25 mg Taper DAILY PO Last administered on 12/11/17at 09:12; Start 12/10/17 at 01:00; Stop 12/12/17 at 00:59; Status DC Chlorhexidine Gluconate (Chlorhexidine 2% Cloth) 3 pack UNSCH PRN TOP HYGIENIC CARE; Start 11/28/17 at 05:45; Stop 12/28/17 at 02:08; Status DC Chlorhexidine Gluconate (Peridex 0.12% Liq) 15 ml BID@08,20 MT Last administered on 12/28/17at 08:27; Start 11/28/17 at 08:00 Dexmedetomidine HCl (Precedex Inj) 38 mcg ONCE ONCE IV PUSH ; Start 11/30/17 at 08:30; Stop 11/30/17 at 08:31; Status DC Dexmedetomidine HCl 1000 mcg/ Sodium Chloride 250 ml @ 3.78 mls/hr TITRATE PRN IV SEDATION Last administered on 12/03/17at 09:31; Start 12/02/17 at 19:30; Stop 12/15/17 at 16:16; Status DC Dexmedetomidine HCl 200 mcg/ Sodium Chloride 52 ml @ 3.93 mls/hr TITRATE PRN IV SEDATION Last administered on 12/02/17at 16:55; Start 11/30/17 at 08:30; Stop 12/02/17 at 19:21; Status DC Dextrose (D50w (Vial) Inj) 50 ml UNSCH PRN IV PUSH HYPOGLYCEMIA-SEE COMMENTS; Start 12/04/17 at 08:30; Stop 12/04/17 at 09:30; Status DC Enoxaparin Sodium (Lovenox Inj) 40 mg Q24H SQ Last administered on 12/22/17at 10 :28; Start 12/21/17 at 12:00; Stop 12/22/17 at 14:36; Status DC Epoprostenol Sodium 50 ml/ Sodium Chloride 100 ml @ 5 mls/hr Q8H NEB Last administered on 12/11/17at 15:37; Start 12/10/17 at 16:00; Stop 12/11/17 at 16:10; Status DC Epoprostenol Sodium 62.5 ml/ Sodium Chloride 100 ml @ 5 mls/hr Q8H NEB Last administered on 12/10/17at 08:20; Start 12/03/17 at 17:00; Stop 12/10/17 at 12:46; Status DC Ertapenem 1000 mg/ Sodium Chloride 100 ml @ 200 mls/hr Q24H IV Last administered on 12/27/17at 15:55; Start 12/24/17 at 15:00; Stop 12/30/17 at 15:29 Etomidate (Amidate Inj) 40 mg ONCE ONCE IV PUSH Last administered on 12/07/17at 14:27; Start 12/07/17 at 14:15; Stop 12/07/17 at 14:16; Status DC Famotidine (Pepcid Inj) 20 mg Q12HR IV PUSH Last administered on 12/03/17at 07: 56; Start 12/02/17 at 21:00; Stop 12/03/17 at 10:43; Status DC Famotidine (Pepcid) 20 mg BID NG Last administered on 12/28/17at 08:10; Start at 21:00 Fentanyl Citrate 250 ml @ 5 mls/hr TITRATE PRN IV SEDATION Last administered on 12/13/17at 02:30; Start 11/28/17 at 05:45; Stop 12/18/17 at 07:22; Status DC Furosemide (Lasix Inj) 40 mg ONCE ONCE IV PUSH Last administered on 12/14/17at 12:45; Start 12/14/17 at 12:45; Stop 12/14/17 at 13:22; Status DC Glucagon (Glucagon Inj) 1 mg UNSCH PRN OTHER HYPOGLYCEMIA-SEE COMMENTS; Start 12/04/17 at 08:30; Stop 12/04/17 at 09:32; Status DC Guaifenesin (Robitussin Liq) 400 mg Q8HR NG Last administered on 12/13/17at 06:15 ; Start 12/06/17 at 14:00; Stop 12/13/17 at 13:59; Status DC Heparin Sodium (Porcine) (Heparin Inj) 5,000 units Q12HR SQ ; Start 12/03/17 at 21:00; Stop 12/03/17 at 21:00; Status DC Heparin Sodium/ Dextrose 250 ml @ 15 mls/hr TITRATE PRN IV Coagulation Management Last administered on 12/18/17at 04:02; Start 12/08/17 at 15:30; Stop at 09:29; Status DC Hydrocortisone Sodium Succinate (SoluCORTEF INJ) 50 mg Q12H IV PUSH Last administered on 12/28/17at 05:19; Start 12/27/17 at 17:00 Hydromorphone HCl (Dilaudid Pf Inj) 1 mg Q4H PRN IV PUSH PAIN SCALE 6 TO 10 Last administered on 12/17/17at 12:11; Start 12/17/17 at 07:45; Stop 12/22/17 at 21:19; Status DC Insulin Aspart (NovoLOG SUPPLEMENTAL SCALE) 1 BID SQ Last administered on at 19:51; Start 12/26/17 at 09:00 Insulin Human Regular (NovoLIN R SUPPLEMENTAL SCALE) 1 Q6HR SQ Last administered on 12/04/17at 05:56; Start 12/03/17 at 12:00; Stop 12/04/17 at 09:31 ; Status DC Ketorolac Tromethamine (Toradol Inj) 30 mg ONCE ONCE IV PUSH Last administered on 11/28/17at 03:55; Start 11/28/17 at 04:00; Stop 11/28/17 at 04:01 ; Status DC Lactulose (Lactulose Liq) 30 ml BID PO Last administered on 12/28/17at 08:26; Start 12/08/17 at 09:00 Levofloxacin (Levaquin Liq) 500 mg DAILY NG Last administered on 12/09/17at 09: 00; Start 11/29/17 at 10:30; Stop 12/09/17 at 10:29; Status DC Lisinopril (Prinivil) 5 mg DAILY PO Last administered on 12/22/17at 13:59; Start 12/22/17 at 14:00; Status Future Hold Lorazepam (Ativan Inj) 0.5 mg ONCE ONCE IV PUSH Last administered on at 03:55; Start 11/28/17 at 04:00; Stop 11/28/17 at 04:01; Status DC Magnesium Hydroxide (Milk Of Magnesia Liq) 30 ml Q12H PRN PO Mild constipation Last administered on 12/13/17at 20:21; Start 11/28/17 at 05:45 Magnesium Oxide (Mag-Ox) 800 mg UNSCH PRN PO For Magnesium 1.2 - 1.6 mg/dL; Start 12/23/17 at 11:00; Stop 12/26/17 at 13:35; Status DC Magnesium Sulfate 2 gm/Sodium Chloride 100 ml @ 50 mls/hr UNSCH PRN IV For Magnesium 1.2 - 1.6 mg/dL; Start 12/23/17 at 11:00; Stop 12/26/17 at 13:35; Status DC Magnesium Sulfate 4 gm/Sodium Chloride 100 ml @ 50 mls/hr UNSCH PRN IV For Magnesium 0.9 - 1.1 mg/dL; Start 12/23/17 at 11:00; Stop 12/26/17 at 13:35; Status DC Methylprednisolone Sodium Succinate (SoluMEDROL INJ) 40 mg DAILY IV PUSH Last administered on 12/22/17at 10:05; Start 12/16/17 at 09:00; Stop 12/22/17 at 21:19 ; Status DC Metronidazole 100 ml @ 100 mls/hr Q6H IV Last administered on 12/24/17at 13:04 ; Start 12/22/17 at 23:00; Stop 12/24/17 at 13:37; Status DC Midazolam HCl (Versed Inj) 2 mg Q1H PRN IV PUSH SEDATION Last administered on at 00:54; Start 11/28/17 at 05:45; Stop 12/15/17 at 16:16; Status DC Mineral Oil (Kondremul Liq) 30 ml ONCE ONCE PO Last administered on 12/04/17at 11:22; Start 12/04/17 at 09:45; Stop 12/04/17 at 09:59; Status DC Miscellaneous Information ([facility]) 1 [id number] XX Last administered on 11/28/17at 08:30; Start 11/28/17 at 05:45 Miscellaneous Information ([facility] Ordered Lab Info) SPECIFIC LAB TO BE DRAWN:VANCO TROUGH DATE TO BE DR... ONCE ONCE .XX ; Start 12/25/17 at 22:45; Stop 12/25/17 at 22:45; Status DC Miscellaneous Medication (ASP Crit: Doc ESBL, MDR A baumannii or P aer) 1 UNSCH ONCE .XX Last administered on 12/24/17at 13:45; Start 12/24/17 at 13:45; Stop 12/24/17 at 13:46; Status DC Morphine Sulfate (Morphine Inj) 2 mg ONCE ONCE IV PUSH ; Start 11/28/17 at 04: 15; Stop 11/28/17 at 04:16; Status DC Mupirocin (Bactroban Nasal 2% Oint) 1 applic Taper BID EACH NARE Last administered on 12/27/17at 19:44; Start 12/04/17 at 21:00; Stop 12/28/17 at 02:08 ; Status DC Naloxone HCl (Narcan Inj) 2 mg ONCE ONCE IV PUSH Last administered on at 05:37; Start 11/28/17 at 04:45; Stop 11/28/17 at 04:46; Status DC Norepinephrine Bitartrate 4 mg/ Sodium Chloride 250 ml @ 7.5 mls/hr TITRATE PRN IV Blood pressure management Last administered on 12/10/17at 07:00; Start at 15:30; Stop 12/15/17 at 16:16; Status DC Nystatin (Mycostatin Liq) 5 ml QID SWISH-SWAL Last administered on 12/28/17at 08:26; Start 12/19/17 at 13:00 Ondansetron HCl (Zofran Odt) 4 mg Q6H PRN PO NAUSEA OR VOMITING; Start at 05:45 Oxycodone/ Acetaminophen (Percocet 5-325 Mg) 1 tab Q6H PRN PO PAIN 3 TO 5 Last administered on 12/27/17at 15:55; Start 12/25/17 at 16:15 Oxycodone/ Acetaminophen (Percocet 10-325 Mg) 1 tab Q6H PRN PO PAIN 6-10 Last administered on 12/28/17at 08:25; Start 12/25/17 at 16:15 Patient Medication Teaching (Coumadin Booklet) 1 ONCE ONCE .XX Last administered on 12/01/17at 16:00; Start 12/01/17 at 16:00; Stop 12/01/17 at 16:01 ; Status DC Permethrin (Elimite 5% Cream) 1 applic ONCE ONCE TOPICAL Last administered on 12/20/17at 05:30; Start 12/20/17 at 06:00; Stop 12/20/17 at 06:01; Status DC Permethrin (Nix Creme Rinse 1% Lotion) 1 applic ONCE ONCE TOPICAL Last administered on 12/28/17at 02:57; Start 12/28/17 at 02:15; Stop 12/28/17 at 02:16 ; Status DC Pharmacy Profile Note 0 ml @ 0 mls/hr UNSCH OTHER ; Start 12/22/17 at 21:15; Stop 12/24/17 at 13:37; Status DC Phenylephrine HCl 40 mg/Dextrose 500 ml @ 30 mls/hr TITRATE PRN IV Blood Pressure Management Last administered on 12/24/17at 00:31; Start 12/22/17 at 22: 30; Stop 12/28/17 at 02:08; Status DC Piperacillin Sod/ Tazobactam Sod 100 ml @ 200 mls/hr Q6H IV Last administered on 12/11/17at 15:37; Start 12/04/17 at 16:00; Stop 12/11/17 at 16:10; Status DC Polyethylene Glycol (Miralax) 17 gm BID PO Last administered on 12/14/17at 09:03 ; Start 12/04/17 at 21:00; Stop 12/15/17 at 16:16; Status DC Potassium Phosphate (K-Phos) 2,000 mg UNSCH PRN PO/TUBE SEE LABEL COMMENTS; Start 12/23/17 at 11:00; Stop 12/26/17 at 13:35; Status DC Potassium Phosphate 30 mmol/ Sodium Chloride 260 ml @ 43.333 mls/ hr ONCE ONCE IV Last administered on 12/27/17at 06:54; Start 12/27/17 at 07:00; Stop at 12:59; Status DC Potassium Bicarb/ Potassium Chloride (K-Lyte Cl Eff) 50 meq ONCE ONCE PO Last administered on 12/27/17at 19:44; Start 12/27/17 at 19:30; Stop 12/27/17 at 19:31; Status DC Potassium Chloride 100 ml @ 50 mls/hr BOLUS ONCE IV Last administered on 12/27at 19:44; Start 12/27/17 at 19:30; Stop 12/27/17 at 21:29; Status DC Potassium Chloride (KCl) 40 meq ONCE ONCE PO ; Start 12/27/17 at 06:30; Stop at 06:36; Status DC Potassium Phos/ Sodium Phos (K-Phos Neutral) 1,000 mg ONCE ONCE OG-TUBE Last administered on 12/04/17at 10:33; Start 12/04/17 at 09:45; Stop 12/04/17 at 09:59 ; Status DC Propofol 100 ml @ 2.4 mls/hr TITRATE PRN IV SEDATION Last administered on 12/14at 05:49; Start 11/28/17 at 05:45; Stop 12/15/17 at 16:16; Status DC Quetiapine Fumarate (SEROquel) 25 mg BID PO Last administered on 12/28/17at 08: 10; Start 12/27/17 at 21:00 Rocuronium [place] (Zemuron Inj) 100 mg BOLUS ONCE IV Last administered on 12/07at 14:30; Start 12/07/17 at 14:15; Stop 12/07/17 at 14:16; Status DC Senna/Docusate Sodium (Johnna-Colace) 1 tab BID PO Last administered on at 08:10; Start 11/28/17 at 09:00 Sennosides (Senokot) 17.2 mg Q12H PRN PO Moderate constipation; Start 11/28/17 at 05:45 Sodium Chloride 1,000 ml @ 100 mls/hr Q10H IV Last administered on 12/28/17at 08:11; Start 12/22/17 at 22:00 Sodium Chloride (NS Flush) UNSCH PRN IV FLUSH SEE PROTOCOL; Start 12/04/17 at 17:30 Sodium Chloride (Sodium Chloride 3% Neb) 2 ml Q4HR NEB NEB Last administered on 12/07/17at 16:14; Start 12/06/17 at 16:00; Stop 12/07/17 at 16:45; Status DC Sodium Phosphate 30 mmol/Sodium Chloride 250 ml @ 42 mls/hr UNSCH PRN IV For Phosphorus < 2.5 mg/dL; Start 12/23/17 at 11:00; Stop 12/26/17 at 13:35; Status DC Succinylcholine Chloride (Quelicin Inj) 100 mg ONCE ONCE IV PUSH Last administered on 11/28/17at 05:46; Start 11/28/17 at 05:45; Stop 11/28/17 at 05:46 ; Status DC Terbutaline Sulfate (Brethine Inj) 1 mg UNSCH PRN SQ FOR EXTRAVASATION PROTOCOL ; Start 12/22/17 at 22:30 Vancomycin HCl 1000 mg/Sodium Chloride 250 ml @ 250 mls/hr Q12H IV Last administered on 12/11/17at 07:05; Start 12/09/17 at 18:00; Stop 12/11/17 at 09:18; Status DC Vancomycin HCl 1250 mg/Sodium Chloride 262.5 ml @ 250 mls/hr Q24H IV Last administered on 12/23/17at 23:59; Start 12/23/17 at 23:00; Stop 12/24/17 at 13:37 ; Status DC Warfarin Sodium (Coumadin) 4 mg DAILY@1600 PO Last administered on 12/27/17at 15 :55; Start 12/22/17 at 16:00; Status Future hold A/P Problem List: (1) Alcohol use ICD Code: F10.99 - Alcohol use, unspecified with unspecified alcohol-induced disorder Status: Chronic (2) Acute hypoxemic respiratory failure ICD Code: J96.01 - Acute respiratory failure with hypoxia (3) End stage COPD ICD Code: J44.9 - Chronic obstructive pulmonary disease, unspecified (4) MRSA pneumonia ICD Code: J15.212 - Pneumonia due to Methicillin resistant Staphylococcus aureus (5) Dependence on respirator, status ICD Code: Z99.11 - Dependence on respirator [ventilator] status (6) Factor V Leiden ICD Code: D68.51 - Activated protein C resistance Status: Acute (7) Hypertension ICD Code: I10 - Essential (primary) hypertension Status: Acute (8) Alcohol abuse ICD Code: F10.10 - Alcohol abuse, uncomplicated Status: Acute (9) Hepatitis C ICD Code: B19.20 - Unspecified viral hepatitis C without hepatic coma Assessment and Plan Acute metabolic encephalopathy- EtOH abuse/withdrawal History of right frontal CVA Depression/anxiety s/p chlordiazepoxide taper. Acetaminophen 650 mg p.o. every 6 hours as needed fever unlikely to be focal and CVA frequent neuro checks avoid long-acting sedatives psych consulted for paranoia Coronary artery disease Essential hypertension Hyperlipidemia Septic shock hold home antihypertensives. COPD Bilateral lower lobe lung collapse status post bronchoscopy 12/02 Nasal cannula to maintain saturations greater than equal to 92% Incentive spirometry while awake Albuterol/ipratropium aerosols every 4 hours with albuterol aerosols every 2 hours as needed dyspnea Budesonide 0.5/2 1 inhalation twice daily On budesonide/formoterol 160/4.5 2 puffs twice daily at home will continue to taper down the IV steroids. VQ scan low probability for pulmonary embolism Gastroesophageal reflux disease Hepatitis C Hypoalbuminemia/moderate protein calorie malnutrition Elevated AST Famotidine for GI prophylaxis Docusate serum/senna 1 tablet twice daily for bowel regimen. Acute kidney injury- resolved. FER likely secondary to shock. Hyperglycemia Sliding scale insulin with Accu-Cheks to maintain euglycemia while on high-dose steroids Factor V Leiden on chronic anticoagulation Normocytic anemia Leukocytosis Chronic warfarin use History of left lower extremity DVT status post IVC filter on lovenox and coumadin. At home on enoxaparin 80 mg subcu twice daily with warfarin 7.5 mg daily Monitor CBC daily. Along with PT/INR/PTT MRSA pneumonia- resolved Pediculosis capitis MRSA nares new septic shock ESBL/MDRO E. Coli HC-associated CAUTI Vancomycin/Pipracil/tazobactam 12/04 - 12/11 Rocephin 12/11 - 12/14. pertinent cultures 12/07 -sputum from bronchoscopy-MSSA 12/03 -sputum -MRSA 12/03 -blood cultures 2 -no growth Influenza negative d/c vanc, cefepime,flagyl started ertapenem 1gm iv q24h x 7 days ID consulted per protocol. Hypokalemia Replace electrolytes as clinically indicated MSK: Osteoporosis/chronic low back pain PT evaluate and treat Discharge Planning likely hospice- Luis Fatima MD Dec 28, 2017 10:45
[2017-12-28] MEDS ORDERED: PRED5TAB PO (11:02)
[2017-12-28] MEDS ORDERED: POTASSIUM CHLORIDE 10 MEQ CONTROLLED RELEASE TAB PO ONE (15:00)
[2017-12-28] MEDS: ERTAPENEM 1,000 MG/NS 100 ML IV SCH ×2 (15:20)
[2017-12-28] MEDS: WARFARIN SOD 4 MG TAB PO SCH (15:20)
[2017-12-28] MEDS: oxyCODONE/ACETAMINOPHEN 5 MG/325 MG TAB PO PRN (17:52)
[2017-12-29] VITALS (8 sets, daily range): BP systolic 101–162; BP diastolic 59–110; PULSE 78–109; RESP 18–20; TEMP 97.4–98.5; O2SAT 91–98
[2017-12-29] MEDS: CHLORHEXIDINE GLUCONATE 2 % 1 PACK (2 CLOTHS) TOP SCH (04:00)
[2017-12-29] MEDS: SODIUM CHLOR 0.9% 1000 ML INJ 1,000 ML IV SCH ×2 (05:33→14:00)
[2017-12-29] MEDS: HYDROCORTISONE SOD SUCCINATE 100 MG VIAL IV PUSH SCH (05:34)
[2017-12-29] MEDS: ARTIFICIAL TEARS OPTH SOLN 15 ML BTL EACH EYE SCH ×2 (05:35→14:00)
[2017-12-29 06:19] LABS: HEMATOCRIT 30.7 % (35.0-46.0); HEMOGLOBIN 9.9 GM/DL (11.6-15.3); MEAN CELL VOLUME 95.8 FL (80.0-100.0); MEAN CORPUSCULAR HEMOGLOBIN 30.9 PG (27.0-34.0); MEAN CORPUSCULAR HGB CONC 32.3 % (32.0-36.0); MEAN PLATELET VOLUME 8.7 FL (7.0-11.0); PLATELET COUNT 259 TH/MM3 (150-450); RED BLOOD COUNT 3.21 MIL/MM3 (4.00-5.30); RED CELL DISTRIBUTION WIDTH 19.4 % (11.6-17.2); WHITE BLOOD COUNT 5.5 TH/MM3 (4.0-11.0)
[2017-12-29 06:22] LABS: INTERNATIONAL NORMALIZED RATIO 1.8 RATIO; PROTHROMBIN TIME - PATIENT 18.6 SEC (9.8-11.6)
[2017-12-29 06:39] LABS: BICARBONATE 30.1 MEQ/L (21.0-32.0); CREATININE 0.29 MG/DL (0.50-1.00)
[2017-12-29] MEDS: CHLORHEXIDINE 0.12% (ORAL KIT) 15 ML CUP MT SCH (08:00)
[2017-12-29] MEDS: RESP: ALBUTEROL 2.5 MG/3 ML NEB (PRN) NEB (08:39)
[2017-12-29] MEDS: RESP: BUDESONIDE 0.5 MG/2 ML NEB NEB SCH (08:39)
[2017-12-29] MEDS: SODIUM CHLORIDE 0.9% FLUSH 10 ML FLUSH IV FLUSH SCH ×2 (09:00→09:41)
[2017-12-29] MEDS: INSULIN ASPART SUPPLEMENTAL SCALE SQ SCH (09:00)
[2017-12-29] MEDS: NYSTATIN SUSP 500,000 U/5 ML CUP SWISH-SWAL SCH ×3 (09:40→17:52)
[2017-12-29] MEDS: QUEtiapine FUMARATE 25 MG TAB PO SCH (09:40)
[2017-12-29] MEDS: LACTULOSE SYRUP 20 GM/30 ML CUP PO SCH (09:40)
[2017-12-29] MEDS: FAMOTIDINE 20 MG TAB NG SCH (09:40)
[2017-12-29] MEDS: DOCUSATE SODIUM 50 MG/SENNA 8.6 MG TAB PO SCH (09:40)
[2017-12-29] MEDS: aMILoride/HCTZ 5 MG/50 MG TAB PO SCH (09:40)
--- NOTE | 2017-12-29 09:54 | HHI.PR ---
Subjective Remarks in no acute distress. remains afebrile. awaiting hospice admission. d/w the RN and no acute issues over night. Objective Vitals Vital Signs Date Time Temp Pulse Resp B/P (MAP) Pulse Ox O2 Delivery O2 Flow Rate FiO2 12/29/17 08:41 97 Nasal Cannula 2.00 12/29/17 04:32 98.5 78 20 125/77 (93) 98 12/29/17 03:50 83 12/29/17 00:10 97.4 109 18 138/78 (98) 97 12/29/17 00:06 85 12/28/17 21:36 Nasal Cannula 2.00 12/28/17 20:42 97.3 94 18 134/65 (88) 97 12/28/17 20:11 94 Nasal Cannula 2.00 12/28/17 16:00 97.5 95 18 120/80 (93) 94 12/28/17 12:00 97.7 95 16 115/63 (80) 96 I/O 12/28/17 12/28/17 12/28/17 12/29/17 12/29/17 12/29/17 07:00 15:00 23:00 07:00 15:00 23:00 Intake Total 580 ml 2400 ml 1240 ml Output Total 2000 ml 1300 ml 2400 ml Balance -1420 ml 1100 ml -1160 ml Intake Oral 580 ml 1300 ml 240 ml IV Total 1100 ml 1000 ml Output Urine Total 2000 ml 1300 ml 2400 ml # Bowel Movements 1 3 1 Result Diagram: 12/29/17 0554 12/29/17 0554 Objective Remarks GENERAL: This is a well-nourished, well-developed patient, in no apparent distress. CARDIOVASCULAR: Regular rate and regular rhythm without murmurs, gallops, or rubs. RESPIRATORY: Clear to auscultation. Breath sounds equal bilaterally. No wheezes , rales, or rhonchi. GASTROINTESTINAL: Abdomen soft, non-tender, nondistended. Normal, active bowel sounds MUSCULOSKELETAL: Extremities without clubbing, cyanosis, or edema. NEURO: awake and alert. Procedures MULTIPLE BRONCHOSCOPIES Medications and IVs Inpatient Medications Acetaminophen (Tylenol 650 Mg/ 20 ml Liq) 650 mg Q6H PRN PO fever Last administered on 12/25/17at 01:17; Start 12/03/17 at 11:00 Acetaminophen (Tylenol) 650 mg Q6H PRN PO PAIN 1-5 AND/OR FEVER >101F; Start at 05:45; Stop 12/03/17 at 10:51; Status DC Acetaminophen/ Hydrocodone Bitart (Lolo 5-325 Mg) 1 tab ONCE ONCE PO ; Start 11/28/17 at 02:30; Stop 11/28/17 at 02:31; Status DC Acetazolamide Sodium (Diamox Inj) 250 mg ONCE ONCE IV PUSH Last administered on 12/14/17at 12:45; Start 12/14/17 at 12:45; Stop 12/14/17 at 13:22; Status DC Albumin Human 500 ml @ 166.667 mls/hr ONCE ONCE IV Last administered on at 12:03; Start 12/24/17 at 12:00; Stop 12/24/17 at 14:59; Status DC Albuterol Sulfate (Albuterol Neb) 2.5 mg Q2HR NEB PRN NEB dyspnea Last administered on 12/29/17at 08:39; Start 12/03/17 at 11:00 Albuterol/ Ipratropium (Duoneb Neb) 1 ampule Q4HR NEB NEB Last administered on 12/17/17at 19:59; Start 12/14/17 at 00:00; Stop 12/17/17 at 23:59; Status DC Alprazolam (Xanax) 0.25 mg Q8H PRN PO ANXIETY Last administered on 12/28/17at 17 :46; Start 12/25/17 at 16:30 Amiloride/HCTZ (Moduretic 5-50 Mg) 1 tab DAILY PO Last administered on at 09:40; Start 12/04/17 at 09:00 Artificial Tears (Tears Naturale Opth Soln) 1 drop Q8HR EACH EYE Last administered on 12/29/17at 05:35; Start 12/03/17 at 14:00 Bisacodyl (Dulcolax Supp) 10 mg DAILY PRN RECTAL SEVERE CONSITIPATION; Start at 05:45 Budesonide (Pulmicort Respule Neb) 0.5 mg Q12HR NEB NEB Last administered on at 08:39; Start 12/03/17 at 20:00 Cefepime HCl 2000 mg/Sodium Chloride 100 ml @ 200 mls/hr Q8H IV Last administered on 12/24/17at 09:33; Start 12/23/17 at 09:00; Stop 12/24/17 at 13:37 ; Status DC Ceftriaxone Sodium 1000 mg/ Sodium Chloride 100 ml @ 200 mls/hr ONCE ONCE IV Last administered on 11/28/17at 05:56; Start 11/28/17 at 05:15; Stop 11/28/17 at 05:44; Status DC Ceftriaxone Sodium 2000 mg/ Sodium Chloride 100 ml @ 200 mls/hr Q24H IV Last administered on 12/13/17at 18:53; Start 12/11/17 at 17:00; Stop 12/14/17 at 16:59; Status DC Chlordiazepoxide (Librium) 25 mg Taper DAILY PO Last administered on 12/11/17at 09:12; Start 12/10/17 at 01:00; Stop 12/12/17 at 00:59; Status DC Chlorhexidine Gluconate (Chlorhexidine 2% Cloth) 3 pack UNSCH PRN TOP HYGIENIC CARE; Start 11/28/17 at 05:45; Stop 12/28/17 at 02:08; Status DC Chlorhexidine Gluconate (Peridex 0.12% Liq) 15 ml BID@08,20 MT Last administered on 12/29/17at 08:00; Start 11/28/17 at 08:00 Dexmedetomidine HCl (Precedex Inj) 38 mcg ONCE ONCE IV PUSH ; Start 11/30/17 at 08:30; Stop 11/30/17 at 08:31; Status DC Dexmedetomidine HCl 1000 mcg/ Sodium Chloride 250 ml @ 3.78 mls/hr TITRATE PRN IV SEDATION Last administered on 12/03/17at 09:31; Start 12/02/17 at 19:30; Stop 12/15/17 at 16:16; Status DC Dexmedetomidine HCl 200 mcg/ Sodium Chloride 52 ml @ 3.93 mls/hr TITRATE PRN IV SEDATION Last administered on 12/02/17at 16:55; Start 11/30/17 at 08:30; Stop 12/02/17 at 19:21; Status DC Dextrose (D50w (Vial) Inj) 50 ml UNSCH PRN IV PUSH HYPOGLYCEMIA-SEE COMMENTS; Start 12/04/17 at 08:30; Stop 12/04/17 at 09:30; Status DC Enoxaparin Sodium (Lovenox Inj) 40 mg Q24H SQ Last administered on 12/22/17at 10 :28; Start 12/21/17 at 12:00; Stop 12/22/17 at 14:36; Status DC Epoprostenol Sodium 50 ml/ Sodium Chloride 100 ml @ 5 mls/hr Q8H NEB Last administered on 12/11/17at 15:37; Start 12/10/17 at 16:00; Stop 12/11/17 at 16:10; Status DC Epoprostenol Sodium 62.5 ml/ Sodium Chloride 100 ml @ 5 mls/hr Q8H NEB Last administered on 12/10/17at 08:20; Start 12/03/17 at 17:00; Stop 12/10/17 at 12:46; Status DC Ertapenem 1000 mg/ Sodium Chloride 100 ml @ 200 mls/hr Q24H IV Last administered on 12/28/17at 15:20; Start 12/24/17 at 15:00; Stop 12/30/17 at 15:29 Etomidate (Amidate Inj) 40 mg ONCE ONCE IV PUSH Last administered on 12/07/17at 14:27; Start 12/07/17 at 14:15; Stop 12/07/17 at 14:16; Status DC Famotidine (Pepcid Inj) 20 mg Q12HR IV PUSH Last administered on 12/03/17at 07: 56; Start 12/02/17 at 21:00; Stop 12/03/17 at 10:43; Status DC Famotidine (Pepcid) 20 mg BID NG Last administered on 12/29/17at 09:40; Start at 21:00 Fentanyl Citrate 250 ml @ 5 mls/hr TITRATE PRN IV SEDATION Last administered on 12/13/17at 02:30; Start 11/28/17 at 05:45; Stop 12/18/17 at 07:22; Status DC Furosemide (Lasix Inj) 40 mg ONCE ONCE IV PUSH Last administered on 12/14/17at 12:45; Start 12/14/17 at 12:45; Stop 12/14/17 at 13:22; Status DC Glucagon (Glucagon Inj) 1 mg UNSCH PRN OTHER HYPOGLYCEMIA-SEE COMMENTS; Start 12/04/17 at 08:30; Stop 12/04/17 at 09:32; Status DC Guaifenesin (Robitussin Liq) 400 mg Q8HR NG Last administered on 12/13/17at 06:15 ; Start 12/06/17 at 14:00; Stop 12/13/17 at 13:59; Status DC Heparin Sodium (Porcine) (Heparin Inj) 5,000 units Q12HR SQ ; Start 12/03/17 at 21:00; Stop 12/03/17 at 21:00; Status DC Heparin Sodium/ Dextrose 250 ml @ 15 mls/hr TITRATE PRN IV Coagulation Management Last administered on 12/18/17at 04:02; Start 12/08/17 at 15:30; Stop at 09:29; Status DC Hydrocortisone Sodium Succinate (SoluCORTEF INJ) 50 mg Q12H IV PUSH Last administered on 12/29/17at 05:34; Start 12/27/17 at 17:00 Hydromorphone HCl (Dilaudid Pf Inj) 1 mg Q4H PRN IV PUSH PAIN SCALE 6 TO 10 Last administered on 12/17/17at 12:11; Start 12/17/17 at 07:45; Stop 12/22/17 at 21:19; Status DC Insulin Aspart (NovoLOG SUPPLEMENTAL SCALE) 1 BID SQ Last administered on at 09:00; Start 12/26/17 at 09:00 Insulin Human Regular (NovoLIN R SUPPLEMENTAL SCALE) 1 Q6HR SQ Last administered on 12/04/17at 05:56; Start 12/03/17 at 12:00; Stop 12/04/17 at 09:31 ; Status DC Ketorolac Tromethamine (Toradol Inj) 30 mg ONCE ONCE IV PUSH Last administered on 11/28/17at 03:55; Start 11/28/17 at 04:00; Stop 11/28/17 at 04:01 ; Status DC Lactulose (Lactulose Liq) 30 ml BID PO Last administered on 12/29/17at 09:40; Start 12/08/17 at 09:00 Levofloxacin (Levaquin Liq) 500 mg DAILY NG Last administered on 12/09/17at 09: 00; Start 11/29/17 at 10:30; Stop 12/09/17 at 10:29; Status DC Lisinopril (Prinivil) 5 mg DAILY PO Last administered on 12/22/17at 13:59; Start 12/22/17 at 14:00; Status Future Hold Lorazepam (Ativan Inj) 0.5 mg ONCE ONCE IV PUSH Last administered on at 03:55; Start 11/28/17 at 04:00; Stop 11/28/17 at 04:01; Status DC Magnesium Hydroxide (Milk Of Magnesia Liq) 30 ml Q12H PRN PO Mild constipation Last administered on 12/13/17at 20:21; Start 11/28/17 at 05:45 Magnesium Oxide (Mag-Ox) 800 mg UNSCH PRN PO For Magnesium 1.2 - 1.6 mg/dL; Start 12/23/17 at 11:00; Stop 12/26/17 at 13:35; Status DC Magnesium Sulfate 2 gm/Sodium Chloride 100 ml @ 50 mls/hr UNSCH PRN IV For Magnesium 1.2 - 1.6 mg/dL; Start 12/23/17 at 11:00; Stop 12/26/17 at 13:35; Status DC Magnesium Sulfate 4 gm/Sodium Chloride 100 ml @ 50 mls/hr UNSCH PRN IV For Magnesium 0.9 - 1.1 mg/dL; Start 12/23/17 at 11:00; Stop 12/26/17 at 13:35; Status DC Methylprednisolone Sodium Succinate (SoluMEDROL INJ) 40 mg DAILY IV PUSH Last administered on 12/22/17at 10:05; Start 12/16/17 at 09:00; Stop 12/22/17 at 21:19 ; Status DC Metronidazole 100 ml @ 100 mls/hr Q6H IV Last administered on 12/24/17at 13:04 ; Start 12/22/17 at 23:00; Stop 12/24/17 at 13:37; Status DC Midazolam HCl (Versed Inj) 2 mg Q1H PRN IV PUSH SEDATION Last administered on at 00:54; Start 11/28/17 at 05:45; Stop 12/15/17 at 16:16; Status DC Mineral Oil (Kondremul Liq) 30 ml ONCE ONCE PO Last administered on 12/04/17at 11:22; Start 12/04/17 at 09:45; Stop 12/04/17 at 09:59; Status DC Miscellaneous Information ([facility]) 1 Q361D XX Last administered on 11/28/17at 08:30; Start 11/28/17 at 05:45 Miscellaneous Information ([facility] Ordered Lab Info) SPECIFIC LAB TO BE DRAWN:VANCO TROUGH DATE TO BE DR... ONCE ONCE .XX ; Start 12/25/17 at 22:45; Stop 12/25/17 at 22:45; Status DC Miscellaneous Medication (ASP Crit: Doc ESBL, MDR A baumannii or P aer) 1 UNSCH ONCE .XX Last administered on 12/24/17at 13:45; Start 12/24/17 at 13:45; Stop 12/24/17 at 13:46; Status DC Morphine Sulfate (Morphine Inj) 2 mg ONCE ONCE IV PUSH ; Start 11/28/17 at 04: 15; Stop 11/28/17 at 04:16; Status DC Mupirocin (Bactroban Nasal 2% Oint) 1 applic Taper BID EACH NARE Last administered on 12/27/17at 19:44; Start 12/04/17 at 21:00; Stop 12/28/17 at 02:08 ; Status DC Naloxone HCl (Narcan Inj) 2 mg ONCE ONCE IV PUSH Last administered on at 05:37; Start 11/28/17 at 04:45; Stop 11/28/17 at 04:46; Status DC Norepinephrine Bitartrate 4 mg/ Sodium Chloride 250 ml @ 7.5 mls/hr TITRATE PRN IV Blood pressure management Last administered on 12/10/17at 07:00; Start at 15:30; Stop 12/15/17 at 16:16; Status DC Nystatin (Mycostatin Liq) 5 ml QID SWISH-SWAL Last administered on 12/29/17at 09:40; Start 12/19/17 at 13:00 Ondansetron HCl (Zofran Odt) 4 mg Q6H PRN PO NAUSEA OR VOMITING; Start at 05:45 Oxycodone/ Acetaminophen (Percocet 5-325 Mg) 1 tab Q6H PRN PO PAIN 3 TO 5 Last administered on 12/28/17at 17:52; Start 12/25/17 at 16:15 Oxycodone/ Acetaminophen (Percocet 10-325 Mg) 1 tab Q6H PRN PO PAIN 6-10 Last administered on 12/28/17at 08:25; Start 12/25/17 at 16:15 Patient Medication Teaching (Coumadin Booklet) 1 ONCE ONCE .XX Last administered on 12/01/17at 16:00; Start 12/01/17 at 16:00; Stop 12/01/17 at 16:01 ; Status DC Permethrin (Elimite 5% Cream) 1 applic ONCE ONCE TOPICAL Last administered on 12/20/17at 05:30; Start 12/20/17 at 06:00; Stop 12/20/17 at 06:01; Status DC Permethrin (Nix Creme Rinse 1% Lotion) 1 applic ONCE ONCE TOPICAL Last administered on 12/28/17at 02:57; Start 12/28/17 at 02:15; Stop 12/28/17 at 02:16 ; Status DC Pharmacy Profile Note 0 ml @ 0 mls/hr UNSCH OTHER ; Start 12/22/17 at 21:15; Stop 12/24/17 at 13:37; Status DC Phenylephrine HCl 40 mg/Dextrose 500 ml @ 30 mls/hr TITRATE PRN IV Blood Pressure Management Last administered on 12/24/17at 00:31; Start 12/22/17 at 22: 30; Stop 12/28/17 at 02:08; Status DC Piperacillin Sod/ Tazobactam Sod 100 ml @ 200 mls/hr Q6H IV Last administered on 12/11/17at 15:37; Start 12/04/17 at 16:00; Stop 12/11/17 at 16:10; Status DC Polyethylene Glycol (Miralax) 17 gm BID PO Last administered on 12/14/17at 09:03 ; Start 12/04/17 at 21:00; Stop 12/15/17 at 16:16; Status DC Potassium Phosphate (K-Phos) 2,000 mg UNSCH PRN PO/TUBE SEE LABEL COMMENTS; Start 12/23/17 at 11:00; Stop 12/26/17 at 13:35; Status DC Potassium Phosphate 30 mmol/ Sodium Chloride 260 ml @ 43.333 mls/ hr ONCE ONCE IV Last administered on 12/27/17at 06:54; Start 12/27/17 at 07:00; Stop at 12:59; Status DC Potassium Bicarb/ Potassium Chloride (K-Lyte Cl Eff) 50 meq ONCE ONCE PO Last administered on 12/27/17at 19:44; Start 12/27/17 at 19:30; Stop 12/27/17 at 19:31; Status DC Potassium Chloride (KCl) 40 meq ONCE ONCE PO Last administered on 12/28/17at 15 :20; Start 12/28/17 at 15:00; Stop 12/28/17 at 15:01; Status DC Potassium Phos/ Sodium Phos (K-Phos Neutral) 1,000 mg ONCE ONCE OG-TUBE Last administered on 12/04/17at 10:33; Start 12/04/17 at 09:45; Stop 12/04/17 at 09:59 ; Status DC Propofol 100 ml @ 2.4 mls/hr TITRATE PRN IV SEDATION Last administered on 12/14 05:49; Start 11/28/17 at 05:45; Stop 12/15/17 at 16:16; Status DC Quetiapine Fumarate (SEROquel) 25 mg BID PO Last administered on 12/29/17 09: 40; Start 12/27/17 at 21:00 Rocuronium [place] (Zemuron Inj) 100 mg BOLUS ONCE IV Last administered on 12/07 14:30; Start 12/07/17 at 14:15; Stop 12/07/17 at 14:16; Status DC Senna/Docusate Sodium (Johnna-Colace) 1 tab BID PO Last administered on at 09:40; Start 11/28/17 at 09:00 Sennosides (Senokot) 17.2 mg Q12H PRN PO Moderate constipation; Start 11/28/17 at 05:45 Sodium Chloride 1,000 ml @ 100 mls/hr Q10H IV Last administered on 12/29/17at 05:33; Start 12/22/17 at 22:00 Sodium Chloride (NS Flush) UNSCH PRN IV FLUSH SEE PROTOCOL; Start 12/04/17 at 17:30 Sodium Chloride (Sodium Chloride 3% Neb) 2 ml Q4HR NEB NEB Last administered on 12/07/17at 16:14; Start 12/06/17 at 16:00; Stop 12/07/17 at 16:45; Status DC Sodium Phosphate 30 mmol/Sodium Chloride 250 ml @ 42 mls/hr UNSCH PRN IV For Phosphorus < 2.5 mg/dL; Start 12/23/17 at 11:00; Stop 12/26/17 at 13:35; Status DC Succinylcholine Chloride (Quelicin Inj) 100 mg ONCE ONCE IV PUSH Last administered on 11/28/17at 05:46; Start 11/28/17 at 05:45; Stop 11/28/17 at 05:46 ; Status DC Terbutaline Sulfate (Brethine Inj) 1 mg UNSCH PRN SQ FOR EXTRAVASATION PROTOCOL ; Start 12/22/17 at 22:30 Vancomycin HCl 1000 mg/Sodium Chloride 250 ml @ 250 mls/hr Q12H IV Last administered on 12/11/17at 07:05; Start 12/09/17 at 18:00; Stop 12/11/17 at 09:18; Status DC Vancomycin HCl 1250 mg/Sodium Chloride 262.5 ml @ 250 mls/hr Q24H IV Last administered on 12/23/17at 23:59; Start 12/23/17 at 23:00; Stop 12/24/17 at 13:37 ; Status DC Warfarin Sodium (Coumadin) 4 mg DAILY@1600 PO Last administered on 12/28/17at 15 :20; Start 12/22/17 at 16:00; Status Future hold A/P Problem List: (1) Alcohol use ICD Code: F10.99 - Alcohol use, unspecified with unspecified alcohol-induced disorder Status: Chronic (2) Acute hypoxemic respiratory failure ICD Code: J96.01 - Acute respiratory failure with hypoxia (3) End stage COPD ICD Code: J44.9 - Chronic obstructive pulmonary disease, unspecified (4) MRSA pneumonia ICD Code: J15.212 - Pneumonia due to Methicillin resistant Staphylococcus aureus (5) Dependence on respirator, status ICD Code: Z99.11 - Dependence on respirator [ventilator] status (6) Factor V Leiden ICD Code: D68.51 - Activated protein C resistance Status: Acute (7) Hypertension ICD Code: I10 - Essential (primary) hypertension Status: Acute (8) Alcohol abuse ICD Code: F10.10 - Alcohol abuse, uncomplicated Status: Acute (9) Hepatitis C ICD Code: B19.20 - Unspecified viral hepatitis C without hepatic coma Assessment and Plan Acute metabolic encephalopathy- EtOH abuse/withdrawal History of right frontal CVA Depression/anxiety s/p chlordiazepoxide taper. Acetaminophen 650 mg p.o. every 6 hours as needed fever unlikely to be focal and CVA avoid long-acting sedatives psych consult appreciated and started on Seroquel. Coronary artery disease Essential hypertension Hyperlipidemia Septic shock hold home antihypertensives. COPD Bilateral lower lobe lung collapse status post bronchoscopy 12/02 Nasal cannula to maintain saturations greater than equal to 92% Incentive spirometry while awake Albuterol/ipratropium aerosols every 4 hours with albuterol aerosols every 2 hours as needed dyspnea Budesonide 0.5/2 1 inhalation twice daily On budesonide/formoterol 160/4.5 2 puffs twice daily at home will continue to taper down the IV steroids. VQ scan low probability for pulmonary embolism Gastroesophageal reflux disease Hepatitis C Hypoalbuminemia/moderate protein calorie malnutrition Elevated AST Famotidine for GI prophylaxis Docusate serum/senna 1 tablet twice daily for bowel regimen. Acute kidney injury- resolved. FER likely secondary to shock. Hyperglycemia Sliding scale insulin with Accu-Cheks to maintain euglycemia while on high-dose steroids Factor V Leiden on chronic anticoagulation Normocytic anemia Leukocytosis Chronic warfarin use History of left lower extremity DVT status post IVC filter on lovenox and coumadin. At home on enoxaparin 80 mg subcu twice daily with warfarin 7.5 mg daily Monitor CBC daily. Along with PT/INR/PTT MRSA pneumonia- resolved Pediculosis capitis MRSA nares new septic shock ESBL/MDRO E. Coli HC-associated CAUTI Vancomycin/Pipracil/tazobactam 12/04 - 12/11 Rocephin 12/11 - 12/14. pertinent cultures 12/07 -sputum from bronchoscopy-MSSA 12/03 -sputum -MRSA 12/03 -blood cultures 2 -no growth Influenza negative d/c vanc, cefepime,flagyl started ertapenem 1gm iv q24h x 7 days ID consulted per protocol. Hypokalemia Replace electrolytes as clinically indicated MSK: Osteoporosis/chronic low back pain PT evaluate and treat Discharge Planning likely hospice; awaiting the signed consent to be received from Luis Jones MD Dec 29, 2017 09:54
[2017-12-29] MEDS ORDERED: SERO25TA PO (09:58)
[2017-12-29] MEDS: ERTAPENEM 1,000 MG/NS 100 ML IV SCH ×2 (15:10)
[2017-12-29] MEDS: WARFARIN SOD 4 MG TAB PO SCH (15:10)
--- NOTE | 2017-12-29 17:01 | HHI.DS ---
Discharge Summary Admission Date November 28, 2017 at 05:13 Discharge Date: Dec 29, 2017 Admitting Diagnosis resp failure ventilatory failure (1) Alcohol use ICD Code: F10.99 - Alcohol use, unspecified with unspecified alcohol-induced disorder Diagnosis: Secondary Status: Chronic (2) Acute hypoxemic respiratory failure ICD Code: J96.01 - Acute respiratory failure with hypoxia Diagnosis: Principal (3) End stage COPD ICD Code: J44.9 - Chronic obstructive pulmonary disease, unspecified Diagnosis: Principal (4) MRSA pneumonia ICD Code: J15.212 - Pneumonia due to Methicillin resistant Staphylococcus aureus Diagnosis: Principal (5) Factor V Leiden ICD Code: D68.51 - Activated protein C resistance Diagnosis: Secondary Status: Acute (6) Hypertension ICD Code: I10 - Essential (primary) hypertension Diagnosis: Secondary Status: Acute (7) Alcohol abuse ICD Code: F10.10 - Alcohol abuse, uncomplicated Diagnosis: Secondary Status: Acute (8) Hepatitis C ICD Code: B19.20 - Unspecified viral hepatitis C without hepatic coma Diagnosis: Secondary Procedures MULTIPLE BRONCHOSCOPIES Brief History - From Admission 57-year-old female who presented to emergency department complaining of SOB and coughing. She has also complained of severe left back rib area pain. In the emergency department she was desaturating to 80s on room air and 88 on 2 L nasal cannula. She was intubated by ED attending for an acute hypoxemic respiratory failure. She was intubated by ED attending. She is on Coumadin/ Lovenox 1 mg/kg every 12 hours for factor V Leiden mutation. Her INR is subtherapeutic. CBC/BMP: 12/29/17 0554 12/29/17 0554 Significant Findings Laboratory Tests Test 12/27/17 05:15 12/27/17 13:54 12/28/17 05:46 12/29/17 05:54 Red Blood Count 3.39 MIL/MM3 (4.00-5.30) 3.25 MIL/MM3 (4.00-5.30) 3.21 MIL/MM3 (4.00-5.30) Hemoglobin 10.5 GM/DL (11.6-15.3) 10.2 GM/DL (11.6-15.3) 9.9 GM/DL (11.6-15.3) Hematocrit 32.0 % (35.0-46.0) 31.0 % (35.0-46.0) 30.7 % (35.0-46.0) Red Cell Distribution Width 19.1 % (11.6-17.2) 19.4 % (11.6-17.2) 19.4 % (11.6-17.2) Neutrophils (%) (Auto) 83.0 % (16.0-70.0) Lymphocytes # (Auto) 0.6 TH/MM3 (1.0-4.8) Prothrombin Time 16.7 SEC (9.8-11.6) 17.6 SEC (9.8-11.6) 18.6 SEC (9.8-11.6) Creatinine 0.40 MG/DL (0.50-1.00) 0.45 MG/DL (0.50-1.00) 0.29 MG/DL (0.50-1.00) Random Glucose 125 MG/DL (74-106) 122 MG/DL (74-106) Total Protein 5.8 GM/DL (6.4-8.2) Albumin 2.9 GM/DL (3.4-5.0) Calcium Level 8.0 MG/DL (8.5-10.1) 8.2 MG/DL (8.5-10.1) 8.0 MG/DL (8.5-10.1) Phosphorus Level 2.0 MG/DL (2.5-4.9) Aspartate Amino Transf (AST/SGOT) 81 U/L (15-37) Alanine Aminotransferase (ALT/SGPT) 240 U/L (10-53) Potassium Level 2.4 MEQ/L (3.5-5.1) 2.6 MEQ/L (3.5-5.1) 3.1 MEQ/L (3.5-5.1) Blood Urea Nitrogen 6 MG/DL (7-18) 4 MG/DL (7-18) Imaging Last Impressions Head CT 12/22/17 0000 Signed Impressions: CONCLUSION: Stable postsurgical encephalomalacia on the left. No acute findings. No evidenc e for recent infarct or hemorrhage. Findings called to Dr. Rodrigues at the time of dictation. Chest X-Ray 12/11/17 0600 Signed Impressions: CONCLUSION: Support apparatus unchanged. Improved right basilar airspace disease since December 08. Lower Extremity Ultrasound 12/03/17 Signed Impressions: CONCLUSION: 1. The study is negative for bilateral lower extremity deep venous thrombosis. Ribs X-Ray 11/28/17 Signed Impressions: CONCLUSION: Deformities at the anterior lateral left ninth and 10th ribs prior fracture. Lung Scan-VQ Nuclear Medicine 11/28/17 Signed Impressions: CONCLUSION: Low probability scan for pulmonary embolism PE at Discharge GENERAL: This is a well-nourished, well-developed patient, in no apparent distress. CARDIOVASCULAR: Regular rate and regular rhythm without murmurs, gallops, or rubs. RESPIRATORY: Clear to auscultation. Breath sounds equal bilaterally. No wheezes , rales, or rhonchi. GASTROINTESTINAL: Abdomen soft, non-tender, nondistended. Normal, active bowel sounds MUSCULOSKELETAL: Extremities without clubbing, cyanosis, or edema. NEURO: awake and alert. Hospital Course Acute metabolic encephalopathy- EtOH abuse/withdrawal History of right frontal CVA Depression/anxiety s/p chlordiazepoxide taper. Acetaminophen 650 mg p.o. every 6 hours as needed fever unlikely to be focal and CVA avoid long-acting sedatives psych consult appreciated and started on Seroquel. Coronary artery disease Essential hypertension Hyperlipidemia Septic shock hold home antihypertensives. COPD Bilateral lower lobe lung collapse status post bronchoscopy 12/02 Nasal cannula to maintain saturations greater than equal to 92% Incentive spirometry while awake Albuterol/ipratropium aerosols every 4 hours with albuterol aerosols every 2 hours as needed dyspnea Budesonide 0.5/2 1 inhalation twice daily On budesonide/formoterol 160/4.5 2 puffs twice daily at home will continue to taper down the IV steroids. VQ scan low probability for pulmonary embolism Gastroesophageal reflux disease Hepatitis C Hypoalbuminemia/moderate protein calorie malnutrition Elevated AST Famotidine for GI prophylaxis Docusate serum/senna 1 tablet twice daily for bowel regimen. Acute kidney injury- resolved. FER likely secondary to shock. Hyperglycemia Sliding scale insulin with Accu-Cheks to maintain euglycemia while on high-dose steroids Factor V Leiden on chronic anticoagulation Normocytic anemia Leukocytosis Chronic warfarin use History of left lower extremity DVT status post IVC filter on lovenox and coumadin. At home on enoxaparin 80 mg subcu twice daily with warfarin 7.5 mg daily Monitor CBC daily. Along with PT/INR/PTT MRSA pneumonia- resolved Pediculosis capitis MRSA nares new septic shock ESBL/MDRO E. Coli HC-associated CAUTI Vancomycin/Pipracil/tazobactam 12/04 - 12/11 Rocephin 12/11 - 12/14. pertinent cultures 12/07 -sputum from bronchoscopy-MSSA 12/03 -sputum -MRSA 12/03 -blood cultures 2 -no growth Influenza negative d/c vanc, cefepime,flagyl started ertapenem 1gm iv q24h x 7 days ID consulted per protocol. Hypokalemia Replace electrolytes as clinically indicated MSK: Osteoporosis/chronic low back pain Pt Condition on Discharge: Guarded Discharge Disposition: Hospice/Med Facility Discharge Time: <= 30 minutes Discharge Instructions DIET: Follow Instructions for: Diabetic Diet Speech Therapy-Diet Recommends: Pureed Activities you can perform: Regular-No Restrictions Luis Fatima MD Dec 29, 2017 17:01
[2017-12-30] MEDS ORDERED: HYDROCORTISONE SOD SUCCINATE 100 MG VIAL IV PUSH SCH (09:00)
== END 2017-12-29 20:00 | disposition hospice, inpatient (51) | DRG 166 ==
LOC: NEPE 01:44 → NEDA 05:13 → N03A 07:34 → N05A 12-17 16:30 → N03B 12-22 18:57 → N07B 12-26 13:23
PROVIDERS: ADMIT Internal Medicine; ATTEND Internal Medicine
PROC: 0T9B70Z Drainage of Bladder with Drainage Device, Via Natural or Artificial Opening (ICD-10-PCS; principal; 2017-11-28)
PROC: 5A1955Z Respiratory Ventilation, Greater than 96 Consecutive Hours (ICD-10-PCS; 2017-11-28)
PROC: 0BH17EZ Insertion of Endotracheal Airway into Trachea, Via Natural or Artificial Opening (ICD-10-PCS; 2017-11-28)
PROC: 0BC68ZZ Extirpation of Matter from Right Lower Lobe Bronchus, Via Natural or Artificial Opening Endoscopic (ICD-10-PCS; 2017-12-02)
PROC: 0BC58ZZ Extirpation of Matter from Right Middle Lobe Bronchus, Via Natural or Artificial Opening Endoscopic (ICD-10-PCS; 2017-12-02)
PROC: 0BC38ZZ Extirpation of Matter from Right Main Bronchus, Via Natural or Artificial Opening Endoscopic (ICD-10-PCS; 2017-12-02)
PROC: 03HY32Z Insertion of Monitoring Device into Upper Artery, Percutaneous Approach (ICD-10-PCS; 2017-12-03)
PROC: 4A133J1 Monitoring of Arterial Pulse, Peripheral, Percutaneous Approach (ICD-10-PCS; 2017-12-03)
PROC: 4A133B1 Monitoring of Arterial Pressure, Peripheral, Percutaneous Approach (ICD-10-PCS; 2017-12-03)
PROC: 02HV33Z Insertion of Infusion Device into Superior Vena Cava, Percutaneous Approach (ICD-10-PCS; 2017-12-04)
PROC: 0B9J8ZZ Drainage of Left Lower Lung Lobe, Via Natural or Artificial Opening Endoscopic (ICD-10-PCS; 2017-12-07)
PROC: 0B9C8ZZ Drainage of Right Upper Lung Lobe, Via Natural or Artificial Opening Endoscopic (ICD-10-PCS; 2017-12-07)
PROC: 0B9G8ZZ Drainage of Left Upper Lung Lobe, Via Natural or Artificial Opening Endoscopic (ICD-10-PCS; 2017-12-07)
PROC: 0B9D8ZZ Drainage of Right Middle Lung Lobe, Via Natural or Artificial Opening Endoscopic (ICD-10-PCS; 2017-12-07)
PROC: 0B9H8ZZ Drainage of Lung Lingula, Via Natural or Artificial Opening Endoscopic (ICD-10-PCS; 2017-12-07)
PROC: 0B9F8ZZ Drainage of Right Lower Lung Lobe, Via Natural or Artificial Opening Endoscopic (ICD-10-PCS; 2017-12-07)
PROC: 0T9B70Z Drainage of Bladder with Drainage Device, Via Natural or Artificial Opening (ICD-10-PCS; 2017-12-11)
DX: J96.01 Acute respiratory failure with hypoxia (principal); R65.21 Severe sepsis with septic shock; G93.41 Metabolic encephalopathy; J15.212 Pneumonia due to Methicillin resistant Staphylococcus aureus; A41.9 Sepsis, unspecified organism; Z99.11 Dependence on respirator [ventilator] status; N17.9 Acute kidney failure, unspecified; J44.0 Chronic obstructive pulmonary disease with (acute) lower respiratory infection; D68.51 Activated protein C resistance; J44.1 Chronic obstructive pulmonary disease with (acute) exacerbation; T17.890A Other foreign object in other parts of respiratory tract causing asphyxiation, initial encounter; E44.0 Moderate protein-calorie malnutrition; D68.2 Hereditary deficiency of other clotting factors; E87.2 Acidosis; J98.11 Atelectasis; F10.239 Alcohol dependence with withdrawal, unspecified; F10.99 Alcohol use, unspecified with unspecified alcohol-induced disorder; F05 Delirium due to known physiological condition; N39.0 Urinary tract infection, site not specified; T83.518A Infection and inflammatory reaction due to other urinary catheter, initial encounter; F17.210 Nicotine dependence, cigarettes, uncomplicated; Z79.01 Long term (current) use of anticoagulants; M19.90 Unspecified osteoarthritis, unspecified site; F41.9 Anxiety disorder, unspecified; I10 Essential (primary) hypertension; Z86.73 Personal history of transient ischemic attack (TIA), and cerebral infarction without residual deficits; I25.10 Atherosclerotic heart disease of native coronary artery without angina pectoris; K21.9 Gastro-esophageal reflux disease without esophagitis; B19.20 Unspecified viral hepatitis C without hepatic coma; G89.29 Other chronic pain; M54.5 Low back pain; Z96.649 Presence of unspecified artificial hip joint; Z51.5 Encounter for palliative care; E78.5 Hyperlipidemia, unspecified; D64.9 Anemia, unspecified; Z86.718 Personal history of other venous thrombosis and embolism; M81.0 Age-related osteoporosis without current pathological fracture; B85.0 Pediculosis due to Pediculus humanus capitis; R73.9 Hyperglycemia, unspecified; Y84.6 Urinary catheterization as the cause of abnormal reaction of the patient, or of later complication, without mention of misadventure at the time of the procedure; Z66 Do not resuscitate; Z88.8 Allergy status to other drugs, medicaments and biological substances; B96.20 Unspecified Escherichia coli [E. coli] as the cause of diseases classified elsewhere; I27.20 Pulmonary hypertension, unspecified; E87.6 Hypokalemia; M25.571 Pain in right ankle and joints of right foot; G93.89 Other specified disorders of brain; F32.9 Major depressive disorder, single episode, unspecified
CPT/HCPCS: 31500; 31624; 36556; 36600; 51702; 70450; 71045; 71100; 76937; 78582; 80048; 80053; 80076; 80202; 81001; 82140; 82550; 82805; 82948; 83036; 83605; 83690; 83735; 84100; 84132; 84134; 84439; 84443; 84484; 84702; 85007; 85025; 85027; 85384; 85610; 85730; 86403; 86850; 86900; 86901; 87015; 87040; 87070; 87077; 87086; 87102; 87116; 87147; 87186; 87205; 87206; 87641; 87804; 88112; 89051; 93005; 93306; 93970; 94002; 94003; 94150; 94640; 94664; 94667; 94668; 94799; 96374; 96375; A9540; A9567; J0330; J0692; J0696; J1120; J1170; J1325; J1335; J1644; J1650; J1720; J1815; J1885; J1940; J2060; J2250; J2270; J2310; J2370; J2543; J2920; J2930; J3010; J3370; J3480; J7030; J7050; J7060; J7613; J7626; P9045; P9047